=== PATIENT | female | born 1975 | race Caucasian/White ===

== ENCOUNTER → 2017-12-29 02:50 | Outpatient (RCR) | payer BC, SELFPAY ==
[2017-12-01] MEDS: Normal Saline Flush 10 ML SYR IVP (09:25)
[2017-12-01 09:36] LABS: Abs Immature Grans 0.03 k/cumm (0.0-0.09); Absolute Basophil Count 0.06 k/cumm (0.0-0.2); Absolute Eosinophil Count 0.27 k/cumm (0.0-0.7); Absolute Lymphocyte Count 1.38 k/cumm (1.2-3.4); Absolute Monocyte Count 0.69 k/cumm (0.11-0.7); Absolute Neutrophil Count 3.57 k/cumm (1.2-6.7); Eosinophils % 4.5; HCT 35.8 % (36.0-46.0); HGB 11.5 g/dL (12.0-15.5); Immature Grans % 0.5; Mean Corp. HGB Concentration 32.1 g/dL (32.0-36.0); Mean Corpuscular Hemoglobin 31.9 pg (27.0-33.0); Mean Corpuscular Volume 99.4 fL (80-95); Mean Platelet Volume 11.2 fL (8.0-11.0); Monocytes % 11.5; Neutrophils % 59.5; Platelet Count 191 x1000/uL (130-400); RBC Distribution Width 18.1 % (11.7-14.6)
[2017-12-01 09:48] LABS: ALT 41 U/L (12-78); AST 29 U/L (15-37); Albumin 3.3 g/dL (3.4-5.0); Alkaline Phosphatase 87 U/L (46-116); Anion Gap 6.9 mmol/L (3-11); BUN 10 mg/dL (7-18); Bilirubin, Total 0.4 mg/dL (0.2-1.0); CO2 27.1 mmol/L (21.0-32.0); CREATININE 1.03 mg/dL (0.55-1.02); Calcium 8.7 mg/dL (8.5-10.1); Chloride 106 mmol/L (98-107); Estimated GFR 58.21 (mL/min/1.73m2); Glucose 88 mg/dL (70-100); Potassium 3.7 mmol/L (3.5-5.1); Sodium 140 mmol/L (136-145); Total Protein 7.3 g/dL (6.4-8.2)
[2017-12-15 08:35] LABS: Absolute Basophil Count 0.04 k/cumm (0.0-0.2); Absolute Eosinophil Count 0.56 k/cumm (0.0-0.7); Absolute Lymphocyte Count 1.61 k/cumm (1.2-3.4); Absolute Monocyte Count 0.87 k/cumm (0.11-0.7); Absolute Neutrophil Count 4.14 k/cumm (1.2-6.7); Basophils % 0.5; Eosinophils % 7.7; HCT 36.6 % (36.0-46.0); Immature Grans % 1.4; Mean Corp. HGB Concentration 32.8 g/dL (32.0-36.0); Mean Corpuscular Hemoglobin 32.5 pg (27.0-33.0); Mean Corpuscular Volume 99.2 fL (80-95); Mean Platelet Volume 11.7 fL (8.0-11.0); Monocytes % 11.9; Neutrophils % 56.5; Platelet Count 108 x1000/uL (130-400); RBC 3.69 m/cumm (4.00-5.20); RBC Distribution Width 15.7 % (11.7-14.6); White Blood Cell Count 7.32 k/cumm (4.4-10.8)
[2017-12-15 08:58] LABS: ALT 53 U/L (12-78); AST 33 U/L (15-37); Albumin 3.5 g/dL (3.4-5.0); Alkaline Phosphatase 116 U/L (46-116); Anion Gap 9.3 mmol/L (3-11); BUN 13 mg/dL (7-18); Bilirubin, Total 0.5 mg/dL (0.2-1.0); CO2 25.7 mmol/L (21.0-32.0); CREATININE 1.08 mg/dL (0.55-1.02); Calcium 8.8 mg/dL (8.5-10.1); Chloride 104 mmol/L (98-107); Estimated GFR 55.11 (mL/min/1.73m2); Glucose 81 mg/dL (70-100); Potassium 4.1 mmol/L (3.5-5.1); Sodium 139 mmol/L (136-145); Total Protein 7.7 g/dL (6.4-8.2)
[2017-12-15] MEDS: Normal Saline Flush 10 ML SYR IVP (09:05)
[2017-12-29] MEDS: Normal Saline Flush 10 ML SYR IVP (08:05)
[2017-12-29 08:36] LABS: Abs Immature Grans 0.03 k/cumm (0.0-0.09); Absolute Basophil Count 0.03 k/cumm (0.0-0.2); Absolute Eosinophil Count 0.19 k/cumm (0.0-0.7); Absolute Lymphocyte Count 1.03 k/cumm (1.2-3.4); Basophils % 0.8; Eosinophils % 4.9; HCT 36.3 % (36.0-46.0); HGB 11.9 g/dL (12.0-15.5); Immature Grans % 0.8; Lymphocytes % 26.5; Mean Corp. HGB Concentration 32.8 g/dL (32.0-36.0); Mean Corpuscular Hemoglobin 32.8 pg (27.0-33.0); Mean Platelet Volume 10.7 fL (8.0-11.0); Monocytes % 20.6; Neutrophils % 46.4; Platelet Count 116 x1000/uL (130-400); RBC 3.63 m/cumm (4.00-5.20); RBC Distribution Width 14.9 % (11.7-14.6); White Blood Cell Count 3.88 k/cumm (4.4-10.8)
[2017-12-29 09:03] LABS: ALT 50 U/L (12-78); AST 36 U/L (15-37); Albumin 3.2 g/dL (3.4-5.0); Alkaline Phosphatase 111 U/L (46-116); Anion Gap 6.9 mmol/L (3-11); BUN 8 mg/dL (7-18); Bilirubin, Total 0.3 mg/dL (0.2-1.0); CO2 28.1 mmol/L (21.0-32.0); CREATININE 1.08 mg/dL (0.55-1.02); Calcium 8.7 mg/dL (8.5-10.1); Chloride 108 mmol/L (98-107); Estimated GFR 55.11 (mL/min/1.73m2); Ferritin 134 ng/mL (8-388); Glucose 72 mg/dL (70-100); Potassium 3.7 mmol/L (3.5-5.1); Sodium 143 mmol/L (136-145); Total Protein 7.1 g/dL (6.4-8.2)
[2017-12-29 09:32] LABS: Iron 69 ug/dL (50-175); Total Iron Binding Capacity 431 ug/dL (250-450); Transferrin Sat 16 % (15-50)
== END ==
LOC: INF 12-01 00:30
PROVIDERS: PCP Emergency Medicine; Visit Provider Internal Medicine Hematology & Oncology
DX: C18.0 Malignant neoplasm of cecum (principal); Z45.2 Encounter for adjustment and management of vascular access device; Z86.39 Personal history of other endocrine, nutritional and metabolic disease
CPT/HCPCS: 36591; 80053; 82728; 83540; 83550; 85025

== ENCOUNTER 2018-01-18 11:44 | Outpatient (REF) | payer BC, SELFPAY ==
[2018-01-18 12:32] LABS: ALT 42 U/L (12-78); AST 35 U/L (15-37); Albumin 2.7 g/dL (3.4-5.0); Alkaline Phosphatase 198 U/L (46-116); Anion Gap 9.8 mmol/L (3-11); BUN 13 mg/dL (7-18); CO2 23.2 mmol/L (21.0-32.0); CREATININE 0.88 mg/dL (0.55-1.02); Calcium 7.7 mg/dL (8.5-10.1); Chloride 109 mmol/L (98-107); Glucose 98 mg/dL (70-100); Potassium 3.6 mmol/L (3.5-5.1); Sodium 142 mmol/L (136-145); Total Protein 6.3 g/dL (6.4-8.2)
[2018-01-18 12:50] LABS: Bilirubin, Total 0.3 mg/dL (0.2-1.0)
== END 2018-01-18 12:04 ==
LOC: LBN 11:44
PROVIDERS: PCP Emergency Medicine; Visit Provider Internal Medicine Hematology & Oncology
DX: C18.0 Malignant neoplasm of cecum (principal)
CPT/HCPCS: 80053

== ENCOUNTER 2018-01-24 13:30 | Emergency (ER) | payer BC, SELFPAY ==
[2018-01-24 13:50] VITALS: BP 110/82; PULSE 65; RESP 16; TEMP 36.8; O2SAT 100
--- NOTE | 2018-01-24 14:19 | DI.CT_ITS ---
SYMPTOMS/DIAGNOSIS: LEFT RENAL COLIC, LEFT FLANK PAIN, GROSS HEMATURIA RENAL COLIC CT: A noncontrast enhanced examination was carried out according to the usual protocol. Nonobstructing bilateral nephrolithiasis is demonstrated. There is no evidence of ureterolithiasis. The bladder is incompletely distended. No bladder calculi are apparent. When compared with an examination dating back to 04/10/2017, again noted is the increased density in the fat adjacent to the lateral border of the right kidney and right hepatic lobe, unchanged. The visualized portions of the liver appear intact. The gallbladder is collapsed. No stones or ductal dilatation are seen. The pancreas and spleen are unremarkable. The adrenals appear unremarkable. The patient is status post colectomy. There is a considerable quantity of fluid and particulate matter in the stomach. There is no evidence of bowel obstruction and a right lower quadrant ileostomy is identified. There is no evidence of free air or free fluid in the intraperitoneal space. The uterus is intact. There is no pelvic mass. There is no evidence of abdominal or pelvic adenopathy. A caval umbrella is identified in place, its tip ending at the level of the L1-2 interspace. Allowing for the absence of contrast material, there is no evidence of an aortic aneurysm. No acute bony abnormality is seen. SUMMARY: Bilateral nonobstructing nephrolithiasis is noted. The patient is status post colectomy and a right lower quadrant ileostomy is identified. A caval umbrella appears to be in good position.
--- NOTE | 2018-01-24 14:19 | W.ED.GENAD ---
Discharge Plan Discharge Details Chief Complaint: FlankPain Primary Care Provider: Nic Wilks ED Provider: Luis Maneul Green Home Meds and New Rx's Prescriptions: No Action tramadol 50 MG tablet 1 tab PO Q6H PRN RF: 0 ondansetron HCl [Zofran] 8 MG tablet 8 mg PO Q8H PRN RF: 0 mupirocin 22 GM ointment 22 gm Topical TID PRNQty: 1 RF: 0 acetaminophen [Tylenol] 325 MG tablet 3 tab PO Q6H PRN RF: 0 dronabinol [Marinol] 5 MG capsule 5 mg PO bid prn RF: 0 prochlorperazine maleate 10 MG tablet 10 mg PO Q6H PRN RF: 0 loperamide 1 MG/5 ML liquid 10 ml PO 2x daily after meals RF: 0 lorazepam 0.5 MG tablet 1 - 2 tab PO Q4H PRN RF: 0 cyanocobalamin (vitamin B-12) 1,000 MCG/1 ML solution 1,000 mcg IJ MONTHLY Qty: 3 RF: 4 syringe with needle 1 EACH syringe 1 ea Miscellaneous as directed Qty: 10 RF: 1 rivaroxaban [Xarelto] 15 MG tablet 20 mg PO DAILY Qty: 90 RF: 3 Medical Decision Making 42yof presents with days of L flank pain, intermittent, and resolved by time of arrival. She is well appearing, pleasant in no acute distress, vital signs unremarkable. She is finishing chemotherapy for colon ca with planned reversal of ostomy on 03/04. Diagnosis today would include acute cystitis, pyelonephritis, renal colic. Patient had screening laboratories and urinalysis obtained. She was referred for CT of the abdomen and pelvis, renal colic study. Patient has had wide-ranging white blood cell counts during her course of chemotherapy and today the white blood cell count is 17, unusual for her as she is administered G-CSF. Chemistries stable, urinalysis with red blood cells but no evidence of infection. Patient remained pain-free. Imaging studies reveal unchanged appearance of left kidney, bilateral nephrolithiasis without evidence of obstructing or ureteral stone. Patient remains pain-free. She does not appear to have evidence of infection. She is stable and appropriate for discharge to home following what is likely been a recently passed left ureteral calculus HPI General Mode of arrival: ambulatory. Date/Time Provider Initiated Documentation: 01/24/18 14:06. Limitations to Documentation: no limitations. Information obtained by: patient. History of Present Illness 42 year old F presents to the emergency department with the chief complaint of L flank pain, described as moderate and similar to prior episodes, Quality is described as stabbing, and is localized to the left. Patient reports no radiation. Patient started experiencing this day(s) and it has been now resolved. No relieving factors improve symptom(s), No exacerbating factors reported . Patient notes no other symptoms.. Related Data Home Medications Medication Instructions Recorded Confirmed tramadol 1 tab PO Q6H PRN tab-cap 07/19/17 01/24/18 acetaminophen [Tylenol] 3 tab PO Q6H PRN 09/19/17 01/24/18 cyanocobalamin (vitamin B-12) 1,000 mcg IJ MONTHLY #3 vial 09/19/17 01/24/18 dronabinol [Marinol] 5 mg PO bid prn 09/19/17 01/24/18 loperamide 10 ml PO 2x daily after meals 09/19/17 01/24/18 lorazepam 1 - 2 tab PO Q4H PRN 09/19/17 01/24/18 mupirocin 22 gm TOPICAL TID PRN #1 tube 09/19/17 01/24/18 ondansetron HCl [Zofran] 8 mg PO Q8H PRN tab-cap 09/19/17 01/24/18 prochlorperazine maleate 10 mg PO Q6H PRN tab-cap 09/19/17 01/24/18 syringe with needle #10 ea 09/19/17 rivaroxaban [Xarelto] 20 mg PO DAILY #90 tab 11/14/17 01/24/18 Previous Rx's Medication Instructions Recorded cyanocobalamin (vitamin B-12) 1,000 mcg IJ MONTHLY #3 vial 09/19/17 syringe with needle #10 ea 09/19/17 rivaroxaban [Xarelto] 20 mg PO DAILY #90 tab 11/14/17 Allergies Allergy/AdvReac Type Severity Reaction Status Date / Time No Known Drug Allergies Allergy Unverified 01/24/18 13:57 General Stated Complaint: FlankPain ESTHELA: 3 Review of Systems Review of Systems 6 reviewed and otherwise neg PFSH Family History Mother No problems noted. Father No problems noted. Sister No problems noted. Brother No problems noted. Brother No problems noted. Grandfather Diabetes Heart disease Cerebrovascular accident Grandfather No problems noted. Grandmother Essential hypertension Personal history of malignant neoplasm Grandmother No problems noted. Medical History Brain aneurysm Crohn's disease in remission Menorrhagia Social History Smoking/Tobacco Use Status: Former Tobacco Use Surgical History Appendectomy EGD - MAC (07/10/16) Ligation of fallopian tube Course Vital Signs Temperature 36.8 C 01/24/18 13:50 Pulse 65 01/24/18 13:50 Respiratory Rate 16 01/24/18 13:50 Blood Pressure 110/82 01/24/18 13:50 Pulse Oximetry 100 01/24/18 13:50 Temperature 36.8 C 01/24/18 13:50 Temperature Source Skin 01/24/18 13:50 Pulse 65 01/24/18 13:50 Respiratory Rate 16 01/24/18 13:50 Respiratory Effort 01/24/18 13:57 Blood Pressure 110/82 01/24/18 13:50 Pulse Oximetry 100 01/24/18 13:50 Oxygen Delivery Method Room Air 01/24/18 13:50 Oxygen Flow Rate 0 01/24/18 13:50 Pain Level 8 01/24/18 13:50
--- NOTE | 2018-01-24 14:22 | ED.GENADUL_ITS ---
Discharge Plan Discharge Details Chief Complaint: FlankPain Primary Care Provider: Nic Wilks ED Provider: Luis Manuel Green Home Meds and New Rx's Prescriptions: No Action tramadol 50 MG tablet 1 tab PO Q6H PRN RF: 0 ondansetron HCl [Zofran] 8 MG tablet 8 mg PO Q8H PRN RF: 0 mupirocin 22 GM ointment 22 gm Topical TID PRNQty: 1 RF: 0 acetaminophen [Tylenol] 325 MG tablet 3 tab PO Q6H PRN RF: 0 dronabinol [Marinol] 5 MG capsule 5 mg PO bid prn RF: 0 prochlorperazine maleate 10 MG tablet 10 mg PO Q6H PRN RF: 0 loperamide 1 MG/5 ML liquid 10 ml PO 2x daily after meals RF: 0 lorazepam 0.5 MG tablet 1 - 2 tab PO Q4H PRN RF: 0 cyanocobalamin (vitamin B-12) 1,000 MCG/1 ML solution 1,000 mcg IJ MONTHLY Qty: 3 RF: 4 syringe with needle 1 EACH syringe 1 ea Miscellaneous as directed Qty: 10 RF: 1 rivaroxaban [Xarelto] 15 MG tablet 20 mg PO DAILY Qty: 90 RF: 3 Medical Decision Making 42yof presents with days of L flank pain, intermittent, and resolved by time of arrival. She is well appearing, pleasant in no acute distress, vital signs unremarkable. She is finishing chemotherapy for colon ca with planned reversal of ostomy on . Diagnosis today would include acute cystitis, pyelonephritis, renal colic. Patient had screening laboratories and urinalysis obtained. She was referred for CT of the abdomen and pelvis, renal colic study. Patient has had wide-ranging white blood cell counts during her course of chemotherapy and today the white blood cell count is 17, unusual for her as she is administered G-CSF. Chemistries stable, urinalysis with red blood cells but no evidence of infection. Patient remained pain-free. Imaging studies reveal unchanged appearance of left kidney, bilateral nephrolithiasis without evidence of obstructing or ureteral stone. Patient remains pain-free. She does not appear to have evidence of infection. She is stable and appropriate for discharge to home following what is likely been a recently passed left ureteral calculus HPI General Mode of arrival: ambulatory . Date/Time Provider Initiated Documentation: 01/24/18 14:06 . Limitations to Documentation: no limitations . Information obtained by: patient . History of Present Illness 42 year old F presents to the emergency department with the chief complaint of L flank pain, described as moderate and similar to prior episodes, Quality is described as stabbing, and is localized to the left. Patient reports no radiation. Patient started experiencing this day(s) and it has been now resolved. No relieving factors improve symptom(s), No exacerbating factors reported . Patient notes no other symptoms.. Related Data Home Medications Medication Instructions Recorded Confirmed tramadol 1 tab PO Q6H PRN tab-cap 07/19/17 01/24/18 acetaminophen [Tylenol] 3 tab PO Q6H PRN 09/19/17 01/24/18 cyanocobalamin (vitamin B-12) 1,000 mcg IJ MONTHLY #3 vial 09/19/17 01/24/18 dronabinol [Marinol] 5 mg PO bid prn 09/19/17 01/24/18 loperamide 10 ml PO 2x daily after meals 09/19/17 01/24/18 lorazepam 1 - 2 tab PO Q4H PRN 09/19/17 01/24/18 mupirocin 22 gm TOPICAL TID PRN #1 tube 09/19/17 01/24/18 ondansetron HCl [Zofran] 8 mg PO Q8H PRN tab-cap 09/19/17 01/24/18 prochlorperazine maleate 10 mg PO Q6H PRN tab-cap 09/19/17 01/24/18 syringe with needle #10 ea 09/19/17 rivaroxaban [Xarelto] 20 mg PO DAILY #90 tab 11/14/17 01/24/18 Previous Rx's Medication Instructions Recorded cyanocobalamin (vitamin B-12) 1,000 mcg IJ MONTHLY #3 vial 09/19/17 syringe with needle #10 ea 09/19/17 rivaroxaban [Xarelto] 20 mg PO DAILY #90 tab 11/14/17 Allergies Allergy/AdvReac Type Severity Reaction Status Date / Time No Known Drug Allergies Allergy Unverified 01/24/18 13:57 General Stated Complaint: FlankPain ESTHELA: 3 Review of Systems Review of Systems 6 reviewed and otherwise neg PFSH Family History Mother No problems noted. Father No problems noted. Sister No problems noted. Brother No problems noted. Brother No problems noted. Grandfather Diabetes Heart disease Cerebrovascular accident Grandfather No problems noted. Grandmother Essential hypertension Personal history of malignant neoplasm Grandmother No problems noted. Medical History Brain aneurysm Crohn's disease in remission Menorrhagia Social History Smoking/Tobacco Use Status: Former Tobacco Use Surgical History Appendectomy EGD - MAC (07/10/16) Ligation of fallopian tube Course Vital Signs Temperature 36.8 C 01/24/18 13:50 Pulse 65 01/24/18 13:50 Respiratory Rate 16 01/24/18 13:50 Blood Pressure 110/82 01/24/18 13:50 Pulse Oximetry 100 01/24/18 13:50 Temperature 36.8 C 01/24/18 13:50 Temperature Source Skin 01/24/18 13:50 Pulse 65 01/24/18 13:50 Respiratory Rate 16 01/24/18 13:50 Respiratory Effort 01/24/18 13:57 Blood Pressure 110/82 01/24/18 13:50 Pulse Oximetry 100 01/24/18 13:50 Oxygen Delivery Method Room Air 01/24/18 13:50 Oxygen Flow Rate 0 01/24/18 13:50 Pain Level 8 01/24/18 13:50
[2018-01-24 14:24] LABS: Bilirubin Negative (Negative); Blood Large (Negative); Clarity Clear; Glucose Negative (Negative); Ketones Negative (Negative); Leukocyte Esterase Negative (Negative); Nitrite Negative (Negative); Specific Gravity 1.025 (1.005-1.025); Urobilinogen 0.2 EU/dL (Up TO 0.2); pH 5.5 (5-8)
[2018-01-24 14:38] LABS: Bacteria Few HPF (Negative); C & S Indicated? No; Casts 3-5 Coarse Granular LPF (Negative); Crystals Negative HPF (Negative); Epithelial Cells Few HPF (Negative); Mucus Moderate (Negative); RBC >50 (0-2)
[2018-01-24 14:47] LABS: HCT 35.9 % (36.0-46.0); Mean Corp. HGB Concentration 33.4 g/dL (32.0-36.0); Mean Corpuscular Hemoglobin 33.1 pg (27.0-33.0); Mean Corpuscular Volume 98.9 fL (80-95); Mean Platelet Volume 11.1 fL (8.0-11.0); Platelet Count 109 x1000/uL (130-400); RBC 3.63 m/cumm (4.00-5.20); RBC Distribution Width 15.5 % (11.7-14.6)
[2018-01-24 14:51] LABS: Anion Gap 7.4 mmol/L (3-11); BUN 13 mg/dL (7-18); CO2 27.6 mmol/L (21.0-32.0); Calcium 8.9 mg/dL (8.5-10.1); Chloride 104 mmol/L (98-107); Estimated GFR 53.96 (mL/min/1.73m2); Glucose 105 mg/dL (70-100); Potassium 3.6 mmol/L (3.5-5.1); Sodium 139 mmol/L (136-145)
[2018-01-24 15:13] LABS: Absolute Neutrophil Count 11.09 k/cumm (1.2-6.7)
[2018-01-24 15:14] LABS: Absolute Basophil Count 0.35 k/cumm (0.0-0.2); Absolute Lymphocyte Count 2.99 k/cumm (1.2-3.4); Absolute Monocyte Count 1.06 k/cumm (0.11-0.7); Diff Comment Manual Differential; Nucleated RBC 1 /100WBC; RBC Morphology Normal
== END 2018-01-24 16:38 | disposition home or self-care (01) ==
PROVIDERS: Emergency Provider Emergency Medicine; PCP Emergency Medicine
DX: N23 Unspecified renal colic (principal); Z87.442 Personal history of urinary calculi; C18.9 Malignant neoplasm of colon, unspecified; Z79.899 Other long term (current) drug therapy
CPT/HCPCS: 36415; 80048; 99284; 74176; 81003; 81015; 85025

== ENCOUNTER 2018-01-26 00:42 | Outpatient (RCR) | payer BC, SELFPAY ==
[2018-01-12] MEDS: Normal Saline Flush 10 ML SYR IVP (07:30)
[2018-01-12 07:56] LABS: Abs Immature Grans 1.97 k/cumm (0.0-0.09); HCT 38.6 % (36.0-46.0); Mean Corp. HGB Concentration 33.7 g/dL (32.0-36.0); Mean Corpuscular Hemoglobin 32.8 pg (27.0-33.0); Mean Corpuscular Volume 97.5 fL (80-95); Mean Platelet Volume 11.1 fL (8.0-11.0); RBC 3.96 m/cumm (4.00-5.20); RBC Distribution Width 15.1 % (11.7-14.6); White Blood Cell Count 12.53 k/cumm (4.4-10.8)
[2018-01-12 08:12] LABS: ALT 63 U/L (12-78); AST 51 U/L (15-37); Albumin 3.5 g/dL (3.4-5.0); Alkaline Phosphatase 150 U/L (46-116); Anion Gap 11.6 mmol/L (3-11); BUN 14 mg/dL (7-18); Bilirubin, Total 0.4 mg/dL (0.2-1.0); CO2 25.4 mmol/L (21.0-32.0); Calcium 9.1 mg/dL (8.5-10.1); Chloride 103 mmol/L (98-107); Estimated GFR 53.96 (mL/min/1.73m2); Glucose 93 mg/dL (70-100); Potassium 3.3 mmol/L (3.5-5.1); Sodium 140 mmol/L (136-145); Total Protein 7.9 g/dL (6.4-8.2)
[2018-01-12 08:30] LABS: Platelet Count 90 x1000/uL (130-400)
[2018-01-12 08:31] LABS: Absolute Neutrophil Count 6.89 k/cumm (1.2-6.7)
[2018-01-12 08:32] LABS: Absolute Eosinophil Count 0.25 k/cumm (0.0-0.7); Absolute Lymphocyte Count 2.63 k/cumm (1.2-3.4); Atypical Lymphocytes % 5; Diff Comment Manual Differential; RBC Morphology Normal
[2018-01-26] MEDS: Normal Saline Flush 10 ML SYR IVP (07:50)
[2018-01-26 08:26] LABS: Abs Immature Grans 4.36 k/cumm (0.0-0.09); HCT 36.5 % (36.0-46.0); Mean Corp. HGB Concentration 32.9 g/dL (32.0-36.0); Mean Corpuscular Hemoglobin 32.9 pg (27.0-33.0); Platelet Count 115 x1000/uL (130-400); RBC 3.65 m/cumm (4.00-5.20); RBC Distribution Width 15.9 % (11.7-14.6); White Blood Cell Count 22.17 k/cumm (4.4-10.8)
[2018-01-26 08:42] LABS: ALT 81 U/L (12-78); AST 59 U/L (15-37); Albumin 3.3 g/dL (3.4-5.0); Alkaline Phosphatase 181 U/L (46-116); Anion Gap 10.4 mmol/L (3-11); BUN 10 mg/dL (7-18); Bilirubin, Total 0.3 mg/dL (0.2-1.0); CO2 25.6 mmol/L (21.0-32.0); CREATININE 1.09 mg/dL (0.55-1.02); Calcium 9.1 mg/dL (8.5-10.1); Chloride 105 mmol/L (98-107); Estimated GFR 54.53 (mL/min/1.73m2); Glucose 82 mg/dL (70-100); Potassium 4.1 mmol/L (3.5-5.1); Sodium 141 mmol/L (136-145); Total Protein 7.4 g/dL (6.4-8.2)
[2018-01-26 09:00] LABS: Absolute Eosinophil Count 0.22 k/cumm (0.0-0.7); Absolute Lymphocyte Count 2.44 k/cumm (1.2-3.4); Absolute Monocyte Count 1.77 k/cumm (0.11-0.7); Absolute Neutrophil Count 14.41 k/cumm (1.2-6.7)
[2018-01-26 09:01] LABS: Diff Comment Manual Differential; Polychromasia Present
[2018-01-26 09:02] LABS: Poikilocytes 1+
[2018-01-26 09:04] LABS: Nucleated RBC 1 /100WBC
== END 2018-01-28 23:59 | disposition home or self-care (01) ==
LOC: INF 00:42
PROVIDERS: PCP Emergency Medicine; Visit Provider Internal Medicine Hematology & Oncology
DX: C18.0 Malignant neoplasm of cecum (principal); Z45.2 Encounter for adjustment and management of vascular access device
CPT/HCPCS: 36591; 80053; 85025

== ENCOUNTER 2018-02-09 01:15 | Outpatient (RCR) | payer BC, SELFPAY ==
[2018-02-09] MEDS: Normal Saline Flush 10 ML SYR IVP (08:15)
[2018-02-09] MEDS: Heparin 500 UNITS/5 ML SYRINGE IV (08:15)
[2018-02-09 08:34] LABS: Abs Immature Grans 0.04 k/cumm (0.0-0.09); Absolute Basophil Count 0.03 k/cumm (0.0-0.2); Absolute Eosinophil Count 0.09 k/cumm (0.0-0.7); Absolute Lymphocyte Count 1.07 k/cumm (1.2-3.4); Absolute Monocyte Count 0.89 k/cumm (0.11-0.7); Absolute Neutrophil Count 2.58 k/cumm (1.2-6.7); Basophils % 0.6; Eosinophils % 1.9; HCT 35.1 % (36.0-46.0); HGB 11.7 g/dL (12.0-15.5); Immature Grans % 0.9; Lymphocytes % 22.8; Mean Corp. HGB Concentration 33.3 g/dL (32.0-36.0); Mean Corpuscular Hemoglobin 32.7 pg (27.0-33.0); Mean Platelet Volume 10.7 fL (8.0-11.0); Monocytes % 18.9; Neutrophils % 54.9; Platelet Count 140 x1000/uL (130-400); RBC 3.58 m/cumm (4.00-5.20); RBC Distribution Width 16.4 % (11.7-14.6)
[2018-02-09 08:47] LABS: ALT 46 U/L (12-78); AST 34 U/L (15-37); Albumin 3.4 g/dL (3.4-5.0); Alkaline Phosphatase 119 U/L (46-116); Anion Gap 9.4 mmol/L (3-11); BUN 10 mg/dL (7-18); Bilirubin, Total 0.6 mg/dL (0.2-1.0); CO2 25.6 mmol/L (21.0-32.0); CREATININE 1.02 mg/dL (0.55-1.02); Calcium 9.1 mg/dL (8.5-10.1); Chloride 103 mmol/L (98-107); Estimated GFR 58.87 (mL/min/1.73m2); Glucose 88 mg/dL (70-100); Sodium 138 mmol/L (136-145); Total Protein 7.6 g/dL (6.4-8.2)
== END 2018-02-28 23:59 | disposition home or self-care (01) ==
LOC: INF 01:15
PROVIDERS: PCP Emergency Medicine; Visit Provider Internal Medicine Hematology & Oncology
DX: C18.0 Malignant neoplasm of cecum (principal); Z45.2 Encounter for adjustment and management of vascular access device
CPT/HCPCS: 36591; 80053; 85025

== ENCOUNTER 2018-03-02 10:31 | Outpatient (CLI) | payer BC, SELFPAY ==
[2018-03-05 10:10] LABS: CEA <0.5 ng/ml
== END 2018-03-02 10:51 ==
PROVIDERS: PCP Emergency Medicine; Visit Provider Internal Medicine Hematology & Oncology
DX: C18.2 Malignant neoplasm of ascending colon (principal)
CPT/HCPCS: 36415; 82378

== ENCOUNTER 2018-03-30 11:27 | Outpatient (CLI) | payer BC, SELFPAY ==
[2018-03-30 12:34] LABS: Vitamin B12 363 pg/mL (193-986)
== END 2018-03-30 11:47 ==
PROVIDERS: PCP Emergency Medicine; Visit Provider Internal Medicine Hematology & Oncology
DX: C18.2 Malignant neoplasm of ascending colon (principal); G62.9 Polyneuropathy, unspecified
CPT/HCPCS: 36415; 82607

== ENCOUNTER 2018-06-21 00:58 | Outpatient (CLI) | payer OTHER, SELFPAY ==
[2018-06-21 17:10] LABS: Abs Immature Grans 0.02 k/cumm (0.0-0.09); Absolute Basophil Count 0.04 k/cumm (0.0-0.2); Absolute Eosinophil Count 0.11 k/cumm (0.0-0.7); Absolute Lymphocyte Count 2.13 k/cumm (1.2-3.4); Absolute Monocyte Count 0.64 k/cumm (0.11-0.7); Absolute Neutrophil Count 4.59 k/cumm (1.2-6.7); Basophils % 0.5; Eosinophils % 1.5; HCT 37.6 % (36.0-46.0); HGB 12.2 g/dL (12.0-15.5); Immature Grans % 0.3; Lymphocytes % 28.3; Mean Corp. HGB Concentration 32.4 g/dL (32.0-36.0); Mean Corpuscular Hemoglobin 26.8 pg (27.0-33.0); Mean Corpuscular Volume 82.5 fL (80-95); Mean Platelet Volume 10.7 fL (8.0-11.0); Monocytes % 8.5; Neutrophils % 60.9; Platelet Count 277 x1000/uL (130-400); RBC 4.56 m/cumm (4.00-5.20); RBC Distribution Width 14.2 % (11.7-14.6); White Blood Cell Count 7.53 k/cumm (4.4-10.8)
[2018-06-21 17:51] LABS: ALT 22 U/L (12-78); AST 19 U/L (15-37); Albumin 3.6 g/dL (3.4-5.0); Alkaline Phosphatase 75 U/L (46-116); Anion Gap 9.9 mmol/L (3-11); BUN 13 mg/dL (7-18); Bilirubin, Total 0.6 mg/dL (0.2-1.0); CO2 28.1 mmol/L (21.0-32.0); Calcium 9.3 mg/dL (8.5-10.1); Chloride 105 mmol/L (98-107); Estimated GFR 53.71 (mL/min/1.73m2); Glucose 101 mg/dL (70-100); Potassium 3.8 mmol/L (3.5-5.1); Sodium 143 mmol/L (136-145); Total Protein 8.1 g/dL (6.4-8.2)
[2018-06-21 20:23] LABS: ALT 22 U/L (12-78); AST 21 U/L (15-37); Albumin 3.6 g/dL (3.4-5.0); Alkaline Phosphatase 77 U/L (46-116); Bilirubin, Direct 0.18 mg/dL (0.00-0.20); Bilirubin, Total 0.6 mg/dL (0.2-1.0); C-Reactive Protein 0.06 mg/dL (0.0-0.3); Total Protein 8.2 g/dL (6.4-8.2)
[2018-06-25 11:39] LABS: CEA 1.3 ng/ml
== END 2018-06-21 01:18 ==
PROVIDERS: PCP Emergency Medicine; Referring Provider Internal Medicine Hematology & Oncology; Visit Provider Internal Medicine Gastroenterology
DX: K50.90 Crohn's disease, unspecified, without complications (principal); C18.2 Malignant neoplasm of ascending colon
CPT/HCPCS: 36415; 80053; 80076; 82378; 85025; 86140

== ENCOUNTER 2018-07-24 09:29 | Outpatient (CLI) | payer OTHER, SELFPAY ==
[2018-07-24 11:53] LABS: Abs Immature Grans 0.02 k/cumm (0.0-0.09); Absolute Basophil Count 0.02 k/cumm (0.0-0.2); Absolute Eosinophil Count 0.02 k/cumm (0.0-0.7); Absolute Lymphocyte Count 1.97 k/cumm (1.2-3.4); Absolute Monocyte Count 0.72 k/cumm (0.11-0.7); Absolute Neutrophil Count 6.56 k/cumm (1.2-6.7); Basophils % 0.2; Eosinophils % 0.2; HCT 36.2 % (36.0-46.0); HGB 11.6 g/dL (12.0-15.5); Immature Grans % 0.2; Lymphocytes % 21.2; Mean Corpuscular Hemoglobin 26.4 pg (27.0-33.0); Mean Corpuscular Volume 82.3 fL (80-95); Mean Platelet Volume 10.8 fL (8.0-11.0); Monocytes % 7.7; Neutrophils % 70.5; Platelet Count 223 x1000/uL (130-400); RBC Distribution Width 17.2 % (11.7-14.6); White Blood Cell Count 9.31 k/cumm (4.4-10.8)
[2018-07-24 12:35] LABS: ALT 24 U/L (12-78); AST 19 U/L (15-37); Albumin 3.8 g/dL (3.4-5.0); Alkaline Phosphatase 69 U/L (46-116); Bilirubin, Direct 0.21 mg/dL (0.00-0.20); Bilirubin, Total 0.7 mg/dL (0.2-1.0); C-Reactive Protein 0.11 mg/dL (0.0-0.3); Total Protein 7.6 g/dL (6.4-8.2)
[2018-07-24 13:11] LABS: Vitamin B12 333 pg/mL (193-986)
== END 2018-07-24 09:49 ==
PROVIDERS: Internal Medicine Gastroenterology; PCP Emergency Medicine; Visit Provider Internal Medicine Hematology & Oncology
DX: K50.90 Crohn's disease, unspecified, without complications (principal); C18.2 Malignant neoplasm of ascending colon; G62.9 Polyneuropathy, unspecified
CPT/HCPCS: 36415; 80076; 82607; 85025; 86140

== ENCOUNTER 2018-10-01 03:37 | Outpatient (CLI) | payer OTHER, SELFPAY ==
[2018-10-01 08:38] LABS: Abs Immature Grans 0.01 k/cumm (0.0-0.09); Absolute Basophil Count 0.01 k/cumm (0.0-0.2); Absolute Eosinophil Count 0.13 k/cumm (0.0-0.7); Absolute Lymphocyte Count 1.53 k/cumm (1.2-3.4); Absolute Monocyte Count 0.49 k/cumm (0.11-0.7); Absolute Neutrophil Count 4.13 k/cumm (1.2-6.7); Basophils % 0.2; Eosinophils % 2.1; HCT 39.3 % (36.0-46.0); HGB 12.7 g/dL (12.0-15.5); Immature Grans % 0.2; Lymphocytes % 24.3; Mean Corp. HGB Concentration 32.3 g/dL (32.0-36.0); Mean Corpuscular Hemoglobin 28.3 pg (27.0-33.0); Mean Corpuscular Volume 87.7 fL (80-95); Monocytes % 7.8; Neutrophils % 65.4; Platelet Count 216 x1000/uL (130-400); RBC 4.48 m/cumm (4.00-5.20)
[2018-10-01 08:50] LABS: ALT 20 U/L (12-78); AST 17 U/L (15-37); Albumin 3.5 g/dL (3.4-5.0); Alkaline Phosphatase 61 U/L (46-116); Anion Gap 9.6 mmol/L (3-11); BUN 15 mg/dL (7-18); Bilirubin, Total 0.6 mg/dL (0.2-1.0); CO2 25.4 mmol/L (21.0-32.0); CREATININE 1.08 mg/dL (0.55-1.02); Calcium 9.1 mg/dL (8.5-10.1); Chloride 101 mmol/L (98-107); Estimated GFR 54.86 (mL/min/1.73m2); Glucose 110 mg/dL (70-100); Potassium 4.3 mmol/L (3.5-5.1); Sodium 136 mmol/L (136-145); Total Protein 7.6 g/dL (6.4-8.2)
[2018-10-02 10:27] LABS: CEA 1.6 ng/ml
== END 2018-10-01 03:57 ==
PROVIDERS: Nurse Practitioner Adult Health; PCP Emergency Medicine; Visit Provider Internal Medicine Hematology & Oncology
DX: C18.0 Malignant neoplasm of cecum (principal); K50.90 Crohn's disease, unspecified, without complications
CPT/HCPCS: 36415; 80053; 82378; 85025

== ENCOUNTER 2018-12-26 15:25 | Outpatient (REF) | payer OTHER, SELFPAY ==
[2018-12-26 20:07] LABS: Bilirubin Negative (Negative); Blood Trace-intact (Negative); Clarity Clear (Clear); Glucose Negative (Negative); Ketones Negative (Negative); Leukocyte Esterase Negative (Negative); Nitrite Negative (Negative); Urobilinogen 0.2 EU/dL (Up TO 0.2)
[2018-12-26 20:38] LABS: Bacteria Few HPF (Negative); C & S Indicated? No; Casts Negative LPF (Negative); Crystals Negative HPF (Negative); Epithelial Cells Few HPF (Negative); Mucus Negative (Negative); Other Cells Negative (Negative); WBC Negative HPF (0-5)
== END 2018-12-26 15:45 ==
LOC: LBN 15:25
PROVIDERS: PCP Emergency Medicine; Visit Provider Emergency Medicine
DX: R31.9 Hematuria, unspecified (principal)
CPT/HCPCS: 81003; 81015

== ENCOUNTER 2018-12-27 00:47 | Outpatient (CLI) | payer OTHER, SELFPAY ==
--- NOTE | 2018-12-27 09:41 | DI.US_ITS ---
SYMPTOM/DIAGNOSIS: FLANK PAIN R10.9, UNSPECIFIED ABD PAIN. RENAL ULTRASOUND: Routine examination was performed. The right kidney measures 10.7 cm long The left kidney measures 10.5 cm long. No renal mass, calculus or obstruction is seen. There is normal and symmetric blood flow to the kidneys. The pre-void urinary bladder volume is 190 cc. Both ureteral jets were seen. The bladder wall appeared smooth. No intraluminal masses are present. :Post void urinary bladder volume is 5 cm. Note is made of an enlarged left ovary measuring 7.1 x 4.6 x 5.6 cm Arterial and venous flow is seen in the left ovary. The dominant follicle is 1.6 cm IMPRESSION: 1. No evidence of a renal mass, calculus or obstruction. 2. Enlarged left ovary. Follow up is recommended. This may include a pelvic ultrasound and/or an MRI pelvis.
== END 2018-12-27 01:07 ==
PROVIDERS: PCP Emergency Medicine; Visit Provider Emergency Medicine
DX: R10.32 Left lower quadrant pain (principal); N83.8 Other noninflammatory disorders of ovary, fallopian tube and broad ligament
CPT/HCPCS: 76770

== ENCOUNTER 2019-01-02 11:27 | Outpatient (REF) | payer OTHER, SELFPAY ==
--- NOTE | 2019-01-02 09:56 | PAPFT_PTH ---
PATIENT: Hali Xie LOC: [facility] U#:[id number] AGE/SX: 43/F ROOM: RE01/02/[address]: Erin Ochoa NP : 1975 BED: DIS: 01/02/2019 SPEC #: [id number] RECD: 01/02/19 12:47 STATUS: DARIUS RERae #: [id number] LUCY: 01/02/19 09:[address]: Erin Ochoa NP DEPT: [facility] Cytology RECD BY: Lindsey Castro ENTERED: 01/02/19 12:48 SP TYPE: PAPFT OTHR DR: Nic Wilks, DO Tissues: 1 - CX/ENDOCX FOR PAP SMEARS Procedures: PAP THIN PREP/UVM Screening HPV DNA PROBE Comments: [id number]
== END 2019-01-02 11:47 ==
LOC: LBN 11:27
PROVIDERS: PCP Emergency Medicine; Visit Provider Nurse Practitioner Women's Health
DX: Z12.4 Encounter for screening for malignant neoplasm of cervix (principal); Z11.51 Encounter for screening for human papillomavirus (HPV)
CPT/HCPCS: 88142; 87624

== ENCOUNTER 2019-01-03 03:55 | Outpatient (CLI) | payer OTHER, SELFPAY ==
--- NOTE | 2019-01-03 07:49 | DI.US_ITS ---
SYMPTOM/DIAGNOSIS: LT OVARIABN CYST N83.202 PELVIC ULTRASOUND: 01/03 Pelvic ultrasound was performed transabdominally and transvaginally. Please see the accompanying data sheet for measurements of the pelvic structures. The uterus is unremarkable in appearance. Endometrial stripe is about 3 mm in thickness and appears homogeneous. There is an apparent left ovarian mass which is of mixed but predominantly solid. echogenicity measuring up to about 6 cm in diameter, 6.1 x 5.1 x 4.2 cm. Minimal internal increased vascularity is noted. Right ovary is unremarkable in appearance. No free fluid identified in the cul de sac. Limited scanning of the kidneys is unremarkable. CONCLUSION: Left ovarian mass, mixed echogenicity but predominantly solid. The findings are indeterminate but the possibility of malignancy would have to be raised. Additional evaluation with pelvic MRI may be considered.
== END 2019-01-03 04:15 ==
PROVIDERS: PCP Emergency Medicine; Visit Provider Nurse Practitioner Women's Health
DX: N83.292 Other ovarian cyst, left side (principal); D39.12 Neoplasm of uncertain behavior of left ovary
CPT/HCPCS: 76830; 76856

== ENCOUNTER 2019-01-04 10:08 | Outpatient (CLI) | payer OTHER, SELFPAY ==
[2019-01-04 10:36] LABS: Abs Immature Grans 0.01 k/cumm (0.0-0.09); Absolute Basophil Count 0.02 k/cumm (0.0-0.2); Absolute Eosinophil Count 0.06 k/cumm (0.0-0.7); Absolute Lymphocyte Count 1.87 k/cumm (1.2-3.4); Absolute Monocyte Count 0.56 k/cumm (0.11-0.7); Absolute Neutrophil Count 4.27 k/cumm (1.2-6.7); Basophils % 0.3; Eosinophils % 0.9; HCT 42.2 % (36.0-46.0); Immature Grans % 0.1; Lymphocytes % 27.5; Mean Corp. HGB Concentration 33.2 g/dL (32.0-36.0); Mean Corpuscular Hemoglobin 30.2 pg (27.0-33.0); Mean Corpuscular Volume 90.9 fL (80-95); Monocytes % 8.2; Platelet Count 256 x1000/uL (130-400); RBC 4.64 m/cumm (4.00-5.20); RBC Distribution Width 14.8 % (11.7-14.6); White Blood Cell Count 6.79 k/cumm (4.4-10.8)
[2019-01-04 11:13] LABS: Estimated GFR 53.71 (mL/min/1.73m2)
[2019-01-04 11:18] LABS: ALT 26 U/L (14-59); AST 21 U/L (15-37); Alkaline Phosphatase 57 U/L (46-116); Bilirubin, Direct 0.16 mg/dL (0.00-0.20); Bilirubin, Total 0.6 mg/dL (0.2-1.0); Total Protein 8.1 g/dL (6.4-8.2)
== END 2019-01-04 10:28 ==
PROVIDERS: Internal Medicine Gastroenterology; PCP Emergency Medicine; Visit Provider Nurse Practitioner Women's Health
DX: N83.8 Other noninflammatory disorders of ovary, fallopian tube and broad ligament (principal); K50.90 Crohn's disease, unspecified, without complications
CPT/HCPCS: 36415; 80076; 82565; 85025; 86140

== ENCOUNTER 2019-01-10 09:26 | Outpatient (CLI) | payer OTHER, SELFPAY | END 2019-01-10 09:46 | PROVIDERS: PCP Emergency Medicine | DX: I82.502 Chronic embolism and thrombosis of unspecified deep veins of left lower extremity (principal); Z01.818 Encounter for other preprocedural examination | CPT/HCPCS: 93005; 93010 ==

== ENCOUNTER 2019-01-10 09:38 | Outpatient (CLI) | payer OTHER, SELFPAY ==
[2019-01-10 14:59] LABS: Abs Immature Grans 0.01 k/cumm (0.0-0.09); Absolute Basophil Count 0.03 k/cumm (0.0-0.2); Absolute Lymphocyte Count 2.33 k/cumm (1.2-3.4); Absolute Monocyte Count 0.55 k/cumm (0.11-0.7); Absolute Neutrophil Count 4.81 k/cumm (1.2-6.7); Basophils % 0.4; Eosinophils % 1.3; HCT 41.5 % (36.0-46.0); HGB 13.9 g/dL (12.0-15.5); Immature Grans % 0.1; Lymphocytes % 29.8; Mean Corp. HGB Concentration 33.5 g/dL (32.0-36.0); Mean Corpuscular Hemoglobin 30.3 pg (27.0-33.0); Mean Corpuscular Volume 90.4 fL (80-95); Mean Platelet Volume 10.8 fL (8.0-11.0); Neutrophils % 61.4; Platelet Count 241 x1000/uL (130-400); RBC 4.59 m/cumm (4.00-5.20); RBC Distribution Width 14.3 % (11.7-14.6); White Blood Cell Count 7.83 k/cumm (4.4-10.8)
[2019-01-10 15:12] LABS: HCG Qual (Urine) Negative
[2019-01-10 15:53] LABS: Anion Gap 9.3 mmol/L (3-11); BUN 9 mg/dL (7-18); CO2 26.7 mmol/L (21.0-32.0); CREATININE 1.07 mg/dL (0.55-1.02); Calcium 8.5 mg/dL (8.5-10.1); Chloride 105 mmol/L (98-107); Estimated GFR 55.45 (mL/min/1.73m2); Glucose 87 mg/dL (70-100); Potassium 3.8 mmol/L (3.5-5.1); Sodium 141 mmol/L (136-145)
[2019-01-11 11:00] LABS: CA 125 12 U/mL (0-30); CA 19-9 15 U/mL (<35)
== END 2019-01-10 09:58 ==
PROVIDERS: PCP Emergency Medicine
DX: N94.89 Other specified conditions associated with female genital organs and menstrual cycle (principal)
CPT/HCPCS: 36415; 80048; 86304; 81025; 82378; 85025; 86301

== ENCOUNTER 2019-01-27 08:00 | Emergency (ER) | payer OTHER, SELFPAY ==
[2019-01-27 08:03] VITALS: BP 151/90; PULSE 68; RESP 14; TEMP 37.2; O2SAT 99
--- NOTE | 2019-01-27 08:41 | W.ED.GENAD ---
Discharge Plan Disposition Patient Disposition: HOME Discharge Details Chief Complaint: Sorethroat Clinical Impression: Pharyngitis Primary Care Provider: Nic Wilks ED Provider: Bryon Carranza Home Meds and New Rx's Prescriptions: New cephalexin [Keflex] 500 mg capsule 500 mg PO BID Qty: 19 RF: 0 Continued lorazepam 1 mg tablet 2 mg PO QHS PRN (Reason: sleep) Qty: 90 RF: 1 triamcinolone acetonide 0.1 % cream 1 applic TP BID Qty: 30 RF: 4 Stelara 45 mg/0.5 mL syringe 90 mg SC Q8W RF: 0 cyanocobalamin (vitamin B-12) 1,000 MCG/1 ML solution 1,000 mcg IJ MONTHLY Qty: 3 RF: 4 (DME) syringe with needle 1 EACH syringe 1 ea Miscellaneous as directed Qty: 10 RF: 1 Discharge Instructions Instructions: Pharyngitis (ED) Additional Instructions: Please take the full course of antibiotic as prescribed. Please contact your primary care physician to arrange follow-up. Please contact your surgical team and update them as to your postoperative course. Follow-up with oncology as scheduled this week. Return to the ER immediately for any worsening or new concerning symptoms. Referrals: Nic Wilks, [Primary Care Provider] - Medical Decision Making 43-year-old female presents 10 days status post bilateral oophorectomy for ovarian cancer, procedure was without complication and patient was discharged same day, with persistent sore throat since discharge. Patient has mild exudate noted posterior oropharynx with no significant edema. No trismus or stridor. Patient is afebrile and hemodynamically stable. No signs of deeper space infection. Rapid strep testing negative. I will send throat culture. Concern for potential mucosal abrasion with procedure now with pharyngitis. Plan will be to treat with course of Keflex. Strict instructions were provided to return to the ER immediately should have any worsening or new concerning symptoms or if symptoms are not improving with antibiotic over the next 24 hours. Patient has follow-up scheduled this week with oncology. Usual and customary discharge instructions were otherwise provided. HPI General Mode of arrival: ambulatory. Date/Time Provider Initiated Documentation: 01/27/19 08:16. Limitations to Documentation: no limitations. Information obtained by: patient. HPI Narrative: 43-year-old female presents 10 days status post bilateral oophorectomy without complication for ovarian cancer with chief complaint of sore throat. Patient notes upon waking from for procedure she noted sore throat. Sore throat has persisted over the past 10 days. Sore throat is localized to bilateral posterior throat. No unilateral component. She has associated intermittent cough. She denies fever but notes that she has been having some hot flashes. No dizziness. No difficulty swallowing. Surgical wound is been healing well. Related Data Home Medications Medication Instructions Recorded Confirmed cyanocobalamin (vitamin B-12) 1,000 mcg IJ MONTHLY #3 vial 09/19/17 01/27/19 syringe with needle #10 ea 09/19/17 01/27/19 ustekinumab 45 mg/0.5 mL 90 mg SC Q8W 06/08/18 01/27/19 subcutaneous syringe lorazepam 1 mg tablet 2 mg PO QHS PRN #90 tab 01/22/19 01/27/19 triamcinolone acetonide 0.1 % 1 applic TP BID #30 gm 01/22/19 01/27/19 topical cream cephalexin [Keflex] 500 mg PO BID #19 cap 01/27/19 Previous Rx's Medication Instructions Recorded cyanocobalamin (vitamin B-12) 1,000 mcg IJ MONTHLY #3 vial 09/19/17 syringe with needle #10 ea 09/19/17 lorazepam 1 mg tablet 2 mg PO QHS PRN #90 tab 01/22/19 triamcinolone acetonide 0.1 % 1 applic TP BID #30 gm 01/22/19 topical cream cephalexin [Keflex] 500 mg PO BID #19 cap 01/27/19 Allergies Allergy/AdvReac Type Severity Reaction Status Date / Time No Known Drug Allergies Allergy Verified 01/27/19 08:33 General Stated Complaint: Sorethroat ESTHELA: 3 Review of Systems Constitutional Constitutional: Denies body ache(s) and Denies fever(s) ENT Ears, Nose, Mouth, and Throat: Reports as per HPI, Reports hoarseness, Denies neck mass, Denies neck pain, Reports sore throat, Denies throat swelling and Denies tongue swelling Respiratory Respiratory: Reports cough Musculoskeletal Musculoskeletal: Denies neck pain Allergic/Immunologic Allergic/Immunologic: Denies throat swelling and Denies tongue swelling [facility] Medical History Brain aneurysm history of Crohns disease (Chronic) 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 Right flank pain, chronic (Acute) Surgical History EGD - MAC (07/10/16) History of appendectomy (Inactive) History of bilateral ligation of fallopian tubes (Acute) Family History Grandfather Diabetes Heart disease Stroke Grandmother Essential hypertension Personal history of malignant neoplasm Lung Grandmother Personal history of malignant neoplasm breast, maternal Maternal Aunt Personal history of malignant neoplasm breast Social History Smoking/Tobacco Use Status: Former Tobacco Use Alcohol Intake: current Alcohol Intake frequency: a few times a week Drug use: Never Substance use type: does not use Household members: family current occupation: [employer] Duration: 45-60 minutes/day Frequency: 3-4 times per week Amelie/Voodoo: No preference Special amelie needs: No Seatbelt use: always Do you feel safe at home: Yes Do you feel safe in your relationship?: Yes Exam Const General: cooperative and no acute distress HENMT Head: normocephalic and atraumatic Mouth: moist mucous membranes Throat: tonsils normal, uvula midline, no peritonsillar masses, posterior oropharynx abnormal exudates (mild right), no uvular edema and other (no trismus) Other: no stridor Eyes Conjunctivae: normal conjunctivae Sclera: normal sclerae Neck Neck: trachea midline, supple and nontender Lymphatic: lymphadenopathy (mild bilateral ant cervical) Resp Auscultation: clear to auscultation bilaterally, no rales, no rhonchi and no wheezes Cardio Jugular venous pressure: no JVD Rate: regular rate and not tachycardic Rhythm: regular rhythm Skin General skin exam: no rashes or lesions noted Neuro General: alert, awake and tone normal Psych Appearance: grossly normal Mental Status: mental status grossly normal Course Vital Signs Vital signs: Vital Signs Temperature 37.2 C 01/27/19 08:03 Pulse 68 01/27/19 08:03 Respiratory Rate 14 01/27/19 08:03 Blood Pressure 151/90 H 01/27/19 08:03 Pulse Oximetry 99 01/27/19 08:03 Temperature 37.2 C 01/27/19 08:03 Temperature Source Temporal Artery Scan 01/27/19 08:03 Pulse 68 01/27/19 08:03 Respiratory Rate 14 01/27/19 08:03 Respiratory Effort Non-Labored 01/27/19 08:07 Blood Pressure 151/90 H 01/27/19 08:03 Blood Pressure Position Sitting 01/27/19 08:03 Pulse Oximetry 99 01/27/19 08:03 Oxygen Delivery Method Room Air 01/27/19 08:03 Oxygen Flow Rate 0 01/27/19 08:03 Pain Level 8 01/27/19 08:03 Lab/Test Results Lab/Test Results: 01/27/19 08:21 Tonsil - Not Specified Streptococcus Screen (VICKIE) - Pending POC Strep Test-MARGARITO(Rapid) Start: 01/27/19 08:16 Freq: Status: Active Protocol: Document 01/27/19 08:22 TB (Rec: 01/27/19 08:22 TB [id number]) Strep test-MARGARITO(Rapid)-POC POC-Strep test-MARGARITO (Rapid) Negative POC-Strep test-MARGARITO (Rapid) Negative
== END 2019-01-27 08:54 | disposition home or self-care (01) ==
PROVIDERS: Emergency Provider Student in an Organized Health Care Education/Training Program; PCP Emergency Medicine
DX: J02.9 Acute pharyngitis, unspecified (principal); Z90.722 Acquired absence of ovaries, bilateral
CPT/HCPCS: 87880; 99283; 87070; 87081

== ENCOUNTER 2019-02-07 09:48 | Outpatient (CLI) | payer OTHER, SELFPAY ==
[2019-02-07 08:15] LABS: Abs Immature Grans 0.02 k/cumm (0.0-0.09); Absolute Basophil Count 0.02 k/cumm (0.0-0.2); Absolute Eosinophil Count 0.17 k/cumm (0.0-0.7); Absolute Lymphocyte Count 2.03 k/cumm (1.2-3.4); Absolute Monocyte Count 0.78 k/cumm (0.11-0.7); Basophils % 0.2; Eosinophils % 1.9; HCT 39.9 % (36.0-46.0); HGB 13.2 g/dL (12.0-15.5); Immature Grans % 0.2; Lymphocytes % 22.3; Mean Corp. HGB Concentration 33.1 g/dL (32.0-36.0); Mean Corpuscular Hemoglobin 29.9 pg (27.0-33.0); Mean Corpuscular Volume 90.5 fL (80-95); Mean Platelet Volume 9.9 fL (8.0-11.0); Monocytes % 8.6; Neutrophils % 66.8; Platelet Count 285 x1000/uL (130-400); RBC 4.41 m/cumm (4.00-5.20); RBC Distribution Width 13.5 % (11.7-14.6); White Blood Cell Count 9.12 k/cumm (4.4-10.8)
[2019-02-07 09:07] LABS: ALT 17 U/L (14-59); AST 19 U/L (15-37); Albumin 3.7 g/dL (3.4-5.0); Alkaline Phosphatase 70 U/L (46-116); Bilirubin, Total 0.5 mg/dL (0.2-1.0); Total Protein 7.8 g/dL (6.4-8.2)
[2019-02-07 09:24] LABS: Bilirubin, Direct 0.14 mg/dL (0.00-0.20); C-Reactive Protein 1.15 mg/dL (0.0-0.3)
[2019-02-08 17:58] LABS: CEA 1.2 ng/ml
== END 2019-02-07 10:08 ==
PROVIDERS: Nurse Practitioner Adult Health; PCP Emergency Medicine; Visit Provider Internal Medicine Gastroenterology
DX: K50.90 Crohn's disease, unspecified, without complications (principal); C18.0 Malignant neoplasm of cecum
CPT/HCPCS: 36415; 80076; 82378; 85025; 86140

== ENCOUNTER 2019-04-01 00:53 | Outpatient (CLI) | payer OTHER, SELFPAY ==
--- NOTE | 2019-04-01 15:20 | DI.MAMMO_ITS ---
EXAM: MG MAMMO SCREENING CLINICAL HISTORY: screening Z12.39 TECHNIQUE: Bilateral full field digital CC and MLO mammographic images were obtained with 3D tomosyn thesis and utilizing computer aided detection (CAD). COMPARISON: Available for comparison. FINDINGS: Masses/Architectural Distortion: None seen. Microcalcifications: No suspicious pleomorphic-type are seen. Skin Thickening/Nipple Retraction: None. IMPRESSION: 1. No significant interval change with no specific features of malignancy noted. 2. Unless there is more urgent need, screening mammography is recommended, as per [employer] guidelines. ACR BI-RAD Category- 1 Negative Breast Density - Category B - Scattered areas of fibroglandular density A negative radiographic report should not delay biopsy if a dominant or clinically suspicious mass is present. Up to ten percent of cancers are not identified on mammography. A negative report may reinforce clinical impression. Adenosis and dense breasts may obscure an underlying neoplasm. False positive reports average 6 to 10%. Patient will receive a letter notifying them of these results.
== END 2019-04-01 01:13 ==
PROVIDERS: PCP Emergency Medicine; Visit Provider Nurse Practitioner Women's Health
DX: Z12.31 Encounter for screening mammogram for malignant neoplasm of breast (principal)
CPT/HCPCS: 77063; 77067

== ENCOUNTER 2019-06-19 08:58 | Outpatient (CLI) | payer OTHER, SELFPAY ==
--- NOTE | 2019-06-19 09:00 | DI.US_ITS ---
EXAM: US LOWER EXTREMITY VENOUS LT CLINICAL HISTORY: left leg pain, tender medial knee in popliteal space, ? DVT. TECHNIQUE: Left lower extremity venous ultrasound performed using grayscale, color-flow, and spectra l Doppler analysis. COMPARISON: No exams were available for comparison FINDINGS: The left common femoral, femoral and popliteal veins demonstrate normal compressibility, augmentation , and color Doppler. The posterior tibial veins are patent. The saphenofemoral junction is unremarkab le. There is thrombus seen in the distal left greater saphenous vein. This is consistent with super ficial thrombophlebitis. There is no evidence of a Calzada cyst. IMPRESSION: 1. No DVT. 2. Superficial thrombophlebitis.
[2019-06-19 10:05] LABS: HCT 43.2 % (36.0-46.0); HGB 14.4 g/dL (12.0-15.5); Mean Corp. HGB Concentration 33.3 g/dL (32.0-36.0); Mean Corpuscular Hemoglobin 30.1 pg (27.0-33.0); Mean Corpuscular Volume 90.2 fL (80-95); Mean Platelet Volume 10.1 fL (8.0-11.0); Platelet Count 244 x1000/uL (130-400); RBC 4.79 m/cumm (4.00-5.20); White Blood Cell Count 6.84 k/cumm (4.4-10.8)
== END 2019-06-19 09:18 ==
PROVIDERS: PCP Emergency Medicine; Visit Provider Family Medicine
DX: M79.662 Pain in left lower leg (principal); M25.562 Pain in left knee; I80.02 Phlebitis and thrombophlebitis of superficial vessels of left lower extremity
CPT/HCPCS: 36415; 85027; 93971

== ENCOUNTER 2020-10-01 03:15 | Outpatient (CLI) | payer OTHER, SELFPAY ==
[2020-10-01 10:09] LABS: Vitamin B12 200 pg/mL (193-986)
== END 2020-10-01 03:16 | disposition home or self-care (01) ==
LOC: LBO 03:16
PROVIDERS: PCP Emergency Medicine; Visit Provider Internal Medicine Gastroenterology
DX: K50.019 Crohn's disease of small intestine with unspecified complications (principal); E53.8 Deficiency of other specified B group vitamins
CPT/HCPCS: 36415; 82607

== ENCOUNTER 2021-01-18 13:11 | Outpatient (CLI) | payer OTHER, SELFPAY ==
[2021-01-18 20:39] LABS: COVID-19 PCR Negative (Negative)
[2021-01-18 21:22] LABS: Source Nasal/Nares
== END 2021-01-18 13:12 | disposition home or self-care (01) ==
PROVIDERS: PCP Emergency Medicine; Visit Provider Emergency Medicine
DX: Z20.822 Contact with and (suspected) exposure to COVID-19 (principal); Z01.818 Encounter for other preprocedural examination
CPT/HCPCS: 87635

== ENCOUNTER 2021-02-26 00:57 | Outpatient (RCR) | payer OTHER, SELFPAY ==
[2021-02-12] MEDS: Normal Saline Flush 10 ML SYR IVP (07:55)
[2021-02-12 08:09] LABS: Abs Immature Grans 0.03 10^3/uL (0.0-0.06); Absolute Basophil Count 0.03 10^3/uL (0.0-0.2); Absolute Eosinophil Count 0.26 10^3/uL (0.0-0.7); Absolute Lymphocyte Count 2.35 10^3/uL (1.2-3.4); Absolute Neutrophil Count 3.49 10^3/uL (1.2-6.7); Basophils % 0.5; Eosinophils % 3.9; HCT 40.7 % (36.0-46.0); HGB 13.6 g/dL (11.2-15.7); Immature Grans % 0.5; Lymphocytes % 35.3; MCH 31.1 pg (27.0-33.0); MCHC 33.4 % (32.0-36.0); MCV 92.9 fL (80-95); MPV 10.7 fL (8.0-11.0); Monocytes % 7.5; Neutrophils % 52.3; Nucleated RBC 0 %; Platelet Count 229 10^3/uL (130-400); RBC 4.38 10^6/uL (3.93-5.22); RDW 13.9 % (11.7-14.6); RDW-SD 48.1 fL; WBC 6.66 10^3/uL (4.4-10.8)
[2021-02-12 08:16] LABS: ALT 26 U/L (14-59); AST 23 U/L (15-37); Albumin 3.8 g/dL (3.4-5.0); Alkaline Phosphatase 64 U/L (46-116); Anion Gap 7.3 mmol/L (3-11); BUN 12 mg/dL (7-18); Bilirubin, Total 0.5 mg/dL (0.2-1.0); CO2 27.7 mmol/L (21.0-32.0); CREATININE 1.1 mg/dL (0.55-1.02); Calcium 9.1 mg/dL (8.5-10.1); Chloride 108 mmol/L (98-107); Estimated GFR 53.24 (mL/min/1.73m2); Glucose 85 mg/dL (74-106); Potassium 4.2 mmol/L (3.5-5.1); Sodium 143 mmol/L (136-145); Total Protein 7.6 g/dL (6.4-8.2)
[2021-02-12 18:12] LABS: CEA 2.1 ng/mL (See Note)
[2021-02-26] MEDS: Normal Saline Flush 10 ML SYR IVP (08:45)
[2021-02-26 08:58] LABS: HCT 36.4 % (36.0-46.0); HGB 11.9 g/dL (11.2-15.7); MCH 30.6 pg (27.0-33.0); MCHC 32.7 % (32.0-36.0); MCV 93.6 fL (80-95); MPV 10.2 fL (8.0-11.0); Nucleated RBC 0 %; Platelet Count 157 10^3/uL (130-400); RBC 3.89 10^6/uL (3.93-5.22); RDW 13.9 % (11.7-14.6); RDW-SD 47.5 fL; WBC 17.49 10^3/uL (4.4-10.8)
[2021-02-26 09:05] LABS: ALT 27 U/L (14-59); AST 18 U/L (15-37); Albumin 3.3 g/dL (3.4-5.0); Alkaline Phosphatase 111 U/L (46-116); Anion Gap 5.8 mmol/L (3-11); BUN 8 mg/dL (7-18); Bilirubin, Total 0.3 mg/dL (0.2-1.0); CO2 31.2 mmol/L (21.0-32.0); Calcium 8.8 mg/dL (8.5-10.1); Chloride 107 mmol/L (98-107); Estimated GFR 59.43 (mL/min/1.73m2); Glucose 100 mg/dL (74-106); Potassium 3.6 mmol/L (3.5-5.1); Sodium 144 mmol/L (136-145); Total Protein 6.9 g/dL (6.4-8.2)
[2021-02-26 09:17] LABS: Absolute Basophil Count 0.17 10^3/uL (0.0-0.2); Absolute Eosinophil Count 0.35 10^3/uL (0.0-0.7); Absolute Lymphocyte Count 3.15 10^3/uL (1.2-3.4); Absolute Monocyte Count 0.87 10^3/uL (0.1-0.8); Absolute Neutrophil Count 12.59 10^3/uL (1.2-6.7); Atypical Lymphocytes % 4; Bands % 11; Metamyelocytes % 2
[2021-02-26 09:18] LABS: Diff Comment Manual Differential; RBC Morphology Normal
[2021-02-26 18:20] LABS: CEA 1.4 ng/mL (See Note)
== END 2021-02-28 23:59 | disposition home or self-care (01) ==
LOC: INF 00:57
PROVIDERS: PCP Emergency Medicine; Visit Provider Internal Medicine Hematology & Oncology
DX: C18.9 Malignant neoplasm of colon, unspecified (principal); C79.89 Secondary malignant neoplasm of other specified sites; Z45.2 Encounter for adjustment and management of vascular access device
CPT/HCPCS: 36591; 80053; 82378; 85025

== ENCOUNTER 2021-03-12 12:42 | Emergency (ER) | payer OTHER, SELFPAY ==
[2021-03-12] VITALS (78 sets, daily range): BP systolic 127–159; BP diastolic 59–106; PULSE 52–92; RESP 15–22; TEMP 36–37.6; O2SAT 88–98
[2021-03-12] MEDS: HYDROmorphone 2 MG/ML VIAL (13:00)
[2021-03-12 13:18] LABS: Eosinophils % 0.5; HCT 37.3 % (36.0-46.0); HGB 12.1 g/dL (11.2-15.7); MCH 30.4 pg (27.0-33.0); MCHC 32.4 % (32.0-36.0); MCV 93.7 fL (80-95); MPV 10.6 fL (8.0-11.0); Nucleated RBC 1 %; Platelet Count 157 10^3/uL (130-400); RBC 3.98 10^6/uL (3.93-5.22); RDW 14.5 % (11.7-14.6); RDW-SD 49.2 fL
[2021-03-12 13:23] LABS: Lactate 3.8 mmol/L (0.6-1.4)
[2021-03-12 13:24] LABS: Absolute Eosinophil Count 0.14 10^3/uL (0.0-0.7); WBC 27.76 10^3/uL (4.4-10.8)
[2021-03-12 13:33] LABS: Albumin 3.1 g/dL (3.4-5.0); Alkaline Phosphatase 532 U/L (46-116); BUN 16 mg/dL (7-18); Bilirubin, Total 1.3 mg/dL (0.2-1.0); CREATININE 1.1 mg/dL (0.55-1.02); Calcium 7.8 mg/dL (8.5-10.1); Chloride 107 mmol/L (98-107); Estimated GFR 53.24 (mL/min/1.73m2); Glucose 62 mg/dL (74-106); Potassium 3.1 mmol/L (3.5-5.1); Sodium 143 mmol/L (136-145); Total Protein 6.6 g/dL (6.4-8.2)
[2021-03-12 13:34] LABS: ALT 44 U/L (14-59); AST 51 U/L (15-37); Anion Gap 8.7 mmol/L (3-11); CO2 27.3 mmol/L (21.0-32.0); Lipase 219 U/L (73-393)
--- NOTE | 2021-03-12 13:45 | RT.EKG_ITS ---
APPROVED REPORT Exam: Resting ECG Reason for Exam: hypokalemia Patient Location: E HR:75 bpm ECG Measurements Heart Rate 75 AXIS OR 146 P 57 QRSd 95 QRS 79 QT 399 T 25 QTc 445 Conclusion Sinus rhythm...normal P axis, V-rate 60- 99 sinus rhythm at 75, normal axis, no acute ischemic changes, nondiagnostic EKG
--- NOTE | 2021-03-12 13:45 | DI.CT_ITS ---
Exam(s) CT ABDOMEN PELVIS CTA EXAM: CT ABDOMEN PELVIS CTA INDICATION: abdominal pain radiating to back, sudden onset. COMPARISON: CT CT renal colic wo from 01/24/2018 TECHNIQUE: CT examination of the abdomen and pelvis was performed utilizing CT angiography protocol with additional 3D and multi planer imaging. FINDINGS: CT examination of the abdomen and pelvis was performed with a bolus infusion of 100 cc of Omnipaque 3 50. Images obtained through the lung bases are unremarkable. The liver is unremarkable in appearance. Gallbladder and bile ducts are CT normal. Pancreas appears normal. Spleen is unremarkable in appearance. Adrenals appear normal. The kidneys are unremarkable with no evidence of hydronephrosis, nephrolithiasis, or renal mass.. Ur inary bladder unremarkable. Note is made of apparent multiple fluid collections in the [place] renal space on the right. These exte nd medially to the IVC. There is an IVC filter in place, presence of hematoma adjacent to the filter would raise the possibility leakage IVC secondary to filter perforation. The right and left kidneys show normal renal cortical enhancement which is symmetrical. Renal arteries renal artery branches a ppear intact as visualized. Adrenals are unremarkable. No hydronephrosis or nephrolithiasis. Abdominal aorta is of normal diameter and the major visceral branches are well opacified period no ao rtic dissection or aneurysm.. No abdominal wall hernia. No abdominal or pelvic adenopathy. DAIRY HAND structures appear intact. Appendix is not specifically visualized but there is no evidence of appendicitis.. No evidence of di verticulitis or bowel obstruction. IMPRESSION: Fluid collections are noted in [place] renal space on right extending to the IVC. There is an IVC filte r in place and the possibility of perforation of the IVC is raised. No evidence renal vascular compr omise at this time. RADIATION DOSE DELIVERED: 744.71mGy.cm Total DLP 744.71mGy.cm Total DLP CTDIvol RADIATION OPTIMIZATION: All CT scans at this facility use at least one of these dose optimization te chniques: automated exposure control; mA and/or kV adjustment per patient size (includes targeted exa ms where dose is matched to clinical indication); or iterative reconstruction.
[2021-03-12] MEDS: Omnipaque 350 MG/ML 100 ML BTL IJ (13:54)
[2021-03-12] MEDS: Normal Saline - Diluent 50 ML VIAL IV (13:54)
[2021-03-12] MEDS: Normal Saline Flush 10 ML SYR IVP (13:55)
[2021-03-12 13:58] LABS: Absolute Lymphocyte Count 2.22 10^3/uL (1.2-3.4); Absolute Monocyte Count 0.83 10^3/uL (0.1-0.8); Absolute Neutrophil Count 22.21 10^3/uL (1.2-6.7); Atypical Lymphocytes % 1; Bands % 24
[2021-03-12 13:59] LABS: Metamyelocytes % 8; Myelocytes % 1; RBC Morphology Normal
[2021-03-12] MEDS: HYDROmorphone 2 MG/ML VIAL 1 MG IVP ×2 (14:15→16:16)
[2021-03-12] MEDS: POTASSIUM CHLORIDE 20 MEQ/100 ML BAG 50 MEQ IVPB (14:40)
[2021-03-12] MEDS: Normal Saline 1,000 ML 1000 ML IV ×2 (14:45→17:59)
--- NOTE | 2021-03-12 14:49 | ED.GENADUL_ITS ---
Discharge Plan Disposition Patient Disposition: [facility] Condition: Serious Discharge Details Clinical Impression: Abdominal pain, Lactic acidosis Primary Care Provider: Nic Wilks ED Provider: Luis Manuel Green Home Meds and New Rx's Prescriptions: No Action Stelara 45 mg/0.5 mL syringe 90 mg SC Q8W RF: 0 ondansetron HCl 8 mg tablet 8 mg PO Q8H RF: 0 prochlorperazine maleate [Compazine] 10 mg tablet 10 mg PO TID PRNRF: 0 meclizine 25 mg tablet 25 mg PO TID RF: 0 venlafaxine [Effexor XR] 37.5 mg capsule,extended release 24hr 75 mg PO QHS RF: 0 cyanocobalamin (vitamin B-12) 1,000 MCG/1 ML solution 1,000 mcg IJ MONTHLY Qty: 3 RF: 4 (DME) syringe with needle 1 EACH syringe 1 ea Miscellaneous as directed Qty: 10 RF: 1 lorazepam [Ativan] 1 mg tablet 2 mg PO QHS PRN (Reason: sleep) Qty: 180 RF: 2 Discharge Data Discharge Date/Time-TO BE ENTERED AT DEPARTURE: 03/12/21 22:00 Medical Decision Making <Magui Carranza MD - Last Filed: 03/15/21 15:45> Hali Xie is a 45-year-old woman receiving chemotherapy for metastatic colon cancer who presented to emergency department for sudden onset abdominal pain radiating to the back during chemotherapy. On exam patient with diffuse abdominal tenderness palpation without focality. Benign cardiopulmonary exam. Concern for infusion reaction, mesenteric ischemia, kidney stone, other. Exam/history at this time is not consistent with acute coronary syndrome, pulmonary embolism, sepsis. Lactate resulted at 3.8. Plan for IV placement, screening labs, telemetry, IV fluid hydration, IV opiate pain medication, CT angio abdomen/pelvis. CT angio abdomen/pelvis shows concern for IVC perforation by IVC filter, possible perinephric hematoma. Labs reviewed, WBC 27, hemoglobin 12.1. [facility] transfer center contacted [phone] at time of read received from radiology, awaiting callback from vascular surgery. 15: 15: Received call back from vascular surgery Dr. Waller, who has reviewed CT images from today and reports that fluid collection is not likely to be ca used by IVC perforation by IVC filter, does not appear to be vascular pathology at this point, recommends consultation with urology. Awaiting callback from [facility] urology. I requested ED to ED transfer, this was refused by transfer center due to capacity issues. 1600: call back from [facility] urology Dr. Hawk, who has reviewed imaging and states that fluid collection around kidney is similar to what has been seen on prior CT scans on file at [facility], no major change from prior. He states that given radiologic imaging it is unlikely that this fluid collection is related to patient's sudden onset pain today. He recommends consultation with medical oncology at [facility] for possible transfer. Will also consult surgery at [facility]. 1640: Patient reassessed, states that she continues to have abdominal pain and back pain. Vital signs unchanged, heart rate 80, blood pressure 140/82, pulse ox 95% on room air. Family notified me that they had spoken to patient's GI doctor (patient has history of Crohn's disease) who states that patient has been accepted from ED to ED transfer and they are unclear why patient is not being transferred immediately to [facility]. I spoke to [facility] transfer center who states that there has been no ED to ED transfer acceptance, states the ED to ED transfer is not possible at this time due to capacity issues, awaiting callback from medical oncology at [facility]. Awaiting bedside consultation by Dr. Gutierrez of [facility] surgery. Pt signed out to Dr. Green at time of shift change with 3rd liter IVF, UA, repeat lactate, CXR, surgery consultation pending. Medical Records Medical records reviewed: Yes I reviewed the patient's medical records. Lab Data Lab results reviewed: Yes I reviewed the patient's lab results. ECG Data Attestation: I personally reviewed and interpreted this ECG (s) as follows: Interpretation: EKG shows sinus rhythm at 75, normal axis, no acute ischemic changes, nondiagnostic EKG <Luis Manuel Green MD - Last Filed: 03/12/21 22:41> Received signout from Dr. Carranza. Please see her note regarding details of the initial presentation, exam and plan of care. Patient was seen in consultation by in-house surgery. They recommend further work-up for question of migration/perforation of IVC filter. This had been previously discussed with the vascular surgery by Dr. Carranza. Chest x-ray without focal consolidation. Patient with ongoing abdominal pain, requiring frequent parenteral analgesia. She received 3 L of fluid and repeat laboratories were obtained. Repeat lactic acid 3.1. Chemistries with alk phos 790, AST 79, ALT 41, total bili 1 4 white blood cell count checked for the third time today has gone from 18 to 27 to 60. Urinalysis does not show evidence of infection. Given the patient's persistent, undifferentiated abdominal pain with rising white blood cell count, lactic acidosis, persistent need for parenteral analgesia, as well as in-house cardiovascular surgical tech who questioned need for further evaluation of migration/perforation of Bylas filter, I did discuss the case again with [facility]. The case was accepted in transfer to the hospitalist service, Dr Paulino. Lab Data Lab results reviewed: Yes I reviewed the patient's lab results. Labs: Laboratory Results - last 24 hr 03/12/21 03/12/21 03/12/21 13:10 13:10 13:10 WBC 27.76 H* D RBC 3.98 Hgb 12.1 Hct 37.3 MCV 93.7 MCH 30.4 MCHC 32.4 RDW 14.5 Plt Count 157 MPV 10.6 Immature Gran % 0.0 Neutrophils % 56.0 Band Neutrophils % 24 Lymphocytes % 7.0 Atypical Lymphs % 1 Monocytes % 3.0 Eosinophils % 0.5 Basophils % 0.0 Metamyelocytes % 8 Myelocytes % 1 Nucleated RBC % 1 Absolute Neutrophils 22.21 H Absolute Lymphocytes 2.22 Absolute Monocytes 0.83 H Absolute Eosinophils 0.14 Absolute Basophils 0.00 RBC Morphology Normal VBG Lactate 3.8 H* Sodium 143 Potassium 3.1 L Chloride 107 Carbon Dioxide 27.3 Anion Gap 8.7 BUN 16 Creatinine 1.1 H Estimated GFR/1.73 m2 53.24 Glucose 62 L Calcium 7.8 L Total Bilirubin 1.3 H AST 51 H ALT 44 Alkaline Phosphatase 532 H Total Protein 6.6 Albumin 3.1 L Lipase 219 Urine Color Urine Clarity Urine pH Ur Specific [place] Urine Protein Urine Ketones Urine Blood Urine Nitrite Urine Bilirubin Urine Urobilinogen Ur Leukocyte Esterase Urine RBC Urine WBC Ur Epithelial Cells Urine Crystals Urine Bacteria Urine Mucus Ur Culture Indicated? Urine Glucose 03/12/21 03/12/21 03/12/21 15:00 18:30 18:45 WBC RBC Hgb 11.9 Hct 37.0 MCV MCH MCHC RDW Plt Count MPV Immature Gran % Neutrophils % Band Neutrophils % Lymphocytes % Atypical Lymphs % Monocytes % Eosinophils % Basophils % Metamyelocytes % Myelocytes % Nucleated RBC % Absolute Neutrophils Absolute Lymphocytes Absolute Monocytes Absolute Eosinophils Absolute Basophils RBC Morphology VBG Lactate Sodium 141 Potassium 4.8 D Chloride 107 Carbon Dioxide 24.1 Anion Gap 9.9 BUN 16 Creatinine 1.1 H Estimated GFR/1.73 m2 53.24 Glucose 165 H D Calcium 7.2 L Total Bilirubin 1.4 H AST 79 H ALT 41 Alkaline Phosphatase 790 H Total Protein 6.1 L Albumin 2.9 L Lipase Urine Color Yellow Urine Clarity Clear Urine pH 6.0 Ur Specific [place] 1.020 Urine Protein 30 H Urine Ketones Negative Urine Blood Trace-lysed H Urine Nitrite Negative Urine Bilirubin Negative Urine Urobilinogen 0.2 Ur Leukocyte Esterase Negative Urine RBC 0-2 Urine WBC Negative Ur Epithelial Cells Negative Urine Crystals Negative Urine Bacteria Negative Urine Mucus Negative Ur Culture Indicated? No Urine Glucose Negative 03/12/21 03/12/21 18:45 18:45 WBC 60.95 H* D RBC 3.73 L Hgb 11.4 Hct 35.3 L MCV 94.6 MCH 30.6 MCHC 32.3 RDW 14.4 Plt Count 121 L MPV 10.7 Immature Gran % See Differential Neutrophils % 78.0 Band Neutrophils % 17 Lymphocytes % 1.0 Atypical Lymphs % Monocytes % 1.6 Eosinophils % 0.0 Basophils % 0.0 Metamyelocytes % 2 Myelocytes % Nucleated RBC % 0 Absolute Neutrophils 57.90 H Absolute Lymphocytes 0.61 L Absolute Monocytes 0.98 H Absolute Eosinophils 0.00 Absolute Basophils 0.00 RBC Morphology Normal VBG Lactate 3.1 H* Sodium Potassium Chloride Carbon Dioxide Anion Gap BUN Creatinine Estimated GFR/1.73 m2 Glucose Calcium Total Bilirubin AST ALT Alkaline Phosphatase Total Protein Albumin Lipase Urine Color Urine Clarity Urine pH Ur Specific [place] Urine Protein Urine Ketones Urine Blood Urine Nitrite Urine Bilirubin Urine Urobilinogen Ur Leukocyte Esterase Urine RBC Urine WBC Ur Epithelial Cells Urine Crystals Urine Bacteria Urine Mucus Ur Culture Indicated? Urine Glucose HPI <Magui Carranza MD - Last Filed: 03/15/21 15:45> General Mode of arrival: EMS . Date/Time Provider Initiated Documentation: 03/12/21 13:01 . Limitations to Documentation: no limitations . Information obtained by: patient, family, RN notes reviewed and old records reviewed . HPI Narrative: Hali Xie is a 45-year-old woman with a history of metastatic colon cancer, DVT presenting to the emergency department with abdominal pain. Patient was receiving her third infusion of chemotherapy today at the local cancer center when she developed sudden onset upper abdominal pain radiating to the back. Pain has been persistent and unchanged since onset. Patient reports history of restless leg, patient reports that she had onset of restless leg symptoms at same time of abdominal pain onset. Patient was hypertensive after onset at cancer center per EMS. Patient denies any other pain. No fever, cough, shortness of breath, vomiting, diarrhea, numbness, weakness, rash, itching, swelling of the face/lips/tongue, throat tightness. Patient reports no history of similar pain in the past. No history of infusion reaction with same chemotherapeutic agent during prior infusions. Related Data Home Medications Medication Instructions Recorded Confirmed cyanocobalamin (vitamin B-12) 1,000 mcg IJ MONTHLY #3 vial 09/19/17 03/12/21 syringe with needle #10 ea 09/19/17 02/23/21 ustekinumab 45 mg/0.5 mL 90 mg SC Q8W 06/08/18 03/12/21 subcutaneous syringe lorazepam 1 mg tablet 2 mg PO QHS PRN #180 tab 06/04/19 03/12/21 meclizine 25 mg tablet 25 mg PO TID 02/23/21 03/12/21 ondansetron HCl 8 mg tablet 8 mg PO Q8H 02/23/21 03/12/21 prochlorperazine maleate 10 mg 10 mg PO TID PRN 02/23/21 03/12/21 tablet venlafaxine 37.5 mg 75 mg PO QHS cap 02/23/21 03/12/21 capsule,extended release 24 hr Previous Rx's Medication Instructions Recorded cyanocobalamin (vitamin B-12) 1,000 mcg IJ MONTHLY #3 vial 09/19/17 syringe with needle #10 ea 09/19/17 lorazepam 1 mg tablet 2 mg PO QHS PRN #180 tab 06/04/19 Allergies Allergy/AdvReac Type Severity Reaction Status Date / Time No Known Drug Allergies Allergy Verified 02/18/20 08:08 body wash for sx Allergy Uncoded 03/12/21 13:01 General Stated Complaint: Allergic ESTHELA: 3 Review of Systems <Magui Carranza MD - Last Filed: 03/15/21 15:45> Narrative: Constitutional: denies fevers Eyes: denies eye pain ENT: denies ear pain, dental pain, sore throat Cardiovascular: denies chest pain, edema Respiratory: denies SOB, cough GI: denies vomiting, diarrhea, reports abdominal pain : denies flank pain MSK: denies neck pain, arthralgias, myalgias, reports abdominal pain radiating to the back Skin: denies rash Neuro: denies headaches, numbness, weakness, reports restless legs which she has a history of, sudden onset with abdominal pain PFSH <Magui Carranza MD - Last Filed: 03/15/21 15:45> Active Problem List (Updated 03/12/21 @ 20:35 by Luis Manuel Green MD) Lactic acidosis (Acute) Back pain (Acute) Abdominal pain (Acute) Pain in left leg (Acute) History of bilateral ligation of fallopian tubes (Acute) 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) Crohns disease (Chronic) Right flank pain, chronic (Acute) RLS (restless legs syndrome) (Chronic 07/19/17) GI bleed (Chronic) 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 (Chronic) Medical History (Updated 03/12/21 @ 20:35 by Luis Manuel Green MD) Brain aneurysm history of Surgical History EGD - MAC (07/10/16) History of appendectomy Family History Grandfather Diabetes Heart disease Stroke Grandmother Essential hypertension Personal history of malignant neoplasm Lung Grandmother Personal history of malignant neoplasm breast, maternal Maternal Aunt Personal history of malignant neoplasm breast Social History Smoking/Tobacco Use Status: Former Tobacco Use Smoking risk assessment performed?: Yes Alcohol Intake: current Alcohol Intake frequency: a few times a week Drug use: Never Substance use type: does not use Household members: family current occupation: BANKER Duration: 45-60 minutes/day Frequency: 3-4 times per week Amelie/Taoism: No preference Special amelie needs: No Seatbelt use: always Do you feel safe at home: Yes Do you feel safe in your relationship?: Yes Exam <Magui Carranza MD - Last Filed: 03/15/21 15:45> Narrative Exam Narrative: Constitutional: [id number], appears significantly uncomfortable but otherwise conversing normally HENT: head atraumatic/normocephalic/normal inspection, mucous membranes moist Eyes: conjunctiva normal, sclera normal, pupils 3mm b/l Neck: no stridor, normal ROM, trachea midline Chest: normal inspection Resp: normal work of breathing, LCTAB Cardio: normal rate, normal rhythm, no murmur appreciated GI: abdomen soft, diffuse tenderness palpation without focality, positive guarding, non-distended Back: normal inspection, no rash Skin: warm, dry, normal color, no rash Neuro: alert, not altered, grossly non-focal, normal tone Ext: no edema Psych: normal mood, normal affect, normal behavior Course <Magui Carranza MD - Last Filed: 03/15/21 15:45> Vital Signs Vital signs: Vital Signs Temperature 36.8 C 03/12/21 12:54 Pulse 80 03/12/21 12:54 Respiratory Rate 16 03/12/21 12:54 Blood Pressure 156/90 H 03/12/21 12:54 Pulse Oximetry 98 03/12/21 12:54 Temperature 37.6 C 03/12/21 14:11 Temperature Source Oral 03/12/21 14:11 Pulse 85 03/12/21 14:11 Respiratory Rate 17 03/12/21 14:11 Respiratory Effort Non-Labored 03/12/21 13:22 Respiratory Pattern Normal 03/12/21 13:22 Blood Pressure 159/93 H 03/12/21 14:11 Blood Pressure Position Sitting 03/12/21 12:54 Pulse Oximetry 90 L 03/12/21 14:11 Oxygen Delivery Method Room Air 03/12/21 14:11 Oxygen Flow Rate 0 03/12/21 14:11 Pain Level 10 03/12/21 14:15 Lab/Test Results Lab/Test Results: Laboratory Tests Range/Units 03/12/21 03/12/21 03/12/21 13:10 13:10 13:10 WBC (4.4-10.8) 10^3/uL 27.76 H* D RBC (3.93-5.22) 10^6/uL 3.98 Hgb (11.2-15.7) g/dL 12.1 Hct (36.0-46.0) % 37.3 MCV (80-95) fL 93.7 MCH (27.0-33.0) pg 30.4 MCHC (32.0-36.0) % 32.4 RDW (11.7-14.6) % 14.5 Plt Count (130-400) 10^3/uL 157 MPV (8.0-11.0) fL 10.6 Immature Gran % 0.0 Neutrophils % 56.0 Band Neutrophils % 24 Lymphocytes % 7.0 Atypical Lymphs % 1 Monocytes % 3.0 Eosinophils % 0.5 Basophils % 0.0 Metamyelocytes % 8 Myelocytes % 1 Nucleated RBC % % 1 Absolute Neutrophils (1.2-6.7) 10^3/uL 22.21 H Absolute Lymphocytes (1.2-3.4) 10^3/uL 2.22 Absolute Monocytes (0.1-0.8) 10^3/uL 0.83 H Absolute Eosinophils (0.0-0.7) 10^3/uL 0.14 Absolute Basophils (0.0-0.2) 10^3/uL 0.00 RBC Morphology Normal VBG Lactate (0.6-1.4) mmol/L 3.8 H* Sodium (136-145) mmol/L 143 Potassium (3.5-5.1) mmol/L 3.1 L Chloride (98-107) mmol/L 107 Carbon Dioxide (21.0-32.0) mmol/L 27.3 Anion Gap (3-11) mmol/L 8.7 BUN (7-18) mg/dL 16 Creatinine (0.55-1.02) mg/dL 1.1 H Estimated GFR/1.73 m2 (mL/min/1.73m2) 53.24 Glucose (74-106) mg/dL 62 L Calcium (8.5-10.1) mg/dL 7.8 L Total Bilirubin (0.2-1.0) mg/dL 1.3 H AST (15-37) U/L 51 H ALT (14-59) U/L 44 Alkaline Phosphatase (46-116) U/L 532 H Total Protein (6.4-8.2) g/dL 6.6 Albumin (3.4-5.0) g/dL 3.1 L Lipase (73-393) U/L 219 Sign Out <Magui Carranza MD - Last Filed: 03/15/21 15:45> Sign Out Data: Sign Out Comment: Patient signed out to Dr. Green at time of shift change pending surgery consultation, UA, chest x-ray, repeat lactate, anticipate medical admission. Last updated by Magui Carranza MD at 03/12/21 17:18
[2021-03-12 15:14] LABS: HGB 11.9 g/dL (11.2-15.7)
[2021-03-12] MEDS: CEFEPIME 2 GM in Normal Saline 100 ML IVPB (15:41)
--- NOTE | 2021-03-12 17:00 | DI.RAD_ITS ---
Exam(s) XR PORTABLE CHEST AP EXAM: XR PORTABLE CHEST AP CLINICAL HISTORY: elevated lactate, r/o occult infection TECHNIQUE: 2D digital imaging was performed of the chest. Images were obtained. PA and lateral v iews were obtained. COMPARISON: CR ABD FLAT UPRIGHT PA CHEST from 05/30/2017 FINDINGS: MEDIASTINUM: Normal. HEART: Normal. PULMONARY VASCULATURE: Normal. LUNGS: Clear. PLEURAL SPACE: No pleural effusion or pneumothorax. BONE:Within normal limits for the patient's age. OTHER FINDINGS:The indwelling central venous catheter tip is in good position in the superior vena ca va. IMPRESSION: No acute pulmonary findings. DATA REPOSITORY: RADIATION DOSE DELIVERED:
[2021-03-12] MEDS: VANCOMYCIN/WATER (PEG) 1.5 GM/300 ML BAG IVPB (17:16)
[2021-03-12] MEDS: VANCOMYCIN 1,500 MG in Normal Saline 250 ML 166.6666 MG IVPB (17:49)
--- NOTE | 2021-03-12 18:28 | DI.VRAD_ITS ---
PROCEDURE INFORMATION: Exam: XR Chest Exam date and time: 03/12/2021 5:09 PM Age: 45 years old Clinical indication: Other: Elevated lactate, R/O occult infection TECHNIQUE: Imaging protocol: XR of the chest. Views: 1 view. COMPARISON: CR ABD FLAT UPRIGHT PA CHEST 05/30/2017 10:15 AM FINDINGS: Tubes, catheters and devices: MediPort terminates in the superior vena cava Lungs: Unremarkable. No consolidation. Pleural spaces: Unremarkable. No pleural effusion. No pneumothorax. Heart/Mediastinum: Unremarkable. No cardiomegaly. Bones/joints: Unremarkable. IMPRESSION: No focal consolidation Dictated and Authenticated by: Eli Ramirez MD. Ordering:ALEKSANDER Kilgore MD
[2021-03-12 18:49] LABS: Lactate 3.1 mmol/L (0.6-1.4)
[2021-03-12 19:01] LABS: HCT 35.3 % (36.0-46.0); HGB 11.4 g/dL (11.2-15.7); MCH 30.6 pg (27.0-33.0); MCHC 32.3 % (32.0-36.0); MCV 94.6 fL (80-95); MPV 10.7 fL (8.0-11.0); Monocytes % 1.6; Nucleated RBC 0 %; Platelet Count 121 10^3/uL (130-400); RBC 3.73 10^6/uL (3.93-5.22); RDW 14.4 % (11.7-14.6); RDW-SD 49.1 fL
[2021-03-12 19:05] LABS: Absolute Monocyte Count 0.98 10^3/uL (0.1-0.8); BUN 16 mg/dL (7-18); CREATININE 1.1 mg/dL (0.55-1.02); Calcium 7.2 mg/dL (8.5-10.1); Estimated GFR 53.24 (mL/min/1.73m2); Glucose 165 mg/dL (74-106)
[2021-03-12 19:06] LABS: ALT 41 U/L (14-59); AST 79 U/L (15-37); Albumin 2.9 g/dL (3.4-5.0); Alkaline Phosphatase 790 U/L (46-116); Anion Gap 9.9 mmol/L (3-11); Bilirubin, Total 1.4 mg/dL (0.2-1.0); CO2 24.1 mmol/L (21.0-32.0); Chloride 107 mmol/L (98-107); Potassium 4.8 mmol/L (3.5-5.1); Sodium 141 mmol/L (136-145); Total Protein 6.1 g/dL (6.4-8.2)
[2021-03-12 19:10] LABS: WBC 60.95 10^3/uL (4.4-10.8)
--- NOTE | 2021-03-12 19:13 | W.SURGCON ---
Date of service: 03/12/21 Time of Service: 17:30 Assessment and Plan Assessment and plan (1) Abdominal pain: Status: Acute Assessment and plan: -Indeterminate etiology, concern for integrity of IVC;all imaging reviewed, last CT in 2018 shows ~1cm proximal migration with slightly increased perirenal fluid -No evidence of gross arterial occlusion on CTA, exam is non-peritoneal; leukocytosis likely reactive secondary to today's treatments -Would recommend dedicated CT venogram or Doppler US evaluation of IVC by architectural technician to better evaluate integrity of IVC and/or assess for thrombosis -No apparent general surgical intervention warranted at this time -Continue supportive care, consider repeat labs if warranted (+D Dimer and TSH if re-drawn) -Tx to tertiary care center for more specialized care [facility] Please call for any questions or concerns or changes in patient status [phone] Qualifiers: Abdominal location: generalized Qualified Code(s): R10.84 - Generalized abdominal pain (2) Back pain: Status: Acute Qualifiers: Back pain location: low back pain Chronicity: acute Back pain laterality: bilateral Sciatica presence: without sciatica Qualified Code(s): M54.50 - Low back pain, unspecified (3) Crohns disease: Status: Chronic Assessment and plan: -Chronic, immunotherapy on hold secondary to active chemotherapy infusions -No evidence of acute infection or inflammation on CTA today -Possible impending EC fistula versus vascular structure seen traversing through the abdominal wall in the mid to lower right quadrant near site of reversed ostomy (per my personal review) Qualifiers: Gastrointestinal tract location: unspecified location Digestive disease complication type: other complication Qualified Code(s): K50.918 - Crohn's disease, unspecified, with other complication (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 Assessment and plan: -Pending further surgery and HIPEC upon completion of current chemotherapy regimen (5) 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: Status: Chronic Assessment and plan: -Chronic, s/p IVC filter placement secondary to intolerance of anticoagulation secondary to lower GI bleed from subsequently found colon cancer Qualifiers: Affected thrombotic vein of extremity: unspecified vein of extremity Chronicity: chronic Qualified Code(s): I82.502 - Chronic embolism and thrombosis of unspecified deep veins of left lower extremity (6) GI bleed: Status: Chronic Qualifiers: GI bleed type/associated pathology: unspecified gastrointestinal hemorrhage type Qualified Code(s): K92.2 - Gastrointestinal hemorrhage, unspecified History of Present Illness Narrative: 45 year old female with past medical history of Crohns disease complicated by metastatic colon cancer currently on chemotherapy who was at her routine chemotherapy infusion when she began to acutely experience leg cramps, back pain and mid to lower abdominal pain. She was otherwise in her normal state of health prior to this event including free of any symtomatology such as fever, chills, nausea, vomiting, decreased PO intake or changes in bowel habits. Patient states she has never had these symptoms before, and certainly not during any previous infusions. No new medications or therapies were given today according to the patient and her . Initial thoughts were that she was having an allergic reaction so she was given IV decadron and benadryl to little effect. Due to persistent symptoms and severe discomfort as witnessed by her twin sister, she was transported via ambulance to the ER. Nobody was with the patient at the onset of symptoms other than the infusion center staff, but her twin was called to accompany her due to her distress. Since being in the ER she has had basic laboratory studies done revealing a leukocytosis of 28k and lactic acidosis. She was given a bolus of IV fluids and dilaudid for pain which helped. She reports her abdominal pain as diffuse but worse in the suprapubic area. She also had recent exploratory laparoscopic surgery in [place] during which biopsies may have been taken but results are pending. Patient is due back in [place] soon for further surgical consideration including HIPEC according to the patient and her Herb with whom I spoke to over the phone. CTA was done of the abdomen and pelvis due to concern for ischemic etiology in light of her hypercoaguable state, history of DVT and resultant IVC filter placement in June of 2017. She apparently underwent attempted IVC filter removal but was unable to have it removed due to concern for potential IVC injury. She aso has had a chronic fluid collection around the right kidney that is of uncertain etiology. CTA done here reports possible IVC injury and my current clinical suspicion leads me there as well. [facility] was consulted but stated IVC appeared intact and she was refused transfer. I would recommend either CT Venogram or Doppler US of the IVC by a dedicated architectural technician to better determine the integrity of her IVC as this cannot be ruled out on CTA. If patient needs surgical intervention the patient and family has expressed desire to go to [facility] if possible as they are familiar with her. I do not feel that I can offer her any intervention from a general surgical standpoint at this time. Consults Consult date: 03/12/21 Requesting physician: Magui Carranza Review of Systems Constitutional Constitutional: Reports as per HPI, Denies chills, Denies fatigue, Denies lethargy, Denies malaise, Denies poor appetite, Denies weakness and Denies weight gain ENT Ears, Nose, Mouth, and Throat: Denies vertigo and Denies dizziness Cardiovascular Cardiovascular: Denies chest pain, Denies syncope, Denies rapid heart rate, Denies edema, Denies leg edema, Denies lightheadedness and Denies dyspnea Respiratory Respiratory: Denies cough, Denies dyspnea and Denies wheezing Gastrointestinal Gastrointestinal: Reports abdominal pain, Denies melena, Denies change in bowel habits, Denies change in stool character, Denies constipation, Denies cramping, Denies diarrhea, Denies nausea and Denies vomiting Musculoskeletal Musculoskeletal: Reports back pain, Denies myalgias, Denies arthralgias, Denies joint swelling, Reports muscle cramps, Denies muscle weakness, Denies numbness, Denies stiffness and Denies tingling Neurologic Neurologic: Denies confusion, Denies vertigo, Denies dizziness, Denies syncope, Denies numbness, Reports restless legs (chronic), Denies convulsions, Denies tingling and Denies weakness Psychiatric Psychiatric: Denies confusion Endocrine Endocrine: Denies fatigue Allergic/Immunologic Allergic/Immunologic: Denies wheezing FORMERLY [facility], 1928–1983 Medical History (Updated 03/12/21 @ 19:41 by Shayna Gutierrez DO) Brain aneurysm history of Crohns disease 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 Paraneoplastic syndrome preceeding with recurrent DVT Union filter placed. Right flank pain, chronic Surgical History EGD - MAC (07/10/16) History of appendectomy History of bilateral ligation of fallopian tubes Family History Grandfather Diabetes Heart disease Stroke Grandmother Essential hypertension Personal history of malignant neoplasm Lung Grandmother Personal history of malignant neoplasm breast, maternal Maternal Aunt Personal history of malignant neoplasm breast Social History Smoking/Tobacco Use Status: Former Tobacco Use Smoking risk assessment performed?: Yes Alcohol Intake: current Alcohol Intake frequency: a few times a week Drug use: Never Substance use type: does not use Household members: family current occupation: BANKER Duration: 45-60 minutes/day Frequency: 3-4 times per week Amelie/Religious: No preference Special amelie needs: No Seatbelt use: always Do you feel safe at home: Yes Do you feel safe in your relationship?: Yes Exam Const General: cooperative, healthy appearing, comfortable, no acute distress, well developed and well groomed Nutritional Appearance: average body habitus Orientation: oriented x3 and other (drousy from pain medications) Eyes General: appearance normal, both eyes and all related structures Eyelids: eyelids normal Conjunctivae: conjunctivae normal Sclera: sclerae normal EOM: EOM intact bilaterally Chest Chest: normal inspection of the chest Resp Effort & Inspection: normal respiratory effort, no audible wheezes, no cough, not labored and no respiratory distress Cardio Rate: regular rate Rhythm: regular rhythm GI Inspection: normal to inspection, non-distended, incision (recent laparoscopic incisions healing appropriately), scar (multiple, well-healed) and no visible herniation Palpation: soft, not firm, no guarding, not rigid and tender (diffuse but worse suprapubically) Percussion: normal to percussion Neuro General: patient alert, patient awake and patient oriented x3 Cognition: normal cognition Speech: speech normal Results Last Vital Signs Temp 96.8 F L 03/12/21 19:10 Pulse 66 03/12/21 19:05 Resp 20 03/12/21 19:05 BP 144/90 H 03/12/21 19:05 Pulse Ox 96 03/12/21 19:05 Labs Result diagrams: 03/12/21 15:00 03/12/21 18:45 Labs: Laboratory Results - last 24 hr 03/12/21 03/12/21 03/12/21 13:10 13:10 13:10 WBC 27.76 H* D RBC 3.98 Hgb 12.1 Hct 37.3 MCV 93.7 MCH 30.4 MCHC 32.4 RDW 14.5 Plt Count 157 MPV 10.6 Immature Gran % 0.0 Neutrophils % 56.0 Band Neutrophils % 24 Lymphocytes % 7.0 Atypical Lymphs % 1 Monocytes % 3.0 Eosinophils % 0.5 Basophils % 0.0 Metamyelocytes % 8 Myelocytes % 1 Nucleated RBC % 1 Absolute Neutrophils 22.21 H Absolute Lymphocytes 2.22 Absolute Monocytes 0.83 H Absolute Eosinophils 0.14 Absolute Basophils 0.00 RBC Morphology Normal VBG Lactate 3.8 H* Sodium 143 Potassium 3.1 L Chloride 107 Carbon Dioxide 27.3 Anion Gap 8.7 BUN 16 Creatinine 1.1 H Estimated GFR/1.73 m2 53.24 Glucose 62 L Calcium 7.8 L Total Bilirubin 1.3 H AST 51 H ALT 44 Alkaline Phosphatase 532 H Total Protein 6.6 Albumin 3.1 L Lipase 219 03/12/21 03/12/21 03/12/21 15:00 18:45 18:45 WBC RBC Hgb 11.9 Hct 37.0 MCV MCH MCHC RDW Plt Count MPV Immature Gran % Neutrophils % Band Neutrophils % Lymphocytes % Atypical Lymphs % Monocytes % Eosinophils % Basophils % Metamyelocytes % Myelocytes % Nucleated RBC % Absolute Neutrophils Absolute Lymphocytes Absolute Monocytes Absolute Eosinophils Absolute Basophils RBC Morphology VBG Lactate 3.1 H* Sodium 141 Potassium 4.8 D Chloride 107 Carbon Dioxide 24.1 Anion Gap 9.9 BUN 16 Creatinine 1.1 H Estimated GFR/1.73 m2 53.24 Glucose 165 H D Calcium 7.2 L Total Bilirubin 1.4 H AST 79 H ALT 41 Alkaline Phosphatase 790 H Total Protein 6.1 L Albumin 2.9 L Lipase
[2021-03-12] MEDS: HYDROmorphone 2 MG/ML VIAL 0.5 MG IVP ×2 (19:24→20:48)
[2021-03-12 19:51] LABS: Absolute Lymphocyte Count 0.61 10^3/uL (1.2-3.4); Bands % 17; Diff Comment Manual Differential; Metamyelocytes % 2; RBC Morphology Normal
[2021-03-12 19:52] LABS: Bilirubin Negative (Negative); Blood Trace-lysed (Negative); Clarity Clear (Clear); Glucose Negative (Negative); Ketones Negative (Negative); Leukocyte Esterase Negative (Negative); Nitrite Negative (Negative); Urobilinogen 0.2 EU/dL (Up TO 0.2)
[2021-03-12 20:07] LABS: Bacteria Negative HPF (Negative); C & S Indicated? No; Crystals Negative HPF (Negative); Epithelial Cells Negative HPF (Negative); Mucus Negative (Negative); RBC 0-2 HPF (0-2); WBC Negative HPF (0-5)
--- NOTE | 2021-03-12 20:17 | NUR.NOTE ---
Nursing Note: Patient resting in bed at this time, no s/sx of distress. Alert and easily arousable to voice. Rates pain of 2/10 after pain medication administration. Vital signs remain stable. Sister remains at bedside as well.
[2021-03-12] MEDS: Normal Saline 1,000 ML 150 ML IV (20:49)
--- NOTE | 2021-03-12 21:40 | NUR.NOTE ---
Nursing Note: Patient reports 4/10 chest pressure. RN educated patient that this can be a side effect of pain medication. Patient denies any dyspnea and oxygen level WNL. Dr. Green notified. No new orders at this time.
--- NOTE | 2021-03-12 21:43 | NUR.NOTE ---
Nursing Note: RN attempted to call report to [facility], message left with call back number.
[2021-03-12] MEDS: Ondansetron 4 MG/2 ML VIAL IVP (21:59)
--- NOTE | 2021-03-13 10:11 | NUR.NOTE ---
Nursing Note: Faxed to [facility] [address] [place] a corrected copy of the hematology result. Melanie Otto [facility] [address] fax [phone]
== END 2021-03-12 22:00 | disposition short-term general hospital (02) ==
PROVIDERS: Student in an Organized Health Care Education/Training Program; Emergency Provider Emergency Medicine; PCP Emergency Medicine
DX: R10.10 Upper abdominal pain, unspecified (principal); E87.2 Acidosis; E87.6 Hypokalemia; M54.89 Other dorsalgia; C19 Malignant neoplasm of rectosigmoid junction; Z79.899 Other long term (current) drug therapy; Z45.2 Encounter for adjustment and management of vascular access device
CPT/HCPCS: 36416; 36591; 80053; 82962; 83690; 93005; 96361; 96365; 96366; 96367; 96368; 96375; 96376; 99285; 71045; 74174; 81003; 81015; 83605; 85014; 85018; 85025; 93010; J2405; J3480; J3490

== ENCOUNTER 2021-03-26 00:49 | Outpatient (RCR) | payer OTHER, SELFPAY ==
[2021-03-12] MEDS: Normal Saline Flush 10 ML SYR IVP (08:56)
[2021-03-12 09:17] LABS: Abs Immature Grans 1.58 10^3/uL (0.0-0.06); HCT 37.9 % (36.0-46.0); HGB 12.4 g/dL (11.2-15.7); MCH 30.5 pg (27.0-33.0); MCHC 32.7 % (32.0-36.0); MCV 93.3 fL (80-95); MPV 10.9 fL (8.0-11.0); Nucleated RBC 0 %; Platelet Count 182 10^3/uL (130-400); RBC 4.06 10^6/uL (3.93-5.22); RDW 14.4 % (11.7-14.6); RDW-SD 48.7 fL; WBC 18.96 10^3/uL (4.4-10.8)
[2021-03-12 09:40] LABS: ALT 34 U/L (14-59); AST 22 U/L (15-37); Absolute Lymphocyte Count 3.22 10^3/uL (1.2-3.4); Absolute Monocyte Count 1.14 10^3/uL (0.1-0.8); Absolute Neutrophil Count 14.03 10^3/uL (1.2-6.7); Albumin 3.7 g/dL (3.4-5.0); Alkaline Phosphatase 164 U/L (46-116); Anion Gap 6.2 mmol/L (3-11); BUN 17 mg/dL (7-18); Bands % 5; Bilirubin, Total 0.4 mg/dL (0.2-1.0); CO2 30.8 mmol/L (21.0-32.0); CREATININE 1.1 mg/dL (0.55-1.02); Calcium 9.1 mg/dL (8.5-10.1); Chloride 106 mmol/L (98-107); Diff Comment Manual Differential; Estimated GFR 53.24 (mL/min/1.73m2); Glucose 100 mg/dL (74-106); Metamyelocytes % 2; Myelocytes % 1; Polychromasia Present; Potassium 3.8 mmol/L (3.5-5.1); Sodium 143 mmol/L (136-145); Total Protein 7.5 g/dL (6.4-8.2)
[2021-03-12 18:40] LABS: CEA 1.9 ng/mL (See Note)
[2021-03-26] MEDS: Normal Saline Flush 10 ML SYR IVP (07:50)
[2021-03-26] MEDS: Heparin 500 UNITS/5 ML SYRINGE IV (07:50)
[2021-03-26 08:06] LABS: Abs Immature Grans 0.03 10^3/uL (0.0-0.06); Absolute Basophil Count 0.05 10^3/uL (0.0-0.2); Absolute Eosinophil Count 0.08 10^3/uL (0.0-0.7); Absolute Lymphocyte Count 2.12 10^3/uL (1.2-3.4); Absolute Monocyte Count 0.59 10^3/uL (0.1-0.8); Absolute Neutrophil Count 3.59 10^3/uL (1.2-6.7); Basophils % 0.8; Eosinophils % 1.2; HCT 35.3 % (36.0-46.0); HGB 11.4 g/dL (11.2-15.7); Immature Grans % 0.5; Lymphocytes % 32.8; MCH 29.9 pg (27.0-33.0); MCHC 32.3 % (32.0-36.0); MCV 92.7 fL (80-95); MPV 10.5 fL (8.0-11.0); Monocytes % 9.1; Neutrophils % 55.6; Nucleated RBC 0 %; Platelet Count 270 10^3/uL (130-400); RBC 3.81 10^6/uL (3.93-5.22); RDW 14.7 % (11.7-14.6); RDW-SD 49.6 fL; WBC 6.46 10^3/uL (4.4-10.8)
[2021-03-26 08:20] LABS: ALT 29 U/L (14-59); AST 17 U/L (15-37); Albumin 3.5 g/dL (3.4-5.0); Alkaline Phosphatase 80 U/L (46-116); Anion Gap 8.6 mmol/L (3-11); BUN 13 mg/dL (7-18); Bilirubin, Total 0.4 mg/dL (0.2-1.0); CO2 26.4 mmol/L (21.0-32.0); Calcium 8.7 mg/dL (8.5-10.1); Chloride 106 mmol/L (98-107); Estimated GFR 59.43 (mL/min/1.73m2); Glucose 92 mg/dL (74-106); Potassium 3.9 mmol/L (3.5-5.1); Sodium 141 mmol/L (136-145); Total Protein 7.3 g/dL (6.4-8.2)
[2021-03-26 17:38] LABS: CEA 1.8 ng/mL (See Note)
== END 2021-03-30 23:59 | disposition home or self-care (01) ==
LOC: INF 00:49
PROVIDERS: PCP Emergency Medicine; Visit Provider Internal Medicine Hematology & Oncology
DX: C18.9 Malignant neoplasm of colon, unspecified (principal); C79.89 Secondary malignant neoplasm of other specified sites; Z45.2 Encounter for adjustment and management of vascular access device
CPT/HCPCS: 36591; 80053; 82378; 85025

== ENCOUNTER 2021-04-26 09:00 | Outpatient (RCR) | payer OTHER, SELFPAY ==
[2021-04-26] MEDS: Normal Saline Flush 10 ML SYR IVP (09:18)
[2021-04-26] MEDS: Heparin 500 UNITS/5 ML SYRINGE IV (09:18)
[2021-04-26 09:28] LABS: HCT 41.6 % (36.0-46.0); HGB 13.3 g/dL (11.2-15.7); MCV 93.7 fL (80-95); MPV 10.2 fL (8.0-11.0); Platelet Count 232 10^3/uL (130-400); RBC 4.44 10^6/uL (3.93-5.22); RDW 12.7 % (11.7-14.6); RDW-SD 44.1 fL
[2021-04-26 09:41] LABS: ALT 18 U/L (14-59); AST 16 U/L (15-37); Albumin 3.7 g/dL (3.4-5.0); Alkaline Phosphatase 68 U/L (46-116); Anion Gap 8.6 mmol/L (3-11); BUN 15 mg/dL (7-18); Bilirubin, Total 0.5 mg/dL (0.2-1.0); CO2 27.4 mmol/L (21.0-32.0); CREATININE 0.9 mg/dL (0.55-1.02); Calcium 9.1 mg/dL (8.5-10.1); Chloride 105 mmol/L (98-107); Glucose 83 mg/dL (74-106); Potassium 3.9 mmol/L (3.5-5.1); Sodium 141 mmol/L (136-145); Total Protein 7.5 g/dL (6.4-8.2)
[2021-04-26 09:42] LABS: INR 0.9 (0.9-1.1); Prothrombin Time 9.3 sec (9.3-11.0)
== END 2021-04-30 23:59 | disposition home or self-care (01) ==
LOC: INF 09:00
PROVIDERS: PCP Emergency Medicine; Visit Provider Surgery
DX: Z01.818 Encounter for other preprocedural examination (principal); Z45.2 Encounter for adjustment and management of vascular access device
CPT/HCPCS: 36591; 80053; 85027; 85610; 85730

== ENCOUNTER 2021-04-26 09:09 | Outpatient (CLI) | payer OTHER, SELFPAY ==
[2021-04-27 12:53] LABS: COVID-19 RT-PCR UVMMC Result Negative (Negative)
== END 2021-04-26 09:10 | disposition home or self-care (01) ==
PROVIDERS: PCP Emergency Medicine; Visit Provider Emergency Medicine
DX: Z20.822 Contact with and (suspected) exposure to COVID-19 (principal)
CPT/HCPCS: U0003

== ENCOUNTER 2021-05-17 20:18 | Emergency (ER) | payer OTHER, BC, SELFPAY ==
[2021-05-17 20:22] VITALS: BP 104/80; PULSE 90; RESP 18; TEMP 36.3; O2SAT 98
--- NOTE | 2021-05-17 20:30 | DI.CT_ITS ---
Exam(s) CT ABDOMEN PELVIS W EXAM: CT ABDOMEN PELVIS W CLINICAL HISTORY: rlq pain, recent surgery. TECHNIQUE: Imaging Protocol: Axial computed tomography images with coronal and sagittal reformatted images were created and reviewed CONTRAST MATERIAL: Intravenous: Omnipaque 100cc Oral: None COMPARISON: CT CT ABDOMEN PELVIS CTA from 03/12/2021 FINDINGS: VISUALIZED LUNG BASES: No nodules nor pleural effusions evident. ABDOMEN: There is abnormal density around the right kidney is again noted which may be a combination of fluid possible neoplasm. LIVER: There are no focal hepatic lesions evident . GALLBLADDER/BILIARY: No obvious intraluminal gallstones. There is, however, some density around the gallbladder. CBD is not dilated. PANCREAS: No evidence of pancreatic mass nor dilatation of the pancreatic duct. SPLEEN: Spleen size upper normal. No intrasplenic lesions the splenic vein is patent. There is intr aluminal thrombus in the superior mesenteric vein and portal vein confluence, nonocclusive. The extr ahepatic portal vein is patent but there is intraluminal thrombus seen within intrahepatic portal vei ns, most prominent in the intrahepatic left portal vein. ADRENALS: Left adrenal gland is unremarkable. There is no intrinsic mass in the right adrenal gland but it is surrounded by density continuous with the ipsilateral perinephric density. KIDNEYS:No cysts evident. No solid renal masses. No calculi nor hydronephrosis. However, there is a bnormal density around the entire right kidney again noted, similar to previous and possibly neoplast ic or fluid. Similar findings are not seen around the opposite-left kidney.. ABDOMINAL AORTA: Abdominal aorta is not enlarged. LYMPH NODES:There is an enlarged portacaval lymph node evident. No immediate para-aortic adenopathy. ABDOMINAL WALL: Vertical skin clips in the midline both above and below the umbilicus are noted. No evidence of significant subcutaneous drainable fluid collection. GI: Right side iliac fossa anastomosis is noted from partial right hemicolectomy. Some mild streakin g in this area is evident, more so than previous. There is no drainable abscess. No free air. IVC: There is an IVC filter in place. Its apex is at the level of the entrance of the left renal vei n. There is clot in the IVC just below and within the filter. PELVIS: GI: Appendix surgically absent.No evidence of sigmoid diverticulitis. LYMPH NODES: Small lymph nodes noted. REPRODUCTIVE: The uterus is less well-defined than on the March 2021 study. Its appearance is heterogeneous and this may not indeed be the uterus but a separate pelvic mass. There is abnormal fluid around this a matt. Ovaries are difficult to identify as separate structures. URINARY BLADDER: No calculi nor obvious masses evident OSSEOUS: No significant osseous lesions. IMPRESSION: 1. There has been partial right hemicolectomy with a surgical anastomosis in the right iliac fossa wi th some associated stranding in this region. There is no large hematoma or drainable abscess at this location at this time. There is no bowel obstruction. 2. Abnormal mass versus is uterus in the central pelvis. Correlation with any history of recent hyst erectomy recommended. Ovaries cannot be identified as separate structures. There is also some fluid in the pelvis at this level. Cannot exclude possibility of neoplasm. 3. There is density around the right kidney and right adrenal gland again noted which may be in part fluid but also suspicious for possible neoplastic tissue. 4. There is portal vein thrombosis as detailed above. There is also intraluminal thrombus in the IVC both thin and just below the IVC filter (which is in good position). Study 1st read by Natali [facility] RADIATION DOSE DELIVERED: 975.03mGy.cm Total DLP DATA REPOSITORY: All CT scans at this facility are submitted to the National Radiology Data Registry (NRDR) Dose Index Registry (DIR) with the [employer] (ACR). RADIATION OPTIMIZATION: All CT scans at this facility use at least one of these dose optimization te chniques: automated exposure control; mA and/or kV adjustment per patient size (includes targeted exa ms where dose is matched to clinical indication); or iterative reconstruction.
[2021-05-17] MEDS: Normal Saline 1,000 ML 1000 ML IV (20:38)
[2021-05-17] MEDS: MORPHine 4 MG/ML SYR IVP (20:41)
--- NOTE | 2021-05-17 20:45 | NUR.NOTE ---
Nursing Note: Patient would like to keep her informed. He is Herb and his number is [phone].
[2021-05-17 20:59] LABS: Abs Immature Grans 0.02 10^3/uL (0.0-0.06); Absolute Basophil Count 0.04 10^3/uL (0.0-0.2); Absolute Eosinophil Count 0.25 10^3/uL (0.0-0.7); Absolute Lymphocyte Count 2.81 10^3/uL (1.2-3.4); Absolute Neutrophil Count 3.26 10^3/uL (1.2-6.7); Basophils % 0.6; Eosinophils % 3.5; HCT 38.3 % (36.0-46.0); HGB 12.5 g/dL (11.2-15.7); Immature Grans % 0.3; Lymphocytes % 39.7; MCH 29.9 pg (27.0-33.0); MCHC 32.6 % (32.0-36.0); MCV 91.6 fL (80-95); MPV 10.2 fL (8.0-11.0); Monocytes % 9.9; Nucleated RBC 0 %; Platelet Count 356 10^3/uL (130-400); RBC 4.18 10^6/uL (3.93-5.22); RDW 12.5 % (11.7-14.6); RDW-SD 41.4 fL; WBC 7.08 10^3/uL (4.4-10.8)
--- NOTE | 2021-05-17 20:59 | W.ED.GENAD ---
Discharge Plan Disposition Patient Disposition: HOME Condition: Good Discharge Details Clinical Impression: Abdominal pain, Deep vein thrombosis of portal vein Primary Care Provider: Nic Wilks ED Provider: New Hopkins Home Meds and New Rx's Prescriptions: Continued Stelara 45 mg/0.5 mL syringe 90 mg SC Q8W RF: 0 ondansetron HCl 8 mg tablet 8 mg PO Q8H RF: 0 prochlorperazine maleate [Compazine] 10 mg tablet 10 mg PO TID PRNRF: 0 meclizine 25 mg tablet 25 mg PO TID RF: 0 venlafaxine [Effexor XR] 37.5 mg capsule,extended release 24hr 75 mg PO QHS RF: 0 cyanocobalamin (vitamin B-12) 1,000 MCG/1 ML solution 1,000 mcg IJ MONTHLY Qty: 3 RF: 4 (DME) syringe with needle 1 EACH syringe 1 ea Miscellaneous as directed Qty: 10 RF: 1 lorazepam [Ativan] 1 mg tablet 2 mg PO QHS PRN (Reason: sleep) Qty: 180 RF: 2 Discharge Instructions Instructions: Abdominal Pain (ED) Additional Instructions: At this time as we discussed together there is no clear evidence of abscess or significant infection on your CAT scan. There is evidence of a portal vein thrombosis which is with blood clot near your liver. We have given you the first injection of Lovenox here. We have dosed it for a 24-hour dosing. The next time you will need to take a dose will be tomorrow evening. The dose we sent you home with to self administer is effective for 24 hours as well. It is 100 mg (1.5mg x Weight (68kg)). It is critically important that you follow-up closely with your surgeon tomorrow at your scheduled appointment at [facility]. We have sent you with a CD of the CAT scan, please give this to them for their reference and review. Please discuss with them the portal vein thrombosis that was noted, as well as there recommendations for further anticoagulation going forward in respect to your surgeries and complicated history. If you notice any worsening of your symptoms, or any new symptoms such as vomiting, diarrhea, fever, chills, shortness of breath, chest pain, numbness, weakness, or fainting , please return immediately to the emergency department for reevaluation. Please follow up with your primary care provider as soon as possible for reassessment and reevaluation. As always, it was a pleasure participating in your medical care today. Referrals: Nic Wilks, [Primary Care Provider] - Medical Decision Making This is a 46-year-old female with a complicated surgical history of kidney stones, Crohn's disease, appendectomy, adenocarcinoma of the ileocecal valve, ileostomy, brain aneurysm, previous DVTs with an inferior vena cava filter, who had surgery 17 days ago in [place] for surgical removal of multiple pelvic nodules as well as a nodule over the small intestines were her previous ileostomy site was, who presents today for right flank and abdominal pain. Patient states that 4-1/2 to 5 days ago she developed right flank abdominal pain. It was achy in nature. Over the last 4 days pain has continued and worsened and migrated somewhat more anteriorly and inferiorly. She denies urinary frequency or bleeding. She denies diarrhea or vomiting. She states that her symptoms are made worse with food. She has not been eating much because of this. She denies any chest pain or shortness of breath. She denies any hematemesis or melena. She has a follow-up appointment in [place] with her surgeon tomorrow. No other complaints at this time. No other modifying factors Physical exam demonstrates notable right lower quadrant tenderness. With the patient's notable surgical history there could be multiple etiologies causing her symptoms including delayed abscess, kidney stone, or other postoperative complication. We will rehydrate, treat her pain, get a CT scan, monitor closely and reassess. 10:55 PM Patient's laboratory work-up has returned, all available no white count, bandemia or left shift. No evidence of infection. The patient has no fevers. She does demonstrate a slightly low potassium at 3.1, magnesium is slightly low at 1.5. Lipase is otherwise normal. Reassessment patient feels much better. She feels comfortable feels comfortable to go home. Repeat abdominal exam shows no signs of an acute abdomen, notably diminished tenderness now in the right lower quadrant. CAT scan was reviewed with radiology, there is evidence of a portal vein thrombosis which may be new. There are some thrombus below the IVC filter. Also the right perirenal density which may impart represent fluid but is suspicious for neoplasm. This appears to be chronic rather than acute. There is also evidence of a right colonic surgical anastomosis with associated fat stranding, but radiology feels that this is likely postsurgical changes with no evidence of abscess. With notable improvement of her symptoms, patient feels comfortable going home. I did reach out to her surgeon at [facility], and spoke with who is the on-call surgical physician. We discussed the CT scan findings, as well as the labs and clinical exam. At this time he recommends treating the portal vein thrombosis, with no clear evidence of infection clinically at this time he does feel that close follow-up tomorrow would be appropriate. We will treat with subcu Lovenox dosed at 1.5 mg/kg/day for 24-hour dosing. We will give an injection here, and 1 for home use. However I made it unequivocally clear that the patient needs to follow-up closely with the surgeon at her scheduled appointment tomorrow to determine their recommendations for the best anticoagulation knowing her complicated history. Patient feels comfortable with this plan. She is able to tolerate p.o. Patient will be discharged with close follow-up. I spent a long time discussing red flags for which would merit immediate return. At this time patient appears clinically stable with no clinical evidence of an acute surgical abdomen. She has no transaminitis to suggest liver failure from the portal vein thrombosis, bilirubin is normal. Her potassium and magnesium were both replaced here. I did offer to talk with her as well, but she declined at this time. I have extensively reviewed the treatment plan and discharge instructions with the patient. I have addressed all patient concerns at this time. The patient was made aware of what symptoms to monitor for that would warrant a return to the emergency department. Discussed the plan with the patient, they demonstrate verbal understanding and agreement with our assessment and plan at this time. The documentation in this chart was dictated using [employer] dictation software. Please excuse any dictation errors. FINDINGS: Lungs: Mild atelectasis lung bases. Heart: Normal heart size. RV/LV ratio normal at less than 1. Liver: No focal hepatic lesions. Gallbladder and bile ducts: Normal. No calcified stones. No ductal dilation. Pancreas: Normal. No ductal dilation. Spleen: The spleen is normal. Adrenal glands: Normal. No mass. Kidneys and ureters: No renal calculus, hydronephrosis, or intrarenal mass. Stomach and bowel: Surgical sutures suggesting anastomosis right colon with considerable surrounding fat stranding. This may represent normal postoperative change or inflammation/infection however there is no evidence of abscess or sizable hematoma and no associated free air. Multiple air-fluid levels throughout the bowel consistent with diarrhea and possibly enterocolitis. Appendix: No evidence of appendicitis. Intraperitoneal space: Small to moderate amount of free fluid in the pelvis. No free air. Vasculature: There is a 14 mm nonocclusive filling defect in the upper portion of the superior mesenteric vein extending up into the main portal vein. Additional nonocclusive clots extend into left and right hepatic vein branches. IVC filter in place with apex at the level of the renal veins. Nonocclusive thrombus below the filter versus artifact from contrast mixing. Right perirenal fluid. This is confluent with a likely right retroperitoneal mass apparent by anterior displacement of the right renal vein. This is difficult to measure but appears to be approximately 15 mm AP diameter and 5.1 cm in craniocaudad dimension. Lymph nodes: 8 mm short axis right iliac chain lymph node immediately anterior to the origin of the iliac artery (series 5, image 457) numerous additional smaller mesenteric lymph nodes. Urinary bladder: There is nonspecific bladder wall thickening. This is likely due to incomplete distention. Reproductive: The uterus appears somewhat bulky and not as well defined as on the comparison study. Associated pelvic mass difficult to exclude. Bones/joints: Unremarkable. No acute fracture. Soft tissues: Midline ventral abdominal incision with skin duane. No evidence of dehiscence. IMPRESSION: 1. Portal vein thrombosis. 2. IVC filter in place with associated thrombus below the filter. 3. Right perirenal density which may in part represent fluid but is suspicious for neoplasm. 4. Small mesenteric nodes and a right iliac node measuring up to 8.4 mm. These findings likely represent neoplasm given the patient's history. 5. Right colonic surgical anastomosis with associated fat stranding. Patient has had recent surgery which may well account for this. Inflammation or infection without abscess or sizable hematoma would also be a consideration. 6. Pelvic mass cannot be excluded. 7. Bowel air-fluid level suggesting enterocolitis. Thank you for allowing us to participate in the care of your patient. Dictated and Authenticated by: Ferdinand Wolf MD 05/17/2021 10:26 PM Eastern Time ([place] & [place]) HPI General Date/Time Provider Initiated Documentation: 05/17/21 20:19. HPI Narrative: This is a 46-year-old female with a complicated surgical history of kidney stones, Crohn's disease, appendectomy, adenocarcinoma of the ileocecal valve, ileostomy, brain aneurysm, previous DVTs with an inferior vena cava filter, who had surgery 17 days ago in [place] for surgical removal of multiple pelvic nodules as well as a nodule over the small intestines were her previous ileostomy site was, who presents today for right flank and abdominal pain. Patient states that 4-1/2 to 5 days ago she developed right flank abdominal pain. It was achy in nature. Over the last 4 days pain has continued and worsened and migrated somewhat more anteriorly and inferiorly. She denies urinary frequency or bleeding. She denies diarrhea or vomiting. She states that her symptoms are made worse with food. She has not been eating much because of this. She denies any chest pain or shortness of breath. She denies any hematemesis or melena. She has a follow-up appointment in [place] with her surgeon tomorrow. No other complaints at this time. No other modifying factors Related Data Home Medications Medication Instructions Recorded Confirmed cyanocobalamin (vitamin B-12) 1,000 mcg IJ MONTHLY #3 vial 09/19/17 03/12/21 syringe with needle #10 ea 09/19/17 02/23/21 ustekinumab 45 mg/0.5 mL 90 mg SC Q8W 06/08/18 03/12/21 subcutaneous syringe lorazepam 1 mg tablet 2 mg PO QHS PRN #180 tab 06/04/19 03/12/21 meclizine 25 mg tablet 25 mg PO TID 02/23/21 03/12/21 ondansetron HCl 8 mg tablet 8 mg PO Q8H 02/23/21 03/12/21 prochlorperazine maleate 10 mg 10 mg PO TID PRN 02/23/21 03/12/21 tablet venlafaxine 37.5 mg 75 mg PO QHS cap 02/23/21 03/12/21 capsule,extended release 24 hr Previous Rx's Medication Instructions Recorded cyanocobalamin (vitamin B-12) 1,000 mcg IJ MONTHLY #3 vial 09/19/17 syringe with needle #10 ea 09/19/17 lorazepam 1 mg tablet 2 mg PO QHS PRN #180 tab 06/04/19 Allergies Allergy/AdvReac Type Severity Reaction Status Date / Time No Known Drug Allergies Allergy Verified 02/18/20 08:08 body wash for sx Allergy Uncoded 03/12/21 13:01 General Stated Complaint: Abd Prob ESTHELA: 3 Review of Systems All systems reviewed & are unremarkable except as noted in HPI and below PFSH All Active Problems (Updated 05/17/21 @ 22:48 by New Hopkins DO) Lactic acidosis (Acute) Abdominal pain (Acute) Deep vein thrombosis of portal vein (Acute) Back pain (Acute) Abdominal pain (Acute) Pain in left leg (Acute) History of bilateral ligation of fallopian tubes (Acute) 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 Crohns disease (Chronic) Right flank pain, chronic (Acute) RLS (restless legs syndrome) (Chronic 07/19/17) GI bleed (Chronic) 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 (Chronic) Medical History (Updated 05/17/21 @ 22:48 by New Hopkins DO) Brain aneurysm history of Surgical History EGD - MAC (07/10/16) History of appendectomy Family History Grandfather Diabetes Heart disease Stroke Grandmother Essential hypertension Personal history of malignant neoplasm Lung Grandmother Personal history of malignant neoplasm breast, maternal Maternal Aunt Personal history of malignant neoplasm breast Social History Smoking/Tobacco Use Status: Former Tobacco Use Smoking risk assessment performed?: Yes Alcohol Intake: current Alcohol Intake frequency: a few times a week Drug use: Never Substance use type: does not use Household members: family 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 3.ENT: Atraumatic external nose and ears. Moist MM. Neck: Symmetric, trachea midline, No thyromegaly. 4.CVS: +S1/S2, No murmurs or gallops. Peripheral pulses 2+ and equal in all extremities. Brisk capillary refill in all extremities. 5.RESP: Unlabored respiratory effort. Clear to auscultation bilaterally. No wheezes rales or rhonchi 6.GI: Soft, nondistended. Surgical clips are all in place/duane. No redness or erythema. No seroma. Incision site is clean dry and intact. No guarding, but the patient does have notable right lower quadrant tenderness. No right flank tenderness. No CVA tenderness. Positive heel strike test radiates pain to the right lower quadrant of the abdomen. Negative Olsen sign. No left-sided abdominal pain. 7.MSK: Normocephalic/Atraumatic, Extremities w/o deformity or ttp No cyanosis or clubbing, Normal movement of all extremities 8.Skin: Warm, Dry. No rashes or lesions. 9.Neuro: anesthetist II-XII grossly intact. Sensation grossly intact, no focal neurologic deficits. 10.Psych: (AAO) x3. Appropriate mood and affect Course Vital Signs Vital signs: Vital Signs Temperature 36.3 C L 05/17/21 20:22 Pulse 90 05/17/21 20:22 Respiratory Rate 18 05/17/21 20:22 Blood Pressure 104/80 05/17/21 20:22 Pulse Oximetry 98 05/17/21 20:22 Temperature 36.3 C L 05/17/21 20:22 Temperature Source Temporal Artery Scan 05/17/21 20:22 Pulse 90 05/17/21 20:22 Respiratory Rate 18 05/17/21 20:22 Respiratory Effort 05/17/21 20:26 Blood Pressure 104/80 05/17/21 20:22 Blood Pressure Position Supine 05/17/21 20:22 Pulse Oximetry 98 05/17/21 20:22 Oxygen Delivery Method Room Air 05/17/21 20:22 Oxygen Flow Rate 0 05/17/21 20:22 Pain Level 5 05/17/21 20:41
[2021-05-17 21:09] LABS: ALT 36 U/L (14-59); AST 30 U/L (15-37); Albumin 3.5 g/dL (3.4-5.0); Alkaline Phosphatase 114 U/L (46-116); Anion Gap 12.8 mmol/L (3-11); BUN 8 mg/dL (7-18); Bilirubin, Total 0.3 mg/dL (0.2-1.0); CO2 25.2 mmol/L (21.0-32.0); Calcium 9.3 mg/dL (8.5-10.1); Chloride 101 mmol/L (98-107); Estimated GFR 59.18 (mL/min/1.73m2); Glucose 91 mg/dL (74-106); Lipase 161 U/L (73-393); Potassium 3.1 mmol/L (3.5-5.1); Sodium 139 mmol/L (136-145); Total Protein 8.2 g/dL (6.4-8.2)
[2021-05-17] MEDS: Normal Saline Flush 10 ML SYR IVP (21:15)
[2021-05-17] MEDS: Omnipaque 350 MG/ML 100 ML BTL IJ (21:22)
[2021-05-17 21:25] LABS: Magnesium 1.5 mg/dL (1.8-2.4)
[2021-05-17] MEDS: POTASSIUM CHLORIDE 10 MEQ/100 ML BAG 100 MEQ IVPB (21:37)
[2021-05-17] MEDS: MAGNESIUM SULFATE 2 GM/50 ML BAG IVPB (21:45)
--- NOTE | 2021-05-17 22:26 | DI.VRAD_ITS ---
PROCEDURE INFORMATION: Exam: CT Abdomen And Pelvis With Contrast Exam date and time: 05/17/2021 8:38 PM Age: 46 years old Clinical indication: Patient HX: Rlq pain, recent surgery. PT had a recent surgery to resect part of the bowel/ chemo therapy treatment mar 2021. PT has chrons disease, PT has been diagnosed with colon cancer, ovarian cancer and 3rd type has not yet been diagnosed. TECHNIQUE: Imaging protocol: Computed tomography of the abdomen and pelvis with contrast. Radiation optimization: All CT scans at this facility use at least one of these dose optimization techniques: automated exposure control; mA and/or kV adjustment per patient size (includes targeted exams where dose is matched to clinical indication); or iterative reconstruction. Contrast material: OMNIPAQUE 350; Contrast volume: 97 ml; Contrast route: INTRAVENOUS (IV); COMPARISON: CT ABDOMEN PELVIS CTA 03/12/2021 1:44 PM FINDINGS: Lungs: Mild atelectasis lung bases. Heart: Normal heart size. RV/LV ratio normal at less than 1. Liver: No focal hepatic lesions. Gallbladder and bile ducts: Normal. No calcified stones. No ductal dilation. Pancreas: Normal. No ductal dilation. Spleen: The spleen is normal. Adrenal glands: Normal. No mass. Kidneys and ureters: No renal calculus, hydronephrosis, or intrarenal mass. Stomach and bowel: Surgical sutures suggesting anastomosis right colon with considerable surrounding fat stranding. This may represent normal postoperative change or inflammation/infection however there is no evidence of abscess or sizable hematoma and no associated free air. Multiple air-fluid levels throughout the bowel consistent with diarrhea and possibly enterocolitis. Appendix: No evidence of appendicitis. Intraperitoneal space: Small to moderate amount of free fluid in the pelvis. No free air. Vasculature: There is a 14 mm nonocclusive filling defect in the upper portion of the superior mesenteric vein extending up into the main portal vein. Additional nonocclusive clots extend into left and right hepatic vein branches. IVC filter in place with apex at the level of the renal veins. Nonocclusive thrombus below the filter versus artifact from contrast mixing. Right perirenal fluid. This is confluent with a likely right retroperitoneal mass apparent by anterior displacement of the right renal vein. This is difficult to measure but appears to be approximately 15 mm AP diameter and 5.1 cm in craniocaudad dimension. Lymph nodes: 8 mm short axis right iliac chain lymph node immediately anterior to the origin of the iliac artery (series 5, image 457) numerous additional smaller mesenteric lymph nodes. Urinary bladder: There is nonspecific bladder wall thickening. This is likely due to incomplete distention. Reproductive: The uterus appears somewhat bulky and not as well defined as on the comparison study. Associated pelvic mass difficult to exclude. Bones/joints: Unremarkable. No acute fracture. Soft tissues: Midline ventral abdominal incision with skin duane. No evidence of dehiscence. IMPRESSION: 1. Portal vein thrombosis. 2. IVC filter in place with associated thrombus below the filter. 3. Right perirenal density which may in part represent fluid but is suspicious for neoplasm. 4. Small mesenteric nodes and a right iliac node measuring up to 8.4 mm. These findings likely represent neoplasm given the patient's history. 5. Right colonic surgical anastomosis with associated fat stranding. Patient has had recent surgery which may well account for this. Inflammation or infection without abscess or sizable hematoma would also be a consideration. 6. Pelvic mass cannot be excluded. 7. Bowel air-fluid level suggesting enterocolitis. Dictated and Authenticated by: Ferdinand Wolf MD. Ordering:LASHONDA Wolff MD
[2021-05-17] MEDS: Enoxaparin 100 MG/ML SYR SC ×2 (22:59)
[2021-05-17 23:07] LABS: INR 1.1 (0.9-1.1); PTT Activated 29.3 sec (21.0-27.5); Prothrombin Time 10.8 sec (9.3-11.0)
== END 2021-05-17 23:27 | disposition home or self-care (01) ==
PROVIDERS: Emergency Provider Student in an Organized Health Care Education/Training Program; PCP Emergency Medicine
DX: I81 Portal vein thrombosis (principal); C18.0 Malignant neoplasm of cecum; Z98.890 Other specified postprocedural states
CPT/HCPCS: 80053; 83690; 96361; 96365; 96366; 96372; 96375; 99285; 74177; 83735; 85025; 85610; 85730; J1650; J2270; J3480; J3490

== ENCOUNTER 2021-05-28 03:50 | Outpatient (RCR) | payer OTHER, BC, SELFPAY ==
[2021-05-28] MEDS: Normal Saline Flush 10 ML SYR IVP (12:54)
[2021-05-28] MEDS: Heparin 500 UNITS/5 ML SYRINGE IV (12:55)
[2021-05-28 13:01] LABS: Abs Immature Grans 0.03 10^3/uL (0.0-0.06); Absolute Basophil Count 0.04 10^3/uL (0.0-0.2); Absolute Eosinophil Count 0.14 10^3/uL (0.0-0.7); Absolute Lymphocyte Count 2.02 10^3/uL (1.2-3.4); Absolute Monocyte Count 0.47 10^3/uL (0.1-0.8); Absolute Neutrophil Count 4.94 10^3/uL (1.2-6.7); Basophils % 0.5; Eosinophils % 1.8; HCT 37.5 % (36.0-46.0); HGB 12.2 g/dL (11.2-15.7); Immature Grans % 0.4; Lymphocytes % 26.4; MCH 29.8 pg (27.0-33.0); MCHC 32.5 % (32.0-36.0); MCV 91.5 fL (80-95); MPV 9.7 fL (8.0-11.0); Monocytes % 6.2; Neutrophils % 64.7; Nucleated RBC 0 %; Platelet Count 282 10^3/uL (130-400); RDW 12.7 % (11.7-14.6); WBC 7.64 10^3/uL (4.4-10.8)
[2021-05-28 13:17] LABS: ALT 28 U/L (14-59); AST 20 U/L (15-37); Albumin 3.5 g/dL (3.4-5.0); Alkaline Phosphatase 91 U/L (46-116); Anion Gap 8.8 mmol/L (3-11); BUN 10 mg/dL (7-18); Bilirubin, Total 0.3 mg/dL (0.2-1.0); CO2 29.2 mmol/L (21.0-32.0); CREATININE 0.9 mg/dL (0.55-1.02); Calcium 9.5 mg/dL (8.5-10.1); Chloride 104 mmol/L (98-107); Glucose 114 mg/dL (74-106); Potassium 3.7 mmol/L (3.5-5.1); Sodium 142 mmol/L (136-145); Total Protein 7.8 g/dL (6.4-8.2)
[2021-05-28 22:29] LABS: CEA 1.5 ng/mL (See Note)
== END 2021-05-31 23:59 | disposition home or self-care (01) ==
LOC: INF 03:50
PROVIDERS: PCP Emergency Medicine; Visit Provider Internal Medicine Hematology & Oncology
DX: C18.9 Malignant neoplasm of colon, unspecified (principal)
CPT/HCPCS: 36591; 80053; 82378; 85025

== ENCOUNTER 2021-06-24 01:23 | Outpatient (RCR) | payer OTHER, BC, SELFPAY ==
[2021-06-24] MEDS: Normal Saline Flush 10 ML SYR IVP (14:34)
[2021-06-24 14:51] LABS: Abs Immature Grans 0.01 10^3/uL (0.0-0.06); Absolute Basophil Count 0.03 10^3/uL (0.0-0.2); Absolute Eosinophil Count 0.09 10^3/uL (0.0-0.7); Absolute Lymphocyte Count 2.53 10^3/uL (1.2-3.4); Absolute Monocyte Count 0.54 10^3/uL (0.1-0.8); Absolute Neutrophil Count 3.51 10^3/uL (1.2-6.7); Basophils % 0.4; Eosinophils % 1.3; HCT 40.2 % (36.0-46.0); HGB 13.2 g/dL (11.2-15.7); Immature Grans % 0.1; Lymphocytes % 37.7; MCH 28.8 pg (27.0-33.0); MCHC 32.8 % (32.0-36.0); MCV 87.6 fL (80-95); MPV 10.4 fL (8.0-11.0); Neutrophils % 52.5; Nucleated RBC 0 %; Platelet Count 234 10^3/uL (130-400); RBC 4.59 10^6/uL (3.93-5.22); RDW 13.1 % (11.7-14.6); RDW-SD 42.3 fL; WBC 6.71 10^3/uL (4.4-10.8)
[2021-06-24 15:01] LABS: ALT 23 U/L (14-59); AST 19 U/L (15-37); Albumin 3.7 g/dL (3.4-5.0); Alkaline Phosphatase 79 U/L (46-116); Anion Gap 7.8 mmol/L (3-11); BUN 10 mg/dL (7-18); Bilirubin, Total 0.3 mg/dL (0.2-1.0); CO2 28.2 mmol/L (21.0-32.0); Calcium 9.1 mg/dL (8.5-10.1); Chloride 107 mmol/L (98-107); Estimated GFR 59.18 (mL/min/1.73m2); Glucose 109 mg/dL (74-106); Potassium 3.4 mmol/L (3.5-5.1); Sodium 143 mmol/L (136-145); Total Protein 7.5 g/dL (6.4-8.2)
[2021-06-24 22:55] LABS: CEA 1.8 ng/mL (See Note)
== END 2021-06-28 23:59 | disposition home or self-care (01) ==
LOC: INF 01:23
PROVIDERS: PCP Family Medicine; Visit Provider Internal Medicine Hematology & Oncology
DX: C18.9 Malignant neoplasm of colon, unspecified (principal); Z45.2 Encounter for adjustment and management of vascular access device
CPT/HCPCS: 36591; 80053; 82378; 85025

== ENCOUNTER 2021-07-16 01:01 | Outpatient (RCR) | payer OTHER, BC, SELFPAY ==
[2021-07-16 13:42] LABS: Abs Immature Grans 0.02 10^3/uL (0.0-0.06); Absolute Basophil Count 0.02 10^3/uL (0.0-0.2); Absolute Eosinophil Count 0.08 10^3/uL (0.0-0.7); Absolute Lymphocyte Count 2.48 10^3/uL (1.2-3.4); Absolute Monocyte Count 0.54 10^3/uL (0.1-0.8); Absolute Neutrophil Count 3.69 10^3/uL (1.2-6.7); Basophils % 0.3; Eosinophils % 1.2; HCT 39.6 % (36.0-46.0); HGB 12.8 g/dL (11.2-15.7); Immature Grans % 0.3; Lymphocytes % 36.3; MCH 28.8 pg (27.0-33.0); MCHC 32.3 % (32.0-36.0); MCV 89.2 fL (80-95); MPV 9.4 fL (8.0-11.0); Monocytes % 7.9; Nucleated RBC 0 %; Platelet Count 234 10^3/uL (130-400); RBC 4.44 10^6/uL (3.93-5.22); RDW 14.8 % (11.7-14.6); RDW-SD 43.6 fL; WBC 6.83 10^3/uL (4.4-10.8)
[2021-07-16] MEDS: Normal Saline Flush 10 ML SYR IVP (13:54)
[2021-07-16 13:57] LABS: ALT 27 U/L (14-59); AST 19 U/L (15-37); Albumin 3.8 g/dL (3.4-5.0); Alkaline Phosphatase 78 U/L (46-116); Anion Gap 10.2 mmol/L (3-11); BUN 9 mg/dL (7-18); Bilirubin, Total 0.7 mg/dL (0.2-1.0); CO2 25.8 mmol/L (21.0-32.0); CREATININE 1.1 mg/dL (0.55-1.02); Calcium 8.9 mg/dL (8.5-10.1); Chloride 105 mmol/L (98-107); Estimated GFR 53.01 (mL/min/1.73m2); Glucose 100 mg/dL (74-106); Potassium 3.3 mmol/L (3.5-5.1); Sodium 141 mmol/L (136-145); Total Protein 7.6 g/dL (6.4-8.2)
[2021-07-16 22:15] LABS: CEA 3.2 ng/mL (See Note)
== END 2021-07-29 23:59 | disposition home or self-care (01) ==
LOC: INF 01:01
PROVIDERS: PCP Family Medicine; Visit Provider Internal Medicine Hematology & Oncology
DX: C18.9 Malignant neoplasm of colon, unspecified (principal); Z45.2 Encounter for adjustment and management of vascular access device
CPT/HCPCS: 36591; 80053; 82378; 85025

== ENCOUNTER 2021-08-11 12:00 | Outpatient (RCR) | payer OTHER, BC, SELFPAY ==
[2021-08-06 13:08] LABS: Abs Immature Grans 0.03 10^3/uL (0.0-0.06); Absolute Basophil Count 0.02 10^3/uL (0.0-0.2); Absolute Eosinophil Count 0.11 10^3/uL (0.0-0.7); Absolute Lymphocyte Count 2.29 10^3/uL (1.2-3.4); Absolute Neutrophil Count 3.47 10^3/uL (1.2-6.7); Basophils % 0.3; Eosinophils % 1.7; HCT 37.5 % (36.0-46.0); HGB 12.1 g/dL (11.2-15.7); Immature Grans % 0.5; Lymphocytes % 35.7; MCH 29.5 pg (27.0-33.0); MCHC 32.3 % (32.0-36.0); MCV 91.5 fL (80-95); MPV 9.9 fL (8.0-11.0); Monocytes % 7.8; Nucleated RBC 0 %; Platelet Count 193 10^3/uL (130-400); RDW 18.1 % (11.7-14.6); RDW-SD 58.2 fL; WBC 6.42 10^3/uL (4.4-10.8)
[2021-08-06 13:19] LABS: ALT 24 U/L (14-59); AST 20 U/L (15-37); Albumin 3.4 g/dL (3.4-5.0); Alkaline Phosphatase 76 U/L (46-116); Anion Gap 7.5 mmol/L (3-11); BUN 8 mg/dL (7-18); Bilirubin, Total 0.9 mg/dL (0.2-1.0); CO2 26.5 mmol/L (21.0-32.0); CREATININE 1.1 mg/dL (0.55-1.02); Calcium 8.3 mg/dL (8.5-10.1); Chloride 109 mmol/L (98-107); Estimated GFR 53.01 (mL/min/1.73m2); Glucose 86 mg/dL (74-106); Potassium 3.5 mmol/L (3.5-5.1); Sodium 143 mmol/L (136-145); Total Protein 6.8 g/dL (6.4-8.2)
[2021-08-06] MEDS: Normal Saline Flush 10 ML SYR IVP (13:54)
== END 2021-08-28 23:59 | disposition home or self-care (01) ==
LOC: INF 12:00
PROVIDERS: PCP Family Medicine; Visit Provider Internal Medicine Hematology & Oncology
DX: C18.9 Malignant neoplasm of colon, unspecified (principal); Z45.2 Encounter for adjustment and management of vascular access device
CPT/HCPCS: 36591; 80053; 85025

== ENCOUNTER 2021-09-10 01:22 | Outpatient (RCR) | payer OTHER, BC, SELFPAY ==
[2021-09-10] MEDS: Normal Saline Flush 10 ML SYR IVP (12:23)
[2021-09-10 12:40] LABS: Abs Immature Grans 0.01 10^3/uL (0.0-0.06); Absolute Basophil Count 0.02 10^3/uL (0.0-0.2); Absolute Eosinophil Count 0.07 10^3/uL (0.0-0.7); Absolute Lymphocyte Count 2.75 10^3/uL (1.2-3.4); Absolute Monocyte Count 0.51 10^3/uL (0.1-0.8); Absolute Neutrophil Count 4.47 10^3/uL (1.2-6.7); Basophils % 0.3; Eosinophils % 0.9; HCT 41.1 % (36.0-46.0); HGB 13.3 g/dL (11.2-15.7); Immature Grans % 0.1; Lymphocytes % 35.1; MCH 30.2 pg (27.0-33.0); MCHC 32.4 % (32.0-36.0); MCV 93 fL (80-95); MPV 10.1 fL (8.0-11.0); Monocytes % 6.5; Neutrophils % 57.1; Platelet Count 251 10^3/uL (130-400); RDW 17.2 % (11.7-14.6); RDW-SD 59.3 fL; WBC 7.83 10^3/uL (4.4-10.8)
[2021-09-10 12:53] LABS: ALT 27 U/L (14-59); AST 19 U/L (15-37); Albumin 3.8 g/dL (3.4-5.0); Alkaline Phosphatase 76 U/L (46-116); BUN 9 mg/dL (7-18); Bilirubin, Total 0.4 mg/dL (0.2-1.0); Calcium 8.5 mg/dL (8.5-10.1); Chloride 106 mmol/L (98-107); Estimated GFR 59.18 (mL/min/1.73m2); Glucose 100 mg/dL (74-106); Potassium 3.6 mmol/L (3.5-5.1); Sodium 142 mmol/L (136-145); Total Protein 7.6 g/dL (6.4-8.2)
[2021-09-10 22:17] LABS: CEA 5.4 ng/mL (See Note)
== END 2021-09-28 23:59 | disposition home or self-care (01) ==
LOC: INF 01:22
PROVIDERS: PCP Family Medicine; Visit Provider Internal Medicine Hematology & Oncology
DX: Z45.2 Encounter for adjustment and management of vascular access device (principal); C17.2 Malignant neoplasm of ileum; C18.9 Malignant neoplasm of colon, unspecified
CPT/HCPCS: 36591; 80053; 82378; 85025

== ENCOUNTER 2021-10-28 02:13 | Outpatient (RCR) | payer OTHER, BC, SELFPAY ==
[2021-10-28 12:29] LABS: Abs Immature Grans 0.03 10^3/uL (0.0-0.06); Absolute Basophil Count 0.02 10^3/uL (0.0-0.2); Absolute Eosinophil Count 0.04 10^3/uL (0.0-0.7); Absolute Lymphocyte Count 2.38 10^3/uL (1.2-3.4); Absolute Monocyte Count 0.57 10^3/uL (0.1-0.8); Absolute Neutrophil Count 4.85 10^3/uL (1.2-6.7); Basophils % 0.3; Eosinophils % 0.5; HCT 39.1 % (36.0-46.0); Immature Grans % 0.4; Lymphocytes % 30.2; MCH 31.6 pg (27.0-33.0); MCHC 33.2 % (32.0-36.0); MCV 95 fL (80-95); MPV 10.3 fL (8.0-11.0); Monocytes % 7.2; Neutrophils % 61.4; Platelet Count 222 10^3/uL (130-400); RBC 4.11 10^6/uL (3.93-5.22); RDW 13.2 % (11.7-14.6); RDW-SD 46.2 fL; WBC 7.89 10^3/uL (4.4-10.8)
[2021-10-28] MEDS: Heparin 500 UNITS/5 ML SYRINGE IV (12:32)
[2021-10-28] MEDS: Normal Saline Flush 10 ML SYR IVP (12:32)
[2021-10-28 12:44] LABS: ALT 23 U/L (14-59); AST 18 U/L (15-37); Albumin 3.7 g/dL (3.4-5.0); Alkaline Phosphatase 64 U/L (46-116); Anion Gap 6.6 mmol/L (3-11); BUN 10 mg/dL (7-18); Bilirubin, Total 0.5 mg/dL (0.2-1.0); CO2 28.4 mmol/L (21.0-32.0); Calcium 8.8 mg/dL (8.5-10.1); Chloride 105 mmol/L (98-107); Estimated GFR 59.18 (mL/min/1.73m2); Glucose 89 mg/dL (74-106); Potassium 3.4 mmol/L (3.5-5.1); Sodium 140 mmol/L (136-145); Total Protein 7.3 g/dL (6.4-8.2)
[2021-10-28 22:58] LABS: CEA 5.2 ng/mL (See Note)
== END 2021-10-28 23:59 | disposition home or self-care (01) ==
LOC: INF 02:13
PROVIDERS: PCP Family Medicine; Visit Provider Internal Medicine Hematology & Oncology
DX: Z45.2 Encounter for adjustment and management of vascular access device (principal); C18.9 Malignant neoplasm of colon, unspecified
CPT/HCPCS: 36591; 80053; 82378; 85025

== ENCOUNTER → 2021-11-03 01:40 | Outpatient (CLI) | payer OTHER, BC, SELFPAY ==
--- NOTE | 2021-11-03 07:00 | DI.MAMMO_ITS ---
Exam(s) MAMMO SCREENING EXAM: MAMMO SCREENING CLINICAL HISTORY: screening,z12.39 TECHNIQUE: Mammograms were interpreted according to the usual protocol including computer analysis w [employer] CAD system, tomosynthesis and C-view imaging. COMPARISON: 2014 and 2018 FINDINGS: The breasts are composed of scattered fibroglandular densities, Breast Density category B. A port is now seen overlying the right pectoral muscle. No suspicious masses or suspicious microcalc ifications are seen. No skin thickening or abnormal axillary lymph nodes are seen. There has been no significant change from prior exams. IMPRESSION: BI-RADS Category 1, Negative mammogram Yearly screening mammography is recommended. Breast Density - Category B, scattered fibroglandular densities. A negative radiographic report should not delay biopsy if a dominant or clinically suspicious mass is present. Up to ten percent of cancers are not identified on mammography. A negative report may reinforce clinical impression. Adenosis and dense breasts may obscure an underlying neoplasm. False positive reports average 6 to 10%. Patient will receive a letter notifying them of these results.
== END ==
PROVIDERS: PCP Family Medicine; Visit Provider Family Medicine
DX: Z12.31 Encounter for screening mammogram for malignant neoplasm of breast (principal)
CPT/HCPCS: 77063; 77067

== ENCOUNTER 2022-03-18 00:57 | Outpatient (RCR) | payer OTHER, BC, SELFPAY ==
[2022-03-04] MEDS: Normal Saline Flush 10 ML SYR IVP (10:17)
[2022-03-04 10:25] LABS: Abs Immature Grans 0.02 10^3/uL (0.0-0.06); Absolute Basophil Count 0.01 10^3/uL (0.0-0.2); Absolute Eosinophil Count 0.12 10^3/uL (0.0-0.7); Absolute Lymphocyte Count 2.28 10^3/uL (1.2-3.4); Absolute Monocyte Count 0.56 10^3/uL (0.1-0.8); Absolute Neutrophil Count 4.69 10^3/uL (1.2-6.7); Basophils % 0.1; Eosinophils % 1.6; HGB 12.6 g/dL (11.2-15.7); Immature Grans % 0.3; Lymphocytes % 29.7; MCH 31.1 pg (27.0-33.0); MCHC 33.2 % (32.0-36.0); MCV 94 fL (80-95); MPV 9.7 fL (8.0-11.0); Monocytes % 7.3; Platelet Count 206 10^3/uL (130-400); RBC 4.05 10^6/uL (3.93-5.22); RDW 14.9 % (11.7-14.6); RDW-SD 49.1 fL; WBC 7.68 10^3/uL (4.4-10.8)
[2022-03-04 10:39] LABS: ALT 16 U/L (14-59); AST 14 U/L (15-37); Albumin 3.5 g/dL (3.4-5.0); Alkaline Phosphatase 67 U/L (46-116); Anion Gap 8.6 mmol/L (3-11); BUN 17 mg/dL (7-18); Bilirubin, Total 0.7 mg/dL (0.2-1.0); CO2 28.4 mmol/L (21.0-32.0); CREATININE 1.1 mg/dL (0.55-1.02); Chloride 108 mmol/L (98-107); Estimated GFR 61.98 (mL/min/1.73m2); Glucose 102 mg/dL (74-106); Potassium 4.2 mmol/L (3.5-5.1); Sodium 145 mmol/L (136-145); Total Protein 7.3 g/dL (6.4-8.2)
[2022-03-07 09:32] LABS: CEA 9.3 ng/mL (See Note)
[2022-03-18] MEDS: Normal Saline Flush 10 ML SYR IVP (08:02)
[2022-03-18 08:32] LABS: Abs Immature Grans 0.01 10^3/uL (0.0-0.06); Absolute Basophil Count 0.03 10^3/uL (0.0-0.2); Absolute Eosinophil Count 0.12 10^3/uL (0.0-0.7); Absolute Lymphocyte Count 1.99 10^3/uL (1.2-3.4); Absolute Monocyte Count 0.57 10^3/uL (0.1-0.8); Absolute Neutrophil Count 3.34 10^3/uL (1.2-6.7); Basophils % 0.5; HCT 36.8 % (36.0-46.0); HGB 11.9 g/dL (11.2-15.7); Immature Grans % 0.2; Lymphocytes % 32.8; MCH 30.9 pg (27.0-33.0); MCHC 32.3 % (32.0-36.0); MCV 96 fL (80-95); MPV 10.3 fL (8.0-11.0); Monocytes % 9.4; Neutrophils % 55.1; Platelet Count 182 10^3/uL (130-400); RBC 3.85 10^6/uL (3.93-5.22); RDW-SD 52.6 fL; WBC 6.06 10^3/uL (4.4-10.8)
[2022-03-18 08:43] LABS: ALT 32 U/L (14-59); AST 24 U/L (15-37); Albumin 3.6 g/dL (3.4-5.0); Alkaline Phosphatase 77 U/L (46-116); BUN 10 mg/dL (7-18); Bilirubin, Total 0.8 mg/dL (0.2-1.0); CREATININE 1.1 mg/dL (0.55-1.02); Calcium 8.9 mg/dL (8.5-10.1); Chloride 104 mmol/L (98-107); Estimated GFR 61.98 (mL/min/1.73m2); Glucose 85 mg/dL (74-106); Potassium 3.8 mmol/L (3.5-5.1); Sodium 139 mmol/L (136-145); Total Protein 7.2 g/dL (6.4-8.2)
[2022-03-18 20:59] LABS: CEA 10.5 ng/mL (See Note)
== END 2022-03-30 23:59 | disposition home or self-care (01) ==
LOC: INF 00:57
PROVIDERS: PCP Family Medicine; Visit Provider Internal Medicine Hematology & Oncology
DX: C17.2 Malignant neoplasm of ileum (principal); Z45.2 Encounter for adjustment and management of vascular access device
CPT/HCPCS: 36591; 80053; 82378; 85025

== ENCOUNTER 2022-04-15 00:53 | Outpatient (RCR) | payer OTHER, BC, SELFPAY ==
[2022-04-01] MEDS: Normal Saline Flush 10 ML SYR IVP (08:10)
[2022-04-01 08:24] LABS: Abs Immature Grans 0.03 10^3/uL (0.0-0.06); Absolute Basophil Count 0.03 10^3/uL (0.0-0.2); Absolute Eosinophil Count 0.13 10^3/uL (0.0-0.7); Absolute Lymphocyte Count 1.99 10^3/uL (1.2-3.4); Absolute Monocyte Count 0.48 10^3/uL (0.1-0.8); Absolute Neutrophil Count 3.62 10^3/uL (1.2-6.7); Basophils % 0.5; Eosinophils % 2.1; HCT 39.6 % (36.0-46.0); HGB 13.1 g/dL (11.2-15.7); Immature Grans % 0.5; Lymphocytes % 31.7; MCHC 33.1 % (32.0-36.0); MCV 94 fL (80-95); MPV 10.3 fL (8.0-11.0); Monocytes % 7.6; Neutrophils % 57.6; Platelet Count 199 10^3/uL (130-400); RBC 4.23 10^6/uL (3.93-5.22); RDW-SD 56.7 fL; WBC 6.28 10^3/uL (4.4-10.8)
[2022-04-01 08:43] LABS: ALT 24 U/L (14-59); AST 23 U/L (15-37); Albumin 3.8 g/dL (3.4-5.0); Alkaline Phosphatase 86 U/L (46-116); Anion Gap 6.6 mmol/L (3-11); BUN 14 mg/dL (7-18); Bilirubin, Total 1.1 mg/dL (0.2-1.0); CO2 27.4 mmol/L (21.0-32.0); CREATININE 1.2 mg/dL (0.55-1.02); Calcium 9.3 mg/dL (8.5-10.1); Chloride 103 mmol/L (98-107); Estimated GFR 55.84 (mL/min/1.73m2); Glucose 94 mg/dL (74-106); Sodium 137 mmol/L (136-145); Total Protein 7.6 g/dL (6.4-8.2)
[2022-04-15] MEDS: Normal Saline Flush 10 ML SYR IVP (07:58)
[2022-04-15 08:17] LABS: Abs Immature Grans 0.03 10^3/uL (0.0-0.06); Absolute Basophil Count 0.02 10^3/uL (0.0-0.2); Absolute Eosinophil Count 0.09 10^3/uL (0.0-0.7); Absolute Lymphocyte Count 1.82 10^3/uL (1.2-3.4); Absolute Monocyte Count 0.67 10^3/uL (0.1-0.8); Absolute Neutrophil Count 4.28 10^3/uL (1.2-6.7); Basophils % 0.3; Eosinophils % 1.3; HCT 37.2 % (36.0-46.0); HGB 12.2 g/dL (11.2-15.7); Immature Grans % 0.4; Lymphocytes % 26.3; MCH 30.8 pg (27.0-33.0); MCHC 32.8 % (32.0-36.0); MCV 94 fL (80-95); MPV 10.2 fL (8.0-11.0); Monocytes % 9.7; Platelet Count 262 10^3/uL (130-400); RBC 3.96 10^6/uL (3.93-5.22); RDW 16.6 % (11.7-14.6); RDW-SD 57.2 fL; WBC 6.91 10^3/uL (4.4-10.8)
[2022-04-15 08:37] LABS: ALT 23 U/L (14-59); AST 24 U/L (15-37); Albumin 3.6 g/dL (3.4-5.0); Alkaline Phosphatase 75 U/L (46-116); Anion Gap 5.9 mmol/L (3-11); BUN 9 mg/dL (7-18); Bilirubin, Total 0.8 mg/dL (0.2-1.0); CO2 28.1 mmol/L (21.0-32.0); CREATININE 1.1 mg/dL (0.55-1.02); Chloride 104 mmol/L (98-107); Estimated GFR 61.98 (mL/min/1.73m2); Glucose 87 mg/dL (74-106); Potassium 3.9 mmol/L (3.5-5.1); Sodium 138 mmol/L (136-145); Total Protein 7.2 g/dL (6.4-8.2)
[2022-04-15 21:43] LABS: CEA 5.7 ng/mL (See Note)
== END 2022-04-30 23:59 | disposition home or self-care (01) ==
LOC: INF 00:53
PROVIDERS: PCP Family Medicine; Visit Provider Internal Medicine Hematology & Oncology
DX: C18.9 Malignant neoplasm of colon, unspecified; C79.60 Secondary malignant neoplasm of unspecified ovary; Z45.2 Encounter for adjustment and management of vascular access device
CPT/HCPCS: 36591; 80053; 82378; 85025

== ENCOUNTER 2022-05-20 01:10 | Outpatient (RCR) | payer BC, SELFPAY ==
[2022-05-06] MEDS: Normal Saline Flush 10 ML SYR IVP (10:09)
[2022-05-06 10:33] LABS: Abs Immature Grans 0.01 10^3/uL (0.0-0.06); Absolute Basophil Count 0.02 10^3/uL (0.0-0.2); Absolute Eosinophil Count 0.12 10^3/uL (0.0-0.7); Absolute Lymphocyte Count 2.15 10^3/uL (1.2-3.4); Absolute Monocyte Count 0.42 10^3/uL (0.1-0.8); Absolute Neutrophil Count 3.44 10^3/uL (1.2-6.7); Basophils % 0.3; Eosinophils % 1.9; HCT 37.1 % (36.0-46.0); HGB 12.1 g/dL (11.2-15.7); Immature Grans % 0.2; Lymphocytes % 34.9; MCH 31.1 pg (27.0-33.0); MCHC 32.6 % (32.0-36.0); MCV 95 fL (80-95); MPV 9.7 fL (8.0-11.0); Monocytes % 6.8; Neutrophils % 55.9; Platelet Count 267 10^3/uL (130-400); RBC 3.89 10^6/uL (3.93-5.22); RDW 17.5 % (11.7-14.6); RDW-SD 59.9 fL; WBC 6.16 10^3/uL (4.4-10.8)
[2022-05-06 10:57] LABS: ALT 28 U/L (14-59); AST 29 U/L (15-37); Albumin 3.5 g/dL (3.4-5.0); Alkaline Phosphatase 82 U/L (46-116); Anion Gap 6.8 mmol/L (3-11); BUN 11 mg/dL (7-18); Bilirubin, Total 0.7 mg/dL (0.2-1.0); CO2 26.2 mmol/L (21.0-32.0); Calcium 8.7 mg/dL (8.5-10.1); Chloride 106 mmol/L (98-107); Estimated GFR 69.49 (mL/min/1.73m2); Glucose 86 mg/dL (74-106); Potassium 3.8 mmol/L (3.5-5.1); Sodium 139 mmol/L (136-145); Total Protein 7.2 g/dL (6.4-8.2)
[2022-05-06 21:16] LABS: CEA 7.6 ng/mL (See Note)
[2022-05-20] MEDS: Normal Saline Flush 10 ML SYR IVP (08:05)
[2022-05-20 08:32] LABS: Abs Immature Grans 0.02 10^3/uL (0.0-0.06); Absolute Basophil Count 0.02 10^3/uL (0.0-0.2); Absolute Eosinophil Count 0.08 10^3/uL (0.0-0.7); Absolute Lymphocyte Count 1.94 10^3/uL (1.2-3.4); Absolute Monocyte Count 0.49 10^3/uL (0.1-0.8); Absolute Neutrophil Count 3.38 10^3/uL (1.2-6.7); Basophils % 0.3; Eosinophils % 1.3; HCT 36.9 % (36.0-46.0); Immature Grans % 0.3; Lymphocytes % 32.7; MCH 31.2 pg (27.0-33.0); MCHC 32.5 % (32.0-36.0); MCV 96 fL (80-95); MPV 9.9 fL (8.0-11.0); Monocytes % 8.3; Neutrophils % 57.1; Platelet Count 239 10^3/uL (130-400); RBC 3.85 10^6/uL (3.93-5.22); RDW 18.3 % (11.7-14.6); RDW-SD 61.5 fL; WBC 5.93 10^3/uL (4.4-10.8)
[2022-05-20 08:49] LABS: ALT 20 U/L (14-59); AST 23 U/L (15-37); Albumin 3.7 g/dL (3.4-5.0); Alkaline Phosphatase 75 U/L (46-116); Anion Gap 5.9 mmol/L (3-11); BUN 14 mg/dL (7-18); Bilirubin, Total 0.9 mg/dL (0.2-1.0); CO2 28.1 mmol/L (21.0-32.0); Calcium 9.3 mg/dL (8.5-10.1); Chloride 105 mmol/L (98-107); Estimated GFR 69.06 (mL/min/1.73m2); Glucose 85 mg/dL (74-106); Potassium 4.2 mmol/L (3.5-5.1); Sodium 139 mmol/L (136-145); Total Protein 7.6 g/dL (6.4-8.2)
[2022-05-20 20:42] LABS: CEA 8.6 ng/mL (See Note)
== END 2022-05-31 23:59 | disposition home or self-care (01) ==
LOC: INF 01:10
PROVIDERS: PCP Family Medicine; Visit Provider Internal Medicine Hematology & Oncology
DX: Z45.2 Encounter for adjustment and management of vascular access device (principal); C79.9 Secondary malignant neoplasm of unspecified site; C18.9 Malignant neoplasm of colon, unspecified; C79.60 Secondary malignant neoplasm of unspecified ovary
CPT/HCPCS: 36591; 80053; 82378; 85025

== ENCOUNTER 2022-06-17 00:19 | Outpatient (RCR) | payer BC, SELFPAY ==
[2022-06-03] MEDS: Normal Saline Flush 10 ML SYR IVP (08:12)
[2022-06-03 08:37] LABS: Abs Immature Grans 0.02 10^3/uL (0.0-0.06); Absolute Basophil Count 0.03 10^3/uL (0.0-0.2); Absolute Eosinophil Count 0.07 10^3/uL (0.0-0.7); Absolute Lymphocyte Count 2.34 10^3/uL (1.2-3.4); Absolute Neutrophil Count 3.83 10^3/uL (1.2-6.7); Basophils % 0.4; HCT 36.7 % (36.0-46.0); HGB 11.8 g/dL (11.2-15.7); Immature Grans % 0.3; Lymphocytes % 34.5; MCHC 32.2 % (32.0-36.0); MCV 96 fL (80-95); MPV 10.3 fL (8.0-11.0); Monocytes % 7.4; Neutrophils % 56.4; Platelet Count 193 10^3/uL (130-400); RBC 3.81 10^6/uL (3.93-5.22); RDW 18.6 % (11.7-14.6); WBC 6.79 10^3/uL (4.4-10.8)
[2022-06-03 08:38] LABS: Bilirubin Negative (Negative); Blood Negative (Negative); Clarity Clear (Clear); Glucose Negative (Negative); Ketones Negative (Negative); Leukocyte Esterase Negative (Negative); Nitrite Negative (Negative); Specific Gravity >= 1.030 (1.005-1.025); Urobilinogen 0.2 EU/dL (Up TO 0.2); pH 5.5 (5-8)
[2022-06-03 08:57] LABS: ALT 21 U/L (14-59); AST 27 U/L (15-37); Albumin 3.8 g/dL (3.4-5.0); Alkaline Phosphatase 73 U/L (46-116); Anion Gap 8.1 mmol/L (3-11); BUN 12 mg/dL (7-18); Bilirubin, Total 1.1 mg/dL (0.2-1.0); CO2 24.9 mmol/L (21.0-32.0); CREATININE 1.1 mg/dL (0.55-1.02); Calcium 9.3 mg/dL (8.5-10.1); Chloride 105 mmol/L (98-107); Glucose 82 mg/dL (74-106); Sodium 138 mmol/L (136-145); Total Protein 7.5 g/dL (6.4-8.2)
[2022-06-03 20:16] LABS: CEA 6.5 ng/mL (See Note)
[2022-06-17] MEDS: Normal Saline Flush 10 ML SYR IVP (08:19)
[2022-06-17 08:25] LABS: Abs Immature Grans 0.01 10^3/uL (0.0-0.06); Absolute Basophil Count 0.03 10^3/uL (0.0-0.2); Absolute Eosinophil Count 0.14 10^3/uL (0.0-0.7); Absolute Lymphocyte Count 2.03 10^3/uL (1.2-3.4); Absolute Monocyte Count 0.58 10^3/uL (0.1-0.8); Absolute Neutrophil Count 5.48 10^3/uL (1.2-6.7); Basophils % 0.4; Eosinophils % 1.7; HCT 37.2 % (36.0-46.0); HGB 11.8 g/dL (11.2-15.7); Immature Grans % 0.1; Lymphocytes % 24.5; MCH 30.5 pg (27.0-33.0); MCHC 31.7 % (32.0-36.0); MCV 96 fL (80-95); MPV 9.9 fL (8.0-11.0); Neutrophils % 66.3; Platelet Count 203 10^3/uL (130-400); RBC 3.87 10^6/uL (3.93-5.22); RDW 18.6 % (11.7-14.6); RDW-SD 63.7 fL; WBC 8.27 10^3/uL (4.4-10.8)
[2022-06-17 08:27] LABS: Bilirubin Negative (Negative); Blood Negative (Negative); Clarity Clear (Clear); Glucose Negative (Negative); Ketones Negative (Negative); Leukocyte Esterase Negative (Negative); Nitrite Negative (Negative); Specific Gravity 1.025 (1.005-1.025); Urobilinogen 0.2 EU/dL (Up TO 0.2); pH 5.5 (5-8)
[2022-06-17 08:48] LABS: ALT 16 U/L (14-59); AST 17 U/L (15-37); Albumin 3.6 g/dL (3.4-5.0); Alkaline Phosphatase 70 U/L (46-116); Anion Gap 9.6 mmol/L (3-11); BUN 12 mg/dL (7-18); CO2 26.4 mmol/L (21.0-32.0); Calcium 8.9 mg/dL (8.5-10.1); Chloride 105 mmol/L (98-107); Estimated GFR 69.06 (mL/min/1.73m2); Glucose 107 mg/dL (74-106); Potassium 3.8 mmol/L (3.5-5.1); Sodium 141 mmol/L (136-145); Total Protein 7.1 g/dL (6.4-8.2)
[2022-06-17 20:20] LABS: CEA 9.6 ng/mL (See Note)
== END 2022-06-28 23:59 | disposition home or self-care (01) ==
LOC: INF 00:19
PROVIDERS: Nurse Practitioner Adult Health; PCP Family Medicine; Visit Provider Internal Medicine Hematology & Oncology
DX: Z45.2 Encounter for adjustment and management of vascular access device (principal); Z79.899 Other long term (current) drug therapy; C79.9 Secondary malignant neoplasm of unspecified site; C18.9 Malignant neoplasm of colon, unspecified; C79.60 Secondary malignant neoplasm of unspecified ovary
CPT/HCPCS: 36591; 80053; 81003; 82378; 85025

== ENCOUNTER 2022-07-29 01:23 | Outpatient (RCR) | payer BC, SELFPAY ==
[2022-07-01] MEDS: Normal Saline Flush 10 ML SYR IVP (08:10)
[2022-07-01 08:14] LABS: Abs Immature Grans 0.02 10^3/uL (0.0-0.06); Absolute Basophil Count 0.04 10^3/uL (0.0-0.2); Absolute Eosinophil Count 0.19 10^3/uL (0.0-0.7); Absolute Lymphocyte Count 2.39 10^3/uL (1.2-3.4); Absolute Monocyte Count 0.73 10^3/uL (0.1-0.8); Absolute Neutrophil Count 5.45 10^3/uL (1.2-6.7); Basophils % 0.5; Eosinophils % 2.2; HCT 36.9 % (36.0-46.0); HGB 11.8 g/dL (11.2-15.7); Immature Grans % 0.2; Lymphocytes % 27.1; MCH 30.2 pg (27.0-33.0); MCV 94 fL (80-95); MPV 9.9 fL (8.0-11.0); Monocytes % 8.3; Neutrophils % 61.7; Platelet Count 241 10^3/uL (130-400); RBC 3.91 10^6/uL (3.93-5.22); RDW 18.9 % (11.7-14.6); RDW-SD 64.1 fL; WBC 8.82 10^3/uL (4.4-10.8)
[2022-07-01 08:16] LABS: Bilirubin Negative (Negative); Blood Negative (Negative); Clarity Clear (Clear); Glucose Negative (Negative); Ketones Negative (Negative); Leukocyte Esterase Negative (Negative); Nitrite Negative (Negative); Specific Gravity 1.025 (1.005-1.025); Urobilinogen 0.2 mg/dL (Up to 0.2)
[2022-07-01 08:36] LABS: ALT 23 U/L (14-59); AST 21 U/L (15-37); Alkaline Phosphatase 86 U/L (46-116); Anion Gap 7.3 mmol/L (3-11); BUN 13 mg/dL (7-18); Bilirubin, Total 0.6 mg/dL (0.2-1.0); CO2 29.7 mmol/L (21.0-32.0); CREATININE 1.1 mg/dL (0.55-1.02); Calcium 9.1 mg/dL (8.5-10.1); Chloride 105 mmol/L (98-107); Glucose 83 mg/dL (74-106); Potassium 4.3 mmol/L (3.5-5.1); Sodium 142 mmol/L (136-145); Total Protein 7.2 g/dL (6.4-8.2)
[2022-07-01 20:08] LABS: CEA 12.7 ng/mL (See Note)
[2022-07-15] MEDS: Normal Saline Flush 10 ML SYR IVP (08:11)
[2022-07-15 08:31] LABS: Bilirubin Negative (Negative); Blood Negative (Negative); Clarity Clear (Clear); Glucose Negative (Negative); Ketones Negative (Negative); Leukocyte Esterase Negative (Negative); Nitrite Negative (Negative); Specific Gravity >= 1.030 (1.005-1.025); Urobilinogen 0.2 mg/dL (Up to 0.2); pH 5.5 (5-8)
[2022-07-15 08:34] LABS: Abs Immature Grans 0.02 10^3/uL (0.0-0.06); Absolute Basophil Count 0.03 10^3/uL (0.0-0.2); Absolute Eosinophil Count 0.13 10^3/uL (0.0-0.7); Absolute Lymphocyte Count 1.74 10^3/uL (1.2-3.4); Absolute Monocyte Count 0.63 10^3/uL (0.1-0.8); Absolute Neutrophil Count 5.12 10^3/uL (1.2-6.7); Basophils % 0.4; Eosinophils % 1.7; HCT 35.6 % (36.0-46.0); HGB 11.5 g/dL (11.2-15.7); Immature Grans % 0.3; Lymphocytes % 22.7; MCH 29.9 pg (27.0-33.0); MCHC 32.3 % (32.0-36.0); MCV 93 fL (80-95); MPV 10.1 fL (8.0-11.0); Monocytes % 8.2; Neutrophils % 66.7; Platelet Count 211 10^3/uL (130-400); RBC 3.84 10^6/uL (3.93-5.22); RDW 19.1 % (11.7-14.6); RDW-SD 63.8 fL; WBC 7.67 10^3/uL (4.4-10.8)
[2022-07-15 08:48] LABS: ALT 24 U/L (14-59); AST 21 U/L (15-37); Albumin 3.6 g/dL (3.4-5.0); Alkaline Phosphatase 84 U/L (46-116); Anion Gap 6.6 mmol/L (3-11); BUN 16 mg/dL (7-18); Bilirubin, Total 0.9 mg/dL (0.2-1.0); CO2 25.4 mmol/L (21.0-32.0); Calcium 9.1 mg/dL (8.5-10.1); Chloride 103 mmol/L (98-107); Estimated GFR 69.06 (mL/min/1.73m2); Glucose 79 mg/dL (74-106); Sodium 135 mmol/L (136-145); Total Protein 7.2 g/dL (6.4-8.2)
[2022-07-29] MEDS: Normal Saline Flush 10 ML SYR IVP (07:48)
[2022-07-29 08:16] LABS: Bilirubin Negative (Negative); Blood Negative (Negative); Clarity Clear (Clear); Glucose Negative (Negative); Ketones Negative (Negative); Leukocyte Esterase Negative (Negative); Nitrite Negative (Negative); Specific Gravity 1.025 (1.005-1.025); Urobilinogen 0.2 mg/dL (Up to 0.2)
[2022-07-29 08:17] LABS: Abs Immature Grans 0.02 10^3/uL (0.0-0.06); Absolute Basophil Count 0.05 10^3/uL (0.0-0.2); Absolute Eosinophil Count 0.14 10^3/uL (0.0-0.7); Absolute Lymphocyte Count 2.01 10^3/uL (1.2-3.4); Absolute Monocyte Count 0.55 10^3/uL (0.1-0.8); Absolute Neutrophil Count 4.46 10^3/uL (1.2-6.7); Basophils % 0.7; Eosinophils % 1.9; HCT 34.4 % (36.0-46.0); HGB 10.8 g/dL (11.2-15.7); Immature Grans % 0.3; Lymphocytes % 27.8; MCH 28.6 pg (27.0-33.0); MCHC 31.4 % (32.0-36.0); MCV 91 fL (80-95); MPV 9.6 fL (8.0-11.0); Monocytes % 7.6; Neutrophils % 61.7; Platelet Count 262 10^3/uL (130-400); RBC 3.77 10^6/uL (3.93-5.22); RDW 18.4 % (11.7-14.6); RDW-SD 61.6 fL; WBC 7.23 10^3/uL (4.4-10.8)
[2022-07-29 08:37] LABS: ALT 26 U/L (14-59); AST 22 U/L (15-37); Albumin 3.4 g/dL (3.4-5.0); Alkaline Phosphatase 77 U/L (46-116); Anion Gap 7.8 mmol/L (3-11); BUN 9 mg/dL (7-18); Bilirubin, Total 0.5 mg/dL (0.2-1.0); CO2 28.2 mmol/L (21.0-32.0); CREATININE 1.1 mg/dL (0.55-1.02); Calcium 9.1 mg/dL (8.5-10.1); Chloride 104 mmol/L (98-107); Glucose 92 mg/dL (74-106); Potassium 4.3 mmol/L (3.5-5.1); Sodium 140 mmol/L (136-145); Total Protein 7.3 g/dL (6.4-8.2)
== END 2022-07-29 23:59 | disposition home or self-care (01) ==
LOC: INF 01:23
PROVIDERS: PCP Family Medicine; Visit Provider Internal Medicine Hematology & Oncology
DX: Z45.2 Encounter for adjustment and management of vascular access device (principal); Z79.899 Other long term (current) drug therapy; C79.9 Secondary malignant neoplasm of unspecified site; C18.9 Malignant neoplasm of colon, unspecified; C79.60 Secondary malignant neoplasm of unspecified ovary
CPT/HCPCS: 36591; 80053; 81003; 82378; 85025

== ENCOUNTER 2022-08-26 00:54 | Outpatient (RCR) | payer BC, SELFPAY ==
[2022-08-12] MEDS: Normal Saline Flush 10 ML SYR IVP (07:43)
[2022-08-12 08:10] LABS: Abs Immature Grans 0.03 10^3/uL (0.0-0.06); Absolute Basophil Count 0.03 10^3/uL (0.0-0.2); Absolute Eosinophil Count 0.15 10^3/uL (0.0-0.7); Absolute Lymphocyte Count 2.37 10^3/uL (1.2-3.4); Absolute Monocyte Count 0.72 10^3/uL (0.1-0.8); Basophils % 0.3; Bilirubin Negative (Negative); Blood Negative (Negative); Clarity Clear (Clear); Eosinophils % 1.6; Glucose Negative (Negative); HCT 33.7 % (36.0-46.0); HGB 10.7 g/dL (11.2-15.7); Immature Grans % 0.3; Ketones Negative (Negative); Leukocyte Esterase Negative (Negative); Lymphocytes % 24.7; MCH 28.6 pg (27.0-33.0); MCHC 31.8 % (32.0-36.0); MCV 90 fL (80-95); MPV 9.6 fL (8.0-11.0); Monocytes % 7.5; Neutrophils % 65.6; Nitrite Negative (Negative); Platelet Count 279 10^3/uL (130-400); RBC 3.74 10^6/uL (3.93-5.22); RDW 20.1 % (11.7-14.6); RDW-SD 65.7 fL; Specific Gravity 1.025 (1.005-1.025); Urobilinogen 0.2 mg/dL (Up to 0.2); pH 5.5 (5-8)
[2022-08-12 08:20] LABS: Anisocytosis 2+; Diff Comment RBC Morph Reviewed; Hypochromasia 1+; Polychromasia Present
[2022-08-12 08:25] LABS: ALT 22 U/L (14-59); AST 17 U/L (15-37); Albumin 3.5 g/dL (3.4-5.0); Alkaline Phosphatase 72 U/L (46-116); Anion Gap 9.4 mmol/L (3-11); BUN 17 mg/dL (7-18); Bilirubin, Total 0.5 mg/dL (0.2-1.0); CO2 25.6 mmol/L (21.0-32.0); CREATININE 1.2 mg/dL (0.55-1.02); Chloride 104 mmol/L (98-107); Estimated GFR 55.49 (mL/min/1.73m2); Glucose 82 mg/dL (74-106); Sodium 139 mmol/L (136-145); Total Protein 7.5 g/dL (6.4-8.2)
[2022-08-12 19:19] LABS: CEA 10.1 ng/mL (See Note)
[2022-08-26] MEDS: Normal Saline Flush 10 ML SYR IVP (08:21)
[2022-08-26 08:33] LABS: Abs Immature Grans 0.02 10^3/uL (0.0-0.06); Absolute Basophil Count 0.03 10^3/uL (0.0-0.2); Absolute Eosinophil Count 0.11 10^3/uL (0.0-0.7); Absolute Lymphocyte Count 1.72 10^3/uL (1.2-3.4); Absolute Monocyte Count 0.42 10^3/uL (0.1-0.8); Absolute Neutrophil Count 2.74 10^3/uL (1.2-6.7); Basophils % 0.6; Eosinophils % 2.2; HCT 31.2 % (36.0-46.0); HGB 9.6 g/dL (11.2-15.7); Immature Grans % 0.4; Lymphocytes % 34.1; MCH 27.2 pg (27.0-33.0); MCHC 30.8 % (32.0-36.0); MCV 88 fL (80-95); MPV 9.9 fL (8.0-11.0); Monocytes % 8.3; Neutrophils % 54.4; Platelet Count 222 10^3/uL (130-400); RBC 3.53 10^6/uL (3.93-5.22); RDW 19.9 % (11.7-14.6); RDW-SD 63.2 fL; WBC 5.04 10^3/uL (4.4-10.8)
[2022-08-26 08:43] LABS: Bilirubin Negative (Negative); Blood Negative (Negative); Clarity Clear (Clear); Glucose Negative (Negative); Ketones Negative (Negative); Leukocyte Esterase Negative (Negative); Nitrite Negative (Negative); Specific Gravity >= 1.030 (1.005-1.025); Urobilinogen 0.2 mg/dL (Up to 0.2); pH 5.5 (5-8)
[2022-08-26 08:51] LABS: ALT 22 U/L (14-59); AST 17 U/L (15-37); Albumin 3.3 g/dL (3.4-5.0); Alkaline Phosphatase 72 U/L (46-116); Anion Gap 8.8 mmol/L (3-11); BUN 12 mg/dL (7-18); Bilirubin, Total 0.7 mg/dL (0.2-1.0); CO2 25.2 mmol/L (21.0-32.0); CREATININE 1.2 mg/dL (0.55-1.02); Calcium 8.8 mg/dL (8.5-10.1); Chloride 106 mmol/L (98-107); Estimated GFR 55.49 (mL/min/1.73m2); Glucose 131 mg/dL (74-106); Potassium 3.6 mmol/L (3.5-5.1); Sodium 140 mmol/L (136-145); Total Protein 7.1 g/dL (6.4-8.2)
[2022-08-26 21:55] LABS: CEA 7.8 ng/mL (See Note)
== END 2022-08-28 23:59 | disposition home or self-care (01) ==
LOC: INF 00:54
PROVIDERS: PCP Family Medicine; Visit Provider Internal Medicine Hematology & Oncology
DX: Z45.2 Encounter for adjustment and management of vascular access device (principal); Z79.899 Other long term (current) drug therapy; C79.9 Secondary malignant neoplasm of unspecified site; C81.90 Hodgkin lymphoma, unspecified, unspecified site; C18.9 Malignant neoplasm of colon, unspecified; C79.60 Secondary malignant neoplasm of unspecified ovary
CPT/HCPCS: 36591; 80053; 81003; 82378; 85025

== ENCOUNTER 2022-09-23 00:56 | Outpatient (RCR) | payer BC, SELFPAY ==
[2022-09-09] MEDS: Normal Saline Flush 10 ML SYR IVP (07:47)
[2022-09-09 08:01] LABS: Abs Immature Grans 0.02 10^3/uL (0.0-0.06); Absolute Basophil Count 0.04 10^3/uL (0.0-0.2); Absolute Eosinophil Count 0.12 10^3/uL (0.0-0.7); Absolute Lymphocyte Count 2.26 10^3/uL (1.2-3.4); Absolute Monocyte Count 0.74 10^3/uL (0.1-0.8); Basophils % 0.5; Eosinophils % 1.4; HCT 29.5 % (36.0-46.0); Immature Grans % 0.2; MCH 26.3 pg (27.0-33.0); MCHC 30.5 % (32.0-36.0); MCV 86 fL (80-95); MPV 10.1 fL (8.0-11.0); Monocytes % 8.5; Neutrophils % 63.4; Platelet Count 237 10^3/uL (130-400); RBC 3.42 10^6/uL (3.93-5.22); RDW 19.9 % (11.7-14.6); RDW-SD 62.6 fL; WBC 8.68 10^3/uL (4.4-10.8)
[2022-09-09 08:12] LABS: Bilirubin Negative (Negative); Blood Negative (Negative); Clarity Clear (Clear); Glucose Negative (Negative); Ketones Negative (Negative); Leukocyte Esterase Negative (Negative); Nitrite Negative (Negative); Specific Gravity >= 1.030 (1.005-1.025); Urobilinogen 0.2 mg/dL (Up to 0.2); pH 5.5 (5-8)
[2022-09-09 08:15] LABS: ALT 26 U/L (14-59); AST 25 U/L (15-37); Albumin 3.5 g/dL (3.4-5.0); Alkaline Phosphatase 75 U/L (46-116); Anion Gap 11.7 mmol/L (3-11); BUN 12 mg/dL (7-18); Bilirubin, Total 0.6 mg/dL (0.2-1.0); CO2 21.3 mmol/L (21.0-32.0); CREATININE 1.1 mg/dL (0.55-1.02); Calcium 8.9 mg/dL (8.5-10.1); Chloride 107 mmol/L (98-107); Glucose 101 mg/dL (74-106); Potassium 3.7 mmol/L (3.5-5.1); Sodium 140 mmol/L (136-145); Total Protein 7.2 g/dL (6.4-8.2)
[2022-09-09 09:17] LABS: Iron 14 ug/dL (50-170); Total Iron Binding Capacity 592 ug/dL (250-450); Transferrin Sat 2 % (15-50)
[2022-09-09 09:32] LABS: Ferritin 4 ng/mL (8-252)
[2022-09-09 19:02] LABS: CEA 11.7 ng/mL (See Note)
[2022-09-23] MEDS: Normal Saline Flush 10 ML SYR IVP (08:00)
[2022-09-23 08:25] LABS: Abs Immature Grans 0.03 10^3/uL (0.0-0.06); Absolute Basophil Count 0.02 10^3/uL (0.0-0.2); Absolute Eosinophil Count 0.05 10^3/uL (0.0-0.7); Absolute Monocyte Count 0.51 10^3/uL (0.1-0.8); Absolute Neutrophil Count 3.48 10^3/uL (1.2-6.7); Basophils % 0.4; Eosinophils % 0.9; HCT 35.6 % (36.0-46.0); HGB 10.9 g/dL (11.2-15.7); Immature Grans % 0.5; Lymphocytes % 28.1; MCH 28.6 pg (27.0-33.0); MCHC 30.6 % (32.0-36.0); MCV 93 fL (80-95); MPV 9.9 fL (8.0-11.0); Neutrophils % 61.1; Platelet Count 267 10^3/uL (130-400); RBC 3.81 10^6/uL (3.93-5.22); RDW 26.8 % (11.7-14.6); RDW-SD 88.7 fL; WBC 5.69 10^3/uL (4.4-10.8)
[2022-09-23 08:42] LABS: ALT 31 U/L (14-59); AST 24 U/L (15-37); Albumin 3.6 g/dL (3.4-5.0); Alkaline Phosphatase 65 U/L (46-116); Anion Gap 8.9 mmol/L (3-11); BUN 10 mg/dL (7-18); Bilirubin, Total 0.6 mg/dL (0.2-1.0); CO2 27.1 mmol/L (21.0-32.0); Calcium 8.9 mg/dL (8.5-10.1); Chloride 106 mmol/L (98-107); Estimated GFR 69.06 (mL/min/1.73m2); Glucose 83 mg/dL (74-106); Potassium 3.8 mmol/L (3.5-5.1); Sodium 142 mmol/L (136-145); Total Protein 7.3 g/dL (6.4-8.2)
[2022-09-23 08:53] LABS: Anisocytosis 1+; Polychromasia Present
[2022-09-23 08:54] LABS: Bilirubin Small (Negative); Blood Negative (Negative); Clarity Clear (Clear); Glucose Negative (Negative); Ketones Negative (Negative); Leukocyte Esterase Negative (Negative); Nitrite Negative (Negative); Specific Gravity 1.025 (1.005-1.025); Urobilinogen 0.2 mg/dL (Up to 0.2)
[2022-09-23 20:31] LABS: CEA 10.8 ng/mL (See Note)
== END 2022-09-28 23:59 | disposition home or self-care (01) ==
LOC: INF 00:56
PROVIDERS: PCP Family Medicine; Visit Provider Internal Medicine Hematology & Oncology
DX: Z79.899 Other long term (current) drug therapy (principal); C79.9 Secondary malignant neoplasm of unspecified site; C18.9 Malignant neoplasm of colon, unspecified; C79.60 Secondary malignant neoplasm of unspecified ovary
CPT/HCPCS: 36591; 80053; 81003; 82378; 82728; 83540; 83550; 85025

== ENCOUNTER 2022-10-21 00:02 | Outpatient (RCR) | payer BC, SELFPAY ==
[2022-10-07] MEDS: Normal Saline Flush 10 ML SYR IVP (08:23)
[2022-10-07 08:29] LABS: Abs Immature Grans 0.01 10^3/uL (0.0-0.06); Absolute Basophil Count 0.04 10^3/uL (0.0-0.2); Absolute Eosinophil Count 0.09 10^3/uL (0.0-0.7); Absolute Lymphocyte Count 1.85 10^3/uL (1.2-3.4); Absolute Neutrophil Count 3.66 10^3/uL (1.2-6.7); Basophils % 0.7; Eosinophils % 1.5; HCT 39.2 % (36.0-46.0); HGB 12.3 g/dL (11.2-15.7); Immature Grans % 0.2; Lymphocytes % 30.6; MCH 29.5 pg (27.0-33.0); MCHC 31.4 % (32.0-36.0); MCV 94 fL (80-95); MPV 10.6 fL (8.0-11.0); Monocytes % 6.6; Neutrophils % 60.4; Platelet Count 205 10^3/uL (130-400); RBC 4.17 10^6/uL (3.93-5.22); RDW 24.8 % (11.7-14.6); RDW-SD 83.6 fL; WBC 6.05 10^3/uL (4.4-10.8)
[2022-10-07 08:35] LABS: Bilirubin Negative (Negative); Blood Trace-intact (Negative); Clarity Clear (Clear); Glucose Negative (Negative); Ketones Negative (Negative); Leukocyte Esterase Negative (Negative); Nitrite Negative (Negative); Urobilinogen 0.2 mg/dL (Up to 0.2)
[2022-10-07 08:44] LABS: ALT 27 U/L (14-59); AST 20 U/L (15-37); Albumin 3.5 g/dL (3.4-5.0); Alkaline Phosphatase 61 U/L (46-116); Anion Gap 8.5 mmol/L (3-11); BUN 18 mg/dL (7-18); Bilirubin, Total 0.5 mg/dL (0.2-1.0); CO2 26.5 mmol/L (21.0-32.0); CREATININE 1.2 mg/dL (0.55-1.02); Calculated LDL 84 mg/dL (<100); Chloride 103 mmol/L (98-107); Cholesterol 185 mg/dL (<200); Estimated GFR 55.49 (mL/min/1.73m2); Glucose 101 mg/dL (74-106); HDL Cholesterol 88 mg/dL (40-60); Sodium 138 mmol/L (136-145); Total Protein 7.2 g/dL (6.4-8.2); Triglyceride 66 mg/dL (<150)
[2022-10-07 08:49] LABS: Anisocytosis 2+; Diff Comment RBC Morph Reviewed
[2022-10-07 21:34] LABS: CEA 7.8 ng/mL (See Note)
[2022-10-21 08:02] LABS: Abs Immature Grans 0.03 10^3/uL (0.0-0.06); Absolute Basophil Count 0.03 10^3/uL (0.0-0.2); Absolute Eosinophil Count 0.08 10^3/uL (0.0-0.7); Absolute Lymphocyte Count 1.65 10^3/uL (1.2-3.4); Absolute Monocyte Count 0.53 10^3/uL (0.1-0.8); Absolute Neutrophil Count 5.22 10^3/uL (1.2-6.7); Basophils % 0.4; Eosinophils % 1.1; HCT 35.7 % (36.0-46.0); HGB 11.4 g/dL (11.2-15.7); Immature Grans % 0.4; Lymphocytes % 21.9; MCH 29.8 pg (27.0-33.0); MCHC 31.9 % (32.0-36.0); MCV 94 fL (80-95); MPV 9.8 fL (8.0-11.0); Neutrophils % 69.2; Platelet Count 236 10^3/uL (130-400); RBC 3.82 10^6/uL (3.93-5.22); RDW 23.4 % (11.7-14.6); RDW-SD 77.8 fL; WBC 7.54 10^3/uL (4.4-10.8)
[2022-10-21 08:13] LABS: Bilirubin Negative (Negative); Blood Negative (Negative); Clarity Clear (Clear); Glucose Negative (Negative); Ketones Negative (Negative); Leukocyte Esterase Negative (Negative); Nitrite Negative (Negative); Specific Gravity 1.025 (1.005-1.025); Urobilinogen 0.2 mg/dL (Up to 0.2)
[2022-10-21 08:23] LABS: ALT 24 U/L (14-59); AST 21 U/L (15-37); Albumin 3.4 g/dL (3.4-5.0); Alkaline Phosphatase 62 U/L (46-116); Anion Gap 8.1 mmol/L (3-11); BUN 12 mg/dL (7-18); Bilirubin, Total 0.4 mg/dL (0.2-1.0); CO2 26.9 mmol/L (21.0-32.0); CREATININE 1.1 mg/dL (0.55-1.02); Chloride 107 mmol/L (98-107); Glucose 86 mg/dL (74-106); Sodium 142 mmol/L (136-145)
[2022-10-21 08:28] LABS: Anisocytosis 2+; Diff Comment Diff Reviewed
[2022-10-21] MEDS: Normal Saline Flush 10 ML SYR IVP (08:46)
[2022-10-21] MEDS: Heparin 500 UNITS/5 ML SYRINGE IV (08:47)
[2022-10-21 20:01] LABS: CEA 7.7 ng/mL (See Note)
== END 2022-10-28 23:59 | disposition home or self-care (01) ==
LOC: INF 00:02
PROVIDERS: PCP Family Medicine; Visit Provider Internal Medicine Hematology & Oncology
DX: Z79.899 Other long term (current) drug therapy (principal); C79.9 Secondary malignant neoplasm of unspecified site; C18.9 Malignant neoplasm of colon, unspecified; C79.60 Secondary malignant neoplasm of unspecified ovary
CPT/HCPCS: 36591; 80053; 80061; 96523; 81003; 82378; 85025

== ENCOUNTER 2022-11-19 00:06 | Outpatient (RCR) | payer BC, SELFPAY ==
[2022-11-04 08:19] LABS: Abs Immature Grans 0.04 10^3/uL (0.0-0.06); Absolute Basophil Count 0.02 10^3/uL (0.0-0.2); Absolute Eosinophil Count 0.04 10^3/uL (0.0-0.7); Absolute Lymphocyte Count 2.41 10^3/uL (1.2-3.4); Absolute Monocyte Count 0.72 10^3/uL (0.1-0.8); Absolute Neutrophil Count 7.26 10^3/uL (1.2-6.7); Basophils % 0.2; Eosinophils % 0.4; HCT 36.5 % (36.0-46.0); HGB 11.5 g/dL (11.2-15.7); Immature Grans % 0.4; MCH 29.8 pg (27.0-33.0); MCHC 31.5 % (32.0-36.0); MCV 95 fL (80-95); MPV 9.8 fL (8.0-11.0); Monocytes % 6.9; Neutrophils % 69.1; Platelet Count 258 10^3/uL (130-400); RBC 3.86 10^6/uL (3.93-5.22); RDW 21.1 % (11.7-14.6); RDW-SD 73.2 fL; WBC 10.49 10^3/uL (4.4-10.8)
[2022-11-04 08:26] LABS: Bilirubin Negative (Negative); Blood Negative (Negative); Clarity Clear (Clear); Glucose Negative (Negative); Ketones Negative (Negative); Leukocyte Esterase Negative (Negative); Nitrite Negative (Negative); Specific Gravity >= 1.030 (1.005-1.025); Urobilinogen 0.2 mg/dL (Up to 0.2)
[2022-11-04 08:37] LABS: ALT 22 U/L (14-59); AST 20 U/L (15-37); Albumin 3.1 g/dL (3.4-5.0); Alkaline Phosphatase 66 U/L (46-116); Anion Gap 8.5 mmol/L (3-11); BUN 16 mg/dL (7-18); Bilirubin, Total 0.2 mg/dL (0.2-1.0); CO2 27.5 mmol/L (21.0-32.0); CREATININE 0.9 mg/dL (0.55-1.02); Calcium 8.5 mg/dL (8.5-10.1); Chloride 108 mmol/L (98-107); Estimated GFR 78.37 (mL/min/1.73m2); Glucose 82 mg/dL (74-106); Potassium 3.9 mmol/L (3.5-5.1); Sodium 144 mmol/L (136-145); Total Protein 6.8 g/dL (6.4-8.2)
[2022-11-04 08:58] LABS: Anisocytosis 2+; Diff Comment RBC Morph Reviewed
[2022-11-04] MEDS: Heparin 500 UNITS/5 ML SYRINGE IV (10:56)
[2022-11-04] MEDS: Normal Saline Flush 10 ML SYR IVP (10:57)
[2022-11-04 21:01] LABS: CEA 8.5 ng/mL (See Note)
[2022-11-17] MEDS: Normal Saline Flush 10 ML SYR IVP (07:56)
[2022-11-17 08:05] LABS: Abs Immature Grans 0.04 10^3/uL (0.0-0.06); Absolute Basophil Count 0.05 10^3/uL (0.0-0.2); Absolute Eosinophil Count 0.08 10^3/uL (0.0-0.7); Absolute Lymphocyte Count 1.69 10^3/uL (1.2-3.4); Absolute Monocyte Count 0.63 10^3/uL (0.1-0.8); Basophils % 0.4; Eosinophils % 0.7; HCT 35.9 % (36.0-46.0); HGB 11.5 g/dL (11.2-15.7); Immature Grans % 0.4; Lymphocytes % 14.8; MCH 29.6 pg (27.0-33.0); MCV 93 fL (80-95); MPV 9.4 fL (8.0-11.0); Monocytes % 5.5; Neutrophils % 78.2; Platelet Count 269 10^3/uL (130-400); RBC 3.88 10^6/uL (3.93-5.22); RDW 19.1 % (11.7-14.6); WBC 11.39 10^3/uL (4.4-10.8)
[2022-11-17 08:06] LABS: Absolute Neutrophil Count 8.91 10^3/uL (1.2-6.7); Bilirubin Negative (Negative); Blood Moderate (Negative); Clarity Clear (Clear); Glucose Negative (Negative); Ketones Negative (Negative); Leukocyte Esterase Negative (Negative); Nitrite Negative (Negative); Specific Gravity 1.025 (1.005-1.025); Urobilinogen 0.2 mg/dL (Up to 0.2); pH 5.5 (5-8)
[2022-11-17 08:19] LABS: Bacteria Few HPF (Negative); C & S Indicated? No/Sq. Contamination; Casts 0-2 Hyaline LPF (Negative); Crystals Negative HPF (Negative); Epithelial Cells Moderate HPF (Negative); Mucus Trace (Negative); Other Cells Negative (Negative); WBC 0-2 HPF (0-5)
[2022-11-17 08:24] LABS: ALT 20 U/L (14-59); AST 19 U/L (15-37); Albumin 3.2 g/dL (3.4-5.0); Alkaline Phosphatase 81 U/L (46-116); Anion Gap 9.7 mmol/L (3-11); BUN 12 mg/dL (7-18); Bilirubin, Total 0.3 mg/dL (0.2-1.0); CO2 25.3 mmol/L (21.0-32.0); CREATININE 1.1 mg/dL (0.55-1.02); Calcium 8.7 mg/dL (8.5-10.1); Chloride 105 mmol/L (98-107); Glucose 87 mg/dL (74-106); Sodium 140 mmol/L (136-145); Total Protein 7.1 g/dL (6.4-8.2)
[2022-11-17 10:58] LABS: Magnesium 1.7 mg/dL (1.8-2.4)
[2022-11-17 20:48] LABS: CEA 7.7 ng/mL (See Note)
[2022-11-19] MEDS: Normal Saline 1,000 ML 1000 ML IV (14:30)
[2022-11-19] MEDS: Heparin 500 UNITS/5 ML SYRINGE IV (14:39)
[2022-11-19] MEDS: Normal Saline Flush 10 ML SYR IVP (14:39)
== END 2022-11-28 23:59 | disposition home or self-care (01) ==
LOC: INF 00:06
PROVIDERS: Nurse Practitioner Adult Health; PCP Family Medicine; Visit Provider Internal Medicine Hematology & Oncology
DX: C79.9 Secondary malignant neoplasm of unspecified site (principal); C18.9 Malignant neoplasm of colon, unspecified; C79.60 Secondary malignant neoplasm of unspecified ovary; Z79.899 Other long term (current) drug therapy
CPT/HCPCS: 36591; 80053; 96360; 96365; 81003; 81015; 82378; 83735; 85025

== ENCOUNTER 2022-12-16 07:30 | Outpatient (RCR) | payer BC, SELFPAY ==
[2022-12-01] MEDS: Normal Saline Flush 10 ML SYR IVP (08:20)
[2022-12-01 08:38] LABS: Abs Immature Grans 0.01 10^3/uL (0.0-0.06); Absolute Basophil Count 0.02 10^3/uL (0.0-0.2); Absolute Eosinophil Count 0.07 10^3/uL (0.0-0.7); Absolute Lymphocyte Count 1.76 10^3/uL (1.2-3.4); Absolute Monocyte Count 0.59 10^3/uL (0.1-0.8); Absolute Neutrophil Count 3.56 10^3/uL (1.2-6.7); Basophils % 0.3; Eosinophils % 1.2; HCT 36.2 % (36.0-46.0); HGB 11.9 g/dL (11.2-15.7); Immature Grans % 0.2; Lymphocytes % 29.3; MCH 29.8 pg (27.0-33.0); MCHC 32.9 % (32.0-36.0); MCV 91 fL (80-95); MPV 9.5 fL (8.0-11.0); Monocytes % 9.8; Neutrophils % 59.2; Platelet Count 255 10^3/uL (130-400); RDW 17.6 % (11.7-14.6); RDW-SD 57.9 fL; WBC 6.01 10^3/uL (4.4-10.8)
[2022-12-01 09:00] LABS: ALT 16 U/L (14-59); AST 15 U/L (15-37); Albumin 2.8 g/dL (3.4-5.0); Alkaline Phosphatase 91 U/L (46-116); Anion Gap 7.9 mmol/L (3-11); BUN 15 mg/dL (7-18); Bilirubin, Total 0.5 mg/dL (0.2-1.0); CO2 27.1 mmol/L (21.0-32.0); Calcium 8.6 mg/dL (8.5-10.1); Chloride 104 mmol/L (98-107); Estimated GFR 69.06 (mL/min/1.73m2); Glucose 81 mg/dL (74-106); Magnesium 1.5 mg/dL (1.8-2.4); Potassium 3.7 mmol/L (3.5-5.1); Sodium 139 mmol/L (136-145); Total Protein 6.7 g/dL (6.4-8.2)
[2022-12-01 19:28] LABS: CEA 6.1 ng/mL (See Note)
[2022-12-03] MEDS: Normal Saline Flush 10 ML SYR IVP (13:30)
[2022-12-03] MEDS: Normal Saline 1,000 ML 1000 ML IV (13:30)
[2022-12-03] MEDS: Heparin 500 UNITS/5 ML SYRINGE IV (13:31)
[2022-12-16] MEDS: Normal Saline Flush 10 ML SYR IVP (07:44)
[2022-12-16 08:03] LABS: Abs Immature Grans 0.02 10^3/uL (0.0-0.06); Absolute Basophil Count 0.03 10^3/uL (0.0-0.2); Absolute Eosinophil Count 0.06 10^3/uL (0.0-0.7); Absolute Lymphocyte Count 1.73 10^3/uL (1.2-3.4); Absolute Monocyte Count 0.69 10^3/uL (0.1-0.8); Absolute Neutrophil Count 4.89 10^3/uL (1.2-6.7); Basophils % 0.4; Eosinophils % 0.8; HCT 35.7 % (36.0-46.0); HGB 11.6 g/dL (11.2-15.7); Immature Grans % 0.3; Lymphocytes % 23.3; MCH 29.5 pg (27.0-33.0); MCHC 32.5 % (32.0-36.0); MCV 91 fL (80-95); MPV 9.9 fL (8.0-11.0); Monocytes % 9.3; Neutrophils % 65.9; Platelet Count 288 10^3/uL (130-400); RBC 3.93 10^6/uL (3.93-5.22); RDW 16.5 % (11.7-14.6); RDW-SD 54.4 fL; WBC 7.42 10^3/uL (4.4-10.8)
[2022-12-16 08:19] LABS: Magnesium 1.5 mg/dL (1.8-2.4)
[2022-12-16 08:22] LABS: ALT 30 U/L (14-59); AST 25 U/L (15-37); Albumin 2.5 g/dL (3.4-5.0); Alkaline Phosphatase 113 U/L (46-116); BUN 10 mg/dL (7-18); Bilirubin, Total 0.3 mg/dL (0.2-1.0); Calcium 8.8 mg/dL (8.5-10.1); Chloride 106 mmol/L (98-107); Estimated GFR 69.06 (mL/min/1.73m2); Glucose 108 mg/dL (74-106); Sodium 142 mmol/L (136-145); Total Protein 6.7 g/dL (6.4-8.2)
[2022-12-16 19:11] LABS: CEA 7.5 ng/mL (See Note)
== END 2022-12-29 23:59 | disposition home or self-care (01) ==
LOC: INF 07:30
PROVIDERS: Nurse Practitioner Adult Health; PCP Family Medicine; Visit Provider Internal Medicine Hematology & Oncology
DX: Z79.899 Other long term (current) drug therapy (principal); Z45.2 Encounter for adjustment and management of vascular access device; C79.9 Secondary malignant neoplasm of unspecified site; C18.9 Malignant neoplasm of colon, unspecified; C79.60 Secondary malignant neoplasm of unspecified ovary
CPT/HCPCS: 36591; 80053; 96523; 82378; 83735; 85025

== ENCOUNTER 2023-01-13 01:02 | Outpatient (RCR) | payer BC, SELFPAY ==
[2022-12-30] MEDS: Heparin 500 UNITS/5 ML SYRINGE IV (10:23)
[2022-12-30] MEDS: Normal Saline Flush 10 ML SYR IVP (10:23)
[2022-12-30 10:42] LABS: Absolute Basophil Count 0.04 10^3/uL (0.0-0.2); Absolute Lymphocyte Count 2.17 10^3/uL (1.2-3.4); Absolute Monocyte Count 0.74 10^3/uL (0.1-0.8); Absolute Neutrophil Count 5.73 10^3/uL (1.2-6.7); Basophils % 0.5; Eosinophils % 1.1; HCT 35.1 % (36.0-46.0); HGB 11.1 g/dL (11.2-15.7); Immature Grans % 1.1; Lymphocytes % 24.4; MCH 28.5 pg (27.0-33.0); MCHC 31.6 % (32.0-36.0); MCV 90 fL (80-95); MPV 8.9 fL (8.0-11.0); Monocytes % 8.3; Neutrophils % 64.6; Platelet Count 338 10^3/uL (130-400); RBC 3.89 10^6/uL (3.93-5.22); RDW 15.9 % (11.7-14.6); RDW-SD 52.5 fL; WBC 8.88 10^3/uL (4.4-10.8)
[2022-12-30 10:56] LABS: ALT 15 U/L (14-59); AST 18 U/L (15-37); Albumin 2.6 g/dL (3.4-5.0); Alkaline Phosphatase 92 U/L (46-116); Anion Gap 9.5 mmol/L (3-11); BUN 11 mg/dL (7-18); Bilirubin, Total 0.5 mg/dL (0.2-1.0); CO2 27.5 mmol/L (21.0-32.0); CREATININE 1.1 mg/dL (0.55-1.02); Calcium 8.9 mg/dL (8.5-10.1); Chloride 103 mmol/L (98-107); Glucose 109 mg/dL (74-106); Magnesium 1.6 mg/dL (1.8-2.4); Potassium 3.7 mmol/L (3.5-5.1); Sodium 140 mmol/L (136-145); Total Protein 7.3 g/dL (6.4-8.2)
[2023-01-02 10:11] LABS: CEA 8.5 ng/mL (See Note)
== END 2023-01-28 23:59 | disposition home or self-care (01) ==
LOC: INF 01:02
PROVIDERS: PCP Family Medicine; Visit Provider Internal Medicine Hematology & Oncology
DX: Z79.899 Other long term (current) drug therapy (principal); K50.90 Crohn's disease, unspecified, without complications; C19 Malignant neoplasm of rectosigmoid junction; Z45.2 Encounter for adjustment and management of vascular access device
CPT/HCPCS: 36591; 80053; 82378; 83735; 85025

== ENCOUNTER 2023-02-09 14:54 | Outpatient (REF) | payer BC, SELFPAY ==
[2023-02-09 15:03] LABS: Abs Immature Grans 0.16 10^3/uL (0.0-0.06); Absolute Basophil Count 0.03 10^3/uL (0.0-0.2); Absolute Lymphocyte Count 0.99 10^3/uL (1.2-3.4); Absolute Monocyte Count 0.67 10^3/uL (0.1-0.8); Absolute Neutrophil Count 8.41 10^3/uL (1.2-6.7); Basophils % 0.3; HCT 29.4 % (36.0-46.0); Immature Grans % 1.5; Lymphocytes % 9.6; MCH 25.6 pg (27.0-33.0); MCV 83 fL (80-95); MPV 9.3 fL (8.0-11.0); Monocytes % 6.5; Neutrophils % 81.1; Platelet Count 477 10^3/uL (130-400); RBC 3.56 10^6/uL (3.93-5.22); RDW 16.4 % (11.7-14.6); RDW-SD 49.8 fL; WBC 10.36 10^3/uL (4.4-10.8)
[2023-02-09 15:06] LABS: HGB 9.1 g/dL (11.2-15.7)
[2023-02-09 15:15] LABS: ALT 16 U/L (14-59); AST 23 U/L (15-37); Alkaline Phosphatase 109 U/L (46-116); BUN 10 mg/dL (7-18); Bilirubin, Total 0.2 mg/dL (0.2-1.0); CREATININE 0.8 mg/dL (0.55-1.02); Chloride 99 mmol/L (98-107); Estimated GFR 90.27 (mL/min/1.73m2); Glucose 109 mg/dL (74-106); Magnesium 1.7 mg/dL (1.8-2.4); Potassium 4.1 mmol/L (3.5-5.1); Sodium 135 mmol/L (136-145); Total Protein 7.2 g/dL (6.4-8.2)
== END 2023-02-09 14:55 | disposition home or self-care (01) ==
LOC: LBN 14:54
PROVIDERS: PCP Family Medicine; Visit Provider Internal Medicine Hematology & Oncology
DX: C17.2 Malignant neoplasm of ileum (principal); Z79.899 Other long term (current) drug therapy
CPT/HCPCS: 80053; 83735; 85025

== ENCOUNTER 2023-02-17 01:50 | Outpatient (RCR) | payer BC, SELFPAY ==
[2023-01-31 09:26] LABS: Abs Immature Grans 0.14 10^3/uL (0.0-0.06); Absolute Basophil Count 0.05 10^3/uL (0.0-0.2); Absolute Eosinophil Count 0.17 10^3/uL (0.0-0.7); Absolute Lymphocyte Count 1.36 10^3/uL (1.2-3.4); Absolute Monocyte Count 0.91 10^3/uL (0.1-0.8); Basophils % 0.5; Eosinophils % 1.6; HCT 33.1 % (36.0-46.0); HGB 10.2 g/dL (11.2-15.7); Immature Grans % 1.3; MCH 25.5 pg (27.0-33.0); MCHC 30.8 % (32.0-36.0); MCV 83 fL (80-95); MPV 9.3 fL (8.0-11.0); Monocytes % 8.7; Neutrophils % 74.9; Platelet Count 510 10^3/uL (130-400); RDW 15.9 % (11.7-14.6); RDW-SD 48.4 fL; WBC 10.43 10^3/uL (4.4-10.8)
[2023-01-31 09:41] LABS: ALT 21 U/L (14-59); AST 36 U/L (15-37); Albumin 2.3 g/dL (3.4-5.0); Alkaline Phosphatase 138 U/L (46-116); BUN 6 mg/dL (7-18); Bilirubin, Total 0.4 mg/dL (0.2-1.0); CREATININE 0.9 mg/dL (0.55-1.02); Calcium 9.4 mg/dL (8.5-10.1); Chloride 98 mmol/L (98-107); Estimated GFR 78.37 (mL/min/1.73m2); Glucose 107 mg/dL (74-106); Magnesium 1.5 mg/dL (1.8-2.4); Potassium 3.1 mmol/L (3.5-5.1); Sodium 134 mmol/L (136-145); Total Protein 8.1 g/dL (6.4-8.2)
[2023-01-31] MEDS: Normal Saline Flush 10 ML SYR IVP (10:13)
[2023-01-31 18:44] LABS: CEA 17.9 ng/mL (See Note)
[2023-02-17] MEDS: Normal Saline Flush 10 ML SYR IVP (10:33)
[2023-02-17 10:59] LABS: Abs Immature Grans 0.17 10^3/uL (0.0-0.06); Absolute Basophil Count 0.04 10^3/uL (0.0-0.2); Absolute Eosinophil Count 0.12 10^3/uL (0.0-0.7); Absolute Lymphocyte Count 1.33 10^3/uL (1.2-3.4); Absolute Monocyte Count 0.82 10^3/uL (0.1-0.8); Basophils % 0.4; Eosinophils % 1.2; HCT 30.6 % (36.0-46.0); HGB 9.4 g/dL (11.2-15.7); Immature Grans % 1.7; Lymphocytes % 13.3; MCH 24.9 pg (27.0-33.0); MCHC 30.7 % (32.0-36.0); MCV 81 fL (80-95); MPV 9.3 fL (8.0-11.0); Monocytes % 8.2; Neutrophils % 75.2; Platelet Count 506 10^3/uL (130-400); RBC 3.77 10^6/uL (3.93-5.22); RDW-SD 49.6 fL; WBC 9.98 10^3/uL (4.4-10.8)
[2023-02-17 11:15] LABS: ALT 17 U/L (14-59); AST 30 U/L (15-37); Alkaline Phosphatase 161 U/L (46-116); Anion Gap 9.8 mmol/L (3-11); BUN 12 mg/dL (7-18); Bilirubin, Total 0.4 mg/dL (0.2-1.0); CO2 27.2 mmol/L (21.0-32.0); CREATININE 0.9 mg/dL (0.55-1.02); Calcium 9.2 mg/dL (8.5-10.1); Chloride 100 mmol/L (98-107); Estimated GFR 78.37 (mL/min/1.73m2); Glucose 96 mg/dL (74-106); Magnesium 1.7 mg/dL (1.8-2.4); Potassium 3.8 mmol/L (3.5-5.1); Sodium 137 mmol/L (136-145)
== END 2023-02-28 23:59 | disposition home or self-care (01) ==
LOC: INF 01:50
PROVIDERS: PCP Family Medicine; Visit Provider Internal Medicine Hematology & Oncology
DX: Z79.899 Other long term (current) drug therapy (principal); C19 Malignant neoplasm of rectosigmoid junction; K50.90 Crohn's disease, unspecified, without complications; Z45.2 Encounter for adjustment and management of vascular access device
CPT/HCPCS: 36591; 80053; 82378; 83735; 85025

== ENCOUNTER 2023-03-17 01:48 | Outpatient (RCR) | payer BC, SELFPAY ==
[2023-03-03] MEDS: Normal Saline Flush 10 ML SYR IVP (09:16)
[2023-03-03 09:35] LABS: Abs Immature Grans 0.09 10^3/uL (0.0-0.06); Absolute Basophil Count 0.04 10^3/uL (0.0-0.2); Absolute Eosinophil Count 0.14 10^3/uL (0.0-0.7); Absolute Lymphocyte Count 3.41 10^3/uL (1.2-3.4); Absolute Monocyte Count 0.72 10^3/uL (0.1-0.8); Absolute Neutrophil Count 5.91 10^3/uL (1.2-6.7); Basophils % 0.4; Eosinophils % 1.4; HCT 34.9 % (36.0-46.0); HGB 10.5 g/dL (11.2-15.7); Immature Grans % 0.9; Lymphocytes % 33.1; MCH 24.2 pg (27.0-33.0); MCHC 30.1 % (32.0-36.0); MCV 80 fL (80-95); MPV 9.1 fL (8.0-11.0); Neutrophils % 57.2; Platelet Count 623 10^3/uL (130-400); RBC 4.34 10^6/uL (3.93-5.22); RDW 18.7 % (11.7-14.6); WBC 10.31 10^3/uL (4.4-10.8)
[2023-03-03 09:51] LABS: ALT 21 U/L (14-59); AST 21 U/L (15-37); Albumin 2.5 g/dL (3.4-5.0); Alkaline Phosphatase 138 U/L (46-116); Anion Gap 12.9 mmol/L (3-11); BUN 17 mg/dL (7-18); Bilirubin, Total 0.3 mg/dL (0.2-1.0); CO2 25.1 mmol/L (21.0-32.0); Calcium 9.7 mg/dL (8.5-10.1); Chloride 99 mmol/L (98-107); Estimated GFR 69.06 (mL/min/1.73m2); Glucose 101 mg/dL (74-106); Magnesium 1.4 mg/dL (1.8-2.4); Potassium 3.6 mmol/L (3.5-5.1); Sodium 137 mmol/L (136-145)
[2023-03-03 18:41] LABS: CEA 26.4 ng/mL (See Note)
[2023-03-09] MEDS: Normal Saline Flush 10 ML SYR IVP (11:38)
[2023-03-09 12:17] LABS: ALT 30 U/L (14-59); AST 34 U/L (15-37); Albumin 2.3 g/dL (3.4-5.0); Alkaline Phosphatase 147 U/L (46-116); BUN 12 mg/dL (7-18); Bilirubin, Total 0.3 mg/dL (0.2-1.0); CREATININE 0.9 mg/dL (0.55-1.02); Chloride 100 mmol/L (98-107); Estimated GFR 78.37 (mL/min/1.73m2); Glucose 108 mg/dL (74-106); Magnesium 1.4 mg/dL (1.8-2.4); Potassium 3.6 mmol/L (3.5-5.1); Sodium 136 mmol/L (136-145); Total Protein 7.5 g/dL (6.4-8.2)
[2023-03-17 10:08] LABS: Absolute Basophil Count 0.02 10^3/uL (0.0-0.2); Absolute Eosinophil Count 0.08 10^3/uL (0.0-0.7); Absolute Lymphocyte Count 2.86 10^3/uL (1.2-3.4); Absolute Monocyte Count 0.67 10^3/uL (0.1-0.8); Basophils % 0.2; Eosinophils % 0.7; HCT 34.7 % (36.0-46.0); HGB 10.4 g/dL (11.2-15.7); Immature Grans % 0.9; Lymphocytes % 24.6; MCH 24.1 pg (27.0-33.0); MCV 81 fL (80-95); MPV 9.9 fL (8.0-11.0); Monocytes % 5.8; Neutrophils % 67.8; Platelet Count 414 10^3/uL (130-400); RBC 4.31 10^6/uL (3.93-5.22); RDW 20.1 % (11.7-14.6); RDW-SD 56.7 fL; WBC 11.62 10^3/uL (4.4-10.8)
[2023-03-17 10:09] LABS: Absolute Neutrophil Count 7.88 10^3/uL (1.2-6.7)
[2023-03-17 10:24] LABS: ALT 20 U/L (14-59); AST 25 U/L (15-37); Albumin 2.2 g/dL (3.4-5.0); Alkaline Phosphatase 150 U/L (46-116); Anion Gap 11.8 mmol/L (3-11); BUN 12 mg/dL (7-18); Bilirubin, Total 0.3 mg/dL (0.2-1.0); CO2 24.2 mmol/L (21.0-32.0); CREATININE 0.8 mg/dL (0.55-1.02); Calcium 9.3 mg/dL (8.5-10.1); Chloride 105 mmol/L (98-107); Estimated GFR 90.27 (mL/min/1.73m2); Glucose 73 mg/dL (74-106); Magnesium 1.6 mg/dL (1.8-2.4); Potassium 3.2 mmol/L (3.5-5.1); Sodium 141 mmol/L (136-145); Total Protein 7.7 g/dL (6.4-8.2)
[2023-03-17] MEDS: Normal Saline Flush 10 ML SYR IVP (10:52)
[2023-03-17 19:39] LABS: CEA 36.9 ng/mL (See Note)
== END 2023-03-30 23:59 | disposition home or self-care (01) ==
LOC: INF 01:48
PROVIDERS: Nurse Practitioner Adult Health; PCP Family Medicine; Visit Provider Internal Medicine Hematology & Oncology
DX: C17.9 Malignant neoplasm of small intestine, unspecified (principal); E83.42 Hypomagnesemia; C18.0 Malignant neoplasm of cecum; C79.60 Secondary malignant neoplasm of unspecified ovary; Z79.899 Other long term (current) drug therapy; C17.2 Malignant neoplasm of ileum; Z45.2 Encounter for adjustment and management of vascular access device
CPT/HCPCS: 36415; 36591; 80053; 82378; 83735; 85025

== ENCOUNTER 2023-04-14 01:02 | Outpatient (RCR) | payer BC, SELFPAY ==
[2023-03-31] MEDS: Normal Saline Flush 10 ML SYR IVP (10:48)
[2023-03-31 11:20] LABS: Abs Immature Grans 0.09 10^3/uL (0.0-0.06); Absolute Monocyte Count 0.66 10^3/uL (0.1-0.8); Absolute Neutrophil Count 7.06 10^3/uL (1.2-6.7); Basophils % 0.3; Eosinophils % 0.9; HGB 9.5 g/dL (11.2-15.7); Immature Grans % 0.8; Lymphocytes % 30.4; MCH 24.2 pg (27.0-33.0); MCHC 30.6 % (32.0-36.0); MCV 79 fL (80-95); Monocytes % 5.8; Neutrophils % 61.8; Platelet Count 508 10^3/uL (130-400); RBC 3.92 10^6/uL (3.93-5.22); RDW 21.1 % (11.7-14.6); RDW-SD 58.8 fL; WBC 11.43 10^3/uL (4.4-10.8)
[2023-03-31 11:21] LABS: Absolute Basophil Count 0.03 10^3/uL (0.0-0.2); Absolute Lymphocyte Count 3.47 10^3/uL (1.2-3.4)
[2023-03-31 11:48] LABS: ALT 23 U/L (14-59); AST 31 U/L (15-37); Albumin 2.1 g/dL (3.4-5.0); Alkaline Phosphatase 152 U/L (46-116); Anion Gap 11.8 mmol/L (3-11); BUN 14 mg/dL (7-18); Bilirubin, Total 0.2 mg/dL (0.2-1.0); CO2 25.2 mmol/L (21.0-32.0); CREATININE 0.8 mg/dL (0.55-1.02); Calcium 8.9 mg/dL (8.5-10.1); Chloride 103 mmol/L (98-107); Estimated GFR 90.27 (mL/min/1.73m2); Glucose 108 mg/dL (74-106); Magnesium 1.3 mg/dL (1.8-2.4); Potassium 3.1 mmol/L (3.5-5.1); Sodium 140 mmol/L (136-145); Total Protein 7.4 g/dL (6.4-8.2)
[2023-03-31 21:14] LABS: CEA 38.4 ng/mL (See Note)
[2023-04-14 08:15] LABS: Abs Immature Grans 0.07 10^3/uL (0.0-0.06); Absolute Basophil Count 0.04 10^3/uL (0.0-0.2); Absolute Eosinophil Count 0.15 10^3/uL (0.0-0.7); Absolute Lymphocyte Count 2.18 10^3/uL (1.2-3.4); Absolute Monocyte Count 0.76 10^3/uL (0.1-0.8); Absolute Neutrophil Count 7.42 10^3/uL (1.2-6.7); Basophils % 0.4; Eosinophils % 1.4; HCT 35.5 % (36.0-46.0); HGB 10.9 g/dL (11.2-15.7); Immature Grans % 0.7; Lymphocytes % 20.5; MCH 24.1 pg (27.0-33.0); MCHC 30.7 % (32.0-36.0); MCV 79 fL (80-95); MPV 9.5 fL (8.0-11.0); Monocytes % 7.2; Neutrophils % 69.8; Platelet Count 608 10^3/uL (130-400); RBC 4.52 10^6/uL (3.93-5.22); RDW 21.7 % (11.7-14.6); RDW-SD 61.2 fL; WBC 10.62 10^3/uL (4.4-10.8)
[2023-04-14 08:32] LABS: ALT 14 U/L (14-59); AST 26 U/L (15-37); Albumin 2.1 g/dL (3.4-5.0); Alkaline Phosphatase 144 U/L (46-116); Anion Gap 12.5 mmol/L (3-11); BUN 6 mg/dL (7-18); Bilirubin, Total 0.3 mg/dL (0.2-1.0); CO2 25.5 mmol/L (21.0-32.0); Calcium 9.1 mg/dL (8.5-10.1); Chloride 101 mmol/L (98-107); Estimated GFR 69.06 (mL/min/1.73m2); Glucose 127 mg/dL (74-106); Magnesium 1.5 mg/dL (1.8-2.4); Potassium 3.5 mmol/L (3.5-5.1); Sodium 139 mmol/L (136-145); Total Protein 7.6 g/dL (6.4-8.2)
[2023-04-14 09:18] LABS: Anisocytosis 2+; Diff Comment RBC Morph Reviewed
[2023-04-14] MEDS: Normal Saline Flush 10 ML SYR IVP (10:23)
[2023-04-14 21:09] LABS: CEA 30.4 ng/mL (See Note)
[2023-04-26 10:08] LABS: Anion Gap 7.9 mmol/L (3-11); BUN 6 mg/dL (7-18); CO2 27.1 mmol/L (21.0-32.0); CREATININE 0.8 mg/dL (0.55-1.02); Calcium 8.6 mg/dL (8.5-10.1); Chloride 102 mmol/L (98-107); Estimated GFR 90.27 (mL/min/1.73m2); Glucose 94 mg/dL (74-106); Magnesium 1.1 mg/dL (1.8-2.4); Potassium 3.3 mmol/L (3.5-5.1); Sodium 137 mmol/L (136-145)
[2023-04-26 10:44] LABS: Abs Immature Grans 0.36 10^3/uL (0.0-0.06); Absolute Basophil Count 0.04 10^3/uL (0.0-0.2); Absolute Lymphocyte Count 1.55 10^3/uL (1.2-3.4); Absolute Monocyte Count 1.12 10^3/uL (0.1-0.8); Basophils % 0.3; Eosinophils % 0.8; HCT 31.8 % (36.0-46.0); Immature Grans % 2.7; Lymphocytes % 11.7; MCH 25.8 pg (27.0-33.0); MCHC 31.4 % (32.0-36.0); MCV 82 fL (80-95); MPV 9.9 fL (8.0-11.0); Monocytes % 8.5; Platelet Count 229 10^3/uL (130-400); RBC 3.87 10^6/uL (3.93-5.22); RDW 22.1 % (11.7-14.6); RDW-SD 63.9 fL; WBC 13.23 10^3/uL (4.4-10.8)
[2023-04-26 10:47] LABS: Absolute Eosinophil Count 0.11 10^3/uL (0.0-0.7); Absolute Neutrophil Count 10.05 10^3/uL (1.2-6.7)
[2023-04-26 11:03] LABS: ALT 25 U/L (14-59); AST 32 U/L (15-37); Albumin 2.1 g/dL (3.4-5.0); Alkaline Phosphatase 102 U/L (46-116); Bilirubin, Total 0.5 mg/dL (0.2-1.0); Total Protein 6.4 g/dL (6.4-8.2)
[2023-04-26 11:07] LABS: Anisocytosis 2+; Diff Comment RBC Morph Reviewed
== END 2023-04-30 23:59 | disposition home or self-care (01) ==
LOC: INF 01:02
PROVIDERS: Internal Medicine Medical Oncology; PCP Family Medicine; Visit Provider Internal Medicine Hematology & Oncology
DX: C18.0 Malignant neoplasm of cecum (principal); Z79.899 Other long term (current) drug therapy; C17.9 Malignant neoplasm of small intestine, unspecified; E83.42 Hypomagnesemia; Z45.2 Encounter for adjustment and management of vascular access device
CPT/HCPCS: 36591; 80048; 80053; 82378; 83735; 85025

== ENCOUNTER 2023-04-17 10:27 | Inpatient (IN) | payer BC, SELFPAY ==
[2023-04-17] VITALS (62 sets, daily range): BP systolic 63–103; BP diastolic 24–70; PULSE 61–163; RESP 15–33; TEMP 36–37.7; O2SAT 93–98
--- NOTE | 2023-04-17 10:30 | RT.EKG_ITS ---
APPROVED REPORT Exam: Resting ECG Reason for Exam: weakness/lethargy Patient Location: E HR:109 bpm ECG Measurements Heart Rate 109 AXIS IA 121 P 63 QRSd 78 QRS 46 QT 364 T 40 QTc 492 Conclusion Sinus tachycardia...rate> 99
[2023-04-17 11:12] LABS: Abs Immature Grans 0.15 10^3/uL (0.0-0.06); Absolute Basophil Count 0.02 10^3/uL (0.0-0.2); Absolute Eosinophil Count 0.01 10^3/uL (0.0-0.7); Absolute Lymphocyte Count 1.05 10^3/uL (1.2-3.4); Absolute Monocyte Count 0.21 10^3/uL (0.1-0.8); Absolute Neutrophil Count 9.83 10^3/uL (1.2-6.7); Basophils % 0.2; Eosinophils % 0.1; HCT 30.9 % (36.0-46.0); HGB 9.2 g/dL (11.2-15.7); Immature Grans % 1.3; Lymphocytes % 9.3; MCH 23.7 pg (27.0-33.0); MCHC 29.8 % (32.0-36.0); MCV 79 fL (80-95); MPV 9.2 fL (8.0-11.0); Monocytes % 1.9; Neutrophils % 87.2; Nucleated RBC 0.2 % (0.0-0.3); Platelet Count 325 10^3/uL (130-400); RBC 3.89 10^6/uL (3.93-5.22); RDW-SD 62.4 fL; WBC 11.27 10^3/uL (4.4-10.8)
[2023-04-17 11:34] LABS: ALT 15 U/L (14-59); AST 40 U/L (15-37); Alkaline Phosphatase 138 U/L (46-116); BUN 16 mg/dL (7-18); Bilirubin, Total 0.6 mg/dL (0.2-1.0); CREATININE 1.4 mg/dL (0.55-1.02); Calcium 8.6 mg/dL (8.5-10.1); Chloride 101 mmol/L (98-107); Estimated GFR 46.12 (mL/min/1.73m2); Glucose 173 mg/dL (74-106); Magnesium 1.5 mg/dL (1.8-2.4); Potassium 4.2 mmol/L (3.5-5.1); Sodium 138 mmol/L (136-145); Total Protein 6.8 g/dL (6.4-8.2); Troponin I < 50 ng/L (<or=60)
[2023-04-17] MEDS: MAGNESIUM SULFATE 1 GM/100 ML BAG IVPB (11:47)
[2023-04-17] MEDS: Normal Saline 500 ML IV (12:00)
--- NOTE | 2023-04-17 12:16 | ED.GENADUL_ITS ---
Discharge Plan Disposition Patient Disposition: Admit to [facility] Condition: Serious Discharge Details Chief Complaint: GenMedical Clinical Impression: Generalized weakness, Hypotension Primary Care Provider: Muriel Castillo ED Provider: Bryon Carranza Home Meds and New Rx's Prescriptions: No Action venlafaxine 75 mg capsule,extended release 24hr 75 mg PO DAILY potassium chloride 10 mEq capsule, extended release 10 meq PO BID hydrocortisone 2.5 % cream 1 applic topical BID PRN omeprazole 20 mg tablet,delayed release (DR/EC) 20 mg PO DAILY ondansetron HCl 8 mg tablet 8 mg PO Q8H PRN ibuprofen 600 mg tablet 600 mg PO Q6H PRN prochlorperazine maleate [Compazine] 10 mg tablet 10 mg PO TID PRN Hold Instructions: Changed by Provider olanzapine 2.5 mg tablet 2.5 mg PO QHS venlafaxine 37.5 mg capsule,extended release 24hr 37.5 mg PO DAILY Rx Instructions: In addition to venlafaxine 75mg daily mirtazapine 15 mg tablet 15 mg PO QHS dexamethasone 2 mg tablet 2 - 4 mg PO BID Rx Instructions: Take 2 tabs in AM and 1 tab in PM hydromorphone 2 mg tablet 2 - 4 mg PO BID PRN lorazepam 1 mg tablet 1 mg PO Q6H PRN fentanyl 25 mcg/hr patch 72 hour 1 patch transdermal Q72H MDD 25mcg Qty: 10 0RF Rx Instructions: Cancer related pain enoxaparin [Lovenox] 60 mg/0.6 mL syringe 60 mg subcut BID panitumumab 100 mg/5 mL (20 mg/mL) solution 400 mg IV irinotecan 40 mg/2 mL solution 160 mg IV ONCE 5fu 322 mg Medical Decision Making 47-year-old female with history of primary signet cell carcinoma, on chemotherapy every other week, receiving IV fluid boluses twice a week at cancer center, here with profound hypotension. No pain. No fever. No urinary symptoms and no cough. Patient was given crystalloid bolus and remains hypotensive although improved from arrival. Patient reassessed and remains persistently hypotensive despite IV fluid boluses. She continues to feel weak and is tachycardic and orthostatic on attempted ambulation. Labs reviewed and hypomagnesemia noted. I will give magnesium 1 g IV. FAM noted. Chronic anemia noted. Normal white blood cell count. Will give stress dose steroid hydrocortisone 100 mg IV. Discussed case with hospitalist, Dr. Brar, discussed ED presentation and course, he agrees with stress dose steroid, he will admit the patient for further IV fluids and monitoring. Lab Data Lab results reviewed: Yes I reviewed the patient's lab results. Labs: Laboratory Tests Range/Units 04/17/23 10:51 WBC (4.4-10.8) 10^3/uL 11.27 H RBC (3.93-5.22) 10^6/uL 3.89 L Hgb (11.2-15.7) g/dL 9.2 L Hct (36.0-46.0) % 30.9 L MCV (80-95) fL 79 L MCH (27.0-33.0) pg 23.7 L MCHC (32.0-36.0) % 29.8 L RDW (11.7-14.6) % 22.0 H Plt Count (130-400) 10^3/uL 325 MPV (8.0-11.0) fL 9.2 Immature Gran % 1.3 Neutrophils % 87.2 Lymphocytes % 9.3 Monocytes % 1.9 Eosinophils % 0.1 Basophils % 0.2 Nucleated RBC % (0.0-0.3) % 0.2 Absolute Neutrophils (1.2-6.7) 10^3/uL 9.83 H Absolute Lymphocytes (1.2-3.4) 10^3/uL 1.05 L Absolute Monocytes (0.1-0.8) 10^3/uL 0.21 Absolute Eosinophils (0.0-0.7) 10^3/uL 0.01 Absolute Basophils (0.0-0.2) 10^3/uL 0.02 Sodium (136-145) mmol/L 138 Potassium (3.5-5.1) mmol/L 4.2 Chloride (98-107) mmol/L 101 Carbon Dioxide (21.0-32.0) mmol/L 24.0 Anion Gap (3-11) mmol/L 13.0 H BUN (7-18) mg/dL 16 Creatinine (0.55-1.02) mg/dL 1.4 H Est GFR (CKD-EPI 2020) (mL/min/1.73m2) 46.12 Glucose (74-106) mg/dL 173 H Calcium (8.5-10.1) mg/dL 8.6 Magnesium (1.8-2.4) mg/dL 1.5 L Total Bilirubin (0.2-1.0) mg/dL 0.6 AST (15-37) U/L 40 H ALT (14-59) U/L 15 Alkaline Phosphatase (46-116) U/L 138 H Troponin I (<or=60) ng/L < 50 Total Protein (6.4-8.2) g/dL 6.8 Albumin (3.4-5.0) g/dL 2.0 L HPI General Mode of arrival: ambulatory . Date/Time Provider Initiated Documentation: 04/17/23 10:47 . Limitations to Documentation: no limitations . Information obtained by: patient . HPI Narrative: 47-year-old female with history of adenocarcinoma of the small intestine, stage IV, on chemotherapy, receiving twice weekly IV fluid boluses, here with generalized weakness. Patient sent from cancer center with concern for hypotension. Patient denies pain. No bleeding. No fever. Related Data Home Medications Medication Instructions Recorded Confirmed prochlorperazine maleate 10 mg 10 mg PO TID PRN 02/23/21 04/17/23 tablet (Compazine) venlafaxine 75 mg capsule,extended 75 mg PO DAILY 06/04/21 04/17/23 release 24 hr olanzapine 2.5 mg tablet 2.5 mg PO QHS 02/13/23 04/17/23 venlafaxine 37.5 mg 37.5 mg PO DAILY 02/13/23 04/17/23 capsule,extended release 24 hr dexamethasone 2 mg tablet 2 - 4 mg PO BID 02/22/23 04/17/23 hydromorphone 2 mg tablet 2 - 4 mg PO BID PRN 02/22/23 04/17/23 lorazepam 1 mg tablet 1 mg PO Q6H PRN 02/22/23 04/17/23 mirtazapine 15 mg tablet 15 mg PO QHS 02/22/23 04/17/23 hydrocortisone 2.5 % topical cream 1 applic topical BID PRN 03/21/23 04/17/23 ibuprofen 600 mg tablet 600 mg PO Q6H PRN 03/21/23 04/17/23 omeprazole 20 mg tablet,delayed 20 mg PO DAILY 03/21/23 04/17/23 release ondansetron HCl 8 mg tablet 8 mg PO Q8H PRN 03/21/23 04/17/23 potassium chloride 10 mEq 10 meq PO BID 03/21/23 04/17/23 capsule,extended release fentanyl 25 mcg/hr transdermal 1 patch transdermal Q72H #10 ea 04/14/23 04/17/23 patch 5fu 322 mg 04/17/23 enoxaparin 60 mg/0.6 mL 60 mg subcut BID 04/17/23 04/17/23 subcutaneous syringe (Lovenox) irinotecan 40 mg/2 mL intravenous 160 mg IV ONCE 04/17/23 04/17/23 solution panitumumab 100 mg/5 mL (20 mg/mL) 400 mg IV 04/17/23 intravenous solution Previous Rx's Medication Instructions Recorded fentanyl 25 mcg/hr transdermal 1 patch transdermal Q72H #10 ea 04/14/23 patch Allergies Allergy/AdvReac Type Severity Reaction Status Date / Time chlorhexidine Allergy Unverified 04/17/23 10:58 body wash for sx Allergy Uncoded 04/17/23 10:58 tegaderm Allergy Uncoded 04/17/23 10:58 General Stated Complaint: GenMedical ESTHELA: 2 Review of Systems All systems reviewed & are unremarkable except as noted in HPI and below Constitutional Constitutional: Denies fever(s) Genitourinary Genitourinary: Denies dysuria 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 S/P exploratory laparotomy (~2020) s/p exp lap 12/2020 for diagnosis, s/p debulking surgery and intraabdominal chemo 03/2021 S/P BSO (bilateral salpingo-oophorectomy) (~12/2018) History of appendectomy History of bilateral ligation of fallopian tubes EGD - MAC (07/10/16) Family History Grandfather Diabetes Heart disease Stroke Grandmother Essential hypertension Personal history of malignant neoplasm Lung Grandmother Personal history of malignant neoplasm breast, maternal Maternal Aunt Personal history of malignant neoplasm breast Sister Crohn's disease Social History Smoking/Tobacco Use Status: Former Tobacco Use tobacco type: cigarettes Quit Date: 06/02/01 Pack-years: 5 Smoking risk assessment performed?: Yes Alcohol Intake: current Alcohol Intake frequency: 0-2 drinks per day Drug use: Never Substance use type: does not use Household members: spouse, family and children Number of Children: 3 Education Level: college 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 Exam Const General: cooperative and no acute distress HENMT Mouth: moist mucous membranes Eyes Conjunctivae: normal conjunctivae Sclera: normal sclerae Neck Neck: supple Resp Auscultation: clear to auscultation bilaterally, no rales, no rhonchi and no wheezes Cardio Rate: regular rate and not tachycardic Rhythm: regular rhythm GI Palpation: soft, not firm, no guarding, no masses and not rigid Skin General skin exam: no rashes or lesions noted Neuro General: patient alert, patient awake, patient oriented x3 and tone normal Extrem General: no edema Psych Appearance: grossly normal Mental Status: mental status grossly normal Course Vital Signs Vital signs: Vital Signs Temperature 36.2 C L 04/17/23 10:33 Pulse 113 H 04/17/23 10:33 Respiratory Rate 15 04/17/23 10:33 Blood Pressure 63/24 L 04/17/23 10:33 Pulse Oximetry 98 04/17/23 10:33 Temperature 36.2 C L 04/17/23 10:33 Temperature Source Tympanic 04/17/23 10:33 Pulse 98 H 04/17/23 11:30 Pulse 97 H 04/17/23 11:31 Respiratory Rate 22 04/17/23 11:31 Respiratory Effort Normal 04/17/23 10:54 Respiratory Depth Normal 04/17/23 10:54 Respiratory Pattern Normal 04/17/23 10:54 Blood Pressure 79/56 L 04/17/23 11:30 Blood Pressure Mean 64 04/17/23 11:30 Blood Pressure Position Sitting 04/17/23 10:33 Pulse Oximetry 98 04/17/23 10:33 Oxygen Delivery Method Room Air 04/17/23 10:33 Oxygen Flow Rate 0 04/17/23 10:33 Pain Level 0 04/17/23 10:33 Lab/Test Results Lab/Test Results: Laboratory Tests Range/Units 04/17/23 10:51 WBC (4.4-10.8) 10^3/uL 11.27 H RBC (3.93-5.22) 10^6/uL 3.89 L Hgb (11.2-15.7) g/dL 9.2 L Hct (36.0-46.0) % 30.9 L MCV (80-95) fL 79 L MCH (27.0-33.0) pg 23.7 L MCHC (32.0-36.0) % 29.8 L RDW (11.7-14.6) % 22.0 H Plt Count (130-400) 10^3/uL 325 MPV (8.0-11.0) fL 9.2 Immature Gran % 1.3 Neutrophils % 87.2 Lymphocytes % 9.3 Monocytes % 1.9 Eosinophils % 0.1 Basophils % 0.2 Nucleated RBC % (0.0-0.3) % 0.2 Absolute Neutrophils (1.2-6.7) 10^3/uL 9.83 H Absolute Lymphocytes (1.2-3.4) 10^3/uL 1.05 L Absolute Monocytes (0.1-0.8) 10^3/uL 0.21 Absolute Eosinophils (0.0-0.7) 10^3/uL 0.01 Absolute Basophils (0.0-0.2) 10^3/uL 0.02 Sodium (136-145) mmol/L 138 Potassium (3.5-5.1) mmol/L 4.2 Chloride (98-107) mmol/L 101 Carbon Dioxide (21.0-32.0) mmol/L 24.0 Anion Gap (3-11) mmol/L 13.0 H BUN (7-18) mg/dL 16 Creatinine (0.55-1.02) mg/dL 1.4 H Est GFR (CKD-EPI 2020) (mL/min/1.73m2) 46.12 Glucose (74-106) mg/dL 173 H Calcium (8.5-10.1) mg/dL 8.6 Magnesium (1.8-2.4) mg/dL 1.5 L Total Bilirubin (0.2-1.0) mg/dL 0.6 AST (15-37) U/L 40 H ALT (14-59) U/L 15 Alkaline Phosphatase (46-116) U/L 138 H Troponin I (<or=60) ng/L < 50 Total Protein (6.4-8.2) g/dL 6.8 Albumin (3.4-5.0) g/dL 2.0 L
[2023-04-17] MEDS: Lactated Ringers 1,000 ML 1000 ML IV (13:05)
--- NOTE | 2023-04-17 13:05 | NUR.NOTE ---
Nursing Note: Patient recieved 1500mL NS, and magnesium. Pt did a walking trial and was unable to maintain an adequate BP. ordered an additional 1L of LR.
--- NOTE | 2023-04-17 15:15 | W.PM.HP.N ---
Date of service: 04/17/23 Time of Service: 15:15 Assessment and Plan Assessment and plan (1) Acute kidney injury: Status: Acute Assessment and plan: urinalysis pending, suspect pre-renal IV hydration avoid nephrotoxic drugs, renally dose as needed. 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 Workup in the emergency department included labs which revealed hypomagnesemia she received 1 g of IV mag she was also found to have acute kidney injury but prerenal due to dehydration. She received IV fluid boluses but remained weak tachycardic and orthostatic. Labs also noted for chronic anemia which was stable with a hemoglobin of 9. She received stress dose steroids in the emergency department Case was discussed with hospitalist services and she was admitted to the medical surgical unit for further management and monitoring. 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 S/P exploratory laparotomy (~2020) s/p exp lap 12/2020 for diagnosis, s/p debulking surgery and intraabdominal chemo 03/2021 S/P BSO (bilateral salpingo-oophorectomy) (~12/2018) History of appendectomy History of bilateral ligation of fallopian tubes EGD - MAC (07/10/16) Family History Grandfather Diabetes Heart disease Stroke Grandmother Essential hypertension Personal history of malignant neoplasm Lung Grandmother Personal history of malignant neoplasm breast, maternal Maternal Aunt Personal history of malignant neoplasm breast Sister Crohn's disease Social History Smoking/Tobacco Use Status: Former Tobacco Use tobacco type: cigarettes Quit Date: 06/02/01 Pack-years: 5 Smoking risk assessment performed?: Yes Alcohol Intake: current Alcohol Intake frequency: 0-2 drinks per day Drug use: Never Substance use type: does not use Household members: spouse, family and children Housing: house Number of Children: 3 Education Level: college current occupation: BANKER - lending Duration: 45-60 minutes/day Frequency: 3-4 times per week Amelie/Caodaism: No preference Special amelie needs: No Seatbelt use: always Do you feel safe at home: Yes Do you feel safe in your relationship?: Yes Additional Social history: Enjoys exercise. Meds Allergies and Home Medications Allergies Allergy/AdvReac Type Severity Reaction Status Date / Time chlorhexidine Allergy Unverified 04/17/23 10:58 body wash for sx Allergy Uncoded 04/17/23 10:58 tegaderm Allergy Uncoded 04/17/23 10:58 Home Medications Medication Instructions Recorded Confirmed Type prochlorperazine maleate 10 mg 10 mg PO TID PRN 02/23/21 04/17/23 History tablet (Compazine) venlafaxine 75 mg capsule,extended 75 mg PO DAILY 06/04/21 04/17/23 History release 24 hr olanzapine 2.5 mg tablet 2.5 mg PO QHS 02/13/23 04/17/23 History venlafaxine 37.5 mg 37.5 mg PO DAILY 02/13/23 04/17/23 History capsule,extended release 24 hr dexamethasone 2 mg tablet 2 - 4 mg PO BID 02/22/23 04/17/23 History hydromorphone 2 mg tablet 2 - 4 mg PO BID PRN 02/22/23 04/17/23 History lorazepam 1 mg tablet 1 mg PO Q6H PRN 02/22/23 04/17/23 History mirtazapine 15 mg tablet 15 mg PO QHS 02/22/23 04/17/23 History hydrocortisone 2.5 % topical cream 1 applic topical BID PRN 03/21/23 04/17/23 History ibuprofen 600 mg tablet 600 mg PO Q6H PRN 03/21/23 04/17/23 History ondansetron HCl 8 mg tablet 8 mg PO Q8H PRN 03/21/23 04/17/23 History potassium chloride 10 mEq 10 meq PO BID 03/21/23 04/17/23 History capsule,extended release fentanyl 25 mcg/hr transdermal 1 patch transdermal Q72H #10 ea 04/14/23 04/17/23 Rx patch 5fu 322 mg 04/17/23 History enoxaparin 60 mg/0.6 mL 60 mg subcut BID 04/17/23 04/17/23 History subcutaneous syringe (Lovenox) irinotecan 40 mg/2 mL intravenous 160 mg IV ONCE 04/17/23 04/17/23 History solution panitumumab 100 mg/5 mL (20 mg/mL) 400 mg IV 04/17/23 History intravenous solution omeprazole 20 mg capsule,delayed 20 mg PO DAILY 04/18/23 04/18/23 History release Exam Const General: cooperative, comfortable and no acute distress Nutritional Appearance: average body habitus Orientation: alert, awake and oriented x3 HENMT Head: normal to inspection, normocephalic and atraumatic Ears: hearing grossly normal bilaterally Face and sinus: normal facial exam Mouth: oral mucosae normal (No exudate) Chest Chest: normal inspection of the chest Resp Effort & Inspection: normal respiratory effort Cardio Rate: regular rate Rhythm: regular rhythm GI Inspection: normal to inspection Palpation: soft and nontender Skin General skin exam: no rashes or lesions noted Neuro General: patient alert, patient awake, patient oriented x3, tone normal and moves all extremities Extrem General: normal to inspection and full ROM Psych Appearance: grossly normal Mental Status: mental status grossly normal Speech and Movement: speech and movement normal Results Labs 04/18/23 11:52 04/18/23 05:35 Labs: Laboratory Results - last 24 hr 04/17/23 10:51 WBC 11.27 H RBC 3.89 L Hgb 9.2 L Hct 30.9 L MCV 79 L MCH 23.7 L MCHC 29.8 L RDW 22.0 H Plt Count 325 MPV 9.2 Immature Gran % 1.3 Neutrophils % 87.2 Lymphocytes % 9.3 Monocytes % 1.9 Eosinophils % 0.1 Basophils % 0.2 Nucleated RBC % 0.2 Absolute Neutrophils 9.83 H Absolute Lymphocytes 1.05 L Absolute Monocytes 0.21 Absolute Eosinophils 0.01 Absolute Basophils 0.02 Sodium 138 Potassium 4.2 Chloride 101 Carbon Dioxide 24.0 Anion Gap 13.0 H BUN 16 Creatinine 1.4 H Est GFR (CKD-EPI 2020) 46.12 Glucose 173 H Calcium 8.6 Magnesium 1.5 L Total Bilirubin 0.6 AST 40 H ALT 15 Alkaline Phosphatase 138 H Troponin I < 50 Total Protein 6.8 Albumin 2.0 L Last Vital Signs Temp 36.2 C L 04/17/23 10:33 Pulse 87 04/17/23 12:30 Resp 18 04/17/23 12:31 BP 83/60 L 04/17/23 12:30 Pulse Ox 98 04/17/23 10:33 Time Spent Time spent with Patient: 40-54 minutes Time was spent: preparing to see the patient(eg.review tests), obtaining and/or reviewing separately otained hiistory, ordering medications,tests, procedures, indepentently interpreting results and counseling the patient
[2023-04-17] MEDS: Hydrocortisone SOD SUC. 100 MG VIAL IVP (15:35)
[2023-04-17] MEDS: Enoxaparin 60 MG/0.6 ML SYR SC (20:06)
[2023-04-17] MEDS: Normal Saline Flush 10 ML SYR IVP (20:06)
[2023-04-17] MEDS: Potassium Chloride 10 MEQ CAPCR PO (20:06)
[2023-04-17] MEDS: Hydrocortisone SOD SUC. 100 MG VIAL 50 MG IVP (21:13)
[2023-04-17] MEDS: Mirtazapine 15 MG TAB PO (21:14)
[2023-04-17] MEDS: OLANZapine 2.5 MG TAB PO (21:14)
[2023-04-17] MEDS: LORazepam 1 MG TAB PO (21:14)
[2023-04-17] MEDS: Venlafaxine 37.5 MG CAPCR PO (21:15)
[2023-04-17] MEDS: Venlafaxine 75 MG CAPCR PO (21:15)
[2023-04-18] MEDS: Hydrocortisone SOD SUC. 100 MG VIAL 50 MG IVP ×2 (03:18→10:39)
[2023-04-18] MEDS: Normal Saline Flush 10 ML SYR IVP ×5 (03:18→13:46)
[2023-04-18 03:25] VITALS: BP 101/64; PULSE 57; RESP 16; TEMP 36; O2SAT 95
[2023-04-18] MEDS: Lactated Ringers 1,000 ML 100 ML IV (03:53)
[2023-04-18 05:49] LABS: Abs Immature Grans 0.03 10^3/uL (0.0-0.06); Absolute Lymphocyte Count 1.41 10^3/uL (1.2-3.4); Absolute Monocyte Count 0.11 10^3/uL (0.1-0.8); Absolute Neutrophil Count 4.52 10^3/uL (1.2-6.7); HCT 24.2 % (36.0-46.0); HGB 7.3 g/dL (11.2-15.7); Immature Grans % 0.5; Lymphocytes % 23.2; MCH 23.9 pg (27.0-33.0); MCHC 30.2 % (32.0-36.0); MCV 79 fL (80-95); MPV 9.9 fL (8.0-11.0); Monocytes % 1.8; Neutrophils % 74.5; Platelet Count 187 10^3/uL (130-400); RBC 3.06 10^6/uL (3.93-5.22); RDW 21.5 % (11.7-14.6); RDW-SD 61.7 fL; WBC 6.07 10^3/uL (4.4-10.8)
[2023-04-18 05:56] LABS: Anion Gap 5.7 mmol/L (3-11); BUN 13 mg/dL (7-18); CO2 28.3 mmol/L (21.0-32.0); CREATININE 0.9 mg/dL (0.55-1.02); Calcium 8.7 mg/dL (8.5-10.1); Chloride 103 mmol/L (98-107); Estimated GFR 78.37 (mL/min/1.73m2); Glucose 134 mg/dL (74-106); Potassium 3.8 mmol/L (3.5-5.1); Sodium 137 mmol/L (136-145)
[2023-04-18 06:33] LABS: Anisocytosis 2+; Diff Comment RBC Morph Reviewed
[2023-04-18 07:38] VITALS: BP 94/57; PULSE 66; RESP 16; TEMP 36.1; O2SAT 96
[2023-04-18] MEDS: Enoxaparin 60 MG/0.6 ML SYR SC (08:02)
[2023-04-18] MEDS: Potassium Chloride 10 MEQ CAPCR PO (08:02)
[2023-04-18] MEDS: Omeprazole 20 MG CAPCR PO (08:03)
--- NOTE | 2023-04-18 11:20 | PDOC.CMIN ---
Date of service: 04/18/23 Time of Service: 11:20 Care Management Initial Assmt Initial Assessment REASON FOR HOSPITALIZATION:: FAM PREVIOUS FUNCTIONAL STATUS/SOCIAL/FAMILY SUPPORTS:: Hali lives in [place], [place] with her Gavino. She works at [employer] in [facility], however she has been unable to work of late due to illness. Hali is independent at baseline and does not receive any community services. CURRENT FUNCTIONAL STATUS:: Hali was sitting up in bed when CM met with her. She was preparing to be discharged home after some additional bloodwork and denied the need for any services at home. ADVANCE DIRECTIVES:: On file. Sudarshan listed as [facility]CA. Has patient been provided with info about the portal/API?: Yes Did the patient sign up for the portal?: Yes CODE STATUS:: DNR/DNI INSURANCE COVERAGE / FINANCIAL ISSUES:: BC/BS CURRENT HOME/COMMUNITY SERVICES/EQUIPMENT:: none PRIMARY CARE PHYSICIAN:: Muriel Castillo POTENTIAL DISCHARGE NEEDS:: follow up with PCP and plan of care PATIENT/FAMILY EDUCATION NEEDS:: Review of discharge instructions, limitations, follow up plan, discuss [facility] [employer] TRANSPORTATION:: via private vehicle with PLAN:: Hali will be discharged home with no new services. She will follow up with her community providers and plan of care and transport with her . 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 S/P exploratory laparotomy (~2020) s/p exp lap 12/2020 for diagnosis, s/p debulking surgery and intraabdominal chemo 03/2021 S/P BSO (bilateral salpingo-oophorectomy) (~12/2018) History of appendectomy History of bilateral ligation of fallopian tubes EGD - MAC (07/10/16) Family History Grandfather Diabetes Heart disease Stroke Grandmother Essential hypertension Personal history of malignant neoplasm Lung Grandmother Personal history of malignant neoplasm breast, maternal Maternal Aunt Personal history of malignant neoplasm breast Sister Crohn's disease Social History Smoking/Tobacco Use Status: Former Tobacco Use tobacco type: cigarettes Quit Date: 06/02/01 Pack-years: 5 Smoking risk assessment performed?: Yes Alcohol Intake: current Alcohol Intake frequency: 0-2 drinks per day Drug use: Never Substance use type: does not use Household members: spouse, family and children Housing: house Number of Children: 3 Education Level: college 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
[2023-04-18 12:02] LABS: HCT 24.3 % (36.0-46.0); HGB 7.4 g/dL (11.2-15.7)
--- NOTE | 2023-04-18 13:23 | W.PM.DS.N ---
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 Workup in the emergency department included labs which revealed hypomagnesemia she received 1 g of IV mag she was also found to have acute kidney injury but prerenal due to dehydration. She received IV fluid boluses but remained weak tachycardic and orthostatic. Labs also noted for chronic anemia which was stable with a hemoglobin of 9. She received stress dose steroids in the emergency department Case was discussed with hospitalist services and she was admitted to the medical surgical unit for further management and monitoring. Overnight she remained hemodynamically stable. In the a.m. her hemoglobin dropped to 7.3. She did not have any evidence of acute blood loss. She did state that she had 1 episode of bright red blood per rectum Monday night but has had no blood since. She has been eating and drinking bowels and bladder functioning blood pressure stabilized with a systolic in the 90s which is close to baseline for her she is asymptomatic denying any chest pain shortness of breath or dizziness. She has been safely really ambulated a repeat hemoglobin at noon today was 7.4. She is stable for and wanting discharge to home. She will follow-up outpatient with her primary care team or return here sooner for new or worsening symptoms. Discharge discussed with Dr. Brar Home Meds and New Rx's Prescriptions: Continued venlafaxine 75 mg capsule,extended release 24hr 75 mg PO DAILY potassium chloride 10 mEq capsule, extended release 10 meq PO BID hydrocortisone 2.5 % cream 1 applic topical BID PRN ondansetron HCl 8 mg tablet 8 mg PO Q8H PRN Patient Comments: Medication is on hold ibuprofen 600 mg tablet 600 mg PO Q6H PRN prochlorperazine maleate [Compazine] 10 mg tablet 10 mg PO TID PRN Hold Instructions: Changed by Provider olanzapine 2.5 mg tablet 2.5 mg PO QHS venlafaxine 37.5 mg capsule,extended release 24hr 37.5 mg PO DAILY Rx Instructions: In addition to venlafaxine 75mg daily mirtazapine 15 mg tablet 15 mg PO QHS dexamethasone 2 mg tablet 2 - 4 mg PO BID Rx Instructions: Take 2 tabs in AM and 1 tab in PM hydromorphone 2 mg tablet 2 - 4 mg PO BID PRN lorazepam 1 mg tablet 1 mg PO Q6H PRN fentanyl 25 mcg/hr patch 72 hour 1 patch transdermal Q72H MDD 25mcg Qty: 10 0RF Rx Instructions: Cancer related pain enoxaparin [Lovenox] 60 mg/0.6 mL syringe 60 mg subcut BID panitumumab 100 mg/5 mL (20 mg/mL) solution 400 mg IV irinotecan 40 mg/2 mL solution 160 mg IV ONCE 5fu 322 mg omeprazole 20 mg capsule,delayed release(DR/EC) 20 mg PO DAILY Patient Comments: TAKE ONE CAPSULE BY MOUTH EVERY DAY Discharge Instructions Instructions: Hypotension (DC), Anemia (DC) Stand Alone Forms: Nursing Discharge Form Referrals: Muriel Castillo MD [Primary Care Provider] - (Message left with office to call you for a follow up appointment. If you do not hear from them today please call them tomorrow to make a 1-2 week follow up. ) Activity:: Activity as Tolerated Equipment/Supplies:: No Equipment Needed Diet:: As Tolerated Discharge Orders Discharge Orders: Discharge Order (Routine); Ordered 04/18/23 Ordered By: Maggi Babcock DS: Summary Time Spent with Patient providing and/or coordinating discharge services: Less than 30 minutes Status at Discharge Functional status at discharge: independent ambulation Overall status at discharge: patient is back to baseline Mental Status: mental status grossly normal Speech and Movement: speech and movement normal Mood: congruent mood Affect: normal affect Exam Const General: cooperative, comfortable and no acute distress Nutritional Appearance: average body habitus Orientation: alert, awake and oriented x3 HENMT Head: normal to inspection, normocephalic and atraumatic Ears: hearing grossly normal bilaterally Face and sinus: normal facial exam Mouth: oral mucosae normal (No exudate) Chest Chest: normal inspection of the chest Resp Effort & Inspection: normal respiratory effort Cardio Rate: regular rate Rhythm: regular rhythm GI Inspection: normal to inspection Palpation: soft and nontender Skin General skin exam: no rashes or lesions noted Neuro General: patient alert, patient awake, patient oriented x3, tone normal and moves all extremities Extrem General: normal to inspection and full ROM Psych Appearance: grossly normal Mental Status: mental status grossly normal Speech and Movement: speech and movement normal Mood: congruent mood Affect: normal affect DS: Data Vitals/I&O Vitals and I&O: Vital Signs Temperature 36.1 C L 04/18/23 07:38 Temperature Source Tympanic 04/18/23 07:38 Pulse 66 04/18/23 07:38 Pulse Rhythm Regular 04/18/23 05:41 Pulse 75 04/17/23 15:45 Respiratory Rate 16 04/18/23 07:38 Respiratory Effort Normal, Non-Labored 04/18/23 05:41 Respiratory Depth Normal 04/18/23 05:41 Respiratory Pattern Normal 04/18/23 05:41 Blood Pressure 94/57 L 04/18/23 07:38 Blood Pressure Mean 69 04/17/23 15:45 Blood Pressure Position Sitting 04/17/23 10:33 Pulse Oximetry 96 04/18/23 07:38 Oxygen Delivery Method Room Air 04/18/23 07:38 Oxygen Flow Rate 0 04/18/23 07:38 Pain Level 0 04/18/23 11:51 Comment Pt. denies pain at this time. 04/18/23 11:51 Intake & Output 04/17/23 04/18/23 04/18/23 23:59 11:59 23:59 Intake Total 840 / 840 1181.667 / 1181.667 Balance 840 / 840 1181.667 / 1181.667 Intake: IV 600 / 600 701.667 / 701.667 Oral 240 / 240 480 / 480 Other: Urine Color Yellow Yellow Straw Urine Appearance Clear Clear Comment pT has a purewick, Nurse stated to have one due to Low BP and now wanting pT to get up. Voiding Methods Toilet Data Completed and Pending Labs on day of discharge: Labs from last 24 hours 04/18/23 04/18/23 11:52 05:35 WBC 6.07 RBC 3.06 L Hgb 7.4 L 7.3 L Hct 24.3 L 24.2 L MCV 79 L MCH 23.9 L MCHC 30.2 L RDW 21.5 H Plt Count 187 MPV 9.9 Immature Gran % 0.5 Neutrophils % 74.5 Lymphocytes % 23.2 Monocytes % 1.8 Eosinophils % 0.0 Basophils % 0.0 Nucleated RBC % 0.0 Absolute Neutrophils 4.52 Absolute Lymphocytes 1.41 Absolute Monocytes 0.11 Absolute Eosinophils 0.00 Absolute Basophils 0.00 RBC Morphology See Below Anisocytosis 2+ Sodium 137 Potassium 3.8 Chloride 103 Carbon Dioxide 28.3 Anion Gap 5.7 BUN 13 Creatinine 0.9 Est GFR (CKD-EPI 2020) 78.37 Glucose 134 H Calcium 8.7 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 S/P exploratory laparotomy (~2020) s/p exp lap 12/2020 for diagnosis, s/p debulking surgery and intraabdominal chemo 03/2021 S/P BSO (bilateral salpingo-oophorectomy) (~12/2018) History of appendectomy History of bilateral ligation of fallopian tubes EGD - MAC (07/10/16) Family History Grandfather Diabetes Heart disease Stroke Grandmother Essential hypertension Personal history of malignant neoplasm Lung Grandmother Personal history of malignant neoplasm breast, maternal Maternal Aunt Personal history of malignant neoplasm breast Sister Crohn's disease Social History Smoking/Tobacco Use Status: Former Tobacco Use tobacco type: cigarettes Quit Date: 06/02/01 Pack-years: 5 Smoking risk assessment performed?: Yes Alcohol Intake: current Alcohol Intake frequency: 0-2 drinks per day Drug use: Never Substance use type: does not use Household members: spouse, family and children Housing: house Number of Children: 3 Education Level: college current occupation: BANKER - lending Duration: 45-60 minutes/day Frequency: 3-4 times per week Amelie/Scientologist: No preference Special amelie needs: No Seatbelt use: always Do you feel safe at home: Yes Do you feel safe in your relationship?: Yes Additional Social history: Enjoys exercise. Time Spent with Patient Time Spent with Patient: 45-69 minutes Time was spent: preparing to see the patient(eg.review tests), ordering medications,tests, procedures, indepentently interpreting results and counseling the patient
[2023-04-18] MEDS: Heparin 500 UNITS/5 ML SYRINGE IVP (13:46)
== END 2023-04-18 14:00 | disposition home or self-care (01) | DRG 683 ==
LOC: ER 15:58 → MS 16:07
PROVIDERS: Nurse Practitioner Acute Care; Admitting Provider Family Medicine; Emergency Provider Student in an Organized Health Care Education/Training Program; PCP Family Medicine; Visit Provider Family Medicine
DX: N17.9 Acute kidney failure, unspecified (principal); C17.2 Malignant neoplasm of ileum; C79.60 Secondary malignant neoplasm of unspecified ovary; K50.00 Crohn's disease of small intestine without complications; E86.0 Dehydration; I95.1 Orthostatic hypotension; Z79.899 Other long term (current) drug therapy; E83.42 Hypomagnesemia; D64.9 Anemia, unspecified; R53.1 Weakness; Z86.718 Personal history of other venous thrombosis and embolism; G47.00 Insomnia, unspecified; F32.A Depression, unspecified; N95.1 Menopausal and female climacteric states; G89.29 Other chronic pain; R10.31 Right lower quadrant pain; Z95.828 Presence of other vascular implants and grafts; Z87.891 Personal history of nicotine dependence; Z90.49 Acquired absence of other specified parts of digestive tract
CPT/HCPCS: 00123; 80048; 80053; 93005; 96361; 96365; 96375; 99282; 81003; 83735; 84484; 85014; 85018; 85025; 93010; 99223; 99239; 99285; J1650; J1720; J3475

== ENCOUNTER 2023-04-20 08:38 | Inpatient (IN) | payer BC, SELFPAY ==
[2023-04-20] VITALS (99 sets, daily range): BP systolic 79–116; BP diastolic 26–79; PULSE 68–118; RESP 15–28; TEMP 36–37.5; O2SAT 93–100
[2023-04-20 09:26] LABS: BE (Venous) 1 mmol/L (-2-3); HCO3 (Venous) 25 mmol/L (23-28); O2 Sat (Venous) 72 %; TCO2 (Venous) 24 mmol/L (24-29); pCO2 (Venous) 39 mmHg (41-51); pH (Venous) 7.42 (7.31-7.41); pO2 (Venous) 39 mmHg
[2023-04-20 09:28] LABS: Abs Immature Grans 0.37 10^3/uL (0.0-0.06); HCT 24.6 % (36.0-46.0); HGB 7.5 g/dL (11.2-15.7); MCH 24.2 pg (27.0-33.0); MCHC 30.5 % (32.0-36.0); MCV 79 fL (80-95); MPV 9.5 fL (8.0-11.0); Platelet Count 191 10^3/uL (130-400); RDW 22.2 % (11.7-14.6); WBC 5.35 10^3/uL (4.4-10.8)
[2023-04-20] MEDS: Normal Saline-STERILE FIELD 0.9% 10 ML SYR (09:28)
[2023-04-20] MEDS: Normal Saline 1,000 ML 1000 ML IV (09:28)
[2023-04-20 09:41] LABS: Absolute Basophil Count 0.05 10^3/uL (0.0-0.2); Absolute Eosinophil Count 0.11 10^3/uL (0.0-0.7); Absolute Monocyte Count 0.16 10^3/uL (0.1-0.8); Absolute Neutrophil Count 3.26 10^3/uL (1.2-6.7); Anisocytosis 2+; Diff Comment Manual Differential; Hypochromasia 1+; Metamyelocytes % 2; Myelocytes % 3
[2023-04-20 09:42] LABS: Polychromasia Present
[2023-04-20 09:54] LABS: ALT 22 U/L (14-59); AST 39 U/L (15-37); Alkaline Phosphatase 125 U/L (46-116); Anion Gap 11.3 mmol/L (3-11); BUN 6 mg/dL (7-18); Bilirubin, Total 0.2 mg/dL (0.2-1.0); CO2 25.7 mmol/L (21.0-32.0); Calcium 8.3 mg/dL (8.5-10.1); Chloride 101 mmol/L (98-107); Creatine Kinase 44 U/L (26-192); Estimated GFR 69.06 (mL/min/1.73m2); Glucose 100 mg/dL (74-106); Magnesium 1.2 mg/dL (1.8-2.4); Potassium 3.2 mmol/L (3.5-5.1); Sodium 138 mmol/L (136-145); Total Protein 6.4 g/dL (6.4-8.2)
[2023-04-20 10:10] LABS: Procalcitonin 0.8 ng/mL
--- NOTE | 2023-04-20 10:45 | DI.CT_ITS ---
Exam(s) CT ABDOMEN PELVIS W EXAM: CT ABDOMEN PELVIS W CLINICAL HISTORY: abd pain TECHNIQUE: Imaging Protocol: Axial computed tomography images with coronal and sagittal reformatted images were created and reviewed CONTRAST MATERIAL: Intravenous: Omnipaque 350 Contrast volume:100 mL Oral: No COMPARISON: CT CT ABDOMEN PELVIS W from 05/17/2021 FINDINGS: ABDOMEN: Lung Bases: There is a moderate size left pleural effusion and subjacent infiltrate. Liver: Normal density. No hepatic mass is seen. There is diffuse decreased attenuation of the liver consistent with fatty infiltration. Portal, Superior Mesenteric, and Splenic Veins: Unremarkable. Gallbladder and Biliary Tract: Cholelithiasis. No significant biliary ductal dilatation. Pancreas: Normal density, no abnormal calcifications or inflammatory process. Spleen: Normal. Adrenals: No masses seen. Kidneys: Normal size, contour and axis. Bilateral nephrolithiasis. No obstructive uropathy. No mass es seen. Abdominal Aorta: Abdominal portion non-dilated. IVC: There is an IVC filter in place. Bowel: There is no evidence of bowel obstruction. Anastomosis clips are seen in the right colon. Ev aluation of the bowel is limited secondary to the extensive peritoneal metastatic disease. No eviden ce of an active GI bleed. Peritoneal Cavity: Extensive hypodense metastatic disease is seen in the peritoneum with implants inv olving most of the abdominal organs. The findings have significantly advanced since the CT scan from 05/17/2021. No free air. Lymph Nodes: Within normal limits. Bones: Within normal limits for the patient's age. No aggressive osseous lesions are present. Soft Tissues: Metastatic implants are seen in the anterior abdominal wall in the midline and on the l eft. PELVIS: Bladder: Symmetric distention, no gross wall thickening. Reproductive Organs: There is cystic structures seen bilaterally in the pelvis in the adnexal region which may represent enlarged ovarian masses versus metastatic disease. Lymph Nodes: Within normal limits. Bones: Within normal limits for the patient's age. IMPRESSION: 1. Marked progression of the abdominal pelvic metastatic disease. 2. Moderate left pleural effusion and left basilar infiltrate which may represent atelectasis or pneu monia. 3. Incidental findings in the abdomen and pelvis as described above. 4. Findings were discussed with Lindsey Arriaza on 04/20/2023 at 1:10 p.m.. RADIATION DOSE DELIVERED: Total DLP DATA REPOSITORY: All CT scans at this facility are submitted to the National Radiology Data Registry (NRDR) Dose Index Registry (DIR) with the [employer] ([employer]). RADIATION OPTIMIZATION: All CT scans at this facility use at least one of these dose optimization te chniques: automated exposure control; mA and/or kV adjustment per patient size (includes targeted exa ms where dose is matched to clinical indication); or iterative reconstruction.
[2023-04-20] MEDS: Lactated Ringers 1,000 ML 1000 ML IV (11:06)
[2023-04-20] MEDS: MAGNESIUM SULFATE 2 GM/50 ML BAG IVPB ×2 (11:06→20:38)
--- NOTE | 2023-04-20 11:50 | DI.RAD_ITS ---
Exam(s) XR CHEST 2V PA LATERAL EXAM: XR CHEST 2V PA LATERAL CLINICAL HISTORY: hypotension, shortness of breath TECHNIQUE: 2D digital imaging was performed of the chest. Two images were obtained. PA and lateral views were obtained. COMPARISON: CR,XR XR PORTABLE CHEST AP from 03/12/2021 FINDINGS: MEDIASTINUM: Normal. HEART: Normal. PULMONARY VASCULATURE: Normal. LUNGS: Clear. PLEURAL SPACE: There is a small left pleural effusion. No right pleural effusion. No pneumothorax. BONE:Within normal limits for the patient's age. OTHER FINDINGS:An IVC filter is seen at the bottom of each of the films. The superior aspect lies at L1. There is an [id number] catheter. The tip of the catheter is in good position in the superio r vena cava. IMPRESSION: Development of a small left pleural effusion. DATA REPOSITORY: RADIATION DOSE DELIVERED:
[2023-04-20] MEDS: Omnipaque 350 MG/ML 500 ML BTL-Imaging package 100 ML IJ (12:26)
--- NOTE | 2023-04-20 13:00 | RT.EKG_ITS ---
APPROVED REPORT Exam: Resting ECG Reason for Exam: [email or web address] Patient Location: E HR:79 bpm ECG Measurements Heart Rate 79 AXIS WI 144 P 60 QRSd 96 QRS 70 QT 382 T -7 QTc 437 Conclusion Sinus rhythm...normal P axis, V-rate 60- 99 Narrow complex normal sinus rhythm at a rate of 79. Normal axis. Intervals within normal limits. T wave inversion in V3. Mild inferior ST segment depressions and left chest wall ST segment depressio ns . No ST segment elevations. QTc within normal limits. Compared to prior dated 3 days ago T wave inversions are new and ST segment depressions are similar.
[2023-04-20] MEDS: CEFEPIME 1 GM in Normal Saline 50 ML IVPB (13:23)
[2023-04-20 13:25] LABS: Absolute Basophil Count 0.02 10^3/uL (0.0-0.2); Absolute Eosinophil Count 0.02 10^3/uL (0.0-0.7); Absolute Lymphocyte Count 1.67 10^3/uL (1.2-3.4); Absolute Monocyte Count 0.22 10^3/uL (0.1-0.8); Absolute Neutrophil Count 2.53 10^3/uL (1.2-6.7); Basophils % 0.4; Eosinophils % 0.4; HCT 21.1 % (36.0-46.0); Immature Grans % 6.3; Lymphocytes % 35.1; MCH 24.2 pg (27.0-33.0); MCHC 30.3 % (32.0-36.0); MCV 80 fL (80-95); MPV 9.8 fL (8.0-11.0); Monocytes % 4.6; Neutrophils % 53.2; Nucleated RBC 1.3 % (0.0-0.3); Platelet Count 161 10^3/uL (130-400); RBC 2.65 10^6/uL (3.93-5.22); RDW 22.2 % (11.7-14.6); RDW-SD 62.6 fL
[2023-04-20 13:29] LABS: HGB 6.4 g/dL (11.2-15.7)
[2023-04-20 13:31] LABS: WBC 4.76 10^3/uL (4.4-10.8)
[2023-04-20 14:09] LABS: Troponin I < 50 ng/L (<or=60)
[2023-04-20 14:32] LABS: Bilirubin Negative (Negative); Blood Trace-intact (Negative); Clarity Clear (Clear); Glucose Negative (Negative); Ketones Negative (Negative); Leukocyte Esterase Negative (Negative); Nitrite Negative (Negative); Urobilinogen 0.2 mg/dL (Up to 0.2)
[2023-04-20 14:40] LABS: Bacteria Negative HPF (Negative); C & S Indicated? No; Casts Negative LPF (Negative); Crystals Negative HPF (Negative); Epithelial Cells Few HPF (Negative); Mucus Negative (Negative); WBC 0-2 HPF (0-5)
--- NOTE | 2023-04-20 15:16 | ED.GENADUL_ITS ---
Discharge Plan Discharge Details Chief Complaint: [facility] Primary Care Provider: Muriel Castillo ED Provider: Lindsey Arriaza Home Meds and New Rx's Prescriptions: No Action venlafaxine 75 mg capsule,extended release 24hr 75 mg PO DAILY potassium chloride 10 mEq capsule, extended release 10 meq PO BID hydrocortisone 2.5 % cream 1 applic topical BID PRN ondansetron HCl 8 mg tablet 8 mg PO Q8H PRN Patient Comments: Medication is on hold ibuprofen 600 mg tablet 600 mg PO Q6H PRN prochlorperazine maleate [Compazine] 10 mg tablet 10 mg PO TID PRN Hold Instructions: Changed by Provider olanzapine 2.5 mg tablet 2.5 mg PO QHS venlafaxine 37.5 mg capsule,extended release 24hr 37.5 mg PO DAILY Rx Instructions: In addition to venlafaxine 75mg daily mirtazapine 15 mg tablet 15 mg PO QHS dexamethasone 2 mg tablet 2 - 4 mg PO BID Rx Instructions: Take 2 tabs in AM and 1 tab in PM hydromorphone 2 mg tablet 2 - 4 mg PO BID PRN lorazepam 1 mg tablet 1 mg PO Q6H PRN fentanyl 25 mcg/hr patch 72 hour 1 patch transdermal Q72H MDD 25mcg Qty: 10 0RF Rx Instructions: Cancer related pain enoxaparin [Lovenox] 60 mg/0.6 mL syringe 60 mg subcut BID panitumumab 100 mg/5 mL (20 mg/mL) solution 400 mg IV irinotecan 40 mg/2 mL solution 160 mg IV ONCE 5fu 322 mg omeprazole 20 mg capsule,delayed release(DR/EC) 20 mg PO DAILY Patient Comments: TAKE ONE CAPSULE BY MOUTH EVERY DAY Medical Decision Making 47-year-old female presents with report of weakness and lightheadedness with cramping in her legs Recent admission to this facility for orthostatic hypotension Patient with hypomagnesemia, 1.2, supplemented with 2 g of mag, on IV, with IV fluid resuscitation given likely dehydration EKG shows some ST depressions diffusely, troponin negative, no chest pain or shortness of breath CT chest was ordered given elevated prolactin level and hypotension, moderate effusion, patient does not endorse shortness of breath or chest knee pain CT abdomen and pelvis shows significant metastatic disease, without any evidence of free fluid or obvious active bleeding Hemoglobin initially 7.3, unchanged from prior admission, repeat hemoglobin and hematocrit post 1 L of IV fluids 6.4 and 21 ANC within normal limits, procalcitonin elevated at 0.8 and with hypotension will give an empiric dose of cefepime Case discussed with Dr. Hernandez, oncology at [facility], does not suspect that the anemia is chemotherapy related suspect anemia of chronic disease Recommend supportive care with blood transfusions declines need for emergent transport, I am hesitant to perform a digital rectal exam as patient is status post chemotherapy and has colorectal carcinoma she denies any active bleeding is fully alert, oriented, of decisional capacity, she has tenderness in her abdomen without rebound or guarding, no palpable ascites, lungs clear to auscultation, remains hypertensive throughout encounter, will order blood transfusion as patient is likely symptomatic anemia Again no evidence of active bleeding, on Lovenox for history of recent diagnosis of pulmonary embolism, last Lovenox this evening Afebrile, DNR/DNI status Case discussed with Dr. Robles, will admit patient pending bed availability HPI General Date/Time Provider Initiated Documentation: 04/20/23 08:38 . HPI Narrative: This 47-year-old female with history of colorectal carcinoma receiving chemotherapy, depression, anxiety presents with report of cramping in legs and lightheadedness, symptoms consistent with evaluation 2 days prior to arrival. Denies any chest pain or shortness of breath. States he feels similarly to prior admission. Denies any rectal bleeding or nausea/vomiting. Last chemotherapy on 1216. States she is drinking within normal limits. Denies any new pain in abdomen. Denies falls or injuries. Related Data Home Medications Medication Instructions Recorded Confirmed prochlorperazine maleate 10 mg 10 mg PO TID PRN 02/23/21 04/20/23 tablet (Compazine) venlafaxine 75 mg capsule,extended 75 mg PO DAILY 06/04/21 04/20/23 release 24 hr olanzapine 2.5 mg tablet 2.5 mg PO QHS 02/13/23 04/20/23 venlafaxine 37.5 mg 37.5 mg PO DAILY 02/13/23 04/20/23 capsule,extended release 24 hr dexamethasone 2 mg tablet 2 - 4 mg PO BID 02/22/23 04/20/23 hydromorphone 2 mg tablet 2 - 4 mg PO BID PRN 02/22/23 04/20/23 lorazepam 1 mg tablet 1 mg PO Q6H PRN 02/22/23 04/20/23 mirtazapine 15 mg tablet 15 mg PO QHS 02/22/23 04/20/23 hydrocortisone 2.5 % topical cream 1 applic topical BID PRN 03/21/23 04/20/23 ibuprofen 600 mg tablet 600 mg PO Q6H PRN 03/21/23 04/20/23 ondansetron HCl 8 mg tablet 8 mg PO Q8H PRN 03/21/23 04/20/23 potassium chloride 10 mEq 10 meq PO BID 03/21/23 04/20/23 capsule,extended release fentanyl 25 mcg/hr transdermal 1 patch transdermal Q72H #10 ea 04/14/23 04/20/23 patch 5fu 322 mg 04/17/23 enoxaparin 60 mg/0.6 mL 60 mg subcut BID 04/17/23 04/20/23 subcutaneous syringe (Lovenox) irinotecan 40 mg/2 mL intravenous 160 mg IV ONCE 04/17/23 04/17/23 solution panitumumab 100 mg/5 mL (20 mg/mL) 400 mg IV 04/17/23 intravenous solution omeprazole 20 mg capsule,delayed 20 mg PO DAILY 04/18/23 04/20/23 release Previous Rx's Medication Instructions Recorded fentanyl 25 mcg/hr transdermal 1 patch transdermal Q72H #10 ea 04/14/23 patch Allergies Allergy/AdvReac Type Severity Reaction Status Date / Time chlorhexidine Allergy Unverified 04/20/23 08:49 body wash for sx Allergy Uncoded 04/20/23 08:49 tegaderm Allergy Uncoded 04/20/23 08:49 General Stated Complaint: [facility] ESTHELA: 3 PFSH All Active Problems (Updated 04/19/23 @ 00:05 by TANIYA SANON) Generalized weakness (Acute) Hypotension (Acute) Dehydration (Acute) Acute kidney injury (Acute) Rash and nonspecific skin eruption (Acute) Hot flashes, menopausal (Acute) on venlafaxine Right flank pain, chronic (Acute) uncertain etiology 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 S/P exploratory laparotomy (~2020) s/p exp lap 12/2020 for diagnosis, s/p debulking surgery and intraabdominal chemo 03/2021 S/P BSO (bilateral salpingo-oophorectomy) (~12/2018) History of appendectomy History of bilateral ligation of fallopian tubes EGD - MAC (07/10/16) Family History Grandfather Diabetes Heart disease Stroke Grandmother Essential hypertension Personal history of malignant neoplasm Lung Grandmother Personal history of malignant neoplasm breast, maternal Maternal Aunt Personal history of malignant neoplasm breast Sister Crohn's disease Social History Smoking/Tobacco Use Status: Former Tobacco Use tobacco type: cigarettes Quit Date: 06/02/01 Pack-years: 5 Smoking risk assessment performed?: Yes Alcohol Intake: current Alcohol Intake frequency: holidays/special occasions only Alcohol type: beer, wine and hard liquor Drug use: Never Substance use type: does not use Household members: spouse, family and children Housing: house Number of Children: 3 Education Level: college current occupation: BANKER - lending Duration: 45-60 minutes/day Frequency: 3-4 times per week Amelie/Gnosticism: No preference Special amelie needs: No Seatbelt use: always Do you feel safe at home: Yes Do you feel safe in your relationship?: Yes Additional Social history: Enjoys exercise. Course Vital Signs Vital signs: Vital Signs Temperature 37.1 C 04/20/23 08:39 Pulse 118 H 04/20/23 08:39 Respiratory Rate 16 04/20/23 08:39 Blood Pressure 101/78 04/20/23 08:39 Pulse Oximetry 100 04/20/23 08:39 Temperature 36.9 C 04/20/23 15:00 Temperature Source Temporal Artery Scan 04/20/23 08:55 Pulse 75 04/20/23 15:00 Pulse 74 04/20/23 14:26 Respiratory Rate 21 04/20/23 15:00 Respiratory Effort Normal, Non-Labored 04/20/23 08:56 Respiratory Depth Normal 04/20/23 08:56 Respiratory Pattern Normal 04/20/23 08:56 Blood Pressure 88/59 L 04/20/23 15:00 Blood Pressure Mean 60 04/20/23 14:01 Pulse Oximetry 95 04/20/23 15:00 Oxygen Delivery Method Room Air 04/20/23 14:45 Oxygen Flow Rate 0 04/20/23 14:45 Pain Level 2 04/20/23 08:55 Comment 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 04/20/23 08:39 Lab/Test Results Lab/Test Results: 04/20/23 10:25 Blood Blood Culture - Pending 04/20/23 09:20 Blood Blood Culture - Pending Laboratory Tests Range/Units 04/20/23 04/20/23 04/20/23 09:03 09:04 09:20 WBC Cancelled 5.35 RBC Cancelled 3.10 L Hgb Cancelled 7.5 L Hct Cancelled 24.6 L MCV Cancelled 79 L MCH Cancelled 24.2 L MCHC Cancelled 30.5 L RDW Cancelled 22.2 H Plt Count Cancelled 191 MPV Cancelled 9.5 Immature Gran % Cancelled See Differential Neutrophils % Cancelled 61.0 Band Neutrophils % Cancelled Lymphocytes % Cancelled 28.0 Atypical Lymphs % Cancelled Monocytes % Cancelled 3.0 Eosinophils % Cancelled 2.0 Basophils % Cancelled 1.0 Metamyelocytes % Cancelled 2 Myelocytes % Cancelled 3 Promyelocytes % Cancelled Other Cells % Cancelled Nucleated RBC % Cancelled 0.0 Absolute Neutrophils Cancelled 3.26 Absolute Lymphocytes Cancelled 1.50 Absolute Monocytes Cancelled 0.16 Absolute Eosinophils Cancelled 0.11 Absolute Basophils Cancelled 0.05 RBC Morphology Cancelled See Below Polychromasia Cancelled Present Hypochromasia Cancelled 1+ Poikilocytosis Cancelled Basophilic Stippling Cancelled Anisocytosis Cancelled 2+ Microcytosis Cancelled Macrocytosis Cancelled Spherocytes Cancelled Tear Drop Cells Cancelled Ovalocytes Cancelled Stomatocytes Cancelled Sepulveda-Nunez Bodies Cancelled [place] Cells/Echinocytes Cancelled Acanthocytes (Spur) Cancelled Schistocytes Cancelled VBG pH (7.31-7.41) 7.42 H VBG pCO2 (41-51) mmHg 39 L VBG pO2 mmHg 39 VBG HCO3 (23-28) mmol/L 25 VBG Total CO2 (24-29) mmol/L 24 VBG O2 Saturation % 72 VBG Base Excess (-2-3) mmol/L 1 VBG Lactate (0.6-1.4) mmol/L 3.0 H* Sodium Cancelled 138 Potassium Cancelled 3.2 L Chloride Cancelled 101 Carbon Dioxide Cancelled 25.7 Anion Gap Cancelled 11.3 H BUN Cancelled 6 L Creatinine Cancelled 1.0 Est GFR (CKD-EPI 2020) Cancelled 69.06 Glucose Cancelled 100 Calcium Cancelled 8.3 L Magnesium (1.8-2.4) mg/dL 1.2 L Total Bilirubin Cancelled 0.2 AST Cancelled 39 H ALT Cancelled 22 Alkaline Phosphatase Cancelled 125 H Creatine Kinase (26-192) U/L 44 Troponin I (<or=60) ng/L Total Protein Cancelled 6.4 Albumin Cancelled 2.0 L Lipase Cancelled Procalcitonin ng/mL 0.8 Serum HCG, Qual Cancelled Urine Color (Yellow) Urine Clarity (Clear) Urine pH (5-8) Ur Specific [place] (1.005-1.025) Urine Protein (Negative) mg/dL Urine Ketones (Negative) mg/dL Urine Blood (Negative) Urine Nitrite (Negative) Urine Bilirubin (Negative) Urine Urobilinogen (Up to 0.2) mg/dL Ur Leukocyte Esterase (Negative) Urine RBC (0-2) HPF Urine WBC (0-5) HPF Ur Epithelial Cells (Negative) HPF Urine Crystals (Negative) HPF Urine Bacteria (Negative) HPF Urine Casts (Negative) LPF Urine Mucus (Negative) Ur Culture Indicated? Urine Glucose (Negative) mg/dL Patient ABO/Rh A Negative Antibody Screen NEGATIVE Crossmatch See Detail Range/Units 04/20/23 04/20/23 13:11 14:20 WBC 4.76 RBC 2.65 L Hgb 6.4 L* Hct 21.1 L MCV 80 MCH 24.2 L MCHC 30.3 L RDW 22.2 H Plt Count 161 MPV 9.8 Immature Gran % 6.3 Neutrophils % 53.2 Band Neutrophils % Lymphocytes % 35.1 Atypical Lymphs % Monocytes % 4.6 Eosinophils % 0.4 Basophils % 0.4 Metamyelocytes % Myelocytes % Promyelocytes % Other Cells % Nucleated RBC % 1.3 H Absolute Neutrophils 2.53 Absolute Lymphocytes 1.67 Absolute Monocytes 0.22 Absolute Eosinophils 0.02 Absolute Basophils 0.02 RBC Morphology Polychromasia Hypochromasia Poikilocytosis Basophilic Stippling Anisocytosis Microcytosis Macrocytosis Spherocytes Tear Drop Cells Ovalocytes Stomatocytes Sepulveda-Nunez Bodies [place] Cells/Echinocytes Acanthocytes (Spur) Schistocytes VBG pH (7.31-7.41) VBG pCO2 (41-51) mmHg VBG pO2 mmHg VBG HCO3 (23-28) mmol/L VBG Total CO2 (24-29) mmol/L VBG O2 Saturation % VBG Base Excess (-2-3) mmol/L VBG Lactate (0.6-1.4) mmol/L 1.0 Sodium Potassium Chloride Carbon Dioxide Anion Gap BUN Creatinine Est GFR (CKD-EPI 2020) Glucose Calcium Magnesium (1.8-2.4) mg/dL Total Bilirubin AST ALT Alkaline Phosphatase Creatine Kinase (26-192) U/L Troponin I (<or=60) ng/L < 50 Total Protein Albumin Lipase Procalcitonin ng/mL Serum HCG, Qual Urine Color (Yellow) Yellow Urine Clarity (Clear) Clear Urine pH (5-8) 6.0 Ur Specific [place] (1.005-1.025) 1.010 Urine Protein (Negative) mg/dL Negative Urine Ketones (Negative) mg/dL Negative Urine Blood (Negative) Trace-intact H Urine Nitrite (Negative) Negative Urine Bilirubin (Negative) Negative Urine Urobilinogen (Up to 0.2) mg/dL 0.2 Ur Leukocyte Esterase (Negative) Negative Urine RBC (0-2) HPF 3-5 H Urine WBC (0-5) HPF 0-2 Ur Epithelial Cells (Negative) HPF Few Urine Crystals (Negative) HPF Negative Urine Bacteria (Negative) HPF Negative Urine Casts (Negative) LPF Negative Urine Mucus (Negative) Negative Ur Culture Indicated? No Urine Glucose (Negative) mg/dL Negative Patient ABO/Rh Antibody Screen Crossmatch Critical Care Time Critical Care Time Attestation: Approximately 45 minutes of critical care time secondary to anemia, needing IV blood transfusion, telemetry monitoring, hypomagnesemia, magnesium supplementation, CT diagnostic interpretation and review Hospitalist consultation, diagnostic lab review, oncology consultation at [facility], telemetry monitoring and ultimate David admission to the hospitalist for supportive care
[2023-04-20 16:38] LABS: Troponin I < 50 ng/L (<or=60)
--- NOTE | 2023-04-20 18:38 | W.PM.HP.N ---
Date of service: 04/20/23 Time of Service: 16:30 Assessment and Plan Assessment and plan (1) Severe anemia: Status: Acute Assessment and plan: PRBC transfused repeat CBC in AM (2) Elevated lactic acid level: Status: Acute Assessment and plan: IVF administered, could be elevated with the history of CA (3) On deep vein thrombosis (DVT) prophylaxis: Status: Acute Assessment and plan: Continue LMWH therapeutic dosing (4) Pneumonia: Status: Acute Assessment and plan: Continue Cefepime CBC in AM (5) Hypokalemia: Status: Acute Assessment and plan: Replete BMP in AM (6) Discharge planning issues: Status: Acute Assessment and plan: Care management to f/u History of Present Illness History of Present Illness Chief Complaint: lightheadness, weakness, leg cramps Narrative: This 47 yo female with a PMHx of colorectal CA with mets on chemo, depression and insomnia , presented to the Ed at [facility] for evaluation and management of lightheadedness, weakness and leg cramps. The patient was also admitted for hypotension overnight on 04/17. In the ED, the patient was hypotensive and remarkable labs were Mg 1.2, K 3.2, H& H 7.3 & 24.5, lactate 3.0, procal 0.8.The patient received 1 L of NS and repeated lactate was 1.0. In the ED Mg 2gm IV was given. Repeated Hgb & Hct was 6.4 & 21, and the ED provider ordered 1 unit of PRBC to be transfused. The CTof the abdomen chest and pelvis showed marked progression of abdominal pelvic metastasis, cholelithiasis w/o dilation, left pleural effusion of moderate size.Cefepime IV was given for suspicion of pneumonia. The ED provider mentioned discussing the case with Dr. Hernandez, oncology at [facility], who does not suspect that the anemia is linked to chemotherapy but rather related to anemia of chronic disease. The hospitalist was called and accepted the patient as an inpatient admission with telemetry on the medical surgical floor for evaluation and management of severe anemia, hypokalemia, hypomagnesemia, and pneumonia. When seen the patient denied change in vision, dizziness, lightheadedness, night sweats, fever, chills,hemoptysis,cough, chest pain, shortness of breath, abdominal pain, hematemesis, nausea, vomiting, diarrhea, hematochezia, melena and dysuria. Review of Systems All systems reviewed & are unremarkable except as noted in HPI and below Constitutional Constitutional: Reports as per HPI and Reports system reviewed and no additional complaints, except as documented Eyes Eyes: Reports system reviewed and no additional complaints, except as documented ENT Ears, Nose, Mouth, and Throat: Reports system reviewed and no additional complaints, except as documented and Reports as per HPI Cardiovascular Cardiovascular: Reports as per HPI and Reports system reviewed and no additional complaints, except as documented Respiratory Respiratory: Reports as per HPI and Reports system reviewed and no additional complaints, except as documented Gastrointestinal Gastrointestinal: Reports as per HPI and Reports system reviewed and no additional complaints, except as documented Genitourinary Genitourinary: Reports system reviewed and no additional complaints, except as documented and Reports as per HPI Musculoskeletal Musculoskeletal: Reports system reviewed and no additional complaints, except as documented and Reports as per HPI Integumentary/Breasts Skin/Breast: Reports system reviewed and no additional complaints, except as documented and Reports as per HPI Neurologic Neurologic: Reports system reviewed and no additional complaints, except as documented and Reports as per HPI Psychiatric Psychiatric: Reports system reviewed and no additional complaints, except as documented and Reports as per HPI Endocrine Endocrine: Reports system reviewed and no additional complaints, except as documented and Reports as per HPI Hematologic/Lymphatic Hematologic/Lymphatic: Reports system reviewed and no additional complaints, except as documented and Reports as per HPI [facility] All Active Problems (Updated 04/22/23 @ 14:41 by Jessica Agudelo APRN) Pleural effusion (Acute) Discharge planning issues (Acute) Hypokalemia (Acute) Pneumonia (Acute) On deep vein thrombosis (DVT) prophylaxis (Acute) Pulmonary embolism (Chronic) Elevated lactic acid level (Acute) Severe anemia (Acute) Hypomagnesemia (Acute) Hypotension (Acute) 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 S/P exploratory laparotomy (~2020) s/p exp lap 12/2020 for diagnosis, s/p debulking surgery and intraabdominal chemo 03/2021 S/P BSO (bilateral salpingo-oophorectomy) (~12/2018) History of appendectomy History of bilateral ligation of fallopian tubes EGD - MAC (07/10/16) Family History (Updated 04/20/23 @ 20:35 by Jessica Agudelo APRN) Grandfather Diabetes Heart disease Stroke Grandmother Essential hypertension Personal history of malignant neoplasm Lung Grandmother Personal history of malignant neoplasm breast, maternal Maternal Aunt Personal history of malignant neoplasm breast Sister Crohn's disease Mother Cancer Social History Smoking/Tobacco Use Status: Former Tobacco Use tobacco type: cigarettes Quit Date: 06/02/01 Pack-years: 5 Smoking risk assessment performed?: Yes Alcohol Intake: current Alcohol Intake frequency: holidays/special occasions only Alcohol type: beer, wine and hard liquor Drug use: Never Substance use type: does not use Household members: spouse, family and children Housing: house Number of Children: 3 Education Level: college 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 Meds Allergies and Home Medications Allergies Allergy/AdvReac Type Severity Reaction Status Date / Time chlorhexidine Allergy Unverified 04/20/23 08:49 body wash for sx Allergy Uncoded 04/20/23 08:49 tegaderm Allergy Uncoded 04/20/23 08:49 Home Medications Medication Instructions Recorded Confirmed Type prochlorperazine maleate 10 mg 10 mg PO TID PRN 02/23/21 04/20/23 History tablet (Compazine) venlafaxine 75 mg capsule,extended 75 mg PO DAILY 06/04/21 04/20/23 History release 24 hr olanzapine 2.5 mg tablet 2.5 mg PO QHS 02/13/23 04/20/23 History venlafaxine 37.5 mg 37.5 mg PO DAILY 02/13/23 04/20/23 History capsule,extended release 24 hr dexamethasone 2 mg tablet 2 - 4 mg PO BID 02/22/23 04/20/23 History hydromorphone 2 mg tablet 2 - 4 mg PO BID PRN 02/22/23 04/20/23 History lorazepam 1 mg tablet 1 mg PO Q6H PRN 02/22/23 04/20/23 History mirtazapine 15 mg tablet 15 mg PO QHS 02/22/23 04/20/23 History hydrocortisone 2.5 % topical cream 1 applic topical BID PRN 03/21/23 04/20/23 History ibuprofen 600 mg tablet 600 mg PO Q6H PRN 03/21/23 04/20/23 History ondansetron HCl 8 mg tablet 8 mg PO Q8H PRN 03/21/23 04/20/23 History fentanyl 25 mcg/hr transdermal 1 patch transdermal Q72H #10 ea 04/14/23 04/20/23 Rx patch 5fu 322 mg 04/17/23 History enoxaparin 60 mg/0.6 mL 60 mg subcut BID 04/17/23 04/20/23 History subcutaneous syringe (Lovenox) irinotecan 40 mg/2 mL intravenous 160 mg IV ONCE 04/17/23 04/17/23 History solution panitumumab 100 mg/5 mL (20 mg/mL) 400 mg IV 04/17/23 History intravenous solution omeprazole 20 mg capsule,delayed 20 mg PO DAILY 04/18/23 04/20/23 History release cefpodoxime 200 mg tablet 200 mg PO Q12H #10 tabs 12/23/23 Rx magnesium chloride 64 mg 64 mg PO BID #30 tabs 04/22/23 Rx (magnesium chloride) tablet,delayed release (Mag 64) potassium chloride 10 mEq 20 meq (2 x 10 mEq) PO BID #60 caps 04/22/23 Rx capsule,extended release Exam Narrative Exam Narrative: Constitutional The patient is lying in bed comfortable and cooperative during the interview, and sister at bedside. The patient is well groomed, weak and frail. HENMT: Head is atraumatic, normocephalic, no lymphadenopathy. Facial structures with normal appearance Eyes: Well aligned, intact ROM Neck: Normal ROM, no meningeal signs Neuro:alert and oriented to self, person, place, time and situation. No neurological focal deficit, PERRLA at ambient light Chest:Chest is symmetrical and normal appearance, right chest port accessed. Resp: Normal respiratory pattern, speaks in full sentences, unlabored breathing, clear lung but decreased left lower lobe Cardio:Telemetry ordered and pending, regular rhythm, S1, S2, no murmur, capillary refill<3 sec., bilateral radial and dorsalis pedis pulses are positive, palpable GI: Abdomen is not distended, soft and slight diffused tenderness on palpation, bowel sounds are present : Negative Costovertebral angle tenderness, bladder distension subsiding with voiding Back/spine/Pelvis: No back tenderness, normal alignment Integumentary: right thigh bruisingbut limited , occurred FULFILLMENT SPECIALIST Extremities: strength 4/5 to bilateral lower and upper extremities Psych: RASS 0, congruent mood and normal affect. Results Labs 04/22/23 05:46 04/22/23 05:46 Labs: Laboratory Results - last 24 hr 04/20/23 04/20/23 04/20/23 09:03 09:04 09:20 WBC Cancelled 5.35 RBC Cancelled 3.10 L Hgb Cancelled 7.5 L Hct Cancelled 24.6 L MCV Cancelled 79 L MCH Cancelled 24.2 L MCHC Cancelled 30.5 L RDW Cancelled 22.2 H Plt Count Cancelled 191 MPV Cancelled 9.5 Immature Gran % Cancelled See Differential Neutrophils % Cancelled 61.0 Band Neutrophils % Cancelled Lymphocytes % Cancelled 28.0 Atypical Lymphs % Cancelled Monocytes % Cancelled 3.0 Eosinophils % Cancelled 2.0 Basophils % Cancelled 1.0 Metamyelocytes % Cancelled 2 Myelocytes % Cancelled 3 Promyelocytes % Cancelled Other Cells % Cancelled Nucleated RBC % Cancelled 0.0 Absolute Neutrophils Cancelled 3.26 Absolute Lymphocytes Cancelled 1.50 Absolute Monocytes Cancelled 0.16 Absolute Eosinophils Cancelled 0.11 Absolute Basophils Cancelled 0.05 RBC Morphology Cancelled See Below Polychromasia Cancelled Present Hypochromasia Cancelled 1+ Poikilocytosis Cancelled Basophilic Stippling Cancelled Anisocytosis Cancelled 2+ Microcytosis Cancelled Macrocytosis Cancelled Spherocytes Cancelled Tear Drop Cells Cancelled Ovalocytes Cancelled Stomatocytes Cancelled Sepulveda-Cherry Bodies Cancelled Rosy Cells/Echinocytes Cancelled Acanthocytes (Spur) Cancelled Schistocytes Cancelled VBG pH 7.42 H VBG pCO2 39 L VBG pO2 39 VBG HCO3 25 VBG Total CO2 24 VBG O2 Saturation 72 VBG Base Excess 1 VBG Lactate 3.0 H* Sodium Cancelled 138 Potassium Cancelled 3.2 L Chloride Cancelled 101 Carbon Dioxide Cancelled 25.7 Anion Gap Cancelled 11.3 H BUN Cancelled 6 L Creatinine Cancelled 1.0 Est GFR (CKD-EPI 2020) Cancelled 69.06 Glucose Cancelled 100 Calcium Cancelled 8.3 L Magnesium 1.2 L Total Bilirubin Cancelled 0.2 AST Cancelled 39 H ALT Cancelled 22 Alkaline Phosphatase Cancelled 125 H Creatine Kinase 44 Troponin I Total Protein Cancelled 6.4 Albumin Cancelled 2.0 L Lipase Cancelled Procalcitonin 0.8 Serum HCG, Qual Cancelled Urine Color Urine Clarity Urine pH Ur Specific [place] Urine Protein Urine Ketones Urine Blood Urine Nitrite Urine Bilirubin Urine Urobilinogen Ur Leukocyte Esterase Urine RBC Urine WBC Ur Epithelial Cells Urine Crystals Urine Bacteria Urine Casts Urine Mucus Ur Culture Indicated? Urine Glucose Patient ABO/Rh A Negative Antibody Screen NEGATIVE Crossmatch See Detail 04/20/23 04/20/23 04/20/23 13:11 14:20 16:17 WBC 4.76 RBC 2.65 L Hgb 6.4 L* Hct 21.1 L MCV 80 MCH 24.2 L MCHC 30.3 L RDW 22.2 H Plt Count 161 MPV 9.8 Immature Gran % 6.3 Neutrophils % 53.2 Band Neutrophils % Lymphocytes % 35.1 Atypical Lymphs % Monocytes % 4.6 Eosinophils % 0.4 Basophils % 0.4 Metamyelocytes % Myelocytes % Promyelocytes % Other Cells % Nucleated RBC % 1.3 H Absolute Neutrophils 2.53 Absolute Lymphocytes 1.67 Absolute Monocytes 0.22 Absolute Eosinophils 0.02 Absolute Basophils 0.02 RBC Morphology Polychromasia Hypochromasia Poikilocytosis Basophilic Stippling Anisocytosis Microcytosis Macrocytosis Spherocytes Tear Drop Cells Ovalocytes Stomatocytes Sepulveda-Cherry Bodies Rosy Cells/Echinocytes Acanthocytes (Spur) Schistocytes VBG pH VBG pCO2 VBG pO2 VBG HCO3 VBG Total CO2 VBG O2 Saturation VBG Base Excess VBG Lactate 1.0 Sodium Potassium Chloride Carbon Dioxide Anion Gap BUN Creatinine Est GFR (CKD-EPI 2020) Glucose Calcium Magnesium Total Bilirubin AST ALT Alkaline Phosphatase Creatine Kinase Troponin I < 50 < 50 Total Protein Albumin Lipase Procalcitonin Serum HCG, Qual Urine Color Yellow Urine Clarity Clear Urine pH 6.0 Ur Specific [place] 1.010 Urine Protein Negative Urine Ketones Negative Urine Blood Trace-intact H Urine Nitrite Negative Urine Bilirubin Negative Urine Urobilinogen 0.2 Ur Leukocyte Esterase Negative Urine RBC 3-5 H Urine WBC 0-2 Ur Epithelial Cells Few Urine Crystals Negative Urine Bacteria Negative Urine Casts Negative Urine Mucus Negative Ur Culture Indicated? No Urine Glucose Negative Patient ABO/Rh Antibody Screen Crossmatch Last Vital Signs Temp 36.0 C L 04/20/23 18:33 Pulse 83 04/20/23 18:33 Resp 18 04/20/23 18:33 BP 116/79 04/20/23 18:33 Pulse Ox 97 04/20/23 18:33 Time Spent Time spent with Patient: >75 minutes Time was spent: preparing to see the patient(eg.review tests), obtaining and/or reviewing separately otained hiistory, ordering medications,tests, procedures, referring, communicating with other health nursing care partner, indepentently interpreting results, counseling the patient and care coordination
[2023-04-20] MEDS: Venlafaxine 37.5 MG CAPCR PO (20:17)
[2023-04-20] MEDS: Enoxaparin 60 MG/0.6 ML SYR SC (20:17)
[2023-04-20] MEDS: Venlafaxine 75 MG CAPCR PO (20:17)
[2023-04-20] MEDS: Potassium Chloride 10 MEQ CAPCR PO (20:18)
[2023-04-20] MEDS: Normal Saline Flush 10 ML SYR IVP ×2 (20:37→23:32)
[2023-04-20] MEDS: POTASSIUM CHLORIDE 20 MEQ/100 ML BAG 50 MEQ IVPB (20:37)
[2023-04-20] MEDS: OLANZapine 2.5 MG TAB PO (21:40)
[2023-04-20] MEDS: Mirtazapine 15 MG TAB PO (21:40)
[2023-04-20] MEDS: CEFEPIME 2 GM in Normal Saline 100 ML IVPB (21:40)
[2023-04-20] MEDS: LORazepam 1 MG TAB PO (21:42)
[2023-04-20] MEDS: Heparin 500 UNITS/5 ML SYRINGE (23:31)
[2023-04-21] VITALS (7 sets, daily range): BP systolic 97–118; BP diastolic 66–80; PULSE 64–90; RESP 16–22; TEMP 35–36.9; O2SAT 93–99
[2023-04-21] MEDS: CEFEPIME 2 GM in Normal Saline 100 ML IVPB ×3 (04:37→20:25)
[2023-04-21] MEDS: Normal Saline Flush 10 ML SYR IVP ×3 (04:37→20:25)
[2023-04-21 06:51] LABS: HCT 32.1 % (36.0-46.0); HGB 10.1 g/dL (11.2-15.7); MCH 25.1 pg (27.0-33.0); MCHC 31.5 % (32.0-36.0); MCV 80 fL (80-95); MPV 10.1 fL (8.0-11.0); Platelet Count 186 10^3/uL (130-400); RBC 4.02 10^6/uL (3.93-5.22); RDW 20.1 % (11.7-14.6); RDW-SD 55.4 fL; WBC 6.89 10^3/uL (4.4-10.8)
[2023-04-21 07:07] LABS: Anion Gap 6.7 mmol/L (3-11); BUN 7 mg/dL (7-18); CO2 25.3 mmol/L (21.0-32.0); CREATININE 0.9 mg/dL (0.55-1.02); Calcium 8.4 mg/dL (8.5-10.1); Chloride 104 mmol/L (98-107); Estimated GFR 78.37 (mL/min/1.73m2); Glucose 99 mg/dL (74-106); Potassium 3.5 mmol/L (3.5-5.1); Sodium 136 mmol/L (136-145)
[2023-04-21 07:22] LABS: Absolute Basophil Count 0.07 10^3/uL (0.0-0.2); Absolute Eosinophil Count 0.21 10^3/uL (0.0-0.7); Absolute Lymphocyte Count 1.65 10^3/uL (1.2-3.4); Absolute Monocyte Count 0.07 10^3/uL (0.1-0.8); Absolute Neutrophil Count 4.75 10^3/uL (1.2-6.7); Anisocytosis 2+; Atypical Lymphocytes % 3; Diff Comment Manual Differential; Metamyelocytes % 2; Polychromasia Present
[2023-04-21] MEDS: Omeprazole 20 MG CAPCR PO (07:37)
[2023-04-21] MEDS: Potassium Chloride 10 MEQ CAPCR PO ×2 (07:37→20:24)
[2023-04-21] MEDS: Dexamethasone 4 MG TAB PO (07:38)
[2023-04-21] MEDS: Enoxaparin 60 MG/0.6 ML SYR SC ×2 (07:38→20:23)
--- NOTE | 2023-04-21 10:10 | PDOC.CMIN ---
Date of service: 04/21/23 Time of Service: 10:10 Care Management Initial Assmt Initial Assessment REASON FOR HOSPITALIZATION:: anemia, electrolyte abnormality PREVIOUS FUNCTIONAL STATUS/SOCIAL/FAMILY SUPPORTS:: Hali lives in [place], [place] with her Gavino. She has 3 children, two of which are fraternal twins. Hali works at [employer] in [facility], however she has been unable to work of late due to illness. She is independent at baseline and does not receive any community services. CURRENT FUNCTIONAL STATUS:: Hali was sleeping soundly when CM went to see her. Her and children were there at the time and CM chose not to disturb Hali. ADVANCE DIRECTIVES:: On file. [facility] Has patient been provided with info about the portal/API?: Yes Did the patient sign up for the portal?: Yes CODE STATUS:: DNR/DNI INSURANCE COVERAGE / FINANCIAL ISSUES:: BC/BS CURRENT HOME/COMMUNITY SERVICES/EQUIPMENT:: none PRIMARY CARE PHYSICIAN:: Muriel Castillo POTENTIAL DISCHARGE NEEDS:: follow up with community providers both locally and at [facility] PATIENT/FAMILY EDUCATION NEEDS:: Review of discharge instructions, limitations, follow up plan, discuss Ask Me Three TRANSPORTATION:: via private vehicle with family PLAN:: Hali will likely be discharged home with no new services. She will follow up with her community providers and plan of care and transport with her . CM will continue to support Hali and her discharge planning considerations. 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 S/P exploratory laparotomy (~2020) s/p exp lap 12/2020 for diagnosis, s/p debulking surgery and intraabdominal chemo 03/2021 S/P BSO (bilateral salpingo-oophorectomy) (~12/2018) History of appendectomy History of bilateral ligation of fallopian tubes EGD - MAC (07/10/16) Family History (Updated 04/20/23 @ 20:35 by Jessica Agudelo APRN) Grandfather Diabetes Heart disease Stroke Grandmother Essential hypertension Personal history of malignant neoplasm Lung Grandmother Personal history of malignant neoplasm breast, maternal Maternal Aunt Personal history of malignant neoplasm breast Sister Crohn's disease Mother Cancer Social History Smoking/Tobacco Use Status: Former Tobacco Use tobacco type: cigarettes Quit Date: 06/02/01 Pack-years: 5 Smoking risk assessment performed?: Yes Alcohol Intake: current Alcohol Intake frequency: holidays/special occasions only Alcohol type: beer, wine and hard liquor Drug use: Never Substance use type: does not use Household members: spouse, family and children Housing: house Number of Children: 3 Education Level: college 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
--- NOTE | 2023-04-21 11:19 | PGE_ITS ---
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 and streptococcus P. Ag Mycoplasma pneumonia (5) Hypomagnesemia: Status: Acute Assessment and plan: On arrival Mg was 1.2, 2 gm IV Mg given in ED, additionnal 2gm IV Mg recived on the floor. Mg 2.0 this AM. Previous magnesium level in the past month 1.2 to 1.6, patient will most likely benefit from magnesium replacement. will order Mg Cl daily and monitor levels Telemetry discontinued, no orthostasis this AM, will continue to monitor (6) Hypokalemia: Status: Acute Assessment and plan: K 3.5 after repletion BMP in AM (7) Discharge planning issues: Status: Acute Assessment and plan: Care management to f/u Subjective Subjective Interval history since last seen: Patient reports feeling better, sleeping well, less weakness, eating and drinking well. The patient denies pain, lightheadedness, change in vision, shortness of breath, coughing, nausea, vomiting, diarrhea, constipation, or bleeding. The patient denies night sweats, chills, fever, dysuria. Exam Narrative Exam Narrative: When seen this morning, the patient was in bed, with family members at bedside. The patient appears well-perfused, no acute distress seen. Alert and oriented x 3, no neurodeficit, PERRLA Clear breath sounds, except for diminished left lower lobe, no oxygen requirement. S1-S2 regular, no cardiac murmur, pulses are positive to all 4 extremities. Telemetry was in a sinus rhythm this morning. Abdomen is soft, not distended, diffuse tenderness to palpation remains, started SEWING MACHINE OPERATOR FLOORPERSON, no ischemia on abdominal CT No CVA tenderness or bladder distention Moves all 4 extremities Objective Last Vital Signs Temp 36.8 C 04/21/23 11:11 Pulse 77 04/21/23 11:11 Resp 18 04/21/23 11:11 BP 99/67 L 04/21/23 11:11 Pulse Ox 95 04/21/23 11:11 Laboratory Results - last 24 hr 04/20/23 04/20/23 04/20/23 09:20 13:11 14:20 WBC 4.76 RBC 2.65 L Hgb 6.4 L* Hct 21.1 L MCV 80 MCH 24.2 L MCHC 30.3 L RDW 22.2 H Plt Count 161 MPV 9.8 Immature Gran % 6.3 Neutrophils % 53.2 Band Neutrophils % Lymphocytes % 35.1 Atypical Lymphs % Monocytes % 4.6 Eosinophils % 0.4 Basophils % 0.4 Metamyelocytes % Myelocytes % Promyelocytes % Other Cells % Nucleated RBC % 1.3 H Absolute Neutrophils 2.53 Absolute Lymphocytes 1.67 Absolute Monocytes 0.22 Absolute Eosinophils 0.02 Absolute Basophils 0.02 RBC Morphology Polychromasia Hypochromasia Poikilocytosis Basophilic Stippling Anisocytosis Microcytosis Macrocytosis Spherocytes Tear Drop Cells Ovalocytes Stomatocytes Sepulveda-Navarino Bodies [place] Cells/Echinocytes Acanthocytes (Spur) Schistocytes VBG Lactate 1.0 Sodium Potassium Chloride Carbon Dioxide Anion Gap BUN Creatinine Est GFR (CKD-EPI 2020) Glucose Calcium Magnesium Troponin I < 50 Urine Color Yellow Urine Clarity Clear Urine pH 6.0 Ur Specific [place] 1.010 Urine Protein Negative Urine Ketones Negative Urine Blood Trace-intact H Urine Nitrite Negative Urine Bilirubin Negative Urine Urobilinogen 0.2 Ur Leukocyte Esterase Negative Urine RBC 3-5 H Urine WBC 0-2 Ur Epithelial Cells Few Urine Crystals Negative Urine Bacteria Negative Urine Casts Negative Urine Mucus Negative Ur Culture Indicated? No Urine Glucose Negative Patient ABO/Rh A Negative Antibody Screen NEGATIVE Crossmatch See Detail 04/20/23 04/20/23 04/21/23 16:17 21:00 06:25 WBC Cancelled 6.89 RBC Cancelled 4.02 Hgb Cancelled 10.1 L D Hct Cancelled 32.1 L MCV Cancelled 80 MCH Cancelled 25.1 L MCHC Cancelled 31.5 L RDW Cancelled 20.1 H Plt Count Cancelled 186 MPV Cancelled 10.1 Immature Gran % Cancelled 0.0 Neutrophils % Cancelled 69.0 Band Neutrophils % Cancelled Lymphocytes % Cancelled 21.0 Atypical Lymphs % Cancelled 3 Monocytes % Cancelled 1.0 Eosinophils % Cancelled 3.0 Basophils % Cancelled 1.0 Metamyelocytes % Cancelled 2 Myelocytes % Cancelled Promyelocytes % Cancelled Other Cells % Cancelled Nucleated RBC % Cancelled 1.0 H Absolute Neutrophils Cancelled 4.75 Absolute Lymphocytes Cancelled 1.65 Absolute Monocytes Cancelled 0.07 L Absolute Eosinophils Cancelled 0.21 Absolute Basophils Cancelled 0.07 RBC Morphology Cancelled See Below Polychromasia Cancelled Present Hypochromasia Cancelled Poikilocytosis Cancelled Basophilic Stippling Cancelled Anisocytosis Cancelled 2+ Microcytosis Cancelled Macrocytosis Cancelled Spherocytes Cancelled Tear Drop Cells Cancelled Ovalocytes Cancelled Stomatocytes Cancelled Sepulveda-Navarino Bodies Cancelled [place] Cells/Echinocytes Cancelled Acanthocytes (Spur) Cancelled Schistocytes Cancelled VBG Lactate Sodium 136 Potassium 3.5 Chloride 104 Carbon Dioxide 25.3 Anion Gap 6.7 BUN 7 Creatinine 0.9 Est GFR (CKD-EPI 2020) 78.37 Glucose 99 Calcium 8.4 L Magnesium 2.0 Troponin I < 50 Urine Color Urine Clarity Urine pH Ur Specific [place] Urine Protein Urine Ketones Urine Blood Urine Nitrite Urine Bilirubin Urine Urobilinogen Ur Leukocyte Esterase Urine RBC Urine WBC Ur Epithelial Cells Urine Crystals Urine Bacteria Urine Casts Urine Mucus Ur Culture Indicated? Urine Glucose Patient ABO/Rh Antibody Screen Crossmatch Time Spent with Patient Time Spent with Patient: >50 minutes Time was spent: preparing to see the patient(eg.review tests), ordering medications,tests, procedures, referring, communicating with other health progressive care unit registered nurse, indepentently interpreting results, counseling the patient and care coordination
[2023-04-21 14:05] LABS: MRSA PCR Negative (Negative)
[2023-04-21] MEDS: Dexamethasone 1 MG TAB 2 MG PO (14:34)
--- NOTE | 2023-04-21 14:59 | CHAPLAIN ---
Sachin was sleeping when I visited. There were several family members/friends in the room. I explained my role and offered support. I will try to visit again later.
[2023-04-21] MEDS: Magnesium Chloride 64 MG TABCR PO (20:24)
[2023-04-21] MEDS: Venlafaxine 75 MG CAPCR PO (21:28)
[2023-04-21] MEDS: LORazepam 1 MG TAB PO (21:28)
[2023-04-21] MEDS: Venlafaxine 37.5 MG CAPCR PO (21:29)
[2023-04-21] MEDS: Mirtazapine 15 MG TAB PO (21:29)
[2023-04-21] MEDS: OLANZapine 2.5 MG TAB PO (21:29)
[2023-04-22 03:55] VITALS: BP 99/67; PULSE 66; RESP 18; TEMP 36.3; O2SAT 95
[2023-04-22] MEDS: Normal Saline Flush 10 ML SYR IVP ×4 (04:04→09:39)
[2023-04-22] MEDS: CEFEPIME 2 GM in Normal Saline 100 ML IVPB ×2 (04:04→12:22)
[2023-04-22 06:58] LABS: Abs Immature Grans 0.44 10^3/uL (0.0-0.06); Absolute Basophil Count 0.03 10^3/uL (0.0-0.2); Absolute Eosinophil Count 0.08 10^3/uL (0.0-0.7); Absolute Lymphocyte Count 1.61 10^3/uL (1.2-3.4); Absolute Monocyte Count 0.48 10^3/uL (0.1-0.8); Absolute Neutrophil Count 4.41 10^3/uL (1.2-6.7); Basophils % 0.4; Eosinophils % 1.1; HCT 32.3 % (36.0-46.0); HGB 10.1 g/dL (11.2-15.7); Immature Grans % 6.2; Lymphocytes % 22.8; MCH 25.3 pg (27.0-33.0); MCHC 31.3 % (32.0-36.0); MCV 81 fL (80-95); MPV 9.9 fL (8.0-11.0); Monocytes % 6.8; Neutrophils % 62.7; Nucleated RBC 0.3 % (0.0-0.3); Platelet Count 228 10^3/uL (130-400); RBC 3.99 10^6/uL (3.93-5.22); RDW 20.7 % (11.7-14.6); RDW-SD 58.1 fL; WBC 7.05 10^3/uL (4.4-10.8)
[2023-04-22 07:16] VITALS: BP 91/66; PULSE 64; RESP 16; TEMP 34.8; O2SAT 96
[2023-04-22 07:19] LABS: Anion Gap 10.5 mmol/L (3-11); BUN 7 mg/dL (7-18); CO2 24.5 mmol/L (21.0-32.0); CREATININE 0.9 mg/dL (0.55-1.02); Calcium 8.7 mg/dL (8.5-10.1); Chloride 106 mmol/L (98-107); Estimated GFR 78.37 (mL/min/1.73m2); Glucose 129 mg/dL (74-106); Magnesium 1.7 mg/dL (1.8-2.4); Potassium 3.1 mmol/L (3.5-5.1); Sodium 141 mmol/L (136-145)
[2023-04-22 07:34] LABS: Anisocytosis 2+; Diff Comment Diff Reviewed
[2023-04-22] MEDS: Enoxaparin 60 MG/0.6 ML SYR SC (08:25)
[2023-04-22] MEDS: Omeprazole 20 MG CAPCR PO (08:26)
[2023-04-22] MEDS: Dexamethasone 4 MG TAB PO (08:26)
[2023-04-22] MEDS: Potassium Chloride 10 MEQ CAPCR PO (08:26)
[2023-04-22] MEDS: Magnesium Chloride 64 MG TABCR PO (08:26)
--- NOTE | 2023-04-22 09:13 | W.PM.DS.N ---
Date of service: 04/22/23 Time of Service: 09:17 DS: Diagnosis Discharge Diagnosis (1) Severe anemia: Status: Acute (2) On deep vein thrombosis (DVT) prophylaxis: Status: Acute (3) Pneumonia: Status: Acute (4) Hypomagnesemia: Status: Acute (5) Hypokalemia: Status: Acute (6) Discharge planning issues: Status: Acute (7) Pleural effusion: Status: Acute Discharge Plan Disposition Patient Disposition: Home Condition: Improving Discharge Details Reason For Visit: Sever Anemia, Pneumonia,Hypomagnesemia,Hypokalemia Admit Date/Time: 04/20/23 16:29 Admit Provider: Nati Robles Attending Provider: Nati Robles Primary Care Provider: Muriel Castillo Hospital Course Hospital Course: This 47 yo female with a PMHx of colorectal CA with mets on chemo, depression and insomnia , presented to the Ed at [facility] on 04/20/2023 for evaluation and management of lightheadedness, weakness and leg cramps. The patient was also admitted for hypotension overnight on 04/17. In the ED, the patient was hypotensive and remarkable labs were Mg 1.2, K 3.2, H& H 7.3 & 24.5, lactate 3.0, procal 0.8.The patient received 1 L of NS and repeated lactate was 1.0. In the ED Mg 2gm IV was given. Repeated Hgb & Hct was 6.4 & 21, and the ED provider ordered 2 unit of PRBC to be transfused. The CT of the abdomen chest and pelvis showed marked progression of abdominal pelvic metastasis, cholelithiasis w/o dilation, left pleural effusion of moderate size.Cefepime IV was given for suspicion of pneumonia. The ED provider mentioned discussing the case with Dr. Hernandez, oncology at [facility], who does not suspect that the anemia is linked to chemotherapy but rather related to anemia of chronic disease. The hospitalist was called and accepted the patient as an inpatient admission with telemetry on the medical surgical floor for evaluation and management of severe anemia, hypokalemia, hypomagnesemia, and pneumonia. During the stay, The patient received IV cefepime. There was no oxygene requirement, no fever, no growth in blood cultures for 48 hours. Cefpodoxime 200 mg oral every 12 hours ordered for 5 doses upon discharge. The patient's Hbg and HCT went up to 10.1 and 32.1 after the blood transfusions and remains stable. Potassium and magnesium needed further replacement and oral form to be continued at home. The patient will need repeated BMP and magnesium level on 04/25/2023 and will follow up within the same week with Dr. Pritchett. The patient also wants to discucss the left pleural effusion, seen on the CT completed during this stay and previous one done in January 2023, with Dr. Pritchett. The patient did not feel that a referral to pulmonology was necessary at this time. Home Meds and New Rx's Prescriptions: New potassium chloride 10 mEq Capsule, Extended Release 20 meq PO BID Qty: 60 0RF Mag 64 64 mg Tablet,Delayed Release (Dr/Ec) 64 mg PO BID Qty: 30 0RF cefpodoxime 200 mg tablet 200 mg PO Q12H Qty: 10 0RF Rx Instructions: must administer with a meal/food Continued venlafaxine 75 mg capsule,extended release 24hr 75 mg PO DAILY hydrocortisone 2.5 % cream 1 applic topical BID PRN ondansetron HCl 8 mg tablet 8 mg PO Q8H PRN Patient Comments: Medication is on hold ibuprofen 600 mg tablet 600 mg PO Q6H PRN prochlorperazine maleate [Compazine] 10 mg tablet 10 mg PO TID PRN Hold Instructions: Changed by Provider olanzapine 2.5 mg tablet 2.5 mg PO QHS venlafaxine 37.5 mg capsule,extended release 24hr 37.5 mg PO DAILY Rx Instructions: In addition to venlafaxine 75mg daily mirtazapine 15 mg tablet 15 mg PO QHS dexamethasone 2 mg tablet 2 - 4 mg PO BID Rx Instructions: Take 2 tabs in AM and 1 tab in PM hydromorphone 2 mg tablet 2 - 4 mg PO BID PRN lorazepam 1 mg tablet 1 mg PO Q6H PRN fentanyl 25 mcg/hr patch 72 hour 1 patch transdermal Q72H MDD 25mcg Qty: 10 0RF Rx Instructions: Cancer related pain enoxaparin [Lovenox] 60 mg/0.6 mL syringe 60 mg subcut BID panitumumab 100 mg/5 mL (20 mg/mL) solution 400 mg IV irinotecan 40 mg/2 mL solution 160 mg IV ONCE 5fu 322 mg omeprazole 20 mg capsule,delayed release(DR/EC) 20 mg PO DAILY Patient Comments: TAKE ONE CAPSULE BY MOUTH EVERY DAY Discontinued potassium chloride 10 mEq capsule, extended release 10 meq PO BID Discharge Instructions Referrals: Georgette Pritchett MD, SHAHRZAD [[facility]] - 04/26/23 9:00 am (47 yo female with PMHx of cancer with extensive abdominal mets admitted for severe anemia, pneumonia, hypokalemia and hypomagnesemia, lactate of 3.0. Treated with IVF, PRBC X2,cefepime, potassium and magnesium replacement. Discharged on cefpodoxime and add oral magnesium daily.) Activity:: Activity as Tolerated Equipment/Supplies:: No Equipment Needed Diet:: As Tolerated Discharge Orders Other Ambulatory Orders: Basic Metabolic Panel (Routine) Timeframe: 20230425 Location: Determined by Patient Ordered By: Jessica Agudelo Magnesium (Routine) Timeframe: 20230425 Location: Determined by Patient Ordered By: Jessica Agudelo DS: Summary Time Spent with Patient providing and/or coordinating discharge services: Greater than 30 minutes Status at Discharge Functional status at discharge: independent ambulation Overall status at discharge: patient is progressing back to baseline Mental Status: mental status grossly normal Speech and Movement: speech and movement normal Mood: congruent mood Affect: normal affect Exam Narrative Exam Narrative: Patient was in bed, with family members at bedside. The patient in no acute distress seen. Alert and oriented x 3, no neurodeficit Clear breath sounds, except for diminished left lower lobe, on RA S1-S2 regular, no cardiac murmur, pulses are positive to all 4 extremities. Reduced swelling to left lower ext. Abdomen is soft, not distended, diffuse tenderness to palpation remains, started FORESTRY WORKER, no ischemia on abdominal CT No CVA tenderness or bladder distention Moves all 4 extremities Psych Mental Status: mental status grossly normal Speech and Movement: speech and movement normal Mood: congruent mood Affect: normal affect DS: Data Vitals/I&O Vitals and I&O: Vital Signs Temperature 34.8 C L 04/22/23 07:16 Temperature Source Tympanic 04/22/23 07:16 Pulse 64 04/22/23 07:16 Pulse Rhythm Regular 04/21/23 20:25 Pulse 78 04/20/23 18:10 Respiratory Rate 16 04/22/23 07:16 Respiratory Effort Normal, Non-Labored 04/21/23 20:25 Respiratory Depth Normal 04/21/23 20:25 Respiratory Pattern Normal 04/21/23 20:25 Blood Pressure 91/66 L 04/22/23 07:16 Blood Pressure Mean 74 04/20/23 18:00 Pulse Oximetry 96 04/22/23 07:16 Oxygen Delivery Method Room Air 04/22/23 07:16 Oxygen Flow Rate 0 04/22/23 07:16 Pain Level 0 04/22/23 07:32 Comment Pt. denies pain at this time. 04/22/23 07:32 Intake & Output 04/21/23 04/21/23 04/22/23 11:59 23:59 11:59 Intake Total 350 / 950 600 / 950 100 / 100 Balance 350 / 950 600 / 950 100 / 100 Intake: IV 100 / 300 200 / 300 100 / 100 Oral 250 / 650 400 / 650 Other: Urine Color Yellow Urine Odor Normal Comment pt is independent in the room and toilets self as needed independent to bathroom Stool Size Moderate Stool Characteristics Liquid Voiding Methods Toilet Toilet Data Completed and Pending Labs on day of discharge: Labs from last 24 hours 04/22/23 04/21/23 04/21/23 05:46 12:57 12:03 WBC 7.05 RBC 3.99 Hgb 10.1 L Hct 32.3 L MCV 81 MCH 25.3 L MCHC 31.3 L RDW 20.7 H Plt Count 228 MPV 9.9 Immature Gran % 6.2 Neutrophils % 62.7 Lymphocytes % 22.8 Monocytes % 6.8 Eosinophils % 1.1 Basophils % 0.4 Nucleated RBC % 0.3 Absolute Neutrophils 4.41 Absolute Lymphocytes 1.61 Absolute Monocytes 0.48 Absolute Eosinophils 0.08 Absolute Basophils 0.03 RBC Morphology See Below Anisocytosis 2+ Sodium 141 Potassium 3.1 L Chloride 106 Carbon Dioxide 24.5 Anion Gap 10.5 BUN 7 Creatinine 0.9 Est GFR (CKD-EPI 2020) 78.37 Glucose 129 H Calcium 8.7 Magnesium 1.7 L Urine Legionella Ag Pending M. pneumoniae Source Pending M. pneumoniae (PCR) Pending MRSA (TEM-PCR) Negative Ur Strep pneumoniae Ag Pending 04/21/23 12:57 Sputum Sputum Culture - Pending 04/21/23 12:57 Sputum Gram Stain - Pending Preliminary micro results at discharge 04/21/23 12:57 Sputum Culture - Pending Sputum Gram Stain - Pending 04/20/23 10:25 Blood Culture - Preliminary Blood NO GROWTH 24 HOURS 04/20/23 09:20 Blood Culture - Preliminary Blood NO GROWTH 24 HOURS PFSH All Active Problems (Updated 04/22/23 @ 14:41 by Jessica Agudelo APRN) Pleural effusion (Acute) Discharge planning issues (Acute) Hypokalemia (Acute) Pneumonia (Acute) On deep vein thrombosis (DVT) prophylaxis (Acute) Pulmonary embolism (Chronic) Elevated lactic acid level (Acute) Severe anemia (Acute) Hypomagnesemia (Acute) Hypotension (Acute) 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 S/P exploratory laparotomy (~2020) s/p exp lap 12/2020 for diagnosis, s/p debulking surgery and intraabdominal chemo 03/2021 S/P BSO (bilateral salpingo-oophorectomy) (~12/2018) History of appendectomy History of bilateral ligation of fallopian tubes EGD - MAC (07/10/16) Family History (Updated 04/20/23 @ 20:35 by Jessica Agudelo APRN) Grandfather Diabetes Heart disease Stroke Grandmother Essential hypertension Personal history of malignant neoplasm Lung Grandmother Personal history of malignant neoplasm breast, maternal Maternal Aunt Personal history of malignant neoplasm breast Sister Crohn's disease Mother Cancer Social History Smoking/Tobacco Use Status: Former Tobacco Use tobacco type: cigarettes Quit Date: 06/02/01 Pack-years: 5 Smoking risk assessment performed?: Yes Alcohol Intake: current Alcohol Intake frequency: holidays/special occasions only Alcohol type: beer, wine and hard liquor Drug use: Never Substance use type: does not use Household members: spouse, family and children Housing: house Number of Children: 3 Education Level: college 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 Time Spent with Patient Time Spent with Patient: >85 minutes Time was spent: preparing to see the patient(eg.review tests), obtaining and/or reviewing separately otained hiistory, ordering medications,tests, procedures, referring, communicating with other health medicare sales representative, indepentently interpreting results, counseling the patient and care coordination
[2023-04-22] MEDS: POTASSIUM CHLORIDE 10 MEQ/100 ML BAG 100 MEQ IVPB (09:39)
[2023-04-22] MEDS: MAGNESIUM SULFATE 2 GM/50 ML BAG IVPB (09:40)
[2023-04-22] MEDS: Normal Saline 500 ML 50 ML IV (09:40)
[2023-04-22] MEDS: LORazepam 1 MG TAB PO (10:18)
[2023-04-22 10:25] VITALS: TEMP 35.6
[2023-04-22 11:17] VITALS: BP 105/65; PULSE 74; RESP 16; TEMP 36.2; O2SAT 98
[2023-04-22] MEDS: POTASSIUM CHLORIDE 10 MEQ/100 ML BAG 60 MEQ IVPB (11:30)
[2023-04-22] MEDS: Potassium Chloride Liquid 20 MEQ PKT 40 MEQ PO (11:31)
[2023-04-22] MEDS: Dexamethasone 1 MG TAB 2 MG PO (13:53)
--- NOTE | 2023-04-22 14:46 | PDOC.CMDIS ---
Date of service: 04/22/23 Time of Service: 14:47 LACE Index Scoring Tool Questions: Length of Stay (in days): 2 Was the patient admitted via the E.D.?: Yes Comorbidities: Metastatic Solid Tumor E.D. Visits: 2 Answers: Total Score: 12 Risk of Readmission: High Risk Care Management Discharge Plan Reason for Hospitalization: anemia, electrolyte abnormality Discharge Plan: Hali will be discharged home with no new services. She will follow up with her community providers and plan of care and transport with her . Patient/Family Education Needs: Review of discharge instructions, limitations, follow up plan, discuss Ask Me Three
[2023-04-22 15:21] VITALS: BP 101/68; PULSE 71; RESP 16; TEMP 36.5; O2SAT 98
== END 2023-04-22 16:10 | disposition home or self-care (01) | DRG 811 ==
LOC: ER 17:16 → MS 18:20
PROVIDERS: Nurse Practitioner Acute Care; Admitting Provider Internal Medicine; Emergency Provider Physician Assistant; PCP Family Medicine; Visit Provider Internal Medicine
DX: J18.9 Pneumonia, unspecified organism (principal); D64.9 Anemia, unspecified; C18.8 Malignant neoplasm of overlapping sites of colon; E87.20 Acidosis, unspecified; N17.9 Acute kidney failure, unspecified; K50.90 Crohn's disease, unspecified, without complications; C79.62 Secondary malignant neoplasm of left ovary; E87.6 Hypokalemia; E83.42 Hypomagnesemia; R53.1 Weakness; Z79.899 Other long term (current) drug therapy; F32.A Depression, unspecified; G47.00 Insomnia, unspecified; Z86.711 Personal history of pulmonary embolism; E86.0 Dehydration; Z95.828 Presence of other vascular implants and grafts; R21 Rash and other nonspecific skin eruption; N95.1 Menopausal and female climacteric states; Z87.891 Personal history of nicotine dependence; I95.1 Orthostatic hypotension; Z66 Do not resuscitate
CPT/HCPCS: 00123; 36415; 80048; 80053; 82550; 82805; 83690; 84145; 86850; 86900; 86901; 86920; 87040; 87449; 87641; 93005; 96361; 96365; 96366; 96368; 99291; 71046; 74177; 81003; 81015; 83605; 83735; 84484; 84703; 85025; 87070; 87205; 87581; 87899; 93010; 94667; 99223; 99233; 99239; J1650; J3480; J8540; P9016

== ENCOUNTER 2023-04-26 11:43 | Inpatient (IN) | payer BC, SELFPAY ==
[2023-04-26] VITALS (36 sets, daily range): BP systolic 80–109; BP diastolic 55–74; PULSE 71–96; RESP 15–31; TEMP 36.7–36.9; O2SAT 94–100
--- NOTE | 2023-04-26 11:45 | RT.EKG_ITS ---
APPROVED REPORT Exam: Resting ECG Reason for Exam: Hypomagnesia Patient Location: E HR:82 bpm ECG Measurements Heart Rate 82 AXIS AK 130 P 52 QRSd 90 QRS 58 QT 364 T -61 QTc 427 Conclusion Sinus rhythm...normal P axis, V-rate 60- 99 Ventricular premature complex...V complex w/ short R-R interval Nonspecific T abnormalities, diffuse leads...T <-0.10mV, ant/lat/inf Narrow complex normal sinus rhythm at a rate of 82. Normal axis. Intervals within normal limits. I nferior T wave inversions and T wave inversions V3 through V5. No ST segment abnormalities. Compare d to prior dated last week inferior V4 and 5 T wave inversions are new. No acute injury pattern.
--- NOTE | 2023-04-26 11:52 | W.ED.GENAD ---
Discharge Plan Discharge Details Chief Complaint: GenMedical Admit Date/Time: 04/26/23 15:00 Admit Provider: Lonny Garcia Attending Provider: Lonny Garcia Primary Care Provider: Muriel Castillo ED Provider: [facility] General Date/Time Provider Initiated Documentation: 04/26/23 11:52. 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 Reports being adherent with her enoxaparin however duplex studies to ensure patient has not DVT. Will obtain ECG though in the absence of any vomiting so my suspicion for hypokalemia is low. No pain out of proportion to suggest necrotizing soft tissue infection. No history of trauma so will defer plain films. Intact lower extremity strength so I am not concerned for CVA. No recent URI symptoms nor weakness to suggest Guillain-Wall? syndrome. No rash to suggest zoster. No proximal vascular occlusion. Bilateral feet warm and well-perfused so I am not concerned for arterial insufficiency so I do not feel that the patient requires a CTA. No abdominal pain to suggest ruptured AAA. 12:42 PM Basic metabolic panel showing very mild hypokalemia with a serum potassium of 5.2. No FAM. Very mild hypocalcemia for which patient will receive oral repletion. Magnesium 1.2 mg/dL. CBC shows leukocytosis new compared to earlier this month mild anemia similar to prior. 2:06 PM Patient was found to have extensive bilateral DVTs at a below the level of the common femoral veins. I spoke with Dr. David Waite at [facility] and hematology. She reported that patient would benefit from IV heparin for 48 hours to stabilize the clot and subsequent return to enoxaparin 1 mg/kg twice daily. I inquired about antiplatelet agents and she reported that there is no role. Will update patient. 3PM I spoke to Dr. Garcia from the hospitalist team who agreed graciously to hospitalize the patient. 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 Normal axis. Intervals within normal limits. Inferior T wave inversions and T wave inversions V3 through V5. No ST segment abnormalities. Compared to prior dated last week inferior V4 and 5 T wave inversions are new. No acute injury pattern. 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 Patient received 1 L of IV fluids. She has had persistent leg cramping. She takes outpatient supplements with which she has been adherent. Twice daily enoxaparin at 1 mg/kg with which she has been adherent. She has a history of left-sided DVT. She says that her cramping lower extremity pain does not feel this with prior episodes of DVT. She has not had any syncope fevers abdominal pain dysuria nor frequency. No chest pain. She does feel some shortness of breath. She denies sore throat. She has not taken any falls. No pain at her right chest wall port site. No history of trauma to lower extremities recently. Exam General: Well-appearing in no acute distress speaking in complete sentences. Head: Normocephalic, atraumatic. Eye: Extraocular eye movements intact. No conjunctival injection. No scleral icterus. Ear, nose, mouth, throat: Grossly normal inspection. Normal voice, handling secretions normally. Neck: Trachea midline. Cardiovascular: Well-perfused distal extremities. Respiratory: Nonlabored respiration. Clear lungs bilaterally Gastrointestinal: Nondistended abdomen. Soft nontender Musculoskeletal: No edema. Moving all 4 extremities spontaneously. Negative Homans' sign bilaterally. Bilateral feet warm well-perfused with 2+ PT and DP pulses. Bilateral calf tenderness. Skin: Normal for age and race, grossly normal temperature and turgor. No acute rash. Neurologic: Alert and appropriate, no apparent acute deficits. Psychiatric: Mood and manner are appropriate. Grooming and personal hygiene are appropriate. Related Data Home Medications Medication Instructions Recorded Confirmed prochlorperazine maleate 10 mg 10 mg PO TID PRN 02/23/21 04/26/23 tablet (Compazine) venlafaxine 75 mg capsule,extended 75 mg PO DAILY 06/04/21 04/26/23 release 24 hr olanzapine 2.5 mg tablet 2.5 mg PO QHS 02/13/23 04/26/23 venlafaxine 37.5 mg 37.5 mg PO DAILY 02/13/23 04/26/23 capsule,extended release 24 hr dexamethasone 2 mg tablet 2 - 4 mg PO BID 02/22/23 04/26/23 hydromorphone 2 mg tablet 2 - 4 mg PO BID PRN 02/22/23 04/26/23 lorazepam 1 mg tablet 1 mg PO Q6H PRN 02/22/23 04/26/23 mirtazapine 15 mg tablet 15 mg PO QHS 02/22/23 04/26/23 hydrocortisone 2.5 % topical cream 1 applic topical BID PRN 03/21/23 04/26/23 ibuprofen 600 mg tablet 600 mg PO Q6H PRN 03/21/23 04/26/23 ondansetron HCl 8 mg tablet 8 mg PO Q8H PRN 03/21/23 04/26/23 fentanyl 25 mcg/hr transdermal 1 patch transdermal Q72H #10 ea 04/14/23 04/26/23 patch 5fu 322 mg 04/17/23 enoxaparin 60 mg/0.6 mL 60 mg subcut BID 04/17/23 04/26/23 subcutaneous syringe (Lovenox) irinotecan 40 mg/2 mL intravenous 160 mg IV ONCE 04/17/23 04/26/23 solution panitumumab 100 mg/5 mL (20 mg/mL) 400 mg IV 04/17/23 intravenous solution omeprazole 20 mg capsule,delayed 20 mg PO DAILY 04/18/23 04/26/23 release cefpodoxime 200 mg tablet 200 mg PO Q12H #10 tabs 04/22/23 04/26/23 magnesium chloride 64 mg 64 mg PO BID #30 tabs 04/22/23 04/26/23 (magnesium chloride) tablet,delayed release (Mag 64) potassium chloride 10 mEq 20 meq PO BID 04/26/23 04/26/23 tablet,extended release Previous Rx's Medication Instructions Recorded fentanyl 25 mcg/hr transdermal 1 patch transdermal Q72H #10 ea 04/14/23 patch cefpodoxime 200 mg tablet 200 mg PO Q12H #10 tabs 04/22/23 magnesium chloride 64 mg 64 mg PO BID #30 tabs 04/22/23 (magnesium chloride) tablet,delayed release (Mag 64) Allergies Allergy/AdvReac Type Severity Reaction Status Date / Time chlorhexidine Allergy Unverified 04/26/23 11:50 body wash for sx Allergy Uncoded 04/26/23 11:50 tegaderm Allergy Uncoded 04/26/23 11:50 General Stated Complaint: GenMedical ESTHELA: 3 PFSH All Active Problems (Updated 04/26/23 @ 15:07 by Maggi Babcock, OSCAR) DVT of lower extremity, bilateral (Acute) Pleural effusion (Acute) Hypokalemia (Acute) Pneumonia (Acute) Pulmonary embolism (Chronic) Severe anemia (Acute) Hypomagnesemia (Acute) Generalized weakness (Acute) Hypotension (Acute) Dehydration (Acute) Acute kidney injury (Acute) Rash and nonspecific skin eruption (Acute) Hot flashes, menopausal (Acute) on venlafaxine Right flank pain, chronic (Acute) uncertain etiology 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 S/P exploratory laparotomy (~2020) s/p exp lap 12/2020 for diagnosis, s/p debulking surgery and intraabdominal chemo 03/2021 S/P BSO (bilateral salpingo-oophorectomy) (~12/2018) History of appendectomy History of bilateral ligation of fallopian tubes EGD - MAC (07/10/16) Family History (Updated 04/20/23 @ 20:35 by Jessica Agudelo APRN) Grandfather Diabetes Heart disease Stroke Grandmother Essential hypertension Personal history of malignant neoplasm Lung Grandmother Personal history of malignant neoplasm breast, maternal Maternal Aunt Personal history of malignant neoplasm breast Sister Crohn's disease Mother Cancer Social History Smoking/Tobacco Use Status: Former Tobacco Use tobacco type: cigarettes Quit Date: 06/02/01 Pack-years: 5 Smoking risk assessment performed?: Yes Alcohol Intake: current Alcohol Intake frequency: holidays/special occasions only Alcohol type: beer, wine and hard liquor Drug use: Never Substance use type: does not use Household members: spouse, family and children Housing: house Number of Children: 3 Education Level: college 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 Course Vital Signs Vital signs: Vital Signs Temperature 36.9 C 04/26/23 11:47 Pulse 96 H 04/26/23 11:47 Respiratory Rate 20 04/26/23 11:47 Blood Pressure 109/74 04/26/23 11:47 Pulse Oximetry 99 04/26/23 11:47 Temperature 36.9 C 04/26/23 11:47 Temperature Source Oral 04/26/23 11:47 Pulse 96 H 04/26/23 11:47 Respiratory Rate 20 04/26/23 11:47 Blood Pressure 109/74 04/26/23 11:47 Blood Pressure Position Sitting 04/26/23 11:47 Pulse Oximetry 99 04/26/23 11:47 Oxygen Delivery Method Room Air 04/26/23 11:47 Oxygen Flow Rate 0 04/26/23 11:47 Pain Level 3 04/26/23 11:47
--- NOTE | 2023-04-26 12:00 | DI.US_ITS ---
Exam(s) US EXTREMITY VENOUS BI EXAM: US EXTREMITY VENOUS BI CLINICAL HISTORY: Cramping leg pain bilaterally TECHNIQUE: Grayscale, color, and doppler imaging of the deep venous system of both lower extremities was performed. COMPARISON: US US EXTREMITY VENOUS BI from 04/06/2023 FINDINGS: This is a positive study for extensive bilateral DVTs from the groins down into the lower calfs. The re is intraluminal thrombus now evident from the common femoral veins down through the femoral veins and popliteal veins into the calf veins bilaterally involving calf veins to the distal thigh. Both p osterior tibial veins in both legs are involved as well as the peroneal veins of the calf bilaterally . There is thrombus also noted in the greater saphenous veins, proximally on the right side and more ex tensively on the left side. IMPRESSION: 1. Extensive bilateral DVTs at and below the common femoral veins from the groins down to the lower calf bilaterally. Suspect that there may also be intraluminal thrombus above the inguinal ligaments involving the iliac veins. 2. Patient is at high risk for pulmonary emboli. Called by myself to ER. DATA REPOSITORY:
[2023-04-26] MEDS: MAGNESIUM SULFATE 2 GM/50 ML BAG IVPB (12:18)
[2023-04-26 12:26] LABS: Abs Immature Grans 0.34 10^3/uL (0.0-0.06); Absolute Basophil Count 0.05 10^3/uL (0.0-0.2); Absolute Lymphocyte Count 1.96 10^3/uL (1.2-3.4); Absolute Neutrophil Count 10.25 10^3/uL (1.2-6.7); Basophils % 0.4; Eosinophils % 0.4; HCT 30.4 % (36.0-46.0); HGB 9.4 g/dL (11.2-15.7); Immature Grans % 2.5; Lymphocytes % 14.3; MCH 25.5 pg (27.0-33.0); MCHC 30.9 % (32.0-36.0); MCV 82 fL (80-95); MPV 9.6 fL (8.0-11.0); Monocytes % 7.5; Neutrophils % 74.9; Platelet Count 226 10^3/uL (130-400); RBC 3.69 10^6/uL (3.93-5.22); RDW 21.8 % (11.7-14.6); RDW-SD 63.9 fL; WBC 13.68 10^3/uL (4.4-10.8)
[2023-04-26 12:30] LABS: Absolute Eosinophil Count 0.05 10^3/uL (0.0-0.7); Absolute Monocyte Count 1.03 10^3/uL (0.1-0.8)
[2023-04-26 12:37] LABS: Anisocytosis 2+; Diff Comment RBC Morph Reviewed
[2023-04-26 12:38] LABS: Anion Gap 6.6 mmol/L (3-11); BUN 5 mg/dL (7-18); CO2 27.4 mmol/L (21.0-32.0); CREATININE 0.8 mg/dL (0.55-1.02); Calcium 8.1 mg/dL (8.5-10.1); Chloride 104 mmol/L (98-107); Estimated GFR 90.27 (mL/min/1.73m2); Glucose 100 mg/dL (74-106); Magnesium 1.2 mg/dL (1.8-2.4); Potassium 3.2 mmol/L (3.5-5.1); Sodium 138 mmol/L (136-145)
[2023-04-26] MEDS: Potassium Chloride 20 MEQ TABCR 40 MEQ PO (13:06)
[2023-04-26] MEDS: Magnesium Oxide 400 MG TAB 800 MG PO (13:06)
[2023-04-26] MEDS: Calcium Carbonate 1.5 GM TAB 3 GM PO (13:09)
[2023-04-26] MEDS: Heparin in 0.45% NaCl 25,000 UNIT/250 ML BAG 11 UNIT IV (14:44)
--- NOTE | 2023-04-26 15:06 | W.PM.HP.N ---
Date of service: 04/26/23 Time of Service: 15:06 Assessment and Plan Assessment and plan (1) DVT of lower extremity, bilateral: Status: Acute Assessment and plan: Duncan filter in place and due to previous resection is not candidate for oral anticoagulation. She has been on Lovenox 60 mg twice daily which is below the 1 mg/kg dosing. She has noted increased bilateral lower extremity edema and ultrasound does confirm extensive bilateral worsened DVT. Her case was discussed with heme-onc at [facility] Dr. Hernandez who does recommend 48 hours of IV heparin and discharged to home on IV Lovenox. 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 Admission is discussed with Dr. Garcia History of Present Illness History of Present Illness Chief Complaint: bilateral lower ext edema Narrative: This is a 47-year-old female patient past medical history significant for primary signet ring cell carcinoma stage IV adeno carcinoma of the small intestine. She is fully anticoagulated on Lovenox but has noted increased bilateral lower extremity edema so her cancer center sent her here for evaluation. Workup in the emergency department does show extensive worsening bilateral DVTs. Her case is discussed with heme-onc at [facility] and recommendations are for 48 hours of heparin IV and then discharged to home on Lovenox. Hemodynamically she has been stable with no other complaints Review of Systems All systems reviewed & are unremarkable except as noted in HPI and below PFSH All Active Problems (Updated 04/27/23 @ 15:05 by Georgette Pritchett MD, DC) Palliative care encounter (Acute) Candidal vulvovaginitis (Acute) Adenocarcinoma of small intestine, stage 4 (Acute) DVT of lower extremity, bilateral (Acute) Pleural effusion (Acute) Hypokalemia (Acute) Pneumonia (Acute) Pulmonary embolism (Chronic) Severe anemia (Acute) Hypomagnesemia (Acute) Generalized weakness (Acute) Hypotension (Acute) Dehydration (Acute) Acute kidney injury (Acute) Rash and nonspecific skin eruption (Acute) Hot flashes, menopausal (Acute) on venlafaxine Right flank pain, chronic (Acute) uncertain etiology 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 S/P exploratory laparotomy (~2020) s/p exp lap 12/2020 for diagnosis, s/p debulking surgery and intraabdominal chemo 03/2021 S/P BSO (bilateral salpingo-oophorectomy) (~12/2018) History of appendectomy History of bilateral ligation of fallopian tubes EGD - MAC (07/10/16) Family History (Updated 04/20/23 @ 20:35 by Jessica Agudelo APRN) Grandfather Diabetes Heart disease Stroke Grandmother Essential hypertension Personal history of malignant neoplasm Lung Grandmother Personal history of malignant neoplasm breast, maternal Maternal Aunt Personal history of malignant neoplasm breast Sister Crohn's disease Mother Cancer Social History Smoking/Tobacco Use Status: Former Tobacco Use tobacco type: cigarettes Quit Date: 06/02/01 Pack-years: 5 Smoking risk assessment performed?: Yes Alcohol Intake: current Alcohol Intake frequency: holidays/special occasions only Alcohol type: beer, wine and hard liquor Drug use: Never Substance use type: does not use Household members: spouse, family and children Housing: house Number of Children: 3 Education Level: college 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 Meds Allergies and Home Medications Allergies Allergy/AdvReac Type Severity Reaction Status Date / Time chlorhexidine Allergy Unverified 04/26/23 11:50 body wash for sx Allergy Uncoded 04/26/23 11:50 tegaderm Allergy Uncoded 04/26/23 11:50 Home Medications Medication Instructions Recorded Confirmed Type venlafaxine 75 mg capsule,extended 75 mg PO DAILY 06/04/21 04/26/23 History release 24 hr olanzapine 2.5 mg tablet 2.5 mg PO QHS 02/13/23 04/26/23 History venlafaxine 37.5 mg 37.5 mg PO DAILY 02/13/23 04/26/23 History capsule,extended release 24 hr dexamethasone 2 mg tablet 2 - 4 mg PO BID 02/22/23 04/26/23 History mirtazapine 15 mg tablet 15 mg PO QHS 02/22/23 04/26/23 History hydrocortisone 2.5 % topical cream 1 applic topical BID PRN 03/21/23 04/26/23 History ibuprofen 600 mg tablet 600 mg PO Q6H PRN 03/21/23 04/26/23 History fentanyl 25 mcg/hr transdermal 1 patch transdermal Q72H #10 ea 04/14/23 04/26/23 Rx patch 5fu 322 mg 04/17/23 History enoxaparin 60 mg/0.6 mL 60 mg subcut BID 04/17/23 04/26/23 History subcutaneous syringe (Lovenox) irinotecan 40 mg/2 mL intravenous 160 mg IV ONCE 04/17/23 04/26/23 History solution panitumumab 100 mg/5 mL (20 mg/mL) 400 mg IV 04/17/23 History intravenous solution omeprazole 20 mg capsule,delayed 20 mg PO DAILY 04/18/23 04/26/23 History release cefpodoxime 200 mg tablet 200 mg PO Q12H #10 tabs 04/22/23 04/26/23 Rx magnesium chloride 64 mg 64 mg PO BID #30 tabs 04/22/23 04/26/23 Rx (magnesium chloride) tablet,delayed release (Mag 64) potassium chloride 10 mEq 20 meq PO BID 04/26/23 04/26/23 History tablet,extended release lorazepam 1 mg tablet 1 mg PO QHS #90 tabs 04/27/23 04/27/23 Rx Exam Narrative Exam Narrative: White female of stated age in no acute distress head is atraumatic EOMs intact normal appearance of eyes nonicteric noninjected oral mucosas moist neck is supple no JVD full range of motion cardiovascular regular rate and rhythm respirations even and unlabored breath sounds are clear bilaterally abdomen benign extremities with +1-2 edema she reports this is improved from earlier during the day. She moves all extremities skin with no rashes or lesions she is neuro alert oriented no focal deficits psychiatric appropriate mood and affect Results Labs 04/27/23 12:40 04/27/23 12:40 Labs: Laboratory Results - last 24 hr 04/26/23 12:18 WBC 13.68 H RBC 3.69 L Hgb 9.4 L Hct 30.4 L MCV 82 MCH 25.5 L MCHC 30.9 L RDW 21.8 H Plt Count 226 MPV 9.6 Immature Gran % 2.5 Neutrophils % 74.9 Lymphocytes % 14.3 Monocytes % 7.5 Eosinophils % 0.4 Basophils % 0.4 Nucleated RBC % 0.0 Absolute Neutrophils 10.25 H Absolute Lymphocytes 1.96 Absolute Monocytes 1.03 H Absolute Eosinophils 0.05 Absolute Basophils 0.05 RBC Morphology See Below Anisocytosis 2+ Sodium 138 Potassium 3.2 L Chloride 104 Carbon Dioxide 27.4 Anion Gap 6.6 BUN 5 L Creatinine 0.8 Est GFR (CKD-EPI 2020) 90.27 Glucose 100 Calcium 8.1 L Magnesium 1.2 L Last Vital Signs Temp 36.9 C 04/26/23 12:32 Pulse 79 04/26/23 15:00 Resp 22 04/26/23 15:01 BP 93/60 L 04/26/23 15:00 Pulse Ox 95 04/26/23 15:01 Time Spent Time spent with Patient: 40-54 minutes Time was spent: preparing to see the patient(eg.review tests), obtaining and/or reviewing separately otained hiistory, ordering medications,tests, procedures, referring, communicating with other health memory care program resident and indepentently interpreting results
[2023-04-26 15:11] LABS: PTT Activated 35.3 sec (23.6-32.8)
[2023-04-26] MEDS: Dexamethasone 1 MG TAB 2 MG PO (17:27)
[2023-04-26] MEDS: Potassium Chloride 10 MEQ CAPCR 20 MEQ PO (19:48)
[2023-04-26] MEDS: Magnesium Chloride 64 MG TABCR PO (19:48)
[2023-04-26 21:08] LABS: PTT Activated 78.8 sec (23.6-32.8)
[2023-04-26] MEDS: Mirtazapine 15 MG TAB PO (21:27)
[2023-04-26] MEDS: OLANZapine 2.5 MG TAB PO (21:28)
[2023-04-27 03:33] LABS: PTT Activated 81.1 sec (23.6-32.8)
[2023-04-27 06:30] LABS: PTT Activated 75.3 sec (23.6-32.8)
[2023-04-27 07:34] VITALS: BP 106/72; PULSE 55; RESP 15; TEMP 36.6; O2SAT 95
[2023-04-27] MEDS: Heparin in 0.45% NaCl 25,000 UNIT/250 ML BAG 11 UNIT IV (08:37)
[2023-04-27] MEDS: Venlafaxine 75 MG CAPCR PO (08:38)
[2023-04-27] MEDS: Potassium Chloride 10 MEQ CAPCR 20 MEQ PO ×2 (08:38→20:41)
[2023-04-27] MEDS: Venlafaxine 37.5 MG CAPCR PO (08:38)
[2023-04-27] MEDS: Omeprazole 20 MG CAPCR PO (08:39)
[2023-04-27] MEDS: Dexamethasone 4 MG TAB PO (08:39)
[2023-04-27] MEDS: Magnesium Chloride 64 MG TABCR PO ×2 (08:39→20:41)
--- NOTE | 2023-04-27 09:17 | PDOC.CMIN ---
Date of service: 04/27/23 Time of Service: 09:17 Care Management Initial Assmt Initial Assessment REASON FOR HOSPITALIZATION:: Bilateral DVTs PREVIOUS FUNCTIONAL STATUS/SOCIAL/FAMILY SUPPORTS:: Hali lives in [place], [place] with her Gavino. She has 3 children, two of which are fraternal twins. Hali works at [employer] in [facility], however she has been unable to work of late due to illness. She is independent at baseline and does not receive any community services. CURRENT FUNCTIONAL STATUS:: Hali was sitting up in bed visiting with her daughters when CM met with her. She was smiling and stated that she feels well. She came to the hospital because she developed bilateral DVTs and needs IV Heparin for a couple of days. Hali denied the need for any new services at home. ADVANCE DIRECTIVES:: On file. Gavino [facility] Has patient been provided with info about the portal/API?: Yes Did the patient sign up for the portal?: Yes CODE STATUS:: DNR/DNI INSURANCE COVERAGE / FINANCIAL ISSUES:: BC/BS CURRENT HOME/COMMUNITY SERVICES/EQUIPMENT:: none PRIMARY CARE PHYSICIAN:: Muriel Castillo POTENTIAL DISCHARGE NEEDS:: follow up with community providers both locally and at [facility] PATIENT/FAMILY EDUCATION NEEDS:: Review of discharge instructions, limitations, follow up plan, discuss [facility] Me [employer] TRANSPORTATION:: via private vehicle with family PLAN:: Hali will likely be discharged home with no new services. She will follow up with her community providers and plan of care and transport with her . CM will continue to support Hali and her discharge planning considerations. PFSH All Active Problems (Updated 04/27/23 @ 15:05 by Georgette Pritchett MD, DC) Palliative care encounter (Acute) Candidal vulvovaginitis (Acute) Adenocarcinoma of small intestine, stage 4 (Acute) DVT of lower extremity, bilateral (Acute) Pleural effusion (Acute) Hypokalemia (Acute) Pneumonia (Acute) Pulmonary embolism (Chronic) Severe anemia (Acute) Hypomagnesemia (Acute) Generalized weakness (Acute) Hypotension (Acute) Dehydration (Acute) Acute kidney injury (Acute) Rash and nonspecific skin eruption (Acute) Hot flashes, menopausal (Acute) on venlafaxine Right flank pain, chronic (Acute) uncertain etiology 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 S/P exploratory laparotomy (~2020) s/p exp lap 12/2020 for diagnosis, s/p debulking surgery and intraabdominal chemo 03/2021 S/P BSO (bilateral salpingo-oophorectomy) (~12/2018) History of appendectomy History of bilateral ligation of fallopian tubes EGD - MAC (07/10/16) Family History (Updated 04/20/23 @ 20:35 by Jessica Agudelo APRN) Grandfather Diabetes Heart disease Stroke Grandmother Essential hypertension Personal history of malignant neoplasm Lung Grandmother Personal history of malignant neoplasm breast, maternal Maternal Aunt Personal history of malignant neoplasm breast Sister Crohn's disease Mother Cancer Social History Smoking/Tobacco Use Status: Former Tobacco Use tobacco type: cigarettes Quit Date: 06/02/01 Pack-years: 5 Smoking risk assessment performed?: Yes Alcohol Intake: current Alcohol Intake frequency: holidays/special occasions only Alcohol type: beer, wine and hard liquor Drug use: Never Substance use type: does not use Household members: spouse, family and children Housing: house Number of Children: 3 Education Level: college 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 Readmission Within the Past 30 Days Yes or No: Yes Date of First Admission Date of 1st Admission: 04/20/23 Date of this Admission Date of Admission: 04/27/23 This admission was: Through ED
--- NOTE | 2023-04-27 10:16 | W.PM.PROGNOT ---
Date of Service Date of service: 04/27/23 Time of Service: 10:16 Assessment and Plan Assessment and plan (1) DVT of lower extremity, bilateral: Status: Acute Assessment and plan: Heparin per protocol with plan to discharge home on Lovenox 70 mg subcu twice daily. 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 Palliative care consult placed with her palliative provider for continuity of care. Please see consultation report (3) Candidal vulvovaginitis: Status: Acute Assessment and plan: diflucan 150 mg orally today, and in 72 hours. (4) Discharge planning issues: Status: Acute Assessment and plan: Anticipated discharge home tomorrow with no new services Will follow-up with outpatient team and continue following with palliative Discussed with Dr. Garcia Subjective Subjective Patient reports: tolerating liquids well, tolerating a regular diet and afebrile; denies shortness of breath Interval history since last seen: reporting vaginal itching and discharge, reports consistent with yeast infection. Otherwise no complaints is eating and drinking bowels and bladder functioning Exam Const General: cooperative, comfortable and no acute distress Nutritional Appearance: average body habitus Orientation: alert, awake and oriented x3 HENMT Head: normal to inspection Face and sinus: normal facial exam Mouth: oral mucosae normal Eyes General: appearance normal, both eyes and all related structures Resp Effort & Inspection: normal respiratory effort Cardio Other: Well-perfused Neuro General: patient alert, patient awake and patient oriented x3 Objective Last Vital Signs Temp 36.6 C 04/27/23 07:34 Pulse 55 L 04/27/23 07:34 Resp 15 04/27/23 07:34 BP 106/72 04/27/23 07:34 Pulse Ox 95 04/27/23 07:34 Laboratory Results - last 24 hr 04/26/23 04/26/23 04/27/23 12:18 20:47 03:00 WBC 13.68 H RBC 3.69 L Hgb 9.4 L Hct 30.4 L MCV 82 MCH 25.5 L MCHC 30.9 L RDW 21.8 H Plt Count 226 MPV 9.6 Immature Gran % 2.5 Neutrophils % 74.9 Lymphocytes % 14.3 Monocytes % 7.5 Eosinophils % 0.4 Basophils % 0.4 Nucleated RBC % 0.0 Absolute Neutrophils 10.25 H Absolute Lymphocytes 1.96 Absolute Monocytes 1.03 H Absolute Eosinophils 0.05 Absolute Basophils 0.05 RBC Morphology See Below Anisocytosis 2+ APTT 35.3 H 78.8 H 81.1 H* Sodium 138 Potassium 3.2 L Chloride 104 Carbon Dioxide 27.4 Anion Gap 6.6 BUN 5 L Creatinine 0.8 Est GFR (CKD-EPI 2020) 90.27 Glucose 100 Calcium 8.1 L Magnesium 1.2 L 04/27/23 06:05 WBC RBC Hgb Hct MCV MCH MCHC RDW Plt Count MPV Immature Gran % Neutrophils % Lymphocytes % Monocytes % Eosinophils % Basophils % Nucleated RBC % Absolute Neutrophils Absolute Lymphocytes Absolute Monocytes Absolute Eosinophils Absolute Basophils RBC Morphology Anisocytosis APTT 75.3 H Sodium Potassium Chloride Carbon Dioxide Anion Gap BUN Creatinine Est GFR (CKD-EPI 2020) Glucose Calcium Magnesium Time Spent with Patient Time Spent with Patient: <25 minutes Time was spent: preparing to see the patient(eg.review tests), obtaining and/or reviewing separately otained hiistory, ordering medications,tests, procedures, referring, communicating with other health congregational care pastor, indepentently interpreting results and counseling the patient
[2023-04-27] MEDS: Fluconazole 150 MG TAB PO (11:05)
--- NOTE | 2023-04-27 11:21 | PHA.REVIEW2 ---
Pharmacy Admission Review Admission Clinical Review Admission Pharmacy Review: Candidal vulvovaginitis (Acute) DVT of lower extremity, bilateral (Acute) chlorhexidine Allergy (Unverified 04/26/23 11:50) body wash for sx Allergy (Uncoded 04/26/23 11:50) tegaderm Allergy (Uncoded 04/26/23 11:50) Resuscitation Status DNR/DNI Height 5 ft Weight 63.96 kg Comments Comments/Follow Ups: Per morning meeting, provider wants patient to complete 48 hours of heparin (will be done tomorrow) and then will be discharged with Lovenox. Home dose will be increased from 60mg to 70mg (weight increased). Patient given fluconazole x 1 for yeast infection. Pharmacy Admission Review Renal Dosing Renal Dosing: BUN 5 mg/dL (7-18) L 04/26/23 12:18 Creatinine 0.8 mg/dL (0.55-1.02) 04/26/23 12:18 Medications needing adjustments: Reviewed (CrCl 71.01 mL/min) Anticoagulation Anticoagulation: Hgb 9.4 g/dL (11.2-15.7) L 04/26/23 12:18 Hct 30.4 % (36.0-46.0) L 04/26/23 12:18 Plt Count 226 10^3/uL (130-400) 04/26/23 12:18 Creatinine 0.8 mg/dL (0.55-1.02) 04/26/23 12:18 Therapeutic Anticoagulation: Reviewed Medications: Heparin (infusion) Opiate Usage Evaluate Pain Scale/Pains Meds: Reviewed (Has fentanyl patch from home, patch applied 04/26/23 per patient.) Scheduled Bowel Reg ordered if on Opiates?: No Relevant Labs Relevant Labs: Sodium 138 mmol/L (136-145) 04/26/23 12:18 Potassium 3.2 mmol/L (3.5-5.1) L 04/26/23 12:18 Chloride 104 mmol/L (98-107) 04/26/23 12:18 Magnesium 1.2 mg/dL (1.8-2.4) L 04/26/23 12:18 Electrolytes, C-Reactive P, ESR: Reviewed (Labs for today are pending. Per morning meeting provider plans on repleting potassium and magnesium if still low today.) Cardiac Review BP, HR, EF%: Reviewed (BP WNL, HR 55) QTc Review QTc: Reviewed (427 04/26/23) IV to PO Switch IV Medications: Reviewed Home Meds Home Med List reviewed: Reviewed Relevent Home Meds Not ordered & why?: Only medications not ordered are her cancer treatment meds (5FU, Irinotecan and panitumumab). Takes enoxaparin at home, currently on hold being treated for DVT with heparin infusion. Current Meds Current Medication Order Review: Reviewed Comments Comments/Follow Ups: Per morning meeting, provider wants patient to complete 48 hours of heparin (will be done tomorrow) and then will be discharged with Lovenox. Home dose will be increased from 60mg to 70mg (weight increased). Patient given fluconazole x 1 for yeast infection.
[2023-04-27 12:47] LABS: Abs Immature Grans 0.34 10^3/uL (0.0-0.06); Absolute Basophil Count 0.06 10^3/uL (0.0-0.2); Absolute Eosinophil Count 0.15 10^3/uL (0.0-0.7); Absolute Lymphocyte Count 1.78 10^3/uL (1.2-3.4); Basophils % 0.4; HCT 32.7 % (36.0-46.0); HGB 9.9 g/dL (11.2-15.7); Immature Grans % 2.2; Lymphocytes % 11.7; MCH 24.8 pg (27.0-33.0); MCHC 30.3 % (32.0-36.0); MCV 82 fL (80-95); MPV 9.6 fL (8.0-11.0); Monocytes % 7.6; Neutrophils % 77.1; Platelet Count 321 10^3/uL (130-400); RDW-SD 63.7 fL; WBC 15.19 10^3/uL (4.4-10.8)
[2023-04-27 12:56] LABS: Anion Gap 7.4 mmol/L (3-11); BUN 6 mg/dL (7-18); CO2 26.6 mmol/L (21.0-32.0); CREATININE 0.9 mg/dL (0.55-1.02); Calcium 8.5 mg/dL (8.5-10.1); Chloride 102 mmol/L (98-107); Estimated GFR 78.37 (mL/min/1.73m2); Glucose 119 mg/dL (74-106); Magnesium 1.6 mg/dL (1.8-2.4); Potassium 3.7 mmol/L (3.5-5.1); Sodium 136 mmol/L (136-145)
[2023-04-27 13:00] LABS: PTT Activated 48.8 sec (23.6-32.8)
[2023-04-27 13:02] LABS: Absolute Monocyte Count 1.15 10^3/uL (0.1-0.8); Absolute Neutrophil Count 11.71 10^3/uL (1.2-6.7)
[2023-04-27 13:03] LABS: RDW 21.6 % (11.7-14.6)
[2023-04-27] MEDS: Dexamethasone 1 MG TAB 2 MG PO (13:27)
--- NOTE | 2023-04-27 15:01 | PCNE_ITS ---
Date of service: 04/27/23 Time of Service: 15:02 History of Present Illness Narrative: From H and P Assessment and plan (1) DVT of lower extremity, bilateral: Status: Acute Assessment and plan: [place] filter in place and due to previous resection is not candidate for oral anticoagulation. She has been on Lovenox 60 mg twice daily which is below the 1 mg/kg dosing. She has noted increased bilateral lower extremity edema and ultrasound does confirm extensive bilateral worsened DVT. Her case was discussed with heme-onc at [facility] Dr. Hernandez who does recommend 48 hours of IV heparin and discharged to home on IV Lovenox. (2) Interim Hx: Hali is a 47-year-old Palliative patient of mine. She has primary signet ring carcinoma with widespread metastasis. Recently she developed a DVT despite being on DOAC's. She was started on Lovenox twice daily. Unfortunately her legs greatly increased with edema and pain. She came to the emergency room was found to be low in both potassium and magnesium. [facility] heme-onc was consulted and it was recommended that she go on 2 days of heparin and then home on IV Lovenox but on a higher dose. I am seeing her in her hospital room. As is usual she has a large smile on her face. Her twin sister is with her. So is her daughter. She states that she feels much much better. She is no longer having the cramps. Her legs still feel heavy and look swollen but much less so than what they did. There were some problems with the lorazepam when I had sent it in last week. There was also some confusion about my next visit Assessment and Plan Assessment and plan (1) Adenocarcinoma of small intestine, stage 4: Status: Acute (2) DVT of lower extremity, bilateral: Status: Acute (3) Palliative care encounter: Status: Acute Assessment and plan: Hali has severe metastasis from her signet cell carcinoma. She now has DVTs that are extensive as well as PEs. She graduated from DOACs to Lovenox which was slightly underdosed. Plan is to go home on Lovenox 70 units twice daily. Her pain is being well-controlled with her fentanyl patch. I recently called this and I will check on the lorazepam as to why this was not available to her after I prescribed this I plan to see her on May 11. I will have someone from my staff state that time and also communicate this with [place] so that she does not have to make 2 trips and I can see her at [facility] Review of Systems Narrative: Overall feeling better. No chest pain. She does have pressure sensation with standing but it is improved. Today she does not feel dizzy PFSH All Active Problems (Updated 04/27/23 @ 15:05 by Georgette Pritchett MD, [place]) Palliative care encounter (Acute) Candidal vulvovaginitis (Acute) Adenocarcinoma of small intestine, stage 4 (Acute) DVT of lower extremity, bilateral (Acute) Pleural effusion (Acute) Hypokalemia (Acute) Pneumonia (Acute) Pulmonary embolism (Chronic) Severe anemia (Acute) Hypomagnesemia (Acute) Generalized weakness (Acute) Hypotension (Acute) Dehydration (Acute) Acute kidney injury (Acute) Rash and nonspecific skin eruption (Acute) Hot flashes, menopausal (Acute) on venlafaxine Right flank pain, chronic (Acute) uncertain etiology 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 S/P exploratory laparotomy (~2020) s/p exp lap 12/2020 for diagnosis, s/p debulking surgery and intraabdominal chemo 03/2021 S/P BSO (bilateral salpingo-oophorectomy) (~12/2018) History of appendectomy History of bilateral ligation of fallopian tubes EGD - MAC (07/10/16) Family History (Updated 04/20/23 @ 20:35 by Jessica Agudelo APRN) Grandfather Diabetes Heart disease Stroke Grandmother Essential hypertension Personal history of malignant neoplasm Lung Grandmother Personal history of malignant neoplasm breast, maternal Maternal Aunt Personal history of malignant neoplasm breast Sister Crohn's disease Mother Cancer Social History Smoking/Tobacco Use Status: Former Tobacco Use tobacco type: cigarettes Quit Date: 06/02/01 Pack-years: 5 Smoking risk assessment performed?: Yes Alcohol Intake: current Alcohol Intake frequency: holidays/special occasions only Alcohol type: beer, wine and hard liquor Drug use: Never Substance use type: does not use Household members: spouse, family and children Housing: house Number of Children: 3 Education Level: college current occupation: [email or web address] - [employer] Duration: 45-60 minutes/day Frequency: 3-4 times per week Amelie/Holiness: No preference Special amelie needs: No Seatbelt use: always Do you feel safe at home: Yes Do you feel safe in your relationship?: Yes Additional Social history: Enjoys exercise. Exam Narrative Exam Narrative: Hali has her ever present smile on her face. Despite her present condition she is smiling and engaging. Her heart is regular. Lungs a few scattered rales. Abdomen bowel sounds present. Mood unbelievably good given the face of what is going on with her. Legs they still have 1-2+ edema but per everyone in the room they are greatly improved from what they were when she came into the hospital Results Last Vital Signs Temp 97.9 F 04/27/23 07:34 Pulse 55 L 04/27/23 07:34 Resp 15 04/27/23 07:34 BP 106/72 04/27/23 07:34 Pulse Ox 95 04/27/23 07:34 LE US FINDINGS: This is a positive study for extensive bilateral DVTs from the groins down into the lower calfs. There is intraluminal thrombus now evident from the common femoral veins down through the femoral veins and popliteal veins into the calf veins bilaterally involving calf veins to the distal thigh. Both posterior tibial veins in both legs are involved as well as the peroneal veins of the calf bilaterally. There is thrombus also noted in the greater saphenous veins, proximally on the right side and more extensively on the left side. IMPRESSION: 1. Extensive bilateral DVTs at and below the common femoral veins from the groins down to the lower calf bilaterally. Suspect that there may also be intraluminal thrombus above the inguinal ligaments involving the iliac veins. 2. Patient is at high risk for pulmonary emboli. CT Abd and Pelvis ABDOMEN: Lung Bases: There is a moderate size left pleural effusion and subjacent infiltrate. Liver: Normal density. No hepatic mass is seen. There is diffuse decreased attenuation of the liver consistent with fatty infiltration. Portal, Superior Mesenteric, and Splenic Veins: Unremarkable. Gallbladder and Biliary Tract: Cholelithiasis. No significant biliary ductal dilatation. Pancreas: Normal density, no abnormal calcifications or inflammatory process. Spleen: Normal. Adrenals: No masses seen. Kidneys: Normal size, contour and axis. Bilateral nephrolithiasis. No obstructive uropathy. No masses seen. Abdominal Aorta: Abdominal portion non-dilated. IVC: There is an IVC filter in place. Bowel: There is no evidence of bowel obstruction. Anastomosis clips are seen in the right colon. Evaluation of the bowel is limited secondary to the extensive peritoneal metastatic disease. No evidence of an active GI bleed. Peritoneal Cavity: Extensive hypodense metastatic disease is seen in the peritoneum with implants involving most of the abdominal organs. The findings have significantly advanced since the CT scan from 05/17/2021. No free air. Lymph Nodes: Within normal limits. Bones: Within normal limits for the patient's age. No aggressive osseous lesions are present. Soft Tissues: Metastatic implants are seen in the anterior abdominal wall in the midline and on the left. PELVIS: Bladder: Symmetric distention, no gross wall thickening. Reproductive Organs: There is cystic structures seen bilaterally in the pelvis in the adnexal region which may represent enlarged ovarian masses versus metastatic disease. Lymph Nodes: Within normal limits. Bones: Within normal limits for the patient's age. IMPRESSION: 1. Marked progression of the abdominal pelvic metastatic disease. 2. Moderate left pleural effusion and left basilar infiltrate which may represent atelectasis or pneumonia. 3. Incidental findings in the abdomen and pelvis as described above. Labs 04/27/23 12:40 04/27/23 12:40 Labs: Laboratory Results - last 24 hr 04/26/23 04/26/23 04/27/23 12:18 20:47 03:00 WBC RBC Hgb Hct MCV MCH MCHC RDW Plt Count MPV Immature Gran % Neutrophils % Lymphocytes % Monocytes % Eosinophils % Basophils % Nucleated RBC % Absolute Neutrophils Absolute Lymphocytes Absolute Monocytes Absolute Eosinophils Absolute Basophils APTT 35.3 H 78.8 H 81.1 H* Sodium Potassium Chloride Carbon Dioxide Anion Gap BUN Creatinine Est GFR (CKD-EPI 2020) Glucose Calcium Magnesium 04/27/23 04/27/23 06:05 12:40 WBC 15.19 H RBC 4.00 Hgb 9.9 L Hct 32.7 L MCV 82 MCH 24.8 L MCHC 30.3 L RDW 21.6 H Plt Count 321 MPV 9.6 Immature Gran % 2.2 Neutrophils % 77.1 Lymphocytes % 11.7 Monocytes % 7.6 Eosinophils % 1.0 Basophils % 0.4 Nucleated RBC % 0.0 Absolute Neutrophils 11.71 H Absolute Lymphocytes 1.78 Absolute Monocytes 1.15 H Absolute Eosinophils 0.15 Absolute Basophils 0.06 APTT 75.3 H 48.8 H Sodium 136 Potassium 3.7 Chloride 102 Carbon Dioxide 26.6 Anion Gap 7.4 BUN 6 L Creatinine 0.9 Est GFR (CKD-EPI 2020) 78.37 Glucose 119 H Calcium 8.5 Magnesium 1.6 L
[2023-04-27 15:07] VITALS: BP 95/65; PULSE 78; RESP 16; TEMP 37.8; O2SAT 96
--- NOTE | 2023-04-27 15:10 | CHAPLAIN ---
Hali was sleeping when I visited. I spoke with her family member/friend who was in the room. Hali was here a few days ago as well.
[2023-04-27 15:15] VITALS: BP 105/60
[2023-04-27 15:21] VITALS: TEMP 37.8
[2023-04-27] MEDS: Ibuprofen 600 MG TAB PO (15:21)
[2023-04-27 16:25] VITALS: BP 105/70; PULSE 76; RESP 15; TEMP 37.1; O2SAT 96
[2023-04-27] MEDS: LORazepam 1 MG TAB PO (20:41)
[2023-04-27] MEDS: OLANZapine 2.5 MG TAB PO (20:41)
[2023-04-27] MEDS: Mirtazapine 15 MG TAB PO (20:42)
[2023-04-27 21:36] VITALS: BP 101/70; PULSE 64; RESP 16; TEMP 36; O2SAT 96
[2023-04-28 02:30] VITALS: BP 102/65; PULSE 70; RESP 16; TEMP 36; O2SAT 100
[2023-04-28] MEDS: Heparin in 0.45% NaCl 25,000 UNIT/250 ML BAG 10 UNIT IV (05:44)
[2023-04-28 06:18] LABS: Abs Immature Grans 0.24 10^3/uL (0.0-0.06); Absolute Basophil Count 0.04 10^3/uL (0.0-0.2); Absolute Lymphocyte Count 1.53 10^3/uL (1.2-3.4); Absolute Monocyte Count 0.67 10^3/uL (0.1-0.8); Absolute Neutrophil Count 9.75 10^3/uL (1.2-6.7); Basophils % 0.3; HCT 31.5 % (36.0-46.0); HGB 9.7 g/dL (11.2-15.7); Lymphocytes % 12.5; MCH 25.4 pg (27.0-33.0); MCHC 30.8 % (32.0-36.0); MCV 83 fL (80-95); MPV 9.7 fL (8.0-11.0); Monocytes % 5.5; Neutrophils % 79.7; Platelet Count 287 10^3/uL (130-400); RBC 3.82 10^6/uL (3.93-5.22); RDW-SD 63.7 fL; WBC 12.23 10^3/uL (4.4-10.8)
[2023-04-28 06:26] LABS: RDW 21.4 % (11.7-14.6)
[2023-04-28 07:37] VITALS: BP 115/72; PULSE 62; RESP 18; TEMP 36.5; O2SAT 98
[2023-04-28] MEDS: Omeprazole 20 MG CAPCR PO (07:59)
[2023-04-28] MEDS: Potassium Chloride 10 MEQ CAPCR 20 MEQ PO (07:59)
[2023-04-28] MEDS: Dexamethasone 4 MG TAB PO (07:59)
[2023-04-28] MEDS: Venlafaxine 75 MG CAPCR PO (07:59)
[2023-04-28] MEDS: Venlafaxine 37.5 MG CAPCR PO (07:59)
[2023-04-28] MEDS: Magnesium Chloride 64 MG TABCR PO (07:59)
[2023-04-28 08:48] LABS: PTT Activated 63.7 sec (23.6-32.8)
[2023-04-28] MEDS: MAGNESIUM SULFATE 1 GM/100 ML BAG IVPB (10:01)
[2023-04-28] MEDS: Enoxaparin 80 MG/0.8 ML SYR 70 MG SC (10:01)
--- NOTE | 2023-04-28 10:06 | DSE_ITS ---
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 Workup in the emergency department did show extensive worsening bilateral DVTs. Her case is discussed with heme-onc at [facility] and recommendations are for 48 hours of heparin IV and then discharged to home on Lovenox. Hemodynamically she has been stable with no other complaints. Her lovenox dose is adjusted up to 70 mg sc as she failed 60 mg and weight is 64 kg. Her magnesium and potassium repleted. stable for discharge to home with no new services. discussed with DR Garcia Home Meds and New Rx's Prescriptions: New potassium chloride 10 mEq Capsule, Extended Release 20 meq PO DAILY Qty: 60 0RF fluconazole 150 mg tablet 150 mg PO Q3D Qty: 4 0RF Rx Instructions: if needed for fungal infection enoxaparin [Lovenox] 80 mg/0.8 mL syringe 70 mg subcut BID Qty: 48 0RF Continued venlafaxine 75 mg capsule,extended release 24hr 75 mg PO DAILY hydrocortisone 2.5 % cream 1 applic topical BID PRN ibuprofen 600 mg tablet 600 mg PO Q6H PRN lorazepam 1 mg tablet 1 mg PO QHS Qty: 90 2RF olanzapine 2.5 mg tablet 2.5 mg PO QHS venlafaxine 37.5 mg capsule,extended release 24hr 37.5 mg PO DAILY Rx Instructions: In addition to venlafaxine 75mg daily mirtazapine 15 mg tablet 15 mg PO QHS dexamethasone 2 mg tablet 2 - 4 mg PO BID Rx Instructions: Take 2 tabs in AM and 1 tab in PM fentanyl 25 mcg/hr patch 72 hour 1 patch transdermal Q72H MDD 25mcg Qty: 10 0RF Rx Instructions: Cancer related pain panitumumab 100 mg/5 mL (20 mg/mL) solution 400 mg IV irinotecan 40 mg/2 mL solution 160 mg IV ONCE 5fu 322 mg omeprazole 20 mg capsule,delayed release(DR/EC) 20 mg PO DAILY Patient Comments: TAKE ONE CAPSULE BY MOUTH EVERY DAY Mag 64 64 mg Tablet,Delayed Release (Dr/Ec) 64 mg PO BID Qty: 30 0RF cefpodoxime 200 mg tablet 200 mg PO Q12H Qty: 10 0RF Rx Instructions: must administer with a meal/food potassium chloride 10 mEq tablet extended release 20 meq PO BID Patient Comments: TAKE TWO TABLETS BY MOUTH TWICE A DAY Discontinued enoxaparin [Lovenox] 60 mg/0.6 mL syringe 60 mg subcut BID Discharge Instructions Instructions: Deep Vein Thrombosis (DC) Stand Alone Forms: Nursing Discharge Form Referrals: Georgette Pritchett MD, [place] [[facility]] - (You will get a call from either PCP or Dr. Pritchett to confirm who you will need to follow up with upon discharge and when. If you do not receive a call, call them to make a follow up appointment. ) Muriel Castillo MD [Primary Care Provider] - 05/03/23 1:00 pm Activity:: Activity as Tolerated Equipment/Supplies:: No Equipment Needed Diet:: As Tolerated Discharge Orders Discharge Orders: Discharge Order (Routine); Ordered 04/28/23 Ordered By: Maggi Babcock DS: Summary Time Spent with Patient providing and/or coordinating discharge services: Less than 30 minutes Status at Discharge Functional status at discharge: independent ambulation Overall status at discharge: patient is back to baseline Mental Status: mental status grossly normal Speech and Movement: speech and movement normal Mood: congruent mood Affect: normal affect Exam Const General: cooperative, comfortable and no acute distress Nutritional Appearance: average body habitus Orientation: alert, awake and oriented x3 HENMT Head: normal to inspection Face and sinus: normal facial exam Mouth: oral mucosae normal Eyes General: appearance normal, both eyes and all related structures Resp Effort & Inspection: normal respiratory effort Cardio Other: Well-perfused Neuro General: patient alert, patient awake and patient oriented x3 Psych Mental Status: mental status grossly normal Speech and Movement: speech and movement normal Mood: congruent mood Affect: normal affect DS: Data Vitals/I&O Vitals and I&O: Vital Signs Temperature 36.5 C 04/28/23 07:37 Temperature Source Tympanic 04/28/23 07:37 Pulse 62 04/28/23 07:37 Pulse Rhythm Regular 04/28/23 07:50 Pulse 77 04/26/23 15:31 Respiratory Rate 18 04/28/23 07:37 Respiratory Effort Normal 04/28/23 07:50 Respiratory Depth Normal 04/28/23 07:50 Respiratory Pattern Normal 04/28/23 07:50 Blood Pressure 115/72 04/28/23 07:37 Blood Pressure Mean 71 04/26/23 15:31 Blood Pressure Position Sitting 04/26/23 12:32 Pulse Oximetry 98 04/28/23 07:37 Oxygen Delivery Method Room Air 04/28/23 07:37 Oxygen Flow Rate 0 04/28/23 07:37 Pain Level 0 04/28/23 07:37 Intake & Output 04/27/23 04/27/23 04/28/23 11:59 23:59 11:59 Intake Total 381.55 / 818.783 437.233 / 818.783 141.767 / 141.767 Output Total 140 / 140 Balance 241.55 / 678.783 437.233 / 678.783 141.767 / 141.767 Intake: IV 131.55 / 268.783 137.233 / 268.783 141.767 / 141.767 Oral 250 / 550 300 / 550 Output: Urine 140 / 140 Other: Urine Color Yellow Urine Appearance Clear Clear Clear Urine Odor None Comment Pt voiding independently in bathroom Stool Occult Blood Negative Stool Size Moderate Stool Characteristics Soft Formed Voiding Methods Toilet Toilet Toilet Data Completed and Pending Labs on day of discharge: Labs from last 24 hours 04/28/23 04/28/23 04/28/23 08:25 05:50 05:00 WBC 12.23 H RBC 3.82 L Hgb 9.7 L Hct 31.5 L MCV 83 MCH 25.4 L MCHC 30.8 L RDW 21.4 H Plt Count 287 MPV 9.7 Immature Gran % 2.0 Neutrophils % 79.7 Lymphocytes % 12.5 Monocytes % 5.5 Eosinophils % 0.0 Basophils % 0.3 Nucleated RBC % 0.0 Absolute Neutrophils 9.75 H Absolute Lymphocytes 1.53 Absolute Monocytes 0.67 Absolute Eosinophils 0.00 Absolute Basophils 0.04 APTT 63.7 H Cancelled Sodium Potassium Chloride Carbon Dioxide Anion Gap BUN Creatinine Est GFR (CKD-EPI 2020) Glucose Calcium Magnesium 04/28/23 04/27/23 04/27/23 02:08 19:48 12:40 WBC 15.19 H RBC 4.00 Hgb 9.9 L Hct 32.7 L MCV 82 MCH 24.8 L MCHC 30.3 L RDW 21.6 H Plt Count 321 MPV 9.6 Immature Gran % 2.2 Neutrophils % 77.1 Lymphocytes % 11.7 Monocytes % 7.6 Eosinophils % 1.0 Basophils % 0.4 Nucleated RBC % 0.0 Absolute Neutrophils 11.71 H Absolute Lymphocytes 1.78 Absolute Monocytes 1.15 H Absolute Eosinophils 0.15 Absolute Basophils 0.06 APTT 96.0 H* 86.0 H* 48.8 H Sodium 136 Potassium 3.7 Chloride 102 Carbon Dioxide 26.6 Anion Gap 7.4 BUN 6 L Creatinine 0.9 Est GFR (CKD-EPI 2020) 78.37 Glucose 119 H Calcium 8.5 Magnesium 1.6 L PFSH All Active Problems (Updated 04/27/23 @ 21:46 by Maggi Babcock NP) Discharge planning issues (Acute) Palliative care encounter (Acute) Candidal vulvovaginitis (Acute) Adenocarcinoma of small intestine, stage 4 (Acute) DVT of lower extremity, bilateral (Acute) Pleural effusion (Acute) Hypokalemia (Acute) Pneumonia (Acute) Pulmonary embolism (Chronic) Severe anemia (Acute) Hypomagnesemia (Acute) Generalized weakness (Acute) Hypotension (Acute) Dehydration (Acute) Acute kidney injury (Acute) Rash and nonspecific skin eruption (Acute) Hot flashes, menopausal (Acute) on venlafaxine Right flank pain, chronic (Acute) uncertain etiology 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 S/P exploratory laparotomy (~2020) s/p exp lap 12/2020 for diagnosis, s/p debulking surgery and intraabdominal chemo 03/2021 S/P BSO (bilateral salpingo-oophorectomy) (~12/2018) History of appendectomy History of bilateral ligation of fallopian tubes EGD - MAC (07/10/16) Family History (Updated 04/20/23 @ 20:35 by Jessica Agudelo APRN) Grandfather Diabetes Heart disease Stroke Grandmother Essential hypertension Personal history of malignant neoplasm Lung Grandmother Personal history of malignant neoplasm breast, maternal Maternal Aunt Personal history of malignant neoplasm breast Sister Crohn's disease Mother Cancer Social History Smoking/Tobacco Use Status: Former Tobacco Use tobacco type: cigarettes Quit Date: 06/02/01 Pack-years: 5 Smoking risk assessment performed?: Yes Alcohol Intake: current Alcohol Intake frequency: holidays/special occasions only Alcohol type: beer, wine and hard liquor Drug use: Never Substance use type: does not use Household members: spouse, family and children Housing: house Number of Children: 3 Education Level: college current occupation: [employer] - [employer] Duration: 45-60 minutes/day Frequency: 3-4 times per week Amelie/Judaism: No preference Special amelie needs: No Seatbelt use: always Do you feel safe at home: Yes Do you feel safe in your relationship?: Yes Additional Social history: Enjoys exercise. Time Spent with Patient Time Spent with Patient: <45 minutes Time was spent: preparing to see the patient(eg.review tests), obtaining and/or reviewing separately otained hiistory, ordering medications,tests, procedures, indepentently interpreting results and counseling the patient
--- NOTE | 2023-04-28 11:43 | PDOC.CMDIS ---
Date of service: 04/28/23 Time of Service: 11:43 LACE Index Scoring Tool Questions: Length of Stay (in days): 2 Was the patient admitted via the E.D.?: Yes Comorbidities: Metastatic Solid Tumor E.D. Visits: 3 Answers: Total Score: 13 Risk of Readmission: High Risk Care Management Discharge Plan Reason for Hospitalization: Bilateral DVTs Discharge Plan: Hali will be discharged home with no new services. She will follow up with her community providers and plan of care and transport with her . Patient/Family Education Needs: Review of discharge instructions, limitations, follow up plan, discuss Ask Me Three
[2023-04-28] MEDS: Heparin 500 UNITS/5 ML SYRINGE IVP (12:44)
== END 2023-04-28 12:52 | disposition home or self-care (01) | DRG 300 ==
LOC: ER 11:54 → MS 15:52
PROVIDERS: Nurse Practitioner Acute Care; Admitting Provider Internal Medicine; Emergency Provider Emergency Medicine; PCP Family Medicine; Visit Provider Internal Medicine
DX: I82.413 Acute embolism and thrombosis of femoral vein, bilateral (principal); C17.9 Malignant neoplasm of small intestine, unspecified; J90 Pleural effusion, not elsewhere classified; K50.90 Crohn's disease, unspecified, without complications; C79.62 Secondary malignant neoplasm of left ovary; I82.433 Acute embolism and thrombosis of popliteal vein, bilateral; I82.443 Acute embolism and thrombosis of tibial vein, bilateral; B37.31 Acute candidiasis of vulva and vagina; Z79.01 Long term (current) use of anticoagulants; E87.6 Hypokalemia; D64.9 Anemia, unspecified; R53.1 Weakness; F32.A Depression, unspecified; Z86.718 Personal history of other venous thrombosis and embolism; Z95.828 Presence of other vascular implants and grafts; Z87.891 Personal history of nicotine dependence
CPT/HCPCS: 00123; 36415; 80048; 93005; 96365; 96366; 96367; 99285; 83735; 85025; 85730; 93010; 93970; 99222; 99232; 99238; J1650; J3475; J8540

== ENCOUNTER 2023-04-30 03:02 | Emergency (ER) | payer BC, SELFPAY ==
[2023-04-30 03:14] VITALS: BP 107/81; PULSE 121; RESP 18; TEMP 36.6; O2SAT 99
--- NOTE | 2023-04-30 03:22 | W.ED.GENAD ---
Discharge Plan Discharge Details Chief Complaint: Abd Prob Clinical Impression: Nausea & vomiting, Intermittent small bowel obstruction Primary Care Provider: Muriel Castillo ED Provider: [facility] Home Meds and New Rx's Prescriptions: No Action venlafaxine 75 mg capsule,extended release 24hr 75 mg PO DAILY hydrocortisone 2.5 % cream 1 applic topical BID PRN ibuprofen 600 mg tablet 600 mg PO Q6H PRN lorazepam 1 mg tablet 1 mg PO QHS Qty: 90 2RF olanzapine 2.5 mg tablet 2.5 mg PO QHS venlafaxine 37.5 mg capsule,extended release 24hr 37.5 mg PO DAILY Rx Instructions: In addition to venlafaxine 75mg daily mirtazapine 15 mg tablet 15 mg PO QHS dexamethasone 2 mg tablet 2 - 4 mg PO BID Rx Instructions: Take 2 tabs in AM and 1 tab in PM fentanyl 25 mcg/hr patch 72 hour 1 patch transdermal Q72H MDD 25mcg Qty: 10 0RF Rx Instructions: Cancer related pain hyoscyamine sulfate 0.125 mg tablet,disintegrating 0.125 - 0.25 mg PO Q4H PRN (Reason: abdominal cramps) Qty: 30 3RF panitumumab 100 mg/5 mL (20 mg/mL) solution 400 mg IV irinotecan 40 mg/2 mL solution 160 mg IV ONCE 5fu 322 mg Patient Comments: chemo omeprazole 20 mg capsule,delayed release(DR/EC) 20 mg PO DAILY Patient Comments: TAKE ONE CAPSULE BY MOUTH EVERY DAY Mag 64 64 mg Tablet,Delayed Release (Dr/Ec) 64 mg PO BID Qty: 30 0RF cefpodoxime 200 mg tablet 200 mg PO Q12H Qty: 10 0RF Rx Instructions: must administer with a meal/food potassium chloride 10 mEq tablet extended release 20 meq PO BID Patient Comments: TAKE TWO TABLETS BY MOUTH TWICE A DAY potassium chloride 10 mEq Capsule, Extended Release 20 meq PO DAILY Qty: 60 0RF fluconazole 150 mg tablet 150 mg PO Q3D Qty: 4 0RF Rx Instructions: if needed for fungal infection enoxaparin [Lovenox] 80 mg/0.8 mL syringe 70 mg subcut BID Qty: 48 0RF Discharge Instructions Instructions: Bowel Obstruction (ED) Additional Instructions: At this time you have elected to go home. Please take small sips of water or electrolyte solution throughout the day. Do this for the next 24 to 36 hours. If you have no vomiting on this trial, then you can transition to soft liquids like applesauce, yogurt, pudding, or Jell-O. Do this until our 48, and if you continue to do well with no vomiting, then you can transition to a soft food diet with plenty of fluids. Please take the Zofran as needed. If you do have any vomiting please return for the admission that we discussed. If you notice any worsening of your symptoms, or any new symptoms such as vomiting, diarrhea, fever, chills, shortness of breath, chest pain, numbness, weakness, or fainting , please return immediately to the emergency department for reevaluation. Please follow up with your primary care provider as soon as possible for reassessment and reevaluation. As always, it was a pleasure participating in your medical care today. 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 Patient states that she has been doing so for the last 2 days. No blood in her vomit or stool. She has notable sharp epigastric abdominal pain. She denies fever or chills. She has not been able to keep anything down. She has been taking her home Zofran but with no improvement. She states that this feels worse and more painful than her normal episodes of vomiting. No other complaints at this time. No other modifying factors. Exam demonstrates voluntary guarding, pain and tenderness in the epigastric regions. Concern is for obstruction, pancreatitis, less likely cholecystitis. Will treat the patient's pain, give Zofran and Compazine, rehydrate with a liter of lactated Ringer's, get a CT scan of the abdomen. Will monitor closely and reassess. 7:46 AM There was a notable delay in the read for the CT scan. Laboratory workup has returned, patient does have a minimal white count, hemoglobin stable, renal function demonstrates an increase in creatinine to 1.8, which is certainly higher than normal for the patient. Lipase is normal. CT read has returned, I was contacted by the radiologist. [facility] is concerned that there may be evidence of a mild obstruction. Difficult to evaluate the transition point in general. However on clinical reassessment the patient is feeling much better. Her nausea and vomiting is completely resolved. Her abdominal pain is notably improved. I did discuss the case with the surgeon Dr. Jo, and due to her metastatic scenario, and her current status, he does not feel that she would be a surgical candidate as it is. I did discuss with the patient potential admission versus discharge, and she is requesting to go home. I did discuss the risks of this, including the potential that she could still be having an obstruction that will not resolve on its own. Understanding this she still feels that she would prefer to go home, and take small sips of fluid with the understanding that she may need to return if her vomiting returns. We will perform p.o. trial. Will get a repeat basic metabolic panel after she has been rehydrated with 2 L of lactated Ringer's. Additionally I did reach out to [facility] and discussed the case with them. 8:01 AM Patient feels well after a few small sips of water. We will continue to watch her to make sure she has no vomiting. Patient is still insistent that she would prefer to go home and does not want to stay to be admitted. Patient will be given a bottle of Zofran to go. I discussed dietary recommendations if she does well for the p.o. trial. Patient will be signed out to my colleague Dr. Ochoa for reassessment after p.o. trial. FINDINGS: Limitations: No oral or intravenous contrast. Pleural spaces: Small left pleural effusion again noted. Liver: Marked scalloping of the liver surface contour is again seen diffusely due to cystic serosal metastases. The liver is again heterogeneously hypoattenuating diffusely, likely due to fatty infiltration. The noncontrast nature of study and fatty infiltration of the liver limits sensitivity for detection of underlying liver masses. Gallbladder and bile ducts: Normal. No calcified stones. No ductal dilation. Pancreas: Normal. No ductal dilation. Spleen: Normal. No splenomegaly. Adrenal glands: Normal. No mass. Kidneys and ureters: There are a few bilateral punctate renal calculi. Otherwise unremarkable kidneys. No hydronephrosis. Stomach and bowel: Evaluation of bowel limited due to lack of oral or IV contrast and surrounding cystic metastases. An ileocolic anastomosis is again noted. Small bowel loops have become diffusely dilated and contain air-fluid levels, now measuring up to 3.4 cm in diameter. A transition point is unable to be delineated due to limitations of the study. The dilated small bowel loops are seen extending down to the right lower quadrant. There are no definite collapsed distal small bowel loops. Of note, on the recent comparison CT, there was prominent mass effect and distortion the distal small bowel near the ileocolic anastomosis from the surrounding cystic metastases. There is moderate stool in the ascending colon. The colon is normal in caliber. Appendix: Surgically absent. Intraperitoneal space: Stable moderate diffuse lobulated cystic peritoneal metastases. No free air. Vasculature: Inferior vena cava filter noted. Lymph nodes: Unremarkable. No enlarged lymph nodes. Urinary bladder: Unremarkable as visualized. Reproductive: Similar appearing masslike enlargement of the ovaries (image 69/series 2), which is not well evaluated due to adjacent cystic metastases and noncontrast nature of the study. Stable soft tissue attenuation mass in the umbilical region measuring 3.6 x 2.5 cm (image 53/series 2), consistent with metastasis. Bones/joints: Unremarkable. No acute fracture. Soft tissues: Healed midline abdominal incision. IMPRESSION: 1. Findings most consistent with interval development of a distal small bowel obstruction. A transition point is unable to be clearly delineated due to limitations of the study. It is possible that the transition point may be in the region of the ileocolic anastomosis. Please see above for further comments. Recommend surgical consult. 2. Stable moderate diffuse lobulated cystic peritoneal metastases and periumbilical metastasis. 3. Stable masslike enlargement of the ovaries. THIS REPORT CONTAINS FINDINGS THAT MAY BE CRITICAL TO PATIENT CARE. The findings were verbally communicated by me to [facility] via telephone conference at 7:30 AM EST on 04/30/2023. The findings were acknowledged and understood. Thank you for allowing us to participate in the care of your patient. Dictated and Authenticated by: Azeb West MD 04/30/2023 7:31 AM Eastern Time ([place] & [place]) HPI General Date/Time Provider Initiated Documentation: 04/30/23 03:04. 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 Patient states that she has been doing so for the last 2 days. No blood in her vomit or stool. She has notable sharp epigastric abdominal pain. She denies fever or chills. She has not been able to keep anything down. She has been taking her home Zofran but with no improvement. She states that this feels worse and more painful than her normal episodes of vomiting. No other complaints at this time. No other modifying factors. Related Data Home Medications Medication Instructions Recorded Confirmed venlafaxine 75 mg capsule,extended 75 mg PO DAILY 06/04/21 04/30/23 release 24 hr olanzapine 2.5 mg tablet 2.5 mg PO QHS 02/13/23 04/30/23 venlafaxine 37.5 mg 37.5 mg PO DAILY 02/13/23 04/30/23 capsule,extended release 24 hr dexamethasone 2 mg tablet 2 - 4 mg PO BID 02/22/23 04/30/23 mirtazapine 15 mg tablet 15 mg PO QHS 02/22/23 04/30/23 hydrocortisone 2.5 % topical cream 1 applic topical BID PRN 03/21/23 04/30/23 ibuprofen 600 mg tablet 600 mg PO Q6H PRN 03/21/23 04/30/23 fentanyl 25 mcg/hr transdermal 1 patch transdermal Q72H #10 ea 04/14/23 04/30/23 patch 5fu 322 mg 04/17/23 irinotecan 40 mg/2 mL intravenous 160 mg IV ONCE 04/17/23 04/26/23 solution panitumumab 100 mg/5 mL (20 mg/mL) 400 mg IV 04/17/23 intravenous solution omeprazole 20 mg capsule,delayed 20 mg PO DAILY 12/19/23 12/31/23 release cefpodoxime 200 mg tablet 200 mg PO Q12H #10 tabs 04/22/23 04/30/23 magnesium chloride 64 mg 64 mg PO BID #30 tabs 04/22/23 04/30/23 (magnesium chloride) tablet,delayed release (Mag 64) potassium chloride 10 mEq 20 meq PO BID 04/26/23 04/30/23 tablet,extended release lorazepam 1 mg tablet 1 mg PO QHS #90 tabs 04/27/23 04/30/23 enoxaparin 80 mg/0.8 mL 70 mg (0.7 mL) subcut BID #48 mL 04/28/23 04/30/23 subcutaneous syringe (Lovenox) fluconazole 150 mg tablet 150 mg PO Q3D 2 doses #4 tabs 04/28/23 04/30/23 potassium chloride 10 mEq 20 meq (2 x 10 mEq) PO DAILY #60 04/28/23 04/30/23 capsule,extended release caps hyoscyamine sulfate 0.125 mg 0.125 - 0.25 mg (1 - 2 x 0.125 mg) 04/29/23 04/30/23 disintegrating tablet PO Q4H PRN abdominal cramps #30 tabs Previous Rx's Medication Instructions Recorded fentanyl 25 mcg/hr transdermal 1 patch transdermal Q72H #10 ea 04/14/23 patch cefpodoxime 200 mg tablet 200 mg PO Q12H #10 tabs 04/22/23 magnesium chloride 64 mg 64 mg PO BID #30 tabs 04/22/23 (magnesium chloride) tablet,delayed release (Mag 64) lorazepam 1 mg tablet 1 mg PO QHS #90 tabs 04/27/23 enoxaparin 80 mg/0.8 mL 70 mg (0.7 mL) subcut BID #48 mL 04/28/23 subcutaneous syringe (Lovenox) fluconazole 150 mg tablet 150 mg PO Q3D 2 doses #4 tabs 04/28/23 potassium chloride 10 mEq 20 meq (2 x 10 mEq) PO DAILY #60 04/28/23 capsule,extended release caps hyoscyamine sulfate 0.125 mg 0.125 - 0.25 mg (1 - 2 x 0.125 mg) 04/29/23 disintegrating tablet PO Q4H PRN abdominal cramps #30 tabs Allergies Allergy/AdvReac Type Severity Reaction Status Date / Time chlorhexidine Allergy Unverified 04/30/23 03:57 body wash for sx Allergy Uncoded 04/30/23 03:57 tegaderm Allergy Uncoded 04/30/23 03:57 General Stated Complaint: Abd Prob ESTHELA: 2 Review of Systems All systems reviewed & are unremarkable except as noted in HPI and below PFSH All Active Problems (Updated 04/30/23 @ 08:04 by New [facility] DO) Intermittent small bowel obstruction (Acute) Nausea & vomiting (Acute) Palliative care encounter (Acute) Candidal vulvovaginitis (Acute) Adenocarcinoma of small intestine, stage 4 (Acute) DVT of lower extremity, bilateral (Acute) Pleural effusion (Acute) Hypokalemia (Acute) Pneumonia (Acute) Pulmonary embolism (Chronic) Severe anemia (Acute) Hypomagnesemia (Acute) Generalized weakness (Acute) Hypotension (Acute) Dehydration (Acute) Acute kidney injury (Acute) Rash and nonspecific skin eruption (Acute) Hot flashes, menopausal (Acute) on venlafaxine Right flank pain, chronic (Acute) uncertain etiology 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 S/P exploratory laparotomy (~2020) s/p exp lap 12/2020 for diagnosis, s/p debulking surgery and intraabdominal chemo 03/2021 S/P BSO (bilateral salpingo-oophorectomy) (~12/2018) History of appendectomy History of bilateral ligation of fallopian tubes EGD - MAC (07/10/16) Family History Grandfather Diabetes Heart disease Stroke Grandmother Essential hypertension Personal history of malignant neoplasm Lung Grandmother Personal history of malignant neoplasm breast, maternal Maternal Aunt Personal history of malignant neoplasm breast Sister Crohn's disease Mother Cancer Social History Smoking/Tobacco Use Status: Former Tobacco Use tobacco type: cigarettes Quit Date: 06/02/01 Pack-years: 5 Smoking risk assessment performed?: Yes Alcohol Intake: current Alcohol Intake frequency: holidays/special occasions only Alcohol type: beer, wine and hard liquor Drug use: Never Substance use type: does not use Household members: spouse, family and children Housing: house Number of Children: 3 Education Level: college current occupation: BANKER - lending Duration: 45-60 minutes/day Frequency: 3-4 times per week Amelie/Yarsanism: No preference Special amelie needs: No Seatbelt use: always Do you feel safe at home: Yes Do you feel safe in your relationship?: Yes Additional Social history: Enjoys exercise. Exam Narrative Exam Narrative: 1.Const: Well-nourished, Well-developed, appearing stated age 2.Eyes: PERRL, no conjunctival injection, and symmetrical lids. 3.ENT: Atraumatic external nose and ears. Dry MM. Neck: Symmetric, trachea midline, No thyromegaly. 4.CVS: +S1/S2, No murmurs or gallops. Peripheral pulses 2+ and equal in all extremities. Brisk capillary refill in all extremities. 5.RESP: Unlabored respiratory effort. Clear to auscultation bilaterally. No wheezes rales or rhonchi 6.GI: Soft, voluntary guarding. Pain and tenderness in the epigastric regions. 7.MSK: Normocephalic/Atraumatic, Extremities w/o deformity or ttp No cyanosis or clubbing, Normal movement of all extremities 8.Skin: Warm, Dry. No rashes or lesions. 9.Neuro: apparel embroidery digitizer II-XII grossly intact. Sensation grossly intact, no focal neurologic deficits. 10.Psych: (AAO) x3. Appropriate mood and affect Course Vital Signs Vital signs: Vital Signs Temperature 36.6 C 04/30/23 03:14 Pulse 121 H 04/30/23 03:14 Respiratory Rate 18 04/30/23 03:14 Blood Pressure 107/81 04/30/23 03:14 Pulse Oximetry 99 04/30/23 03:14 Temperature 36.6 C 04/30/23 03:14 Temperature Source Temporal Artery Scan 04/30/23 03:14 Pulse 121 H 04/30/23 03:14 Respiratory Rate 18 04/30/23 03:14 Respiratory Effort Normal, Non-Labored 04/30/23 03:16 Blood Pressure 107/81 04/30/23 03:14 Blood Pressure Position Sitting 04/30/23 03:14 Pulse Oximetry 99 04/30/23 03:14 Oxygen Delivery Method Room Air 04/30/23 03:14 Oxygen Flow Rate 0 04/30/23 03:14 Pain Level 10 04/30/23 03:14
[2023-04-30] MEDS: Prochlorperazine 10 MG/2 ML VIAL IVP (03:41)
[2023-04-30] MEDS: Ondansetron 4 MG/2 ML VIAL IVP ×2 (03:42→08:02)
[2023-04-30] MEDS: HYDROmorphone 2 MG/ML SYR 1 MG IVP (03:42)
[2023-04-30] MEDS: Lactated Ringers 1,000 ML 1000 ML IV ×2 (03:43→06:00)
[2023-04-30 03:44] LABS: Abs Immature Grans 0.28 10^3/uL (0.0-0.06); Absolute Basophil Count 0.06 10^3/uL (0.0-0.2); Basophils % 0.5; Eosinophils % 0.6; HCT 35.7 % (36.0-46.0); HGB 10.9 g/dL (11.2-15.7); Immature Grans % 2.3; MCH 25.3 pg (27.0-33.0); MCHC 30.5 % (32.0-36.0); MCV 83 fL (80-95); MPV 9.2 fL (8.0-11.0); Monocytes % 9.7; Neutrophils % 74.9; RBC 4.31 10^6/uL (3.93-5.22); RDW 21.7 % (11.7-14.6); RDW-SD 64.4 fL; WBC 12.38 10^3/uL (4.4-10.8)
[2023-04-30] MEDS: Normal Saline-STERILE FIELD 0.9% 10 ML SYR (03:56)
[2023-04-30 03:57] LABS: ALT 30 U/L (14-59); AST 47 U/L (15-37); Albumin 2.4 g/dL (3.4-5.0); Alkaline Phosphatase 140 U/L (46-116); Anion Gap 10.1 mmol/L (3-11); BUN 12 mg/dL (7-18); Bilirubin, Total 0.6 mg/dL (0.2-1.0); CO2 26.9 mmol/L (21.0-32.0); CREATININE 1.8 mg/dL (0.55-1.02); Calcium 9.9 mg/dL (8.5-10.1); Chloride 104 mmol/L (98-107); Estimated GFR 34.11 (mL/min/1.73m2); Glucose 90 mg/dL (74-106); Lipase 64 U/L (16-77); Magnesium 1.8 mg/dL (1.8-2.4); Potassium 4.6 mmol/L (3.5-5.1); Sodium 141 mmol/L (136-145); Total Protein 7.2 g/dL (6.4-8.2)
[2023-04-30 04:00] LABS: Absolute Eosinophil Count 0.07 10^3/uL (0.0-0.7); Absolute Lymphocyte Count 1.49 10^3/uL (1.2-3.4); Absolute Neutrophil Count 9.27 10^3/uL (1.2-6.7); Platelet Count 479 10^3/uL (130-400)
--- NOTE | 2023-04-30 04:00 | DI.CT_ITS ---
Exam(s) CT ABDOMEN PELVIS WO EXAM: CT ABDOMEN PELVIS WO CLINICAL HISTORY: multiple abd surgeries, vomiting, r/o obstruction. History of colon cancer. TECHNIQUE: Imaging Protocol: Axial computed tomography images with coronal and sagittal reformatted images were created and reviewed. Oral: no COMPARISON: CT CT CHEST ABDOMEN PELVIS W CONTRAST (GENERIC) from 04/04/[address] ABDOMEN PELVIS W from 04/20/2023 FINDINGS: Exam limited due to lack of IV an oral contrast. Lung Bases: Stable size of moderate left pleural effusion and adjacent atelectasis. Mild dependent c hanges right lung base. Liver: Normal density. No measurable mass. Peritoneal metastases again noted in circling the liver. Gallbladder and biliary tract: Peritoneal metastases obscure visualization of the gallbladder. No intrahepatic biliary dilatation. Pancreas: Normal density, no abnormal calcifications or inflammatory process. Spleen: Normal. Kidneys: Normal size, contour and axis. Tiny nonobstructing stones bilaterally. No obstructive urop athy. No suspicious masses seen. Adrenal glands: No masses seen. Lymph nodes: Within normal limits. Vasculature: Abdominal aorta non-dilated. IVC filter again noted. Soft tissues: Nodular densities again noted in abdominal wall, near the umbilicus and left side of th e abdomen. Bladder: No wall thickening. No mass or calculi. Bowel: Anastomotic clips noted in right colon. Dilated small bowel loops, new from prior. Transitio n point not identified. Peritoneal cavity: Extensive peritoneal metastases noted in circling abdominal organs. Reproductive organs: Uterus surrounded by peritoneal metastases. Ovaries not visible due to extensiv e pelvic peritoneal metastases. Bones: Unremarkable for age. IMPRESSION: Distal small bowel obstruction. Transition point not identified right side of colon contains stool. Little stool in the remainder of the colon. Diffuse peritoneal metastatic disease again noted. Stable left pleural effusion. RADIATION DOSE DELIVERED: Total DLP DATA REPOSITORY: All CT scans at this facility are submitted to the National Radiology Data Registry (NRDR) Dose Index Registry (DIR) with the [employer] (ACR). RADIATION OPTIMIZATION: All CT scans at this facility use at least one of these dose optimization te chniques: automated exposure control; mA and/or kV adjustment per patient size (includes targeted exa ms where dose is matched to clinical indication); or iterative reconstruction.
[2023-04-30 04:01] LABS: Anisocytosis 2+
[2023-04-30 04:02] LABS: Basophilic Stippling Present
--- NOTE | 2023-04-30 07:31 | DI.VRAD_ITS ---
PROCEDURE INFORMATION: Exam: CT Abdomen And Pelvis Without Contrast Exam date and time: 04/30/2023 4:14 AM Age: 47 years old Clinical indication: Vomiting; Prior surgery; Surgery date: 6+ months; Surgery type: Abd - for clean out (unsuccessful per patient). According to clinical history provided for a prior radiology report, the patient has chrons disease, PT has been diagnosed with colon cancer, ovarian cancer . TECHNIQUE: Imaging protocol: Computed tomography of the abdomen and pelvis without contrast. COMPARISON: CT ABDOMEN PELVIS W 04/20/2023 12:23 PM FINDINGS: Limitations: No oral or intravenous contrast. Pleural spaces: Small left pleural effusion again noted. Liver: Marked scalloping of the liver surface contour is again seen diffusely due to cystic serosal metastases. The liver is again heterogeneously hypoattenuating diffusely, likely due to fatty infiltration. The noncontrast nature of study and fatty infiltration of the liver limits sensitivity for detection of underlying liver masses. Gallbladder and bile ducts: Normal. No calcified stones. No ductal dilation. Pancreas: Normal. No ductal dilation. Spleen: Normal. No splenomegaly. Adrenal glands: Normal. No mass. Kidneys and ureters: There are a few bilateral punctate renal calculi. Otherwise unremarkable kidneys. No hydronephrosis. Stomach and bowel: Evaluation of bowel limited due to lack of oral or IV contrast and surrounding cystic metastases. An ileocolic anastomosis is again noted. Small bowel loops have become diffusely dilated and contain air-fluid levels, now measuring up to 3.4 cm in diameter. A transition point is unable to be delineated due to limitations of the study. The dilated small bowel loops are seen extending down to the right lower quadrant. There are no definite collapsed distal small bowel loops. Of note, on the recent comparison CT, there was prominent mass effect and distortion the distal small bowel near the ileocolic anastomosis from the surrounding cystic metastases. There is moderate stool in the ascending colon. The colon is normal in caliber. Appendix: Surgically absent. Intraperitoneal space: Stable moderate diffuse lobulated cystic peritoneal metastases. No free air. Vasculature: Inferior vena cava filter noted. Lymph nodes: Unremarkable. No enlarged lymph nodes. Urinary bladder: Unremarkable as visualized. Reproductive: Similar appearing masslike enlargement of the ovaries (image 69/series 2), which is not well evaluated due to adjacent cystic metastases and noncontrast nature of the study. Stable soft tissue attenuation mass in the umbilical region measuring 3.6 x 2.5 cm (image 53/series 2), consistent with metastasis. Bones/joints: Unremarkable. No acute fracture. Soft tissues: Healed midline abdominal incision. IMPRESSION: 1. Findings most consistent with interval development of a distal small bowel obstruction. A transition point is unable to be clearly delineated due to limitations of the study. It is possible that the transition point may be in the region of the ileocolic anastomosis. Please see above for further comments. Recommend surgical consult. 2. Stable moderate diffuse lobulated cystic peritoneal metastases and periumbilical metastasis. 3. Stable masslike enlargement of the ovaries. THIS REPORT CONTAINS FINDINGS THAT MAY BE CRITICAL TO PATIENT CARE. The findings were verbally communicated by me to [facility] via telephone conference at 7:30 AM EST on 04/30/2023. The findings were acknowledged and understood. Dictated and Authenticated by: Azeb West MD. Ordering:LASHONDA Wolff MD
[2023-04-30 08:01] LABS: Anion Gap 7.2 mmol/L (3-11); BUN 12 mg/dL (7-18); CO2 28.8 mmol/L (21.0-32.0); CREATININE 1.6 mg/dL (0.55-1.02); Calcium 9.5 mg/dL (8.5-10.1); Chloride 105 mmol/L (98-107); Estimated GFR 39.29 (mL/min/1.73m2); Glucose 80 mg/dL (74-106); Potassium 4.7 mmol/L (3.5-5.1); Sodium 141 mmol/L (136-145)
[2023-04-30] MEDS: Enoxaparin 80 MG/0.8 ML SYR 70 MG SC (08:02)
--- NOTE | 2023-04-30 08:38 | W.EDPROG ---
Date of service: 04/30/23 Time of Service: 08:38 Medical Decision Making pt tolerated po and has no vomit and on exam has no pain, still declines admission and has capacity to make her own decisions, she will f/u with her providers and return precautions given Sign Out Sign Out Data: Sign Out Comment: Abdominal pain with obstruction, palliative care patient, requesting to go home. If she tolerates p.o. trial, sent home with Jessica. Last updated by [place] DO at 04/30/23 08:09 Discharge Plan Disposition Patient Disposition: Home Condition: Stable Discharge Details Clinical Impression: Nausea & vomiting, Intermittent small bowel obstruction Primary Care Provider: Muriel Castillo ED Provider: Nathan Ochoa [place] Meds and New Rx's Prescriptions: Continued venlafaxine 75 mg capsule,extended release 24hr 75 mg PO DAILY hydrocortisone 2.5 % cream 1 applic topical BID PRN ibuprofen 600 mg tablet 600 mg PO Q6H PRN lorazepam 1 mg tablet 1 mg PO QHS Qty: 90 2RF olanzapine 2.5 mg tablet 2.5 mg PO QHS venlafaxine 37.5 mg capsule,extended release 24hr 37.5 mg PO DAILY Rx Instructions: In addition to venlafaxine 75mg daily mirtazapine 15 mg tablet 15 mg PO QHS dexamethasone 2 mg tablet 2 - 4 mg PO BID Rx Instructions: Take 2 tabs in AM and 1 tab in PM fentanyl 25 mcg/hr patch 72 hour 1 patch transdermal Q72H MDD 25mcg Qty: 10 0RF Rx Instructions: Cancer related pain hyoscyamine sulfate 0.125 mg tablet,disintegrating 0.125 - 0.25 mg PO Q4H PRN (Reason: abdominal cramps) Qty: 30 3RF panitumumab 100 mg/5 mL (20 mg/mL) solution 400 mg IV irinotecan 40 mg/2 mL solution 160 mg IV ONCE 5fu 322 mg Patient Comments: chemo omeprazole 20 mg capsule,delayed release(DR/EC) 20 mg PO DAILY Patient Comments: TAKE ONE CAPSULE BY MOUTH EVERY DAY Mag 64 64 mg Tablet,Delayed Release (Dr/Ec) 64 mg PO BID Qty: 30 0RF cefpodoxime 200 mg tablet 200 mg PO Q12H Qty: 10 0RF Rx Instructions: must administer with a meal/food potassium chloride 10 mEq tablet extended release 20 meq PO BID Patient Comments: TAKE TWO TABLETS BY MOUTH TWICE A DAY potassium chloride 10 mEq Capsule, Extended Release 20 meq PO DAILY Qty: 60 0RF fluconazole 150 mg tablet 150 mg PO Q3D Qty: 4 0RF Rx Instructions: if needed for fungal infection enoxaparin [Lovenox] 80 mg/0.8 mL syringe 70 mg subcut BID Qty: 48 0RF Discharge Instructions Instructions: Bowel Obstruction (ED) Additional Instructions: At this time you have elected to go home. Please take small sips of water or electrolyte solution throughout the day. Do this for the next 24 to 36 hours. If you have no vomiting on this trial, then you can transition to soft liquids like applesauce, yogurt, pudding, or Jell-O. Do this until our 48, and if you continue to do well with no vomiting, then you can transition to a soft food diet with plenty of fluids. Please take the Zofran as needed. If you do have any vomiting please return for the admission that we discussed. If you notice any worsening of your symptoms, or any new symptoms such as vomiting, diarrhea, fever, chills, shortness of breath, chest pain, numbness, weakness, or fainting , please return immediately to the emergency department for reevaluation. Please follow up with your primary care provider as soon as possible for reassessment and reevaluation. As always, it was a pleasure participating in your medical care today. Referrals: Muriel Castillo MD [Primary Care Provider] -
[2023-04-30 08:47] VITALS: BP 120/85; PULSE 69; RESP 18; TEMP 37; O2SAT 95
[2023-04-30] MEDS: Ondansetron O.D.T. 4 MG TABEF, 3 TABS/BTL PO (08:56)
[2023-04-30] MEDS: Heparin 500 UNITS/5 ML SYRINGE (09:02)
== END 2023-04-30 09:07 | disposition home or self-care (01) ==
PROVIDERS: Student in an Organized Health Care Education/Training Program; Emergency Provider Emergency Medicine; PCP Family Medicine
DX: C17.2 Malignant neoplasm of ileum (principal); K56.609 Unspecified intestinal obstruction, unspecified as to partial versus complete obstruction; R11.2 Nausea with vomiting, unspecified; Z51.5 Encounter for palliative care
CPT/HCPCS: 00123; 36415; 80048; 80053; 83690; 96361; 96372; 96374; 96375; 96376; 99285; 74176; 83735; 85025; J0780; J1170; J1650; J2405